=== PATIENT | male | born 1940 | race Caucasian/White ===

== ENCOUNTER → 2016-07-11 | Outpatient (REF) | payer MEDICARE ==
[~2016-07-11] MED LIST: /BUSP5TA PO; /IPRAINH INH; /TAMS4CA OR; ACET500C OR; ALBU83IN INH; ALBUTEROL INH; AMATIZA PO; AMBI10TA OR; AMIT24CA5 PO; ASPI81TA63 OR; ASTEPRO; AVOD0.5C OR; AVOD0.5C PO; AZEL0.055; BUSP5TA PO; BYST2.5T2 PO; CALCCHW12 OR; CALCTAB22 OR; CALCTAB75 PO; COLA100C2 OR; DICL0.1S7 TOP; DICL1GEL TD; DIGO0.12 PO; DOCU250C PO; FURO20TA2 PO; LACT10SO29 PO; LIDO1OIN2 TOP; MAXA10TA17 OR; METF500T PO; METF500T4 PO; METOCLOPRAM PO; OMNARIS NASAL SPRAY; PERC5TAB6 PO; PERFORMIST INH; PHEN 25 PO; PREV15CA OR; PREV30CA11 PO; PROA1AER INH; REGL5TAB2 PO; RIZA5TAB PO; SENN8.6C PO; SENO8.6T5 OR; SIMV40TA2 OR; SIMV40TA2 PO; TAMS0.4C2 PO; TRAM50TA2 OR; TRAM50TA2 PO; TYLENOL ARTHRITIS PO; VIT D 2000 PO; VITATAB11 PO; VOLT1GEL TOP; XARE20TA PO; ZOLP5TAB PO; asmanex PO; bystolic; bystolic PO
== END ==
LOC: M LAB REF 12:39
PROVIDERS: ATTEND Physician Assistant Medical
DX: H60.8X1 Other otitis externa, right ear (principal)

== ENCOUNTER → 2016-08-10 | Outpatient (CLI) | payer MEDICARE ==
[~2016-08-10] VITALS: Ht 185.4 cm; Wt 91.1 kg
[~2016-08-10] MED LIST changes: +ASMA220A IN; +BENA25CA4 PO; +DUTA1CAP PO; +FLOM5CAP PO; +K-TA10TA PO; +K-TA10TA2 PO; +LIDOCAINE 2% INJ 100 MG/5 ML SDV (FOR ANES.) As Ordered ONE; +NASA1SPR; +NS 1,000 ML IV SCH; +PROPOFOL 200 MG/20 ML VIAL As Ordered ONE; +TYLE500T78 PO; +VITATAB54 PO; +[UNRECOGNIZED DRUG - CODE] TOP; +[UNRECOGNIZED DRUG - CODE] XX
--- NOTE | 2016-08-10 14:09 | ROOR ---
Patient Name: Bijan Mclean Procedure Date: 08/10/2016 1:23 PM Date of : 1940 Age: 75 Room: [facility] Gender: Male Note Status: Finalized Procedure: Colonoscopy Indications: Abnormal CT of the GI tract Providers: Clemente VILLALOBOS MD Referring MD: Marianne Marcial DO Requesting Provider: Medicines: Monitored Anesthesia Care Complications: No immediate complications. Procedure: Pre-Anesthesia Assessment: - The heart rate, respiratory rate, oxygen saturations, blood pressure, adequacy of pulmonary ventilation, and response to care were monitored throughout the procedure. The Colonoscope was introduced through the anus and advanced to the cecum, identified by appendiceal orifice and ileocecal valve. The colonoscopy was performed without difficulty. The patient tolerated the procedure well. The quality of the bowel preparation was good. Findings: The perianal and digital rectal examinations were normal. (EXAM: Complete, PREP:Adequate) A 3 mm polyp was found in the cecum. The polyp was sessile. The polyp was removed with a cold snare. Resection and retrieval were complete. A 4 mm polyp was found in the recto-sigmoid colon. The polyp was sessile. The polyp was removed with a cold snare. Resection and retrieval were complete. The exam was otherwise without abnormality on direct and retroflexion views. Impression: - (EXAM: Complete, PREP:Adequate) - One 3 mm polyp in the cecum, removed with a cold snare. Resected and retrieved. - One 4 mm polyp at the recto-sigmoid colon, removed with a cold snare. Resected and retrieved. - The examination was otherwise normal on direct and retroflexion views. ( no lumenal rectal lesion is identified on this exam) Recommendation: - Telephone endoscopist for pathology results in 2 weeks. - If the pathology report reveals adenomatous tissue, then repeat the colonoscopy for surveillance in 5 years. - Resume Xarelto (rivaroxaban) at prior dose today. Clemente Villalobos MD Clemente VILLALOBOS MD 08/10/2016 2:08:38 PM This report has been signed electronically. Number of Addenda: 0 Note Initiated On: 08/10/2016 1:23 PM Estimated Blood Loss: Estimated blood loss: none.
[2016-08-10 14:40] VITALS: BP 113/67
== END | disposition home or self-care (01) ==
LOC: M OPP 12:07
PROVIDERS: ATTEND Internal Medicine Gastroenterology
DX: D12.0 Benign neoplasm of cecum (principal); D12.7 Benign neoplasm of rectosigmoid junction; I10 Essential (primary) hypertension; I48.91 Unspecified atrial fibrillation; E78.5 Hyperlipidemia, unspecified; J45.909 Unspecified asthma, uncomplicated; E11.9 Type 2 diabetes mellitus without complications; J44.9 Chronic obstructive pulmonary disease, unspecified; G47.30 Sleep apnea, unspecified; K21.9 Gastro-esophageal reflux disease without esophagitis; Z91.048 Other nonmedicinal substance allergy status; Z87.891 Personal history of nicotine dependence

== ENCOUNTER → 2016-10-09 | Outpatient (CLI) | payer MEDICARE ==
[~2016-10-09] MED LIST changes: -LIDOCAINE 2% INJ 100 MG/5 ML SDV (FOR ANES.) As Ordered ONE; -NS 1,000 ML IV SCH; -PROPOFOL 200 MG/20 ML VIAL As Ordered ONE
--- NOTE | 2016-10-09 10:36 | REP ---
CT STUDY OF THE INTERNAL AUDITORY CANALS WITHOUT CONTRAST: HISTORY: Otalgia on the right side. Comparison CT, neck soft tissue study is from June 11, 2016. TECHNIQUE: Helical scanning is acquired and 1 mm contiguous axial images are reformatted. Coronal multiplanar re-formation images are generated as well. CT FINDINGS: The mastoid sinuses are bilaterally atypically well-developed and well-aerated. Air cells are not opacified. There is no evidence to suggest mastoiditis. The external auditory canals are unremarkable and symmetric. Middle ear cavities are aerated bilaterally. The otic capsule is intact bilaterally. Cochlear and vestibular apparatus is normal. Internal auditory canals are normal and symmetric. There is no visible CP angle cistern mass or other significant intracranial abnormality. No intraorbital abnormality is seen. The adjacent segments of the parotid glands and periauricular soft tissues are unremarkable. No adenopathy or abnormal fluid collection is seen. IMPRESSION: Normal internal auditory canal CT study bilaterally. Signed by Adelfo Galeas MD 10/09/2016 02:54 P
== END ==
LOC: M RAD 09:40
PROVIDERS: ATTEND Physician Assistant Medical
DX: H92.01 Otalgia, right ear (principal)

== ENCOUNTER 2016-11-07 10:50 | Emergency (ER) | payer MEDICARE ==
[~2016-11-07] VITALS: Ht 185.4 cm; Wt 90.7 kg
[2016-11-07] MEDS ORDERED: NS 1,000 ML IV SCH (11:45)
[2016-11-07] MEDS ORDERED: ONDANSETRON 4MG/2ML VIAL (J2405) IV ONE (11:45)
[2016-11-07] MEDS ORDERED: MORPHINE 2 MG/ML 1ML SYRINGE IV PRN (11:45)
[2016-11-07] MEDS ORDERED: GI COCKTAIL 50ML BTL(HYOSCYAMINE/MAALOX/LIDOCAINE VISCOUS)(1:3:1) PO ONE (11:45)
[2016-11-07] MEDS ORDERED: BISO5TAB5 PO (11:59)
[2016-11-07 12:08] LABS: ALBUMIN 3.7 GM/DL (3.2-5.2); ALBUMIN/GLOBULIN RATIO 1.06 (1.00-1.93); ALKALINE PHOSPHATASE 69 U/L (45-117); ALT/SGPT 26 U/L (12-78); ANION GAP 6 MEQ/L (8-16); AST/SGOT 24 U/L (15-37); BILIRUBIN,DIRECT < 0.1 MG/DL (0.0-0.2); BILIRUBIN,TOTAL 0.5 MG/DL (0.2-1.0); BLOOD UREA NITROGEN 12 MG/DL (7-18); CALCIUM LEVEL 9.4 MG/DL (8.8-10.2); CARBON DIOXIDE LEVEL 28 MEQ/L (21-32); CHLORIDE LEVEL 106 MEQ/L (98-107); CREATININE FOR GFR 0.79 MG/DL (0.70-1.30); GLOMERULAR FILTRATION RATE > 60.0 (>42); GLUCOSE, FASTING 88 MG/DL (83-110); POTASSIUM SERUM 3.8 MEQ/L (3.5-5.1); SODIUM LEVEL 140 MEQ/L (136-145); TOTAL PROTEIN 7.2 GM/DL (6.4-8.2)
[2016-11-07 12:26] LABS: DIGOXIN LEVEL 0.4 NG/ML (0.5-2.0); FREE T4 0.83 NG/DL (0.76-1.46)
[2016-11-07 12:47] LABS: INR 0.99
[2016-11-07] MEDS ORDERED: ISOVUE-370 76% 100ML VIAL (Q9967) As Ordered ONE (12:59)
--- NOTE | 2016-11-07 13:28 | REP ---
PORTABLE CHEST: AP portable view of the chest is performed. Comparison 01/07/2015. There appears to be mild bibasilar fibroatelectatic change. No consolidating infiltrate is seen. The heart is normal in size. Mediastinal silhouette is unremarkable. IMPRESSION: Mild bibasilar fibroatelectatic change. Signed by Shyam Dowling MD 11/07/2016 04:57 P
[2016-11-07 13:31] LABS: BASO % 0.6 % (0.0-1.0); EOS # 0.2 K/mm3 (0.0-0.50); EOS % 2.4 % (0.0-3.0); LARGE UNSTAINED CELL # 0.2 K/mm3 (0.0-0.4); LARGE UNSTAINED CELL % 2.4 % (0.0-4.0); LYMPH # 1.5 K/mm3 (1.5-4.5); LYMPH % 23.3 % (24.0-44.0); MEAN CORPUSCULAR HEMOGLOBIN 29.4 pg (27.0-33.0); MEAN CORPUSCULAR HGB CONC 33.9 g/dl (32.0-36.5); MEAN CORPUSCULAR VOLUME 86.7 fl (80.0-96.0); MONO # 0.5 K/mm3 (0.0-0.8); MONO % 7.5 % (0.0-5.0); NEUTROPHILS % 63.8 % (36.0-66.0); PLATELET COUNT, AUTOMATED 163 k/mm3 (150-450); RED CELL DISTRIBUTION WIDTH 13.1 % (11.5-14.5); WHITE BLOOD COUNT 6.2 K/mm3 (4.0-10.0)
--- NOTE | 2016-11-07 13:50 | REP ---
CT ANGIOGRAM OF THE CHEST: TECHNIQUE: Axial contrast enhanced images from the thoracic inlet to the upper abdomen using 100 mL Isovue 370 intravenous contrast material with multiplanar reformations. There is bibasilar fibroatelectatic change. There is no evidence of pulmonary embolism or aortic dissection. There is mildly dilated aortic root measuring 4.2 cm in diameter, unchanged since the prior exam of 04/18/2016. No adenopathy is seen. There is no pleural or pericardial effusion. There appears to be a small hiatal hernia. There are degenerative changes of the spine. IMPRESSION: No CT evidence of pulmonary embolism or aortic dissection. Bibasilar fibroatelectatic change. Signed by Shyam Dowling MD 11/07/2016 04:58 P
--- NOTE | 2016-11-07 14:20 | REP ---
CT ABDOMEN AND PELVIS WITH CONTRAST: TECHNIQUE: Axial contrast enhanced images from the lung bases to the pubic symphysis using 100 mL Isovue 370 intravenous contrast material with multiplanar reformations. Liver, spleen, adrenals, pancreas, and kidneys appear unremarkable. Patient has had a prior cholecystectomy. A mesh material is seen in the right anterior abdominal wall. There is mild atherosclerotic calcification of the abdominal aorta without aneurysm. There is no adenopathy. There is no free air or free fluid. No bowel wall thickening is seen. No pelvic mass is seen. Urinary bladder appears unremarkable. Metallic prosthesis is noted of the right hip. IMPRESSION: No acute abnormalities as discussed above. Signed by Shyam Dowling MD 11/07/2016 04:58 P
[2016-11-07 15:14] VITALS: BP 120/84
--- NOTE | 2016-11-07 20:20 | ECGEPIP ---
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
== END 2016-11-07 15:30 | disposition home or self-care (01) ==
LOC: M ED 11:48
DX: R07.9 Chest pain, unspecified (principal); R10.9 Unspecified abdominal pain; E11.9 Type 2 diabetes mellitus without complications; E78.5 Hyperlipidemia, unspecified; I10 Essential (primary) hypertension; F17.210 Nicotine dependence, cigarettes, uncomplicated; J44.9 Chronic obstructive pulmonary disease, unspecified; K21.9 Gastro-esophageal reflux disease without esophagitis; K58.9 Irritable bowel syndrome, unspecified
CPT/HCPCS: 71010; 71275; 74177; 80048; 80076; 80162; 82550; 82553; 83690; 84439; 84443; 84484; 85025; 85379; 85610; 85730; 93005; 93041; 94760; 96374; 96375; 99285; J2405; Q9967

== ENCOUNTER → 2016-12-05 | Outpatient (REF) | payer MEDICARE ==
[~2016-12-05] MED LIST changes: +BISO5TAB5 PO
[2016-12-05 15:32] LABS: BLOOD UREA NITROGEN 11 MG/DL (7-18); CREATININE FOR GFR 0.84 MG/DL (0.70-1.30); GLOMERULAR FILTRATION RATE > 60.0 (>42)
== END ==
LOC: M LABDRAW1 12:51
PROVIDERS: ATTEND Physical Medicine & Rehabilitation
DX: M47.896 Other spondylosis, lumbar region (principal)

== ENCOUNTER → 2016-12-06 | Outpatient (CLI) | payer MEDICARE ==
--- NOTE | 2016-12-06 12:15 | REP ---
RIGHT LATERAL RIBS, PA CHEST: HISTORY: Rib pain. The lungs are clear. The heart is normal in size. The pulmonary vasculature is normal in appearance. The bony structure is intact. IMPRESSION: No acute disease. Signed by Altaf Granda MD 12/06/2016 12:26 P
== END ==
LOC: M RAD 11:29
PROVIDERS: ATTEND Family Medicine
DX: R07.82 Intercostal pain (principal)

== ENCOUNTER → 2016-12-10 | Outpatient (CLI) | payer MEDICARE ==
--- NOTE | 2016-12-10 19:51 | REP ---
MR LUMBAR SPINE WITHOUT AND WITH CONTRAST: HISTORY: Back pain. CONTRAST: ProHance 18 mL. COMPARISON: 11/25/2015. Decreased signal intensity on T2-weighted images is present in the lumbar intervertebral discs. The discs are decreased in height. These findings are consistent with disc degeneration. A diffuse disc bulge is present at the L1-2 level. There is minimal compression of the thecal sac. There is hypertrophy of the posterior articulating facets. The L1 nerves exit the neural foramina without compression. A diffuse disc bulge is present at the L2-3 level. There is minimal compression of the thecal sac. There is hypertrophy of the posterior articulating facets. The L2 nerves exit the neural foramina without compression. A diffuse disc bulge is present at the L3-4 level. There is hypertrophy of the ligamenta flava and posterior articulating facets. These findings produce minimal central canal stenosis. The L3 nerves exit the neural foramina without compression. A diffuse disc bulge is present at the L4-5 level. There is minimal compression of the thecal sac. There is hypertrophy of the posterior articulating facets. There is compression of the right L4 nerve in the neural foramen. The left L4 nerve exits the neural foramen without compression. There is no disc bulge or herniation at the L5-S1 level. There is partial sacralization of the L5 vertebral body. There is hypertrophy of the posterior articulating facets. The L5 nerves exit the neural foramina without compression. The conus medullaris is normal in appearance terminating at the level of the T12-L1 intervertebral discs. Normal signal intensity is present in the lumbar vertebral bodies. IMPRESSION: 1. Diffuse disc bulges at the L1-2 and L2-3 levels with minimal thecal sac compression. 2. Minimal central canal stenosis at the L3-4 level secondary to disc bulge, ligamentous, and facet hypertrophy. 3. Diffuse disc bulge at the L4-5 level with minimal thecal sac compression. There is compression of the right L4 nerve in the neural foramen. There is no significant change compared to the previous study. Signed by Altaf Granda MD 12/10/2016 07:55 P
== END ==
LOC: M RAD 14:25
PROVIDERS: ATTEND Physical Medicine & Rehabilitation
DX: M47.896 Other spondylosis, lumbar region (principal)
CPT/HCPCS: 72158; A9576

== ENCOUNTER → 2017-02-20 | Outpatient (CLI) | payer MEDICARE ==
[~2017-02-20] MED LIST changes: -AMIT24CA5 PO; +AMIT24CA7 PO; +CALCTAB68 PO; -DOCU250C PO; +DOCU250C7 PO; -METF500T PO; +METF500T13 PO; +PERC5TAB12 PO; -PERC5TAB6 PO; +PREV1CAP PO; -PREV30CA11 PO; -PROA1AER INH; +PROAAER10 INH
[2017-02-20 14:05] LABS: BLOOD UREA NITROGEN 11 MG/DL (7-18); CREATININE FOR GFR 0.83 MG/DL (0.70-1.30); GLOMERULAR FILTRATION RATE > 60.0 (>42)
== END ==
LOC: M LAB 12:16
PROVIDERS: ATTEND Physical Medicine & Rehabilitation
DX: M47.896 Other spondylosis, lumbar region (principal)

== ENCOUNTER → 2017-02-25 | Outpatient (CLI) | payer MEDICARE ==
--- NOTE | 2017-02-26 09:00 | REP ---
MRI LUMBAR SPINE WITHOUT AND WITH CONTRAST: HISTORY: Spondylosis. CONTRAST: ProHance 20 mL. COMPARISON: 12/10/2016. Decreased signal intensity on T2-weighted images is present in the lumbar intervertebral discs. The discs are decreased in height. These findings are consistent with disc degeneration. A diffuse disc bulge is present at the L1-2 level. There is minimal compression of the thecal sac. There is hypertrophy of the posterior articulating facets. The L1 nerves exit the neural foramina without compression. A diffuse disc bulge is present at the L2-3 level. There is minimal compression of the thecal sac. There is hypertrophy of the posterior articulating facets. The L2 nerves exit the neural foramina without compression. A diffuse disc bulge is present at the L3-4 level. There is hypertrophy of the ligamenta flava and posterior articulating facets. These findings produce minimal central canal stenosis. The L3 nerves exit the neural foramina without compression. There is minimal enhancement around the facet joints. A diffuse disc bulge is present at the L4-5 level. There is minimal compression of the thecal sac. There is hypertrophy of the posterior articulating facets. There is compression of the right L4 nerve in the neural foramen. The left L4 nerve exits the neural foramen without compression. There is no disc bulge or herniation at the L5-S1 level. There is partial sacralization of the L5 vertebral body. There is hypertrophy of the posterior articulating facets. The L5 nerves exit the neural foramina without compression. The conus medullaris is normal in appearance terminating at the level of the T12-L1 intervertebral disc. Normal signal intensity is present in the lumbar vertebral bodies. IMPRESSION: 1. Diffuse disc bulges at the L1-2, L2-3 and L4-5 levels with minimal thecal sac compression. There is compression of the right L4 nerve in the neural foramen. 2. Minimal central canal stenosis at the L3-level secondary to disc bulge, ligamentous and facet hypertrophy. There is no significant change compared to the previous study. Signed by Altaf Granda MD 02/26/2017 09:08 A
== END ==
LOC: M RAD 17:39
PROVIDERS: ATTEND Physical Medicine & Rehabilitation
DX: M43.06 Spondylolysis, lumbar region (principal)
CPT/HCPCS: 72158; A9576

== ENCOUNTER 2017-03-28 07:16 | Outpatient (CLI) | payer MEDICARE ==
[~2017-03-28] VITALS: Ht 182.9 cm; Wt 90.7 kg
[2017-03-28] MEDS ORDERED: NS 1,000 ML IV SCH (07:30)
[2017-03-28] MEDS ORDERED: LIDOCAINE 2% JELLY 30 ML As Ordered ONE (08:25)
--- NOTE | 2017-03-28 08:37 | ROOR ---
Patient Name: Bijan Mclean Procedure Date: 03/28/2017 8:19 AM Date of : 1940 Age: 76 Room: [facility] Gender: Male Note Status: Finalized Procedure: Flexible Sigmoidoscopy Indications: Abnormal CT of the GI tract, Anal pain, Rectal pain, Constipation Providers: Clemente LONDON MD Referring MD: Se Castle MD Requesting Provider: Medicines: Monitored Anesthesia Care Complications: No immediate complications. Procedure: Pre-Anesthesia Assessment: - The heart rate, respiratory rate, oxygen saturations, blood pressure, adequacy of pulmonary ventilation, and response to care were monitored throughout the procedure. The Colonoscope was introduced through the anus and advanced to the sigmoid colon. The flexible sigmoidoscopy was accomplished without difficulty. The patient tolerated the procedure well. The quality of the bowel preparation was good. Findings: The perianal and digital rectal examinations were normal. Pertinent negatives include no anal lesion or abnormality was detected. The entire examined colon appeared normal. Impression: - Perianal exam is normal. - Rectal exam is normal, but patient is very tender at anal verge to digital exam. - The entire anal, rectal and sigmoid colon is normal. - No specimens collected. Recommendation: - Continue present medications. - Refer to a colo-rectal surgeon if symptoms persist. - Refer for a second opinion if symptoms persist. Clemetne London MD Clemente LONDON MD 03/28/2017 8:37:32 AM This report has been signed electronically. Number of Addenda: 0 Note Initiated On: 03/28/2017 8:19 AM Estimated Blood Loss: Estimated blood loss: none.
[2017-03-28] MEDS ORDERED: PROPOFOL 200 MG/20 ML VIAL As Ordered ONE (08:44)
[2017-03-28] MEDS ORDERED: LIDOCAINE 2% INJ 100 MG/5 ML SDV (FOR ANES.) As Ordered ONE (08:44)
[2017-03-28 08:50] VITALS: BP 127/91
== END 2017-03-28 09:02 | disposition home or self-care (01) ==
LOC: M OPP 07:16
PROVIDERS: ATTEND Internal Medicine Gastroenterology
DX: R93.3 Abnormal findings on diagnostic imaging of other parts of digestive tract (principal); K60.2 Anal fissure, unspecified; R10.2 Pelvic and perineal pain; K59.00 Constipation, unspecified; K62.89 Other specified diseases of anus and rectum; I48.91 Unspecified atrial fibrillation; I10 Essential (primary) hypertension; E78.5 Hyperlipidemia, unspecified; R60.0 Localized edema; E11.9 Type 2 diabetes mellitus without complications; K57.92 Diverticulitis of intestine, part unspecified, without perforation or abscess without bleeding; R12 Heartburn; D64.9 Anemia, unspecified; M19.90 Unspecified osteoarthritis, unspecified site; M54.9 Dorsalgia, unspecified; M25.60 Stiffness of unspecified joint, not elsewhere classified; L71.9 Rosacea, unspecified; R51 Headache; J45.909 Unspecified asthma, uncomplicated; J44.9 Chronic obstructive pulmonary disease, unspecified; G47.30 Sleep apnea, unspecified; R06.83 Snoring; R06.02 Shortness of breath; N40.1 Benign prostatic hyperplasia with lower urinary tract symptoms; Z85.828 Personal history of other malignant neoplasm of skin; Z96.641 Presence of right artificial hip joint; Z87.891 Personal history of nicotine dependence; Z88.8 Allergy status to other drugs, medicaments and biological substances; Z88.2 Allergy status to sulfonamides; Z91.048 Other nonmedicinal substance allergy status; Z79.899 Other long term (current) drug therapy

== ENCOUNTER → 2017-04-17 | Outpatient (CLI) | payer MEDICARE ==
--- NOTE | 2017-04-17 12:05 | REP ---
RIGHT UPPER QUADRANT ULTRASOUND: Real-time sonographic evaluation of the right upper quadrant performed. The study is limited due to patient body habitus and bowel gas. The patient has had a prior cholecystectomy. The common bile duct measures 11 mm. Diffuse heterogeneous increased echotexture in the liver is compatible with diffuse fibrofatty infiltration. There is a focal hyperechoic nodule in the right lobe of the liver measuring 8 mm in diameter probably representing a small hemangioma. Visualized pancreas is grossly unremarkable but not well seen due to overlying bowel gas. Right kidney demonstrates no hydronephrosis with diffuse vascular calcifications measuring 11.5 cm in length. No free fluid is seen in the right upper quadrant. IMPRESSION: Status post cholecystectomy. No free fluid. Diffuse fibrofatty infiltration of the liver with probable small hemangioma in the right lobe 8 mm in diameter. No other significant finding. Signed by Shyam Dowling MD 04/17/2017 01:02 P
== END ==
LOC: M RAD 08:10
PROVIDERS: ATTEND Family Medicine
DX: R10.11 Right upper quadrant pain (principal)

== ENCOUNTER → 2017-07-30 | Outpatient (CLI) | payer MEDICARE | LOC: M RAD 10:31 | DX: R10.11 Right upper quadrant pain (principal) | CPT/HCPCS: 76775 ==

== ENCOUNTER → 2017-08-07 | Outpatient (CLI) | payer MEDICARE ==
[~2017-08-07] MED LIST changes: -/BUSP5TA PO; -/IPRAINH INH; -/TAMS4CA OR; -ACET500C OR; -ALBU83IN INH; -ALBUTEROL INH; -AMATIZA PO; -AMBI10TA OR; -AMIT24CA7 PO; -ASMA220A IN; -ASPI81TA63 OR; -ASTEPRO; -AVOD0.5C OR; -AVOD0.5C PO; -AZEL0.055; -BENA25CA4 PO; -BISO5TAB5 PO; -BUSP5TA PO; -BYST2.5T2 PO; -CALCCHW12 OR; -CALCTAB22 OR; -CALCTAB68 PO; -CALCTAB75 PO; -COLA100C2 OR; -DICL0.1S7 TOP; -DICL1GEL TD; -DIGO0.12 PO; -DOCU250C7 PO; -DUTA1CAP PO; -FLOM5CAP PO; -FURO20TA2 PO; +GASTROGRAFIN SOLUTION 30ML (Q9963) As Ordered; +ISOVUE-370 76% 100ML VIAL (Q9967) As Ordered; -K-TA10TA PO; -K-TA10TA2 PO; -LACT10SO29 PO; -LIDO1OIN2 TOP; -MAXA10TA17 OR; -METF500T13 PO; -METF500T4 PO; -METOCLOPRAM PO; -NASA1SPR; -OMNARIS NASAL SPRAY; -PERC5TAB12 PO; -PERFORMIST INH; -PHEN 25 PO; -PREV15CA OR; -PREV1CAP PO; -PROAAER10 INH; -REGL5TAB2 PO; -RIZA5TAB PO; -SENN8.6C PO; -SENO8.6T5 OR; -SIMV40TA2 OR; -SIMV40TA2 PO; -TAMS0.4C2 PO; -TRAM50TA2 OR; -TRAM50TA2 PO; -TYLE500T78 PO; -TYLENOL ARTHRITIS PO; -VIT D 2000 PO; -VITATAB11 PO; -VITATAB54 PO; -VOLT1GEL TOP; -XARE20TA PO; -ZOLP5TAB PO; -[UNRECOGNIZED DRUG - CODE] TOP; -[UNRECOGNIZED DRUG - CODE] XX; -asmanex PO; -bystolic; -bystolic PO
== END ==
LOC: M RAD 07:38
DX: K86.89 Other specified diseases of pancreas (principal)
CPT/HCPCS: Q9963

== ENCOUNTER → 2017-08-23 | Outpatient (REF) | payer MEDICARE ==
[2017-08-30 00:07] LABS: FATS NEUTRAL Normal (.); FATS TOTAL Normal (.)
== END ==
LOC: M LAB REF 11:55
DX: K86.9 Disease of pancreas, unspecified (principal)
CPT/HCPCS: 82705

== ENCOUNTER → 2017-09-04 | Outpatient (CLI) | payer MEDICARE | LOC: M WUC 15:30 | DX: R05 Cough (principal) | CPT/HCPCS: 71046 ==

== ENCOUNTER → 2017-10-01 | Outpatient (CLI) | payer MEDICARE ==
[2017-10-01 15:43] LABS: BASO % 0.4 % (0.0-1.0); EOS # 0.1 10^3/uL (0.0-0.50); EOS % 0.6 % (0.0-3.0); HEMATOCRIT 36.1 % (42.0-52.0); HEMOGLOBIN 12.4 g/dl (13.5-17.5); IMMATURE GRANULOCYTE % 0.4 % (0-3.0); LYMPH # 1.4 10^3/uL (1.5-4.5); LYMPH % 16.8 % (24.0-44.0); MEAN CORPUSCULAR HEMOGLOBIN 28.8 pg (27.0-33.0); MEAN CORPUSCULAR HGB CONC 34.3 g/dl (32.0-36.5); MONO # 0.7 10^3/uL (0.0-0.8); MONO % 8.8 % (0.0-5.0); PLATELET COUNT, AUTOMATED 185 10^3/uL (150-450); WHITE BLOOD COUNT 8.3 10^3/uL (4.0-10.0)
[2017-10-01 15:57] LABS: INR 0.97
[2017-10-01 16:12] LABS: ALBUMIN 3.9 GM/DL (3.2-5.2); ALBUMIN/GLOBULIN RATIO 1.34 (1.00-1.93); ALKALINE PHOSPHATASE 69 U/L (45-117); ALT/SGPT 30 U/L (12-78); ANION GAP 4 MEQ/L (8-16); AST/SGOT 19 U/L (7-37); BILIRUBIN,DIRECT 0.1 MG/DL (0.0-0.2); BILIRUBIN,TOTAL 0.4 MG/DL (0.2-1.0); BLOOD UREA NITROGEN 13 MG/DL (7-18); CALCIUM LEVEL 9.8 MG/DL (8.8-10.2); CARBON DIOXIDE LEVEL 27 MEQ/L (21-32); CHLORIDE LEVEL 105 MEQ/L (98-107); CREATININE FOR GFR 0.72 MG/DL (0.70-1.30); GLOMERULAR FILTRATION RATE > 60.0 (>42); GLUCOSE, FASTING 163 MG/DL (70-100); POTASSIUM SERUM 3.9 MEQ/L (3.5-5.1); PREALBUMIN 28.6 MG/DL (20.0-40.0); SODIUM LEVEL 136 MEQ/L (136-145); TOTAL PROTEIN 6.8 GM/DL (6.4-8.2)
== END ==
LOC: M LAB 14:57
DX: C25.0 Malignant neoplasm of head of pancreas (principal); K86.9 Disease of pancreas, unspecified
CPT/HCPCS: 80076

== ENCOUNTER → 2017-10-11 | Outpatient (REF) | payer MEDICARE ==
[2017-10-11 13:29] LABS: INR 0.95; PROTHROMBIN TIME 12.8 SECONDS (12.4-14.5)
[2017-10-11 13:30] LABS: PARTIAL THROMBOPLASTIN TIME 31.4 SECONDS (26.8-37.9)
[2017-10-11 15:59] LABS: CA19-9 TUMOR MARKER,CARBOHYDRA 1757.5 U/ML (<35.0)
== END ==
LOC: M LAB REF 13:00
DX: C25.9 Malignant neoplasm of pancreas, unspecified (principal)
CPT/HCPCS: 86301

== ENCOUNTER → 2017-10-18 | Outpatient (CLI) | payer MEDICARE ==
[~2017-10-18] MED LIST changes: -GASTROGRAFIN SOLUTION 30ML (Q9963) As Ordered; -ISOVUE-370 76% 100ML VIAL (Q9967) As Ordered; +LIDOCAINE 2% MDV 20 ML VIAL As Ordered; +MIDAZOLAM INJ 2 MG/2 ML VIAL (J2250) As Ordered; +ceFAZolin 1GM INJ (J0690 PER 500MG) As Ordered; +fentaNYL 100 MCG/2 ML INJECTION (J3010) As Ordered
== END | disposition home or self-care (01) ==
LOC: M IRPRO 12:25
DX: C25.9 Malignant neoplasm of pancreas, unspecified (principal); I10 Essential (primary) hypertension; J44.9 Chronic obstructive pulmonary disease, unspecified; E11.9 Type 2 diabetes mellitus without complications; I48.91 Unspecified atrial fibrillation; E78.00 Pure hypercholesterolemia, unspecified
CPT/HCPCS: 36561

== ENCOUNTER → 2017-11-01 | Outpatient (REF) | payer MEDICARE ==
[2017-11-01 19:54] LABS: CA19-9 TUMOR MARKER,CARBOHYDRA 1905.7 U/ML (<35.0)
== END ==
LOC: M LAB REF 15:52
DX: C25.9 Malignant neoplasm of pancreas, unspecified (principal)
CPT/HCPCS: 86301

== ENCOUNTER → 2017-12-05 | Outpatient (REF) | payer MEDICARE ==
[2017-12-06 19:57] LABS: CA19-9 TUMOR MARKER,CARBOHYDRA 1585.6 U/ML (<35.0)
== END ==
LOC: M LAB REF 16:35
DX: Z51.11 Encounter for antineoplastic chemotherapy (principal); C25.9 Malignant neoplasm of pancreas, unspecified
CPT/HCPCS: 86301

== ENCOUNTER → 2017-12-12 | Outpatient (CLI) | payer MEDICARE ==
[~2017-12-12] MED LIST changes: +GASTROGRAFIN SOLUTION 30ML (Q9963) As Ordered; +ISOVUE-370 76% 100ML VIAL (Q9967) As Ordered; -LIDOCAINE 2% MDV 20 ML VIAL As Ordered; -MIDAZOLAM INJ 2 MG/2 ML VIAL (J2250) As Ordered; -ceFAZolin 1GM INJ (J0690 PER 500MG) As Ordered; -fentaNYL 100 MCG/2 ML INJECTION (J3010) As Ordered
== END ==
LOC: M RAD 11:51
DX: R59.0 Localized enlarged lymph nodes (principal); C25.9 Malignant neoplasm of pancreas, unspecified; R97.8 Other abnormal tumor markers

== ENCOUNTER 2017-12-14 08:20 | Inpatient (IN) | payer MEDICARE ==
[2017-12-14 07:55] LABS: BASO % 0.4 % (0.0-1.0); EOS # 0.1 10^3/uL (0.0-0.50); EOS % 1.1 % (0.0-3.0); HEMATOCRIT 28.3 % (42.0-52.0); HEMOGLOBIN 9.8 g/dl (13.5-17.5); IMMATURE GRANULOCYTE % 1.3 % (0-3.0); LYMPH # 0.4 10^3/uL (1.5-4.5); LYMPH % 9.4 % (24.0-44.0); MEAN CORPUSCULAR HEMOGLOBIN 29.4 pg (27.0-33.0); MEAN CORPUSCULAR HGB CONC 34.6 g/dl (32.0-36.5); MONO # 0.6 10^3/uL (0.0-0.8); MONO % 13.3 % (0.0-5.0); NEUTROPHILS # 3.3 10^3/uL (1.8-7.7); NEUTROPHILS % 74.5 % (36.0-66.0); PLATELET COUNT, AUTOMATED 131 10^3/uL (150-450); RED BLOOD COUNT 3.33 10^6/uL (4.30-6.10); RED CELL DISTRIBUTION WIDTH 14.9 % (11.5-14.5); WHITE BLOOD COUNT 4.5 10^3/uL (4.0-10.0)
[2017-12-14 08:22] LABS: ALBUMIN 2.9 GM/DL (3.2-5.2); ALBUMIN/GLOBULIN RATIO 0.81 (1.00-1.93); ALKALINE PHOSPHATASE 81 U/L (45-117); ALT/SGPT 53 U/L (12-78); ANION GAP 9 MEQ/L (8-16); AST/SGOT 29 U/L (7-37); BILIRUBIN,DIRECT 0.1 MG/DL (0.0-0.2); BILIRUBIN,TOTAL 0.5 MG/DL (0.2-1.0); BLOOD UREA NITROGEN 9 MG/DL (7-18); CALCIUM LEVEL 8.9 MG/DL (8.8-10.2); CARBON DIOXIDE LEVEL 26 MEQ/L (21-32); CHLORIDE LEVEL 101 MEQ/L (98-107); CREATININE FOR GFR 0.66 MG/DL (0.70-1.30); DIGOXIN LEVEL 0.5 NG/ML (0.5-2.0); GLOMERULAR FILTRATION RATE > 60.0 (>42); GLUCOSE, FASTING 160 MG/DL (70-100); POTASSIUM SERUM 3.3 MEQ/L (3.5-5.1); SODIUM LEVEL 136 MEQ/L (136-145); TOTAL PROTEIN 6.5 GM/DL (6.4-8.2)
[2017-12-14 08:24] LABS: CK-MB VALUE MASS < 1.0 NG/ML (<3.6); CPK CREATINE PHOSPHOKINASE 104 U/L (39-308); MB/CK RELATIVE INDEX 0.96 (< OR =4); TROPONIN I < 0.02 NG/ML (< 0.10)
[2017-12-14] MEDS: ACETAMINOPHEN TAB 650MG DOSE (2X325MG) PO ×2 (08:24→15:40)
[2017-12-14] MEDS: POTASSIUM CHLORIDE 10 MEQ SR TABLET PO ×2 (08:36→09:00)
[2017-12-14] MEDS: cefTRIAXone SOD 1 GM in D5W MINI-BAG PLUS 50 ML IV (09:45)
[2017-12-14] MEDS: AZITHROMYCIN INJ 500 MG, VIAL MATE ADAPTER 1 EACH in D5W 250 ML IV (10:23)
[2017-12-14 10:40] LABS: KETONE, URINE AUTO RFX NEGATIVE (NEGATIVE); LEUKOCYTE ESTERASE UR AUTO RFX NEGATIVE (NEGATIVE); NITRITE, URINE AUTO RFX NEGATIVE (NEGATIVE); RBC, URINE AUTO RFX 0 /HPF (0-3); SPECIFIC GRAVITY UR AUTO RFX 1.005 (1.002-1.035); SQUAM EPITHELIAL CELL UR AURFX 0 /HPF (0-6); WBC, URINE AUTO RFX 0 /HPF (0-3)
[2017-12-14] MEDS ORDERED: GLUCAGON FOR INJ 1 MG VIAL (J1610) SC (11:15)
[2017-12-14] MEDS ORDERED: DEXTROSE 50% 50 ML SYRINGE IV (11:15)
[2017-12-14] MEDS ORDERED: GLUCOSE 4 GM CHEW TABLET PO (11:15)
[2017-12-14] MEDS ORDERED: MORPHINE 30 MG TAB **MSIR PO (11:15)
[2017-12-14] MEDS ORDERED: METOCLOPRAMIDE 5 MG TAB PO (11:15)
[2017-12-14] MEDS ORDERED: ALBUTEROL SULFATE 2.5 MG/0.5 ML INH NEB SOLN INH (11:15)
[2017-12-14] MEDS ORDERED: busPIRone 5 MG TAB PO (11:15)
[2017-12-14] MEDS ORDERED: ALBUTEROL 90 MCG/ACT 8GM HFA INHALER INH (11:15)
[2017-12-14 11:47] LABS: LACTIC ACID SEPSIS PROTOCOL 1.1 MMOL/L (0.4-2.0)
[2017-12-14] MEDS: HumaLOG INSULIN (NovoLOG) PER UNIT SC ×3 (12:00→20:44)
[2017-12-14] MEDS: FORMOTEROL FUMARATE 20 MCG/2 ML INHALATION SOLUTION (PERFOROMIST) INH ×2 (13:45→20:47)
[2017-12-14] MEDS: TAMSULOSIN 0.4 MG CAP PO (15:40)
[2017-12-14] MEDS: methylPREDNISolone INJ 125 MG/2 ML VIAL (J2930) IV (15:41)
[2017-12-14] MEDS: VANCOMYCIN HCL 1,000 MG, VIAL MATE ADAPTER 1 EACH in D5W 250 ML IV ×2 (15:41→18:15)
[2017-12-14] MEDS: MEROPENEM INJ 1 GM in APPROPRIATE DILUENT 1 EA IV (15:41)
[2017-12-14] MEDS: NS 1,000 ML IV (15:41)
[2017-12-14] MEDS: DIGOXIN 0.125 MG TAB PO (15:41)
[2017-12-14] MEDS ORDERED: ZOLMitriptan TABLET 2.5MG PO (15:45)
[2017-12-14 16:45] LABS: BEDSIDE GLUCOSE 178 MG/DL (83-110)
[2017-12-14] MEDS: RIVAROXABAN 20 MG TAB (XARELTO) PO (17:43)
[2017-12-14 20:33] LABS: BEDSIDE GLUCOSE 307 MG/DL (83-110)
[2017-12-14] MEDS: DUTASTERIDE 0.5 MG CAP (AVODART) PO (20:44)
[2017-12-14] MEDS: zolPIDEM TARTRATE 10MG TAB PO (20:44)
[2017-12-14] MEDS: SIMVASTATIN 20 MG TAB PO (20:44)
[2017-12-14] MEDS: BISOPROLOL FUMARATE 5 MG TAB PO (20:45)
[2017-12-15] MEDS: MEROPENEM INJ 1 GM in APPROPRIATE DILUENT 1 EA IV ×4 (01:18→23:53)
[2017-12-15] MEDS: ACETAMINOPHEN TAB 650MG DOSE (2X325MG) PO ×2 (03:05→22:07)
[2017-12-15 05:36] LABS: HEMATOCRIT 25.3 % (42.0-52.0); HEMOGLOBIN 8.9 g/dl (13.5-17.5); MEAN CORPUSCULAR HEMOGLOBIN 29.6 pg (27.0-33.0); MEAN CORPUSCULAR HGB CONC 35.2 g/dl (32.0-36.5); MEAN CORPUSCULAR VOLUME 84.1 fl (80.0-96.0); PLATELET COUNT, AUTOMATED 146 10^3/uL (150-450); RED BLOOD COUNT 3.01 10^6/uL (4.30-6.10); RED CELL DISTRIBUTION WIDTH 14.7 % (11.5-14.5); WHITE BLOOD COUNT 3.9 10^3/uL (4.0-10.0)
[2017-12-15 05:54] LABS: ANION GAP 9 MEQ/L (8-16); BLOOD UREA NITROGEN 11 MG/DL (7-18); CALCIUM LEVEL 8.5 MG/DL (8.8-10.2); CARBON DIOXIDE LEVEL 26 MEQ/L (21-32); CHLORIDE LEVEL 107 MEQ/L (98-107); CREATININE FOR GFR 0.53 MG/DL (0.70-1.30); GLOMERULAR FILTRATION RATE > 60.0 (>42); GLUCOSE, FASTING 182 MG/DL (70-100); MAGNESIUM LEVEL 1.8 MG/DL (1.8-2.4); POTASSIUM SERUM 3.7 MEQ/L (3.5-5.1); SODIUM LEVEL 142 MEQ/L (136-145)
[2017-12-15] MEDS: VANCOMYCIN HCL 1,000 MG, VIAL MATE ADAPTER 1 EACH in D5W 250 ML IV ×2 (06:00→18:25)
[2017-12-15] MEDS: FORMOTEROL FUMARATE 20 MCG/2 ML INHALATION SOLUTION (PERFOROMIST) INH ×2 (07:22→19:51)
[2017-12-15 07:23] LABS: C REACTIVE PROTEIN QUANTITATIV 4.93 MG/DL (0.00-0.30)
[2017-12-15] MEDS: methylPREDNISolone INJ 40 MG/1 ML VIAL (J2920) IV ×2 (08:12→22:01)
[2017-12-15] MEDS: HumaLOG INSULIN (NovoLOG) PER UNIT SC ×4 (08:12→21:00)
[2017-12-15] MEDS: NS 1,000 ML IV (08:13)
[2017-12-15] MEDS: TAMSULOSIN 0.4 MG CAP PO (08:13)
[2017-12-15] MEDS: DIGOXIN 0.125 MG TAB PO (08:13)
[2017-12-15] MEDS: POTASSIUM CHLORIDE 10 MEQ SR TABLET PO (08:13)
[2017-12-15] MEDS: SODIUM CHLORIDE HYPERTONIC 3% 15ML NEB SOL INH (09:28)
[2017-12-15] MEDS ORDERED: SENNA 8.6 MG TAB (SENOKOT) PO (09:30)
[2017-12-15 11:38] LABS: BEDSIDE GLUCOSE 187 MG/DL (83-110)
[2017-12-15] MEDS: guaiFENesin ER 600 MG TAB PO ×2 (12:00→21:00)
[2017-12-15 16:31] LABS: BEDSIDE GLUCOSE 278 MG/DL (83-110)
[2017-12-15] MEDS: RIVAROXABAN 20 MG TAB (XARELTO) PO (17:35)
[2017-12-15 20:35] LABS: BEDSIDE GLUCOSE 213 MG/DL (83-110)
[2017-12-15] MEDS: DUTASTERIDE 0.5 MG CAP (AVODART) PO (22:00)
[2017-12-15] MEDS: zolPIDEM TARTRATE 10MG TAB PO (22:00)
[2017-12-15] MEDS: BISOPROLOL FUMARATE 5 MG TAB PO ×2 (22:01)
[2017-12-15] MEDS: SIMVASTATIN 20 MG TAB PO (22:02)
[2017-12-16 05:09] LABS: HEMATOCRIT 26.2 % (42.0-52.0); HEMOGLOBIN 9.1 g/dl (13.5-17.5); MEAN CORPUSCULAR HEMOGLOBIN 29.2 pg (27.0-33.0); MEAN CORPUSCULAR HGB CONC 34.7 g/dl (32.0-36.5); PLATELET COUNT, AUTOMATED 217 10^3/uL (150-450); RED BLOOD COUNT 3.12 10^6/uL (4.30-6.10); RED CELL DISTRIBUTION WIDTH 14.9 % (11.5-14.5); WHITE BLOOD COUNT 5.7 10^3/uL (4.0-10.0)
[2017-12-16 05:42] LABS: ANION GAP 8 MEQ/L (8-16); BLOOD UREA NITROGEN 11 MG/DL (7-18); C REACTIVE PROTEIN QUANTITATIV 2.09 MG/DL (0.00-0.30); CALCIUM LEVEL 8.9 MG/DL (8.8-10.2); CARBON DIOXIDE LEVEL 26 MEQ/L (21-32); CHLORIDE LEVEL 105 MEQ/L (98-107); CREATININE FOR GFR 0.63 MG/DL (0.70-1.30); GLOMERULAR FILTRATION RATE > 60.0 (>42); GLUCOSE, FASTING 223 MG/DL (70-100); MAGNESIUM LEVEL 1.8 MG/DL (1.8-2.4); POTASSIUM SERUM 3.9 MEQ/L (3.5-5.1); SODIUM LEVEL 139 MEQ/L (136-145); VANCOMYCIN LEVEL TROUGH 9.1 UG/ML (10.0-20.0)
[2017-12-16] MEDS: VANCOMYCIN HCL 1,000 MG, VIAL MATE ADAPTER 1 EACH in D5W 250 ML IV (06:07)
[2017-12-16] MEDS: FORMOTEROL FUMARATE 20 MCG/2 ML INHALATION SOLUTION (PERFOROMIST) INH ×2 (07:22→20:00)
[2017-12-16] MEDS: POTASSIUM CHLORIDE 10 MEQ SR TABLET PO (08:45)
[2017-12-16] MEDS: MEROPENEM INJ 1 GM in APPROPRIATE DILUENT 1 EA IV (08:46)
[2017-12-16] MEDS: DIGOXIN 0.125 MG TAB PO (08:46)
[2017-12-16] MEDS: TAMSULOSIN 0.4 MG CAP PO (08:46)
[2017-12-16] MEDS: guaiFENesin ER 600 MG TAB PO ×2 (08:48→20:38)
[2017-12-16] MEDS: methylPREDNISolone INJ 40 MG/1 ML VIAL (J2920) IV (08:48)
[2017-12-16] MEDS: HumaLOG INSULIN (NovoLOG) PER UNIT SC ×4 (08:48→20:51)
[2017-12-16] MEDS ORDERED: methylPREDNISolone INJ 125 MG/2 ML VIAL (J2930) IV (09:15)
[2017-12-16] MEDS: LACTULOSE 20 GM/30 ML SYRUP UD PO (10:42)
[2017-12-16] MEDS: predniSONE 20 MG TAB PO (10:42)
[2017-12-16] MEDS: LevoFLOXacin 500 MG TABLET PO (10:43)
[2017-12-16] MEDS: FUROSEMIDE 20 MG TAB PO (10:43)
[2017-12-16 11:42] LABS: BEDSIDE GLUCOSE 176 MG/DL (83-110)
[2017-12-16] MEDS ORDERED: VANCOMYCIN HCL 1,000 MG, VIAL MATE ADAPTER 1 EACH in D5W 250 ML IV (14:00)
[2017-12-16] MEDS: ACETAMINOPHEN TAB 650MG DOSE (2X325MG) PO (14:38)
[2017-12-16] MEDS: traMADol 50 MG TAB PO (15:23)
[2017-12-16 16:32] LABS: BEDSIDE GLUCOSE 154 MG/DL (83-110)
[2017-12-16] MEDS: RIVAROXABAN 20 MG TAB (XARELTO) PO (17:48)
[2017-12-16] MEDS: DUTASTERIDE 0.5 MG CAP (AVODART) PO (20:49)
[2017-12-16] MEDS: SIMVASTATIN 20 MG TAB PO (20:50)
[2017-12-16] MEDS: BISOPROLOL FUMARATE 5 MG TAB PO (20:50)
[2017-12-16] MEDS: zolPIDEM TARTRATE 10MG TAB PO (20:50)
[2017-12-16 20:58] LABS: BEDSIDE GLUCOSE 265 MG/DL (83-110)
[2017-12-16] MEDS: DICYCLOMINE 10 MG CAP PO (21:00)
[2017-12-17] MEDS: LevoFLOXacin 500 MG TABLET PO (05:04)
[2017-12-17 06:43] LABS: HEMATOCRIT 27.3 % (42.0-52.0); HEMOGLOBIN 9.5 g/dl (13.5-17.5); MEAN CORPUSCULAR HEMOGLOBIN 29.6 pg (27.0-33.0); MEAN CORPUSCULAR HGB CONC 34.8 g/dl (32.0-36.5); PLATELET COUNT, AUTOMATED 279 10^3/uL (150-450); RED BLOOD COUNT 3.21 10^6/uL (4.30-6.10); RED CELL DISTRIBUTION WIDTH 15.1 % (11.5-14.5); WHITE BLOOD COUNT 6.6 10^3/uL (4.0-10.0)
[2017-12-17 07:18] LABS: ANION GAP 11 MEQ/L (8-16); BLOOD UREA NITROGEN 12 MG/DL (7-18); C REACTIVE PROTEIN QUANTITATIV 1.11 MG/DL (0.00-0.30); CALCIUM LEVEL 8.9 MG/DL (8.8-10.2); CARBON DIOXIDE LEVEL 26 MEQ/L (21-32); CHLORIDE LEVEL 104 MEQ/L (98-107); GLOMERULAR FILTRATION RATE > 60.0 (>42); GLUCOSE, FASTING 150 MG/DL (70-100); MAGNESIUM LEVEL 1.8 MG/DL (1.8-2.4); POTASSIUM SERUM 3.5 MEQ/L (3.5-5.1); SODIUM LEVEL 141 MEQ/L (136-145)
[2017-12-17] MEDS: FORMOTEROL FUMARATE 20 MCG/2 ML INHALATION SOLUTION (PERFOROMIST) INH (07:34)
[2017-12-17] MEDS: predniSONE 20 MG TAB PO (09:38)
[2017-12-17] MEDS: guaiFENesin ER 600 MG TAB PO (09:38)
[2017-12-17] MEDS: POTASSIUM CHLORIDE 10 MEQ SR TABLET PO (09:39)
[2017-12-17] MEDS: HumaLOG INSULIN (NovoLOG) PER UNIT SC (09:39)
[2017-12-17] MEDS: DIGOXIN 0.125 MG TAB PO (09:39)
[2017-12-17] MEDS: TAMSULOSIN 0.4 MG CAP PO (09:39)
[2017-12-17] MEDS: FUROSEMIDE 20 MG TAB PO (09:52)
== END 2017-12-17 10:14 | disposition home or self-care (01) | DRG 194 ==
LOC: M ED 08:20 → M ED INP 11:10 → M MSPAV 14:06
PROVIDERS: Internal Medicine
DX: J18.9 Pneumonia, unspecified organism (principal); C25.0 Malignant neoplasm of head of pancreas; J45.901 Unspecified asthma with (acute) exacerbation; I48.0 Paroxysmal atrial fibrillation; G43.909 Migraine, unspecified, not intractable, without status migrainosus; E11.9 Type 2 diabetes mellitus without complications; I10 Essential (primary) hypertension; M79.7 Fibromyalgia; F41.9 Anxiety disorder, unspecified; N40.0 Benign prostatic hyperplasia without lower urinary tract symptoms; E78.5 Hyperlipidemia, unspecified; E87.6 Hypokalemia; K58.9 Irritable bowel syndrome, unspecified; G47.33 Obstructive sleep apnea (adult) (pediatric); D64.9 Anemia, unspecified; K21.9 Gastro-esophageal reflux disease without esophagitis; Z99.81 Dependence on supplemental oxygen; R60.0 Localized edema; Z88.2 Allergy status to sulfonamides; Z88.8 Allergy status to other drugs, medicaments and biological substances; Z79.84 Long term (current) use of oral hypoglycemic drugs; Z91.048 Other nonmedicinal substance allergy status; Z87.891 Personal history of nicotine dependence; Z79.01 Long term (current) use of anticoagulants; Z79.899 Other long term (current) drug therapy; Y95 Nosocomial condition

== ENCOUNTER → 2018-01-14 | Outpatient (REF) | payer MEDICARE ==
[2018-01-14 14:27] LABS: ANISOCYTOSIS 1+; BANDS 1 % (< 11); BASOPHILS 2 % (0-4); EOSINOPHILS 2 % (0-5); LYMPHOCYTES 6 % (16-52); MONOCYTES 6 % (0-8); NEUTROPHILS 83 % (35-75); PLATELET ESTIMATE DECREASED (NORMAL)
== END ==
LOC: M LAB REF 13:29
DX: D72.829 Elevated white blood cell count, unspecified (principal)

== ENCOUNTER → 2018-01-14 | Outpatient (CLI) | payer MEDICARE | LOC: M RAD 06:53 | DX: C25.9 Malignant neoplasm of pancreas, unspecified (principal); K76.89 Other specified diseases of liver; D72.829 Elevated white blood cell count, unspecified; Z90.49 Acquired absence of other specified parts of digestive tract | CPT/HCPCS: 76705 ==

== ENCOUNTER → 2018-02-13 | Outpatient (CLI) | payer MEDICARE ==
[2018-02-13 14:09] LABS: HEMATOCRIT 31.8 % (42.0-52.0); HEMOGLOBIN 10.6 g/dl (13.5-17.5); MEAN CORPUSCULAR HEMOGLOBIN 30.5 pg (27.0-33.0); MEAN CORPUSCULAR HGB CONC 33.3 g/dl (32.0-36.5); MEAN CORPUSCULAR VOLUME 91.6 fl (80.0-96.0); PLATELET COUNT, AUTOMATED 153 10^3/uL (150-450); RED BLOOD COUNT 3.47 10^6/uL (4.30-6.10); RED CELL DISTRIBUTION WIDTH 14.8 % (11.5-14.5); WHITE BLOOD COUNT 26.8 10^3/uL (4.0-10.0)
[2018-02-13 14:10] LABS: ADD MANUAL DIFFER YES; DIFF SLIDE NUMBER 293; POSITIVE DIFF POS FLAG; POSITIVE MORPH POS FLAG
[2018-02-13 14:35] LABS: ALBUMIN 3.5 GM/DL (3.2-5.2); ALBUMIN/GLOBULIN RATIO 1.13 (1.00-1.93); ALKALINE PHOSPHATASE 270 U/L (45-117); ALT/SGPT 201 U/L (12-78); ANION GAP 7 MEQ/L (8-16); AST/SGOT 69 U/L (7-37); BILIRUBIN,DIRECT < 0.1 MG/DL (0.0-0.2); BILIRUBIN,TOTAL 0.2 MG/DL (0.2-1.0); BLOOD UREA NITROGEN 10 MG/DL (7-18); CALCIUM LEVEL 9.5 MG/DL (8.8-10.2); CARBON DIOXIDE LEVEL 28 MEQ/L (21-32); CHLORIDE LEVEL 107 MEQ/L (98-107); CREATININE FOR GFR 0.58 MG/DL (0.70-1.30); GLOMERULAR FILTRATION RATE > 60.0 (>42); GLUCOSE, FASTING 99 MG/DL (70-100); POTASSIUM SERUM 3.8 MEQ/L (3.5-5.1); SODIUM LEVEL 142 MEQ/L (136-145); TOTAL PROTEIN 6.6 GM/DL (6.4-8.2)
[2018-02-13 14:58] LABS: ATYPICAL LYMPH 5 % (0-5); BANDS 5 % (< 11); BASOPHILS 1 % (0-4); LYMPHOCYTES 3 % (16-52); MONOCYTES 14 % (0-8); NEUTROPHILS 72 % (35-75)
[2018-02-13 14:59] LABS: PLATELET ESTIMATE NORMAL (NORMAL)
[2018-02-13 15:00] LABS: TOXIC GRANULATION 1+
== END ==
LOC: M RAD 13:30
DX: C25.9 Malignant neoplasm of pancreas, unspecified (principal); K76.89 Other specified diseases of liver; K86.89 Other specified diseases of pancreas
CPT/HCPCS: 76705

== ENCOUNTER → 2018-02-18 | Outpatient (REF) | payer MEDICARE ==
[2018-02-18 17:00] LABS: CA19-9 TUMOR MARKER,CARBOHYDRA 810.9 U/ML (<35.0)
== END ==
LOC: M LAB REF 13:13
DX: C25.9 Malignant neoplasm of pancreas, unspecified (principal)
CPT/HCPCS: 86301

== ENCOUNTER → 2018-03-18 | Outpatient (REF) | payer MEDICARE ==
[2018-03-18 15:56] LABS: CA19-9 TUMOR MARKER,CARBOHYDRA 788.4 U/ML (<35.0)
== END ==
LOC: M LAB REF 13:41
DX: C25.9 Malignant neoplasm of pancreas, unspecified (principal)
CPT/HCPCS: 86301

== ENCOUNTER → 2018-03-24 | Outpatient (CLI) | payer MEDICARE | LOC: M RAD 12:54 | DX: C25.9 Malignant neoplasm of pancreas, unspecified (principal) | CPT/HCPCS: Q9963 ==

== ENCOUNTER 2018-03-29 09:42 | Emergency (ER) | payer MEDICARE ==
[2018-03-29 10:09] LABS: BEDSIDE GLUCOSE 166 MG/DL (83-110)
[2018-03-29] MEDS ORDERED: ONDANSETRON 4MG/2ML VIAL (J2405) As Ordered (10:13)
[2018-03-29 10:38] LABS: BASO # 0.1 10^3/uL (0.0-0.2); BASO % 0.4 % (0.0-1.0); EOS % 0.2 % (0.0-3.0); HEMATOCRIT 30.7 % (42.0-52.0); HEMOGLOBIN 10.2 g/dl (13.5-17.5); LYMPH # 1.1 10^3/uL (1.5-4.5); LYMPH % 6.1 % (24.0-44.0); MEAN CORPUSCULAR HEMOGLOBIN 30.3 pg (27.0-33.0); MEAN CORPUSCULAR HGB CONC 33.2 g/dl (32.0-36.5); MEAN CORPUSCULAR VOLUME 91.1 fl (80.0-96.0); MONO % 12.6 % (0.0-5.0); NEUTROPHILS # 14.3 10^3/uL (1.8-7.7); NEUTROPHILS % 77.7 % (36.0-66.0); PLATELET COUNT, AUTOMATED 139 10^3/uL (150-450); RED BLOOD COUNT 3.37 10^6/uL (4.30-6.10); RED CELL DISTRIBUTION WIDTH 14.7 % (11.5-14.5); WHITE BLOOD COUNT 18.3 10^3/uL (4.0-10.0)
[2018-03-29] MEDS: MORPHINE 2 MG/ML 1ML SYRINGE (J2270) IV (10:38)
[2018-03-29] MEDS: ONDANSETRON 4MG/2ML VIAL (J2405) IV (10:38)
[2018-03-29 10:48] LABS: INR 0.96; PROTHROMBIN TIME 12.9 SECONDS (12.1-14.4)
[2018-03-29 10:49] LABS: PARTIAL THROMBOPLASTIN TIME 31.4 SECONDS (25.4-37.6)
[2018-03-29 11:06] LABS: MONO # 2.3 10^3/uL (0.0-0.8); POSITIVE DIFF POS FLAG
[2018-03-29 11:12] LABS: ALBUMIN 3.2 GM/DL (3.2-5.2); ALBUMIN/GLOBULIN RATIO 1.33 (1.00-1.93); ALKALINE PHOSPHATASE 241 U/L (45-117); ALT/SGPT 164 U/L (12-78); ANION GAP 9 MEQ/L (8-16); AST/SGOT 66 U/L (7-37); BILIRUBIN,DIRECT < 0.1 MG/DL (0.0-0.2); BILIRUBIN,TOTAL 0.1 MG/DL (0.2-1.0); BLOOD UREA NITROGEN 8 MG/DL (7-18); CARBON DIOXIDE LEVEL 26 MEQ/L (21-32); CHLORIDE LEVEL 110 MEQ/L (98-107); CPK CREATINE PHOSPHOKINASE 71 U/L (39-308); CREATININE FOR GFR 0.54 MG/DL (0.70-1.30); DIGOXIN LEVEL 0.4 NG/ML (0.5-2.0); GLOMERULAR FILTRATION RATE > 60.0 (>42); GLUCOSE, FASTING 153 MG/DL (70-100); LIPASE 167 U/L (73-393); MB/CK RELATIVE INDEX 2.39 (< OR =4); POTASSIUM SERUM 3.1 MEQ/L (3.5-5.1); SODIUM LEVEL 145 MEQ/L (136-145); TOTAL PROTEIN 5.6 GM/DL (6.4-8.2); TROPONIN I < 0.02 NG/ML (< 0.10)
[2018-03-29] MEDS: NORCO, ANEXSIA 5/325MG TABLET (HYDROcodone/ACETAMINOPHEN) PO (12:45)
== END 2018-03-29 12:54 | disposition home or self-care (01) ==
LOC: M ED 09:42
DX: R51 Headache (principal); M54.9 Dorsalgia, unspecified; I10 Essential (primary) hypertension; K21.9 Gastro-esophageal reflux disease without esophagitis; J44.9 Chronic obstructive pulmonary disease, unspecified; G43.909 Migraine, unspecified, not intractable, without status migrainosus; J30.89 Other allergic rhinitis; C25.9 Malignant neoplasm of pancreas, unspecified; Z92.21 Personal history of antineoplastic chemotherapy; Z72.0 Tobacco use; Z79.899 Other long term (current) drug therapy; Z88.8 Allergy status to other drugs, medicaments and biological substances; Z88.2 Allergy status to sulfonamides; Z91.89 Other specified personal risk factors, not elsewhere classified
CPT/HCPCS: J2405

== ENCOUNTER → 2018-04-16 | Outpatient (CLI) | payer MEDICARE | LOC: M RAD 10:11 | DX: R93.7 Abnormal findings on diagnostic imaging of other parts of musculoskeletal system (principal); M51.36 Other intervertebral disc degeneration, lumbar region | CPT/HCPCS: 78306 ==

== ENCOUNTER → 2018-05-13 | Outpatient (CLI) | payer MEDICARE | LOC: M PLARAD 14:53 | DX: C25.9 Malignant neoplasm of pancreas, unspecified (principal); S32.010D Wedge compression fracture of first lumbar vertebra, subsequent encounter for fracture with routine healing; X58.XXXD Exposure to other specified factors, subsequent encounter; Y92.9 Unspecified place or not applicable; M54.9 Dorsalgia, unspecified; K76.9 Liver disease, unspecified; K86.9 Disease of pancreas, unspecified; Z92.21 Personal history of antineoplastic chemotherapy | CPT/HCPCS: 78815 ==

== ENCOUNTER → 2018-05-19 | Outpatient (CLI) | payer MEDICARE | LOC: M RAD 10:29 | DX: M25.551 Pain in right hip (principal); Z96.641 Presence of right artificial hip joint ==

== ENCOUNTER → 2018-05-26 | Outpatient (CLI) | payer MEDICARE | LOC: M RAD 09:30 | DX: R94.5 Abnormal results of liver function studies (principal); Z90.49 Acquired absence of other specified parts of digestive tract; K86.9 Disease of pancreas, unspecified; N28.1 Cyst of kidney, acquired | CPT/HCPCS: 76705 ==

== ENCOUNTER → 2018-06-04 | Outpatient (CLI) | payer MEDICARE | LOC: M RAD 17:49 | DX: I82.411 Acute embolism and thrombosis of right femoral vein (principal); R60.0 Localized edema | CPT/HCPCS: 93971 ==

== ENCOUNTER → 2018-06-04 | Outpatient (CLI) | payer MEDICARE | LOC: M RAD 17:59 | DX: M85.88 Other specified disorders of bone density and structure, other site (principal); M25.551 Pain in right hip; Z96.641 Presence of right artificial hip joint ==

== ENCOUNTER 2018-06-06 11:11 | Emergency (ER) | payer MEDICARE ==
[2018-06-06] MEDS: MORPHINE 4 MG/ML 1ML VIAL/SYRINGE (J2270) IV ×2 (11:55→12:48)
[2018-06-06] MEDS: ONDANSETRON 4MG/2ML VIAL (J2405) IV (11:55)
[2018-06-06] MEDS: LORazepam 2 MG/ML VIAL (J2060) IV (12:15)
[2018-06-06 12:48] LABS: BASO % 0.4 % (0.0-1.0); EOS % 0.4 % (0.0-3.0); HEMATOCRIT 31.5 % (42.0-52.0); HEMOGLOBIN 10.4 g/dl (13.5-17.5); IMMATURE GRANULOCYTE % 0.1 % (0-3.0); LYMPH # 0.6 10^3/uL (1.5-4.5); LYMPH % 8.4 % (24.0-44.0); MEAN CORPUSCULAR HEMOGLOBIN 30.2 pg (27.0-33.0); MEAN CORPUSCULAR VOLUME 91.6 fl (80.0-96.0); MONO # 0.3 10^3/uL (0.0-0.8); MONO % 3.6 % (0.0-5.0); NEUTROPHILS % 87.1 % (36.0-66.0); PLATELET COUNT, AUTOMATED 152 10^3/uL (150-450); RED BLOOD COUNT 3.44 10^6/uL (4.30-6.10); RED CELL DISTRIBUTION WIDTH 14.1 % (11.5-14.5); WHITE BLOOD COUNT 6.9 10^3/uL (4.0-10.0)
[2018-06-06 13:07] LABS: ANION GAP 7 MEQ/L (8-16); BLOOD UREA NITROGEN 17 MG/DL (7-18); C REACTIVE PROTEIN QUANTITATIV 0.97 MG/DL (0.00-0.30); CALCIUM LEVEL 9.2 MG/DL (8.8-10.2); CARBON DIOXIDE LEVEL 30 MEQ/L (21-32); CHLORIDE LEVEL 102 MEQ/L (98-107); CREATININE FOR GFR 0.53 MG/DL (0.70-1.30); ERYTHROCYTE SEDIMENTATION RATE 48 mm/hr (0-20); GLOMERULAR FILTRATION RATE > 60.0 (>42); GLUCOSE, FASTING 119 MG/DL (70-100); POTASSIUM SERUM 3.5 MEQ/L (3.5-5.1); SODIUM LEVEL 139 MEQ/L (136-145)
== END 2018-06-06 14:49 | disposition home or self-care (01) ==
LOC: M ED 11:11
DX: M51.36 Other intervertebral disc degeneration, lumbar region (principal); I48.91 Unspecified atrial fibrillation; E11.9 Type 2 diabetes mellitus without complications; I10 Essential (primary) hypertension; F41.9 Anxiety disorder, unspecified; G43.909 Migraine, unspecified, not intractable, without status migrainosus; K21.9 Gastro-esophageal reflux disease without esophagitis; N40.0 Benign prostatic hyperplasia without lower urinary tract symptoms; F17.210 Nicotine dependence, cigarettes, uncomplicated; G47.33 Obstructive sleep apnea (adult) (pediatric); W19.XXXA Unspecified fall, initial encounter; I82.591 Chronic embolism and thrombosis of other specified deep vein of right lower extremity; Z79.899 Other long term (current) drug therapy
CPT/HCPCS: J2270

== ENCOUNTER → 2018-06-17 | Outpatient (CLI) | payer MEDICARE ==
[~2018-06-17] MED LIST changes: +/BUSP5TA PO; +/IPRAINH INH; +/TAMS4CA OR; +ACET500C OR; +ALBU83IN INH; +ALBUTEROL INH; +AMATIZA PO; +AMBI10TA OR; +AMIT24CA7 PO; +AMOX875T2 PO; +ASMA220A IN; +ASPI81TA63 OR; +ASTEPRO; +AVOD0.5C OR; +AVOD0.5C PO; +AZEL0.055; +BENA25CA4 PO; +BISO5TAB5 PO; +BUSP5TA PO; +BYST2.5T2 PO; +CALCCHW12 OR; +CALCTAB22 OR; +CALCTAB68 PO; +CALCTAB75 PO; +CEPH500C PO; +COLA100C2 OR; +DICL0.1S7 TOP; +DICL1GEL TD; +DIGO0.12 PO; +DOCU250C7 PO; +DUTA1CAP PO; +ENOX40IN3 SC; +FLOM0.4C39 PO; +FURO20TA2 PO; -GASTROGRAFIN SOLUTION 30ML (Q9963) As Ordered; -ISOVUE-370 76% 100ML VIAL (Q9967) As Ordered; +K-TA10TA PO; +K-TA10TA2 PO; +LACT10SO29 PO; +LEVA1TAB2 PO; +LIDO1OIN2 TOP; +LIDO1PAD TD; +LIDO2JELLY TOP; +MAXA10TA17 OR; +METF500T13 PO; +METF500T4 PO; +METOCLOPRAM PO; +MORP15TA2 PO; +MORP20SO PO; +NASA1SPR; +OMNARIS NASAL SPRAY; +ONDA8TAB8 PO; +OXYC-517 PO; +PERC5TAB12 PO; +PERF20NE2 INH; +PERFORMIST INH; +PHEN 25 PO; +PRED10TA2 PO; +PREV15CA OR; +PREV1CAP PO; +PROAAER10 INH; +REGL5TAB2 PO; +RIZA5TAB PO; +SELE25SHA TOP; +SENN8.6C PO; +SENO8.6T5 OR; +SIMV40TA2 OR; +SIMV40TA2 PO; +TAMS0.4C2 PO; +TRAM50TA2 OR; +TRAM50TA2 PO; +TYLE500T78 PO; +TYLENOL ARTHRITIS PO; +VIT D 2000 PO; +VITATAB11 PO; +VITATAB54 PO; +VOLT1GEL TOP; +XARE20TA PO; +ZOLP10TA2 PO; +ZOLP5TAB PO; +[UNRECOGNIZED DRUG - CODE] TOP; +[UNRECOGNIZED DRUG - CODE] XX; +[UNRECOGNIZED DRUG - SUPPLY] XX; +asmanex PO; +bystolic; +bystolic PO
--- NOTE | 2018-06-17 16:31 | REP ---
LEFT HIP, TWO VIEWS: HISTORY: Pain. There is no acute fracture or dislocation. There is minimal narrowing of the joint space. A subchondral cyst is present in the acetabulum. IMPRESSION:Degenerative change as described above. Electronically Signed by Altaf Granad MD 06/17/2018 04:35 P
== END ==
LOC: M RAD 15:52
PROVIDERS: ATTEND Internal Medicine Medical Oncology
DX: M16.12 Unilateral primary osteoarthritis, left hip (principal); M25.552 Pain in left hip

== ENCOUNTER → 2018-07-31 | Outpatient (CLI) | payer MEDICARE ==
[~2018-07-31] MED LIST changes: +PROHANCE 279.3MG/ML 15ML VIAL (A9576) As Ordered ONE
--- NOTE | 2018-07-31 15:24 | REP ---
MRI LUMBAR SPINE WITHOUT AND WITH IV GADOLINIUM: HISTORY: Degenerative disc disease in the lumbar spine. Comparison is made of lumbar spine CT study from June 06, 2018. The recent CT study showed recent wedge compression fracture deformities at T11, L1, and L4. Comparison MRI study is also reviewed from February 25, 2017. TECHNIQUE: Sagittal and axial T1- and T2-weighted scans are acquired in the usual fashion with and without fat saturation. Sequences include spin echo, turbo spin-echo, and STIR imaging sequences. Gadolinium enhancement dose is 14 mL of intravenous ProHance. MRI FINDINGS: There are multiple osteoporotic recent compression fractures in the lumbar spine. These are increased in number from the CT study done just less than 2 months ago. Today, there are compression fracture deformities at T12, L1, L3, L4, and L5. The T12, L3, and L5 compression deformities are new from the June 06, 2018 study. There is enhancing marrow edema along the superior endplate of L5, throughout T12, and along the superior endplate of L4. There are mild marrow edema changes in L3 inferiorly. No space-occupying or local bony destructive lesion is seen. No epidural mass or fluid collection is appreciated. Degenerative disc changes are noted as seen on CT as well. Conus medullaris is normal in position and appearance at the L1 level. No other abnormal gadolinium enhancement is seen. At the L3-4, there is mild central canal stenosis due to diffuse disc bulging, ligamentum flavum and facet hypertrophy, and developmentally short pedicles. Similar mild central canal stenosis is noted L4-5 due to the same factors. There is osteoarthritic facet hypertrophy at L5-S1 bilaterally. IMPRESSION: There is progression of osteoporotic wedge compression fracture deformities at new levels as above including T12, L3, and L5 in addition to the recent compression fractures identified by CT study June 06, 2018. There is approximately 40-50% loss of vertebral body height at T12 and 25% loss of height at the new fracture at L5. Otherwise vertebral body heights are unchanged from the recent CT study. These progressive osteoporotic compression fracture deformities raise question of multiple myeloma. No metastatic disease is visible. Degenerative central canal stenosis is noted at L3-4 and L4-5. There is mild neural foraminal narrowing on the right L5-S1 and L4-5. Mild bilateral neural foraminal narrowing is seen at L3-4. Electronically Signed by Adelfo Galeas MD 07/31/2018 03:51 P
== END ==
LOC: M RAD 12:20
PROVIDERS: ATTEND Physical Medicine & Rehabilitation
DX: M51.36 Other intervertebral disc degeneration, lumbar region (principal)
CPT/HCPCS: 72158; A9576

== ENCOUNTER → 2018-08-04 | Outpatient (CLI) | payer MEDICARE ==
[~2018-08-04] MED LIST changes: +EMLA CREAM 5GM (LIDOCAINE/PRILOCAINE) As Ordered ONE; +GASTROGRAFIN SOLUTION 30ML (Q9963) As Ordered ONE; +ISOVUE-370 76% 100ML VIAL (Q9967) As Ordered ONE; -PROHANCE 279.3MG/ML 15ML VIAL (A9576) As Ordered ONE
--- NOTE | 2018-08-04 18:15 | REP ---
CT chest with IV contrast: History: Pancreatic carcinoma. Comparison chest CT study March 24, 2018. CT contrast dose: 100 mL of intravenous Isovue 370. CT findings: There is no evidence of pleural or pericardial effusion. No hilar or mediastinal mass or adenopathy is seen. No pulmonary nodule is appreciated. There is a right-sided Ganxzd-N-Dqwm catheter with its tip in the superior vena cava. No new infiltrate is seen. There are mild wedge compression deformities at T12, T11, and T10. These appear to be new findings when compared with the March 24, 2018 study. No bony destructive lesion is appreciated. Impression: No evidence of intrathoracic metastasis seen. There is new osteoporotic wedging at T10, T11, and T12 when compared with March 24, 2018. Electronically Signed by Adelfo Galeas MD 08/05/2018 08:07 A
--- NOTE | 2018-08-04 18:20 | REP ---
CT abdomen and pelvis with IV and oral contrast: History: Pancreatic carcinoma. Metastatic for follow-up. Comparison CT study is from May 13, 2018 PET-CT. Comparison CT abdomen and pelvis study is March 24, 2018. CT contrast dose: 100 mL of intravenous Isovue 370. CT findings: The gallbladder is surgically absent. There is a tiny peripheral low density area in the posterior segment of the right lobe of the liver measuring 0.8 cm in diameter. There is another a little more caudally measuring 1.4 cm in diameter. Neither of these is in the location of the FDG avid area in the left lobe of the liver. Both of those these low density areas are visible and unchanged from March 24, 2018 prior study. No other focal liver mass lesion or low density lesion is appreciated on today's CT. The intrahepatic bile ducts are slightly prominent unchanged from March 24, 2018. CBD measures 0.9 cm distally. No pancreatic mass lesion is observed. A very subtle fullness is seen in the pancreatic head corresponding to the FDG avid nodule seen on PET-CT in the pancreatic head. This area appears a little less prominent than on the March 24, 2018 study. Previously measuring 20 mm in anteroposterior dimension, today 18 mm. No regional adenopathy is observed. Small and large intestinal bowel loops are unremarkable. A right ventral hernia repair mesh is seen in place. No abdominal wall defect is seen. Moderate stool is seen in the rectum. A prosthetic right hip joint is noted. No bony destructive lesion is seen. Impression: No evidence of intra-abdominal progression or new metastasis seen. Electronically Signed by Adelfo Galeas MD 08/05/2018 08:07 A
== END ==
LOC: M RAD 10:57
PROVIDERS: ATTEND Internal Medicine Medical Oncology
DX: C25.9 Malignant neoplasm of pancreas, unspecified (principal)
CPT/HCPCS: 71260; 74177; Q9963; Q9967

== ENCOUNTER → 2018-08-18 | Outpatient (CLI) | payer MEDICARE ==
[~2018-08-18] MED LIST changes: -EMLA CREAM 5GM (LIDOCAINE/PRILOCAINE) As Ordered ONE; -GASTROGRAFIN SOLUTION 30ML (Q9963) As Ordered ONE; -ISOVUE-370 76% 100ML VIAL (Q9967) As Ordered ONE
--- NOTE | 2018-08-18 15:10 | REP ---
RIGHT ANKLE, FOUR VIEWS: HISTORY: Pain. There is no acute fracture or dislocation. The joint space is normal in appearance. IMPRESSION:There is no acute fracture or dislocation. Electronically Signed by Altaf Granda MD 08/18/2018 03:46 P
== END ==
LOC: M WUC 13:40
PROVIDERS: ATTEND Physician Assistant
DX: M25.571 Pain in right ankle and joints of right foot (principal)

== ENCOUNTER → 2018-09-04 | Outpatient (CLI) | payer MEDICARE ==
--- NOTE | 2018-09-04 15:30 | REP ---
Right hip: Two views. History: Injury in a fall. Comparison study: June 04, 2018. Findings: The patient is status post right hip arthroplasty. There is some heterotopic bone formation superiorly and laterally. There is no evidence of acute fracture or subluxation. Impression: Status post right hip arthroplasty. No acute bony abnormality. Electronically Signed by Adelfo Galeas MD 09/04/2018 03:22 P
== END ==
LOC: M RAD 14:10
PROVIDERS: ATTEND Family Medicine
DX: S79.911A Unspecified injury of right hip, initial encounter (principal); W19.XXXA Unspecified fall, initial encounter; Y92.9 Unspecified place or not applicable; Z96.641 Presence of right artificial hip joint

== ENCOUNTER → 2018-10-01 | Outpatient (CLI) | payer MEDICARE ==
[~2018-10-01] MED LIST changes: -/IPRAINH INH; -/TAMS4CA OR; +ATRO0.063 INH; +FLOM0.4C39 OR; +[UNRECOGNIZED DRUG - CODE] SC
--- NOTE | 2018-10-01 17:31 | REP ---
PET/CT: History: Metastatic pancreatic malignancy. Monitoring response to chemotherapy treatment. Comparisons: Comparison PET-CT study May 13, 2018. CT studies of the chest abdomen and pelvis from August 20, 2018. TECHNIQUE: 47 minutes following the intravenous injection of a 9.98 mCi dose of F-18 FDG, three-dimensional PET scintigraphy is acquired from the skull base to the proximal thighs. Triplanar noncontrast CT scanning is acquired through the same anatomic range for attenuation correction, and image registration with scan parameters optimized to minimize radiation exposure to the patient. PET scintigraphy and CT datasets were fused and displayed on a workstation with multiplanar and projection display capability. PET/CT Findings: There is rebound diffuse skeletal marrow activity consistent with chemotherapy effect. This is similar to the prior study. The previously noted focus of hypermetabolic uptake in the head of the pancreas is again seen. It is decreased in avidity and may be slightly smaller in size. Maximum standard uptake value here today's study is 3.54, previously 10.0. No other abnormal hypermetabolic uptake is seen. The previously noted focus in the liver is not apparent. No abnormal hypermetabolic uptake is seen elsewhere in the abdomen or pelvis. No abnormal hypermetabolic uptake is seen in the neck or chest. Incidental note is made of multiple osteoporotic compression deformities in the lumbar spine most of which are new compared to the prior PET-CT. These include L4, L3, L2, T12, T11, and T10. No focal bony destructive lesion is seen. There are healing sclerotic end plate changes at these levels. Impression: Improvement is noted. The previously noted hypermetabolic lesion in the head of the pancreas is significantly decreased in avidity. The previously noted hepatic lesion is no longer apparent. No new hypermetabolic focus is seen. Incidental finding includes multiple new osteoporotic wedge compression deformities in the thoracolumbar spine however. Electronically Signed by Adelfo Galeas MD 10/02/2018 01:01 P
== END ==
LOC: M PLARAD 14:19
PROVIDERS: ATTEND Nurse Practitioner Family
DX: C25.9 Malignant neoplasm of pancreas, unspecified (principal); M51.27 Other intervertebral disc displacement, lumbosacral region; Z79.84 Long term (current) use of oral hypoglycemic drugs
CPT/HCPCS: 78815; A9552

== ENCOUNTER 2018-10-02 09:40 | Day surgery (SDC) | payer MEDICARE ==
[~2018-10-02] VITALS: Ht 185.4 cm; Wt 74.8 kg
[~2018-10-02 09:40] MED LIST changes: +BALANCED SALT IRRIGATION SOLUTION 500ML BAG (FOR OR EYE MACHINE) As Ordered ONE; +CEFUROXIME 1MG/0.1ML INTRACAMERAL INJ As Ordered ONE; +DUOVISC (0.50ML VISCOAT/0.55ML PROVISC) OPHTH KIT As Ordered ONE; +MIDAZOLAM INJ 2 MG/2 ML VIAL (J2250) As Ordered ONE; +MOXIFLOXACIN IN BSS 0.25MG/0.25ML INTRACAMERAL INJ (OR EYE ONLY)(J2280) As Ordered ONE; +OFLOXACIN 0.3 % (OCUFLOX) OPTH SOL 5ML OS ONE; +PHENYLEPHRINE 2.5% OPHTH SOL 2ML OS ONE; +POVIDONE-IODINE 5% OPHTH PREP SOL 30ML As Ordered ONE; +PROPARACAINE 0.5% OPHTH SOL 15ML OS ONE; +TROPICAMIDE 1% OPHTH SOLN 2ML OS ONE; +fentaNYL 100 MCG/2 ML INJECTION (J3010) As Ordered ONE
[2018-10-02] MEDS ORDERED: PROPOFOL 200 MG/20 ML VIAL As Ordered ONE (11:33)
[2018-10-02 11:59] VITALS: BP 113/65
--- NOTE | 2018-10-03 08:09 | RO ---
DATE OF PROCEDURE: 10/02/2018 PREOPERATIVE DIAGNOSIS: 1. Visually significant nuclear sclerotic cataract left eye. POSTOPERATIVE DIAGNOSIS: 1. Visually significant nuclear sclerotic cataract left eye. PROCEDURE: 1. Cataract extraction with use of phacoemulsification and placement of intraocular lens, AU00T0, 19.0 D, left eye. SURGEON: Scott Morataya DO BELT SANDER STONE: None. ANESTHESIA: Local with monitored anesthesia care (MAC). COMPLICATIONS: None. POSTOPERATIVE CONDITION: Stable. INDICATIONS FOR SURGERY: 1. Blurred vision affecting patients activities of daily living. DESCRIPTION OF PROCEDURE: The patient was seen in the preoperative area and properly identified. The correct operative eye was identified and marked. The patient received topical anesthetic, antibiotics, and topical dilating drops. The patient was then transferred to the operating room. The correct side was re-identified, and a time-out was performed. The eye was prepped and draped in a sterile fashion. The eyelids were isolated with Tegaderm tape, and the lids were held open with an adjustable speculum. A 1.0 mm paracentesis incision was made. Intraocular preservative-free Shugarcaine was then injected into the anterior chamber. Viscoelastic was then injected into the anterior chamber through the paracentesis. Using a 2.4 mm sharp-tipped keratome, the anterior chamber was entered via a temporal clear cornea incision. A continuous curvilinear capsulorrhexis was created with Utrata forceps. Hydrodissection was performed with balanced salt solution (BSS) on a blunt cannula until the nucleus was able to rotate freely. The crystalline lens was phacoemulsified and aspirated. Irrigation/aspiration was used to remove the cortical material. Cohesive viscoelastic was placed into the capsular bag to deepen it. The implant was placed into the capsular bag and allowed to unfold. Placement was confirmed by visualizing the anterior capsulorrhexis. Irrigation/aspiration was used to remove the viscoelastic. The clear corneal incision was hydrated with BSS on a blunt cannula. The lens was well positioned. The incisions were then tested for leaks and found to be negative. The eye was then palpated for appropriate pressure and adjusted accordingly with BSS. The eyelid speculum was then carefully removed. A shield was placed over the eye. The patient tolerated the procedure well and was discharged to the recovery unit in a stable condition.
== END 2018-10-02 12:20 | disposition home or self-care (01) ==
LOC: M SDC 09:40
PROVIDERS: ATTEND Ophthalmology
DX: H25.12 Age-related nuclear cataract, left eye (principal); I10 Essential (primary) hypertension; I48.91 Unspecified atrial fibrillation; J45.909 Unspecified asthma, uncomplicated; E78.5 Hyperlipidemia, unspecified; E11.9 Type 2 diabetes mellitus without complications; C25.9 Malignant neoplasm of pancreas, unspecified; C22.9 Malignant neoplasm of liver, not specified as primary or secondary; K57.30 Diverticulosis of large intestine without perforation or abscess without bleeding; K59.00 Constipation, unspecified; D64.9 Anemia, unspecified; K21.9 Gastro-esophageal reflux disease without esophagitis; R90.0 Intracranial space-occupying lesion found on diagnostic imaging of central nervous system; M12.9 Arthropathy, unspecified; M81.0 Age-related osteoporosis without current pathological fracture; R29.898 Other symptoms and signs involving the musculoskeletal system; L71.9 Rosacea, unspecified; R51 Headache; G47.33 Obstructive sleep apnea (adult) (pediatric); J44.9 Chronic obstructive pulmonary disease, unspecified; R06.83 Snoring; R06.02 Shortness of breath; N40.0 Benign prostatic hyperplasia without lower urinary tract symptoms; Z88.2 Allergy status to sulfonamides; Z88.8 Allergy status to other drugs, medicaments and biological substances; Z91.09 Other allergy status, other than to drugs and biological substances; Z91.048 Other nonmedicinal substance allergy status; Z79.899 Other long term (current) drug therapy; Z79.84 Long term (current) use of oral hypoglycemic drugs; Z92.21 Personal history of antineoplastic chemotherapy; Z87.891 Personal history of nicotine dependence; Z86.718 Personal history of other venous thrombosis and embolism; Z96.641 Presence of right artificial hip joint; Z85.828 Personal history of other malignant neoplasm of skin
CPT/HCPCS: 66984; J2250; J3010; V2632

== ENCOUNTER → 2018-11-13 | Outpatient (CLI) | payer MEDICARE ==
[~2018-11-13] MED LIST changes: +AMOX875T PO; -BALANCED SALT IRRIGATION SOLUTION 500ML BAG (FOR OR EYE MACHINE) As Ordered ONE; -CEFUROXIME 1MG/0.1ML INTRACAMERAL INJ As Ordered ONE; -DUOVISC (0.50ML VISCOAT/0.55ML PROVISC) OPHTH KIT As Ordered ONE; -MIDAZOLAM INJ 2 MG/2 ML VIAL (J2250) As Ordered ONE; -MOXIFLOXACIN IN BSS 0.25MG/0.25ML INTRACAMERAL INJ (OR EYE ONLY)(J2280) As Ordered ONE; -OFLOXACIN 0.3 % (OCUFLOX) OPTH SOL 5ML OS ONE; -PHENYLEPHRINE 2.5% OPHTH SOL 2ML OS ONE; -POVIDONE-IODINE 5% OPHTH PREP SOL 30ML As Ordered ONE; -PROPARACAINE 0.5% OPHTH SOL 15ML OS ONE; -TROPICAMIDE 1% OPHTH SOLN 2ML OS ONE; -fentaNYL 100 MCG/2 ML INJECTION (J3010) As Ordered ONE
--- NOTE | 2018-11-13 12:54 | REP ---
UNILATERAL RIGHT RIBS, PA CHEST: HISTORY: Pain. COMPARISON: 03/29/2018 The lungs are clear. The heart is normal in size. The pulmonary vasculature is normal in appearance. The bony structure is intact. An Endrna-U-Dwxw catheter is present. IMPRESSION: No acute disease. Electronically Signed by Altaf Granda MD 11/13/2018 01:23 P
== END ==
LOC: M RAD 11:26
PROVIDERS: ATTEND Internal Medicine Hematology & Oncology
DX: R07.9 Chest pain, unspecified (principal); Z92.3 Personal history of irradiation
CPT/HCPCS: 71101; J1642

== ENCOUNTER → 2019-02-06 | Outpatient (CLI) | payer MEDICARE ==
[~2019-02-06] MED LIST changes: +ATIV1TAB10 PO; +BISO5TAB14 PO; -BISO5TAB5 PO; +CALC600T3 PO; +CALCTAB89 PO; +CLIN1GEL3 EXT; +D3400CAP PO; +DIGO0.123 PO; +FENT1DIS14 TD; +MORP-69 PO; +RA B1TAB7 PO; +SENN8.6T58 PO; -SIMV40TA2 PO; +SIMV40TA20 PO; +VITA400T15 PO; +VITMTA PO
--- NOTE | 2019-02-06 09:44 | REP ---
ULTRASOUND ABDOMEN: Real-time sonographic evaluation of abdomen performed. Patient has had a prior cholecystectomy. Common bile duct measures 13 mm. This appears similar to prior CT of 08/04/2018. Echotexture of the liver is diffusely heterogeneous and coarsened. There is a cyst inferomedially measuring 9 x 6 x 7 mm. Hyperechoic area in the right lobe posteriorly measures 1.6 x 1.5 x 1.1 cm, unchanged since prior ultrasound of 05/26/2018 and possibly representing a hemangioma. Hypoechoic area in the head of the pancreas measures 1.0 x 1.1 x 1.1 cm, located in the pancreatic head. This appears to be have decreased since prior ultrasound 05/26/2018 when it measured 3.5 x 3.1 x 2.5 cm. Spleen is normal in size with no intrinsic abnormality, length 11.3 cm. Kidneys normal in size and echotexture, right kidney measuring 1.5 x 6.1 x 4.9 cm and left kidney 10.8 x 5.1 x 5.4 cm. There is no renal mass, hydronephrosis, or nephrolithiasis. Mid to distal abdominal aorta is visualized and is normal in caliber with no aneurysm. There is no ascites. The pancreatic duct measures 3 mm. IMPRESSION: Status post cholecystectomy with prominent common bile duct unchanged. Subcentimeter cyst posterior right lobe of the liver. Hyperechoic nodular area posterior right lobe of the liver unchanged since prior ultrasound 05/26/2018 and probably representing hemangioma. Hypoechoic mass in the head of the pancreas has decreased in sized as discussed above. Electronically Signed by Shyam Dowling MD 02/09/2019 11:13 A
== END ==
LOC: M RAD 07:51
PROVIDERS: ATTEND Internal Medicine
DX: C25.9 Malignant neoplasm of pancreas, unspecified (principal); Z90.49 Acquired absence of other specified parts of digestive tract

== ENCOUNTER → 2019-02-10 | Outpatient (CLI) | payer MEDICARE ==
[~2019-02-10] MED LIST changes: -ATIV1TAB10 PO; -BISO5TAB14 PO; +BISO5TAB9 PO; -DIGO0.123 PO; -FENT1DIS14 TD; +SIMV40TA2 PO; -SIMV40TA20 PO
--- NOTE | 2019-02-11 10:07 | REP ---
PET/CT: HISTORY: Restaging pancreatic cancer. COMPARISONS: Comparison PET-CT study October 01, 2018. May 13, 2018 prior PET-CT study is also reviewed. TECHNIQUE: 61 minutes following the intravenous injection of a 9.11 mCi dose of F-18 FDG, three-dimensional PET scintigraphy is acquired from the skull base to the proximal thighs. Triplanar noncontrast CT scanning is acquired through the same anatomic range for attenuation correction, and image registration with scan parameters optimized to minimize radiation exposure to the patient. PET scintigraphy and CT datasets were fused and displayed on a workstation with multiplanar and projection display capability. PET/CT FINDINGS: Cellular marrow stimulation/rebound pattern is again noted throughout the axial skeleton, unchanged from the two comparison PET-CT studies, consistent with chemotherapy effect. Osteoporotic wedge compression deformities are again noted in the thoracolumbar spine. Unchanged from October 01, 2018. There are healing sclerosis changes in the involved thoracolumbar endplates. There is a right hip arthroplasty. Right internal jugular Jznymy-A-Momj catheter is noted. A right ventral hernia repair is visible along with postcholecystectomy clips. The previously noted focus of hypermetabolic uptake in the pancreatic head is again seen with maximum standard uptake value 5.95. Previous standard uptake value was 3.54. It may be slightly more avid but does not appear any larger than on the October 01, 2018 study. There is no other abnormal hypermetabolic uptake in the abdomen or pelvis. No evidence of hepatic lesions seen. No visible adenopathy. No abnormal hypermetabolic uptake is seen in the chest or head and neck region. IMPRESSION: Hypermetabolic uptake persists in the pancreatic head with a slightly higher standard uptake value than on the most recent prior study but no apparent change in size. Stimulated marrow pattern again seen. No other abnormal hypermetabolic uptake. Electronically Signed by Adelfo Galeas MD 02/11/2019 08:52 P
== END ==
LOC: M PLARAD 13:19
PROVIDERS: ATTEND Internal Medicine
DX: C25.0 Malignant neoplasm of head of pancreas (principal)
CPT/HCPCS: 78815; A9552

== ENCOUNTER → 2019-02-18 | Outpatient (CLI) | payer MEDICARE ==
--- NOTE | 2019-02-18 15:51 | REP ---
REASON FOR EXAM: Pre-chemotherapy assessment. After the intravenous administration of 26.2 mCi of technetium-99m UltraTag a MUGA scintiscan was performed. The calculated ejection fraction is 69.5%. This is within normal limits. Evaluation of left ventricular wall motion showed no evidence dyskinesia. IMPRESSION: Normal exam. Electronically Signed by Tawanda Moreno DO 02/18/2019 05:19 P
== END ==
LOC: M RAD 12:32
PROVIDERS: ATTEND Internal Medicine
DX: Z01.818 Encounter for other preprocedural examination (principal); C25.9 Malignant neoplasm of pancreas, unspecified; Z79.899 Other long term (current) drug therapy
CPT/HCPCS: 78472; A9560

== ENCOUNTER → 2019-02-23 | Outpatient (CLI) | payer MEDICARE ==
[~2019-02-23] MED LIST changes: +BISO5TAB5 PO; -BISO5TAB9 PO; -CALC600T3 PO; -CALCTAB89 PO; -CLIN1GEL3 EXT; -D3400CAP PO; -MORP-69 PO; +PROHANCE 279.3MG/ML 15ML VIAL (A9576) As Ordered ONE; -RA B1TAB7 PO; -VITA400T15 PO; -VITMTA PO
--- NOTE | 2019-02-24 07:20 | REP ---
MRI PANCREAS WITH AND WITHOUT CONTRAST: COMPARISON: PET/CT 02/10/[address] abdomen 08/04/2018. Multiple sequences obtained in the axial and coronal planes prior to and following the intravenous administration of 15 mL ProHance. There is a hypointense nodular mass in the head of the pancreas which measures approximately 2.3 x 1.7 cm as seen on pre- and post contrast T1-weighted images. It is slightly hyperintense on T2. There is no pancreatic duct dilatation. There are several subcentimeter cysts scattered throughout the pancreas diffusely. There are a few subcentimeter cysts in the visualized posterior right lobe of the liver. The patient has had a prior cholecystectomy. There is expected prominence of the common bile duct, which measures up to 10 mm in maximum diameter. Spleen is upper limits of normal in size at 13 cm in length. No intrinsic abnormality. The adrenal glands are normal. The visualized kidneys are unremarkable. There is no hydronephrosis. I see no periaortic adenopathy. There is no ascites. IMPRESSION: Somewhat lobulated mass in the head of the pancreas 2.3 x 1.7 cm. This corresponds to the site of radiotracer uptake on PET scan of 02/10/2019. There is no significant pancreatic duct dilatation. There are several subcentimeter cysts scattered throughout the pancreas. Status post cholecystectomy. Expected prominence of the common bile duct, which has a maximum diameter of 10 mm. No adenopathy. A few subcentimeter cysts in the right lobe of the liver. Electronically Signed by Shyam Dowling MD 02/24/2019 11:56 P
== END ==
LOC: M RAD 17:07
PROVIDERS: ATTEND Internal Medicine
DX: C25.9 Malignant neoplasm of pancreas, unspecified (principal); Z90.49 Acquired absence of other specified parts of digestive tract
CPT/HCPCS: 74183; A9576

== ENCOUNTER 2019-03-10 19:58 | Emergency (ER) | payer MEDICARE ==
[~2019-03-10] VITALS: Ht 170.2 cm; Wt 75.5 kg
[~2019-03-10 19:58] MED LIST changes: -BISO5TAB5 PO; +BISO5TAB9 PO; -PROHANCE 279.3MG/ML 15ML VIAL (A9576) As Ordered ONE
[2019-03-10 20:41] LABS: BASO % 0.9 % (0.0-1.0); EOS % 0.5 % (0.0-3.0); HEMATOCRIT 27.9 % (42.0-52.0); HEMOGLOBIN 9.6 g/dl (13.5-17.5); LYMPH # 0.5 10^3/uL (1.5-5.0); LYMPH % 23.7 % (24.0-44.0); MEAN CORPUSCULAR HEMOGLOBIN 31.1 pg (27.0-33.0); MEAN CORPUSCULAR HGB CONC 34.4 g/dl (32.0-36.5); MEAN CORPUSCULAR VOLUME 90.3 fl (80.0-96.0); MONO # 0.1 10^3/uL (0.0-0.8); MONO % 4.6 % (0.0-5.0); NEUTROPHILS # 1.5 10^3/uL (1.5-8.5); NEUTROPHILS % 70.3 % (36.0-66.0); RED BLOOD COUNT 3.09 10^6/uL (4.30-6.10); WHITE BLOOD COUNT 2.2 10^3/uL (4.0-10.0)
[2019-03-10] MEDS ORDERED: NS 1,000 ML IV SCH (20:45)
[2019-03-10] MEDS ORDERED: ASPIRIN 325 MG TAB PO ONE (20:45)
[2019-03-10] MEDS ORDERED: GI COCKTAIL 50ML BTL(HYOSCYAMINE/MAALOX/LIDOCAINE VISCOUS)(1:3:1) PO ONE (20:45)
[2019-03-10] MEDS ORDERED: DOCU250C7 PO (20:54)
[2019-03-10] MEDS ORDERED: VITA400T15 PO (20:54)
[2019-03-10] MEDS ORDERED: CALCTAB89 PO (20:54)
[2019-03-10 20:55] LABS: INR 0.93; PROTHROMBIN TIME 12.2 SECONDS (11.8-14.0)
[2019-03-10 21:00] VITALS: BP 166/77
[2019-03-10 21:08] LABS: PLATELET COUNT, AUTOMATED 88 10^3/uL (150-450)
[2019-03-10 21:18] LABS: BLOOD UREA NITROGEN 12 MG/DL (7-18); CALCIUM LEVEL 9.4 MG/DL (8.8-10.2); CARBON DIOXIDE LEVEL 25 MEQ/L (21-32); CHLORIDE LEVEL 107 MEQ/L (98-107); CPK CREATINE PHOSPHOKINASE 58 U/L (39-308); GLOMERULAR FILTRATION RATE > 60.0 (>42); GLUCOSE, FASTING 197 MG/DL (70-100); LIPASE 94 U/L (73-393); MB/CK RELATIVE INDEX 3.45 (< OR =4); POTASSIUM SERUM 3.9 MEQ/L (3.5-5.1); SODIUM LEVEL 140 MEQ/L (136-145); TROPONIN I < 0.02 NG/ML (< 0.10)
--- NOTE | 2019-03-11 05:43 | ECGEPIP ---
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
--- NOTE | 2019-03-11 09:09 | REP ---
CHEST, SINGLE VIEW: Single view of the chest is performed. COMPARISON: 03/29/2018. There is no acute infiltrate or pulmonary edema. The heart is normal in size. The mediastinal silhouette is unchanged. Right central venous catheter is seen with the tip in the superior vena cava. IMPRESSION: No acute pulmonary disease. Electronically Signed by Shyam Dowling MD 03/12/2019 08:03 A
== END 2019-03-10 22:42 | disposition home or self-care (01) ==
LOC: M ED 19:58
DX: K29.70 Gastritis, unspecified, without bleeding (principal); E11.9 Type 2 diabetes mellitus without complications; I10 Essential (primary) hypertension; J44.9 Chronic obstructive pulmonary disease, unspecified; I48.91 Unspecified atrial fibrillation; G89.29 Other chronic pain; Z79.899 Other long term (current) drug therapy; Z79.84 Long term (current) use of oral hypoglycemic drugs; Z88.1 Allergy status to other antibiotic agents; Z88.2 Allergy status to sulfonamides; Z88.8 Allergy status to other drugs, medicaments and biological substances; Z91.048 Other nonmedicinal substance allergy status; Z87.891 Personal history of nicotine dependence

== ENCOUNTER → 2019-03-20 | Outpatient (REF) | payer MEDICARE ==
[~2019-03-20] MED LIST changes: +CALCTAB89 PO; +VITA400T15 PO
[2019-03-20 15:12] LABS: APPEARANCE, URINE HAZY (CLEAR); BACTERIA, URINE AUTO NEGATIVE (NEGATIVE); BILIRUBIN, URINE AUTO NEGATIVE (NEGATIVE); BLOOD, URINE BLOOD NEGATIVE (NEGATIVE); GLUCOSE, URINE (UA) AUTO 1+ mg/dL (NEGATIVE); KETONE, URINE AUTO NEGATIVE (NEGATIVE); LEUKOCYTE ESTERASE, URINE AUTO NEGATIVE (NEGATIVE); MUCUS, URINE SMALL (NEGATIVE); NITRITE, URINE AUTO NEGATIVE (NEGATIVE); PROTEIN, URINE AUTO NEGATIVE (NEGATIVE); RBC, URINE AUTO 1 /HPF (0-3); SPECIFIC GRAVITY URINE AUTO 1.012 (1.002-1.035); SQUAMOUS EPITHELIAL CELL UR AU 0 /HPF (0-6); UROBILINOGEN, URINE AUTO 0.2 mg/dL (0.0-2.0); WBC, URINE AUTO 0 /HPF (0-3)
[2019-03-20 15:28] LABS: COLOR, URINE YELLOW (YELLOW)
== END ==
LOC: M SMT 14:27
PROVIDERS: ATTEND Urology
DX: R36.1 Hematospermia (principal)

== ENCOUNTER → 2019-04-10 | Outpatient (CLI) | payer MEDICARE ==
[~2019-04-10] MED LIST changes: +CALC600T3 PO; +CLIN1GEL3 EXT; +D3400CAP PO; +MORP-69 PO; +RA B1TAB7 PO; +VITMTA PO
--- NOTE | 2019-04-10 15:32 | REP ---
MRI lumbar spine without and with IV contrast: History: Rule out HNP versus stenosis. The patient has a history of pancreatic and liver cancer. Comparison MRI study is from July 31, 2018. Comparison lumbar spine CT study June 06, 2018. Technique: Sagittal and axial T1 and T2-weighted scans are acquired in the usual fashion with and without fat saturation. Sequences include spin echo, turbo spin-echo, and STIR imaging sequences. The gadolinium enhancement dose is 15 mL of intravenous ProHance. MRI findings: There is a small hemangioma in the left side of the vertebral body at L3. This measures 12 mm in greatest diameter and is felt to be unchanged. There are multiple wedge compression deformities. The T12 and L1 vertebral bodies have lost the most anterior vertebral body height, but these are unchanged from the July 31, 2018 study. There is approximately 30% loss of vertebral body height anteriorly at L3 and 20-30% at L4. Approximate 15% loss of anterior vertebral body height is seen at L5. These are all unchanged as well from most recent prior study of July 31, 2018. No new collapse is appreciated. There are osteoarthritic facet hypertrophy changes again noted L5-S1. Central disc bulging is noted L4-5 and diffuse disc bulging is noted at L3-4. There is mild central canal stenosis at both of these levels. This is unchanged as well. Neural foraminal narrowing is again noted unchanged. Impression: No significant change from the most recent prior MRI study July 31, 2018. Multiple wedge compression deformities again noted. No acute collapse seen. Degenerative spondylosis changes. Electronically Signed by Adelfo Galeas MD 04/10/2019 03:44 P
== END ==
LOC: M PLARAD 13:12
PROVIDERS: ATTEND Physical Medicine & Rehabilitation
DX: M47.896 Other spondylosis, lumbar region (principal)

== ENCOUNTER 2019-04-15 20:35 | Inpatient (IN) | payer MEDICARE ==
[~2019-04-15] VITALS: Ht 180.3 cm; Wt 77.2 kg
[~2019-04-15 20:35] MED LIST changes: -CALC600T3 PO; -CLIN1GEL3 EXT; -D3400CAP PO; -RA B1TAB7 PO; -VITMTA PO
[2019-04-15] MEDS ORDERED: HumaLOG INSULIN (NovoLOG) PER UNIT SC SCH (21:00)
[2019-04-15] MEDS ORDERED: NEBIVOLOL 5 MG TAB (BYSTOLIC) PO SCH (21:00)
[2019-04-15] MEDS ORDERED: NS 1,000 ML IV SCH (21:08)
[2019-04-15 21:09] LABS: HEMATOCRIT 31.2 % (42.0-52.0); HEMOGLOBIN 10.3 g/dl (13.5-17.5); MEAN CORPUSCULAR HEMOGLOBIN 29.7 pg (27.0-33.0); MEAN CORPUSCULAR VOLUME 89.9 fl (80.0-96.0); PLATELET COUNT, AUTOMATED 293 10^3/uL (150-450); RED BLOOD COUNT 3.47 10^6/uL (4.30-6.10); WHITE BLOOD COUNT 22.1 10^3/uL (4.0-10.0)
[2019-04-15] MEDS ORDERED: ACETAMINOPHEN TAB 650MG DOSE (2X325MG) PO ONE (21:15)
[2019-04-15] MEDS ORDERED: MORPHINE 4 MG/ML 1ML VIAL/SYRINGE (J2270) IV ONE (21:15)
[2019-04-15] MEDS ORDERED: ASPIRIN 81 MG CHEW TABLET PO ONE (21:15)
[2019-04-15 21:19] LABS: INR 0.94; PROTHROMBIN TIME 12.3 SECONDS (11.8-14.0)
[2019-04-15 21:28] LABS: LYMPHOCYTES 6 % (16-44); NEUTROPHILS 91 % (28-66); PLATELET ESTIMATE NORMAL (NORMAL)
[2019-04-15 21:39] LABS: ALBUMIN 3.9 GM/DL (3.2-5.2); ALT/SGPT 37 U/L (12-78); BILIRUBIN,DIRECT < 0.1 MG/DL (0.0-0.2); BILIRUBIN,TOTAL 0.2 MG/DL (0.2-1.0); BLOOD UREA NITROGEN 11 MG/DL (7-18); CALCIUM LEVEL 9.7 MG/DL (8.8-10.2); CARBON DIOXIDE LEVEL 29 MEQ/L (21-32); CHLORIDE LEVEL 104 MEQ/L (98-107); CK-MB VALUE MASS 1.5 NG/ML (<3.6); CPK CREATINE PHOSPHOKINASE 59 U/L (39-308); CREATININE FOR GFR 0.79 MG/DL (0.70-1.30); GLOMERULAR FILTRATION RATE > 60.0 (>42); GLUCOSE, FASTING 88 MG/DL (70-100); LIPASE 59 U/L (73-393); MB/CK RELATIVE INDEX 2.54 (< OR =4); SODIUM LEVEL 138 MEQ/L (136-145); TOTAL PROTEIN 6.6 GM/DL (6.4-8.2); TROPONIN I < 0.02 NG/ML (< 0.10)
[2019-04-15] MEDS ORDERED: cefTRIAXone SOD 1 GM in D5W MINI-BAG PLUS 50 ML IV ONE (22:15)
[2019-04-15] MEDS ORDERED: CALC600T3 PO (23:00)
[2019-04-15] MEDS ORDERED: DOCU250C7 PO (23:00)
[2019-04-15] MEDS ORDERED: D3400CAP PO (23:02)
[2019-04-15] MEDS ORDERED: MORP15TA2 PO (23:13)
[2019-04-15] MEDS ORDERED: CLIN1GEL3 EXT (23:13)
[2019-04-15] MEDS ORDERED: MORP-69 PO (23:13)
[2019-04-15] MEDS ORDERED: RA B1TAB7 PO (23:13)
[2019-04-15] MEDS ORDERED: ONDA8TAB8 PO (23:13)
[2019-04-15] MEDS ORDERED: VITMTA PO (23:13)
[2019-04-16] MEDS ORDERED: ONDANSETRON 4 MG ORAL DISINTEGRATING TAB (Q0162 PER 1MG) PO PRN (00:30)
[2019-04-16] MEDS ORDERED: HEPARIN SOD (PORCINE) 5000 UNITS/ML VIAL SC SCH (00:30)
[2019-04-16] MEDS ORDERED: MOM 30ML SUSPENSION UDC PO PRN (00:30)
[2019-04-16] MEDS ORDERED: busPIRone 5 MG TAB PO PRN (00:30)
[2019-04-16] MEDS ORDERED: LACTULOSE 20 GM/30 ML SYRUP UD PO PRN (00:30)
[2019-04-16] MEDS ORDERED: MORPHINE 30 MG TAB **MSIR PO PRN (00:30)
[2019-04-16] MEDS ORDERED: zolPIDEM TARTRATE 5 MG TAB PO PRN (00:30)
[2019-04-16] MEDS ORDERED: FUROSEMIDE 20 MG TAB PO PRN (00:30)
[2019-04-16] MEDS ORDERED: ACETAMINOPHEN TAB 650MG DOSE (2X325MG) PO PRN (00:30)
[2019-04-16] MEDS ORDERED: METOCLOPRAMIDE 5 MG TAB PO PRN (00:30)
[2019-04-16] MEDS ORDERED: MAALOX 30 ML SUSP *UDC PO PRN (00:30)
[2019-04-16] MEDS ORDERED: IPRATROPIUM 0.5MG/ALBUTEROL 2.5MG INH SOL UD 3ML (DUONEB)(J7620) NEB PRN (00:30)
[2019-04-16] MEDS ORDERED: traMADol 50 MG TAB PO PRN (00:30)
[2019-04-16] MEDS ORDERED: SENNA 8.6 MG TAB (SENOKOT) PO PRN (00:30)
[2019-04-16] MEDS ORDERED: LIDOCAINE 5% (LIDODERM) PATCH TD PRN (00:30)
--- NOTE | 2019-04-16 00:50 | HPEPDOC ---
General Date of Admission 04/16/19 Date of Service: Apr 16, 2019 Chief Complaint The patient is a 78-year-old male admitted with a reason for visit of Chest Pain. Source: Patient Exam Limitations: No limitations Timing/Duration: Other Severity: Moderate (since yesterday) Associated Symptoms: Chest Pain, Other (, palpitations) History of Present Illness 78 years old white male with past medical history of pancreatic adenocarcinoma, diabetes mellitus, hypertension, aortic regurgitation, mitral regurgitation, aortic stenosis, degenerative disc disease, fibromyalgia, asthma, chronic a nxiety, benign prostatic hypertrophy proximal atrial fibrillation, chronic sinusitis is chronic strep, migraines, hyperlipidemia, irritable bowel syndrome after this sleep apnea, oxygen therapy at home. History of thyroid nodules, GERD, diastolic dysfunction without heart failure. Had seen his board setter yesterday and he was cleared by his board setter, but he he kept feeling midsternal chest pain, nonradiating, persistent not relieved with any medications, not exacerbated by any positions, not associated with any shortness of breath, dizziness, nausea, vomiting since yesterday. Chest pains only association was with palpitations on and off and he also complains of clearing his throat and bringing up some sputum but no shortness of breath Home Medications Scheduled Calcium Carbonate (Calcium Carbonate) 600 Mg Tablet, 600 MG PO QPM, (Reported) DINNERTIME Cephalexin (Cephalexin) 500 Mg Cap, 2,000 MG PO ASDIRECTED, (Reported) PRIOR TO DENTAL APPT Cholecalciferol (Vitamin D3) (Vitamin D3) 400 Unit Capsule, 400 UNIT PO QPM, (Reported) DINNERTIME Dalteparin Sodium,Porcine (Fragmin) 10,000 Unit/Ml Inj, 10,000 UNIT SC QPM, ( Reported) DINNERTIME Digoxin (Digoxin) 125 Mcg Tab, 125 MCG PO DAILY, (Reported) LUNCHTIME Dutasteride (Avodart) 0.5 Mg Cap, 0.5 MG PO QPM, (Reported) DINNERTIME Formoterol Fumarate (Perforomist) 20 Mcg/2 Ml Neb, 20 MCG INH QHS, (Reported) Metformin HCl (Metformin HCl) 500 Mg Tab, 1,000 MG PO BID, (Reported) Morphine Sulfate (Morphine Sulfate ER) 15 Mg Tablet.er, 15 MG PO BID, (Reported) Multivitamins (Thera M Plus Tablet) 1 Each Tablet, 1 TAB PO DAILY, (Reported) LUNCHTIME Nebivolol HCl (Bystolic) 2.5 Mg Tab, 2.5 MG PO QHS, (Reported) Potassium Chloride (K-Tab ER) 10 Meq Tab, 10 MEQ PO BID, (Reported) LUNCH AND DINNERTIME Tamsulosin HCl (Flomax) 0.4 Mg Cap, 0.4 MG PO QPM, (Reported) DINNERTIME Vitamin B Complex (B Complex) 1 Each Tablet, 1 TAB PO QPM, (Reported) DINNERTIME Zolpidem Tartrate (Zolpidem Tartrate) 10 Mg Tab, 10 MG PO QHS, (Reported) Scheduled PRN Albuterol Sulf (Albuterol Sulfate) 2.5 Mg/3 Ml Nebu, 2.5 MG INH Q4H PRN for SOB/WHEEZING, (Reported) Azelastine HCl (Azelastine HCl) 0.15 % Spr, 1 SPRAY NA BID PRN for NASAL CONGESTION, (Reported) Buspirone HCl (Buspirone HCl) 5 Mg Tab, 5 MG PO BID PRN for MIGRAINE, (Reported) Clindamycin Phosphate (Clindagel) 75 Ml Gel.daily, 1 DOSE EXT DAILY PRN for ROSACEA, (Reported) Docusate Sodium (Docusate Sodium) 250 Mg Capsule, 250 MG PO BID PRN for CONSTIPATION, (Reported) Furosemide (Furosemide) 20 Mg Tab, 20 MG PO TID PRN for EDEMA, (Reported) Lactulose (Lactulose) 10 Gm/15 Ml Jaimee, 30 ML PO BID PRN for CONSTIPATION, (Reported) Lidocaine (Lidocaine) 5 % Pad, 1 PATCH TD DAILY PRN for PAIN, (Reported) APPLIED TO BACK/HIP/SPINE/NECK Lubiprostone (Amitiza) 24 Mcg Cap, 24 MCG PO DAILY PRN for CONSTIPATION, (Reported) Metoclopramide Hcl (Reglan) 5 Mg Tab, 5 MG PO AC PRN for INDIGESTION, (Reported) Mometasone Furoate (Asmanex) 220 Mcg/Inh Aer, 220 MCG IN DAILY PRN for SHORTNESS OF BREATH, (Reported) Morphine Sulfate (Morphine Sulfate) 15 Mg Tablet, 15 MG PO Q6H PRN for PAIN, (Reported) Ondansetron (Ondansetron Odt) 8 Mg Tab.rapdis, 8 MG PO TID PRN for NAUSEA, (Reported) Sennosides (Senna) 8.6 Mg Tablet, 2 TAB PO BID PRN for CONSTIPATION, (Reported) Tramadol HCl (Tramadol HCl) 50 Mg Tab, 50 MG PO Q6H PRN for PAIN, (Reported) Allergies Coded Allergies: TAPE (Verified Allergy, Mild, SUTURE TAPE- SKIN REACTION, 03/10/19) Acarides (Mites) (Verified Allergy, Unknown, 03/10/19) Sulfa (Sulfonamide Antibiotics) (Verified Allergy, Unknown, 03/10/19) carbamazepine (Verified Allergy, Unknown, 03/10/19) mold (Verified Allergy, Unknown, 03/10/19) Past Medical History Medical History pancreatic adenocarcinoma, diabetes mellitus, hypertension, aortic re gurgitation, mitral regurgitation, aortic stenosis, fibromyalgia, asthma, degenerative disc disease, chronic anxiety, BPH, proximal atrial fibrillation, chronic sinusitis, migraines, hyperlipidemia, irritable bowel syndrome, obstructive sleep apnea on CPAP, oxygen therapy at home. History of thyroid nodules, GERD, and diastolic dysfunction without heart failure Surgical History Tonsillectomy, cystectomy of lower jaw, right inguinal hernia repair, nephropathy of right kidney, appendectomy, cholecystectomy, cystectomy of the throat basal cell carcinoma removal of right lower leg, left side of head and left forearm incision hernia repair of abdomen hernia repair, right shoulder rotator cuff repair and right hip replacement Family History Significant Family History: No pertinent family hx Social History * Smoker: former Smoker Alcohol: Denies Drugs: denies A-FIB/CHADSVASC A-FIB History Current/History of A-Fib/PAF?: Yes Current PO Anticoag Therapy: Yes Review of Systems Constitutional: Denies: Chills, Fever, Malaise, Night Sweats, Weakness, Fatigue, Weight Loss, Lethargy, Other Eyes: Denies: Pain, Vision change, Conjunctivae inflammation, Eyelid inflammation, Redness, Other ENT: Denies: Head Aches, Ear Pain, Dysphagia, Sinus Congestion, Post Nasal Drip, Sore Throat, Epistaxis, Other Symptoms Skin: Denies: Rash, Lesions, Jaundice, Bruising, Itching, Dry, Breakdown, Nail Changes, Other Pulmonary: Reports: Cough Cardiovascular: Reports: Chest Pain Gastrointestinal: Denies: Nausea, Vomiting, Abdominal Pain, Diarrhea, Constipation, Melena, Hematochezia, Other Symptoms Genitourinary: Denies: Dysuria, Frequency, Incontinence, Hematuria, Retention, Other Symptoms Hematologic: Denies: Bruising, Bleeding Excessively, Petecchia, Purpura, Enlarged Lymph Nodes, Other Hematologic Endocrine: Denies: Polydipsia, Polyphagia, Polyuria, Heat Intolerance, Cold Intolerance, Other Endocrine Sx Musculoskeletal: Denies: Neck Pain, Back Pain, Shoulder Pain, Arm Pain, Hand Pain, Leg Pain, Foot Pain, Joint Pain, Muscle Pain, Spasms, Other Symptoms Neurological: Denies: Weakness, Numbness, Incoordination, Change in speech, Confusion, Seizures, Other Symptoms Psych: Denies: Mood Normal, Anxiety, Depression, Memory Issues, Thoughts of Self Harm, Anger, Thoughts of Harming Other, Other Psych Physical Examination General Exam: Positive: Alert, Cooperative Eye Exam: Positive: PERRLA, Conjunctiva & lids normal ENT Exam: Positive: Atraumatic, Mucous membr. moist/pink Neck Exam: Positive: Supple Chest Exam: Positive: Diminished (, diminished breath sounds bilaterally. No wheezing or rhonchi) Heart Exam: Positive: Rate Normal, Irregular Rhythm, Normal S1, Normal S2 Abdomen Exam: Positive: Normal bowel sounds, Soft Extremity Exam: Positive: Normal pulses Skin Exam: Positive: Nl turgor and temperature Neuro Exam: Positive: Strength at 5/5 X4 ext, Sensation Intact Psych Exam: Positive: Mental status NL, Oriented x 3 Vital Signs Vital Signs Date Time Temp Pulse Resp B/P (MAP) Pulse Ox O2 Delivery O2 Flow Rate FiO2 04/15/19 22:07 17 04/15/19 21:45 90 131/69 (89) 99 04/15/19 21:00 Room Air 04/15/19 20:35 100.0 Laboratory Data Labs 24H Laboratory Tests 2 04/15/19 20:58: Immature Granulocyte % (Auto) , Nucleated Red Blood Cells % (auto) 0.0, Neutrophils 91H, Band Neutrophils 3, Lymphocytes (Manual) 6L, Platelet Estimate NORMAL, Prothrombin Time 12.3, Prothromb Time International Ratio 0.94, Anion Gap 5L, Glomerular Filtration Rate > 60.0, Lactic Acid Level 1.9, Calcium Level 9.7, Total Bilirubin 0.2, Direct Bilirubin < 0.1, Aspartate Amino Transf (AST/SGOT) 18, Alanine Aminotransferase (ALT/SGPT) 37, Alkaline Phosphatase 113, Total Creatine Kinase 59, Creatine Kinase MB 1.5, Creatine Kinase MB Relative Index 2.54, Troponin I < 0.02, Total Protein 6.6, Albumin 3.9, Albumin/Globulin Ratio 1.44, Lipase 59L 04/15/19 21:36: POC Glucose (Misc Panel) 90, POC Sodium (Misc Panel) 138, POC Potassium (Misc Panel) 3.9, POC Chloride (Misc Panel) 101, POC Total CO2 (Misc Panel) 28.0H, POC Blood Urea Nitrogen (Misc Panel 10, POC Ionized Calcium (Misc Panel) 5.3, POC Cr eatinine (Misc Panel) 0.8, POC Hematocrit (Misc Panel) 34.0L 04/15/19 23:00: Urine Color YELLOW, Urine Appearance HAZY, Urine pH 7.0, Urine Specific [place] 1.008, Urine Protein NEGATIVE, Urine Glucose (UA) NEGATIVE, Urine Ketones NEGATIVE, Urine Blood NEGATIVE, Urine Nitrite NEGATIVE, Urine Bilirubin NEGATIVE, Urine Urobilinogen 0.2, Urine Leukocyte Esterase NEGATIVE, Urine WBC (Auto) 0, Urine RBC (Auto) 1, Urine Hyaline Casts (Auto) 0, Urine Bacteria (Auto) NEGATIVE, Urine Squamous Epithelial Cells 0, Urine Mucus (Auto) SMALL, Urine Sperm (Auto) CBC/BMP Laboratory Tests 04/15/19 20:58 Microbiology Microbiology 04/15/19 Blood Culture, Received Pending 04/15/19 Blood Culture, Received Pending Problems (1) Chest pain, atypical Status: Acute Problem Text: 78 years old white male with extensive past medical history including pancreatic adenocarcinoma for which she is receiving chemotherapy with Dr. cherry, also history of diabetes mellitus, hypertension, degenerative disc disease, asthma, anxiety, fibromyalgia, BPH, PAF, migraines, hyperlipidemia, IBS, obstructive sleep apnea on CPAP, home oxygen, history of thyroid nodules, GERD, diastolic dysfunction was seen by his board setter yesterday with a clean bill of health, but as per patient, he continued developing midsternal chest pain and palpitations since yesterday and decided come to ER. In the emergency room, his EKG shows A. fib with no acute changes. Chest x-ray is consistent with right middle lobe pneumonia and he has a very elevated WBC count on CBC, el ectrolytes normal. Patient most likely has atypical chest pain First troponin is negative Will order serial troponins Repeat EKG in a.m. Continue home meds Reassurance Follow with his board setter once discharged home (2) Pneumonia Status: Acute Problem Text: Chest x-ray is consistent with possible right middle lobe infiltrate and his WBC count is 22.1 Patient received Rocephin in ED . We'll continue Rocephin 1 g IV every 24 hours Add Zithromax 500 mg IV every 24 hours Sputum for her culture and sensitivity DuoNeb when necessary Oxygen support by 2 L nasal cannula (3) Anemia Status: Chronic Problem Text: Monitor H&H Further, as per oncology as an outpatient (4) Pancreatic carcinoma metastatic to liver Status: Chronic Problem Text: Patient follows up with Dr. Cherry and oncology Center Continue home meds (5) ALCIRA on CPAP Status: Chronic Problem Text: Continue CPAP And O2 support (6) Paroxysmal a-fib Status: Chronic Problem Text: vent rate is under well control Continue home meds (7) BPH (benign prostatic hyperplasia) Status: Chronic Problem Text: Continue home meds (8) IBS (irritable bowel syndrome) Status: Chronic (9) HLD (hyperlipidemia) Status: Chronic Problem Text: Continue home meds (10) HTN (hypertension) Status: Chronic Problem Text: Continue home meds (11) GERD (gastroesophageal reflux disease) Status: Chronic (12) DDD (degenerative disc disease) Status: Chronic (13) Asthma Status: Chronic Problem Text: Stable DuoNeb when necessary (14) Back pain Status: Acute Problem Text: Continue home meds Plan / VTE VTE Prophylaxis Ordered?: Yes VOLODYMYR FARLEY MD Apr 16, 2019 00:50
[2019-04-16] MEDS ORDERED: AZITHROMYCIN INJ 500 MG, VIAL MATE ADAPTER 1 EACH in D5W 250 ML IV ONE (01:00)
[2019-04-16] MEDS ORDERED: GLUCAGON FOR INJ 1 MG VIAL (J1610) SC PRN (01:00)
[2019-04-16] MEDS ORDERED: GLUCOSE 4 GM CHEW TABLET PO PRN (01:00)
[2019-04-16] MEDS ORDERED: DEXTROSE 50% 50 ML SYRINGE IV PRN (01:00)
[2019-04-16] MEDS ORDERED: PILL CUTTER 1 EACH XX PRN (01:15)
[2019-04-16 07:16] VITALS: BP 130/65
[2019-04-16] MEDS: HumaLOG INSULIN (NovoLOG) PER UNIT SC SCH ×2 (07:30→11:49)
[2019-04-16] MEDS ORDERED: metFORMIN (GLUCOPHAGE) 1000 MG TABLET PO SCH (08:00)
--- NOTE | 2019-04-16 08:08 | REP ---
Single view chest: 04/15/2019. Indication: Chest pain. Comparison: 03/10/2019. Findings: Right-sided Port-A-Cath is present, unchanged. The lungs are clear. No significant pleural effusion is present. There is no pneumothorax. Cardiac silhouette is normal. Impression: No acute cardiopulmonary process. Electronically Signed by López Perales DO 04/16/2019 08:00 A
[2019-04-16] MEDS ORDERED: MULTIVITAMINS/MINERALS THERAP 1 TAB PO SCH (09:00)
[2019-04-16] MEDS ORDERED: MORPHINE 15 MG SA TAB PO SCH (09:00)
[2019-04-16] MEDS ORDERED: DOCUSATE SODIUM 100 MG CAP PO SCH (09:00)
[2019-04-16] MEDS ORDERED: AZELASTINE 137MCG NASAL SPY 30 ML (ASTELIN) SCH (09:00)
[2019-04-16] MEDS ORDERED: POTASSIUM CHLORIDE 10 MEQ SR TABLET PO SCH (09:00)
[2019-04-16] MEDS ORDERED: ISOVUE-370 76% 100ML VIAL (Q9967) As Ordered ONE (09:20)
[2019-04-16] MEDS ORDERED: SODIUM CHLORIDE NASAL 0.65% SPRAY BTL (OCEAN) PRN (10:00)
[2019-04-16 10:15] VITALS: BP 134/75
--- NOTE | 2019-04-16 10:20 | REP ---
CT CHEST WITH IV CONTRAST: HISTORY: Low grade fever, chest pain. The patient gives additional history of pancreatic carcinoma with liver mets. Comparison is made with chest x-ray from the previous day. Comparison chest CT study August 04, 2018. CT CONTRAST DOSE: 75 mL of intravenous Isovue 370. CT FINDINGS: Digital preliminary direct support staff member radiograph demonstrates a right-sided [id number]-[id number] catheter. There are clips in the upper abdomen bilaterally. There is no evidence of pulmonary infiltrate or mass or significant pulmonary nodule. No pleural or pericardial effusion is seen. There is left coronary artery vascular calcification. No hilar or mediastinal mass or adenopathy is observed. There is no evidence of aortic dissection or aneurysm. There is no evidence of pulmonary embolus. Bone window settings, wedge compression fracture deformities are again noted at T10, T11, and T12. These are unchanged from the August 04, 2018 study. IMPRESSION: No acute abnormality. Right-sided [id number]. Stable wedge compression deformities T10-T12. No infiltrate, atelectasis, or evidence of intrathoracic metastatic disease. Electronically Signed by Adelfo Galeas MD 04/16/2019 06:21 P
[2019-04-16] MEDS ORDERED: DIGOXIN 0.125 MG TAB PO SCH (12:00)
[2019-04-16 14:00] VITALS: BP 130/70
[2019-04-16 14:58] LABS: C REACTIVE PROTEIN QUANTITATIV 0.72 MG/DL (0.00-0.30)
--- NOTE | 2019-04-16 15:31 | ECGEPIP ---
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
[2019-04-16 15:53] LABS: ERYTHROCYTE SEDIMENTATION RATE 20 mm/hr (0-20)
[2019-04-16] MEDS ORDERED: DUTASTERIDE 0.5 MG CAP (AVODART) PO SCH (18:00)
[2019-04-16] MEDS ORDERED: CALCIUM CARBONATE 500 MG CHEW U/D PO SCH (18:00)
[2019-04-16] MEDS ORDERED: VITAMIN D (CHOLECALCIFEROL) 400 INTERNATIONAL UNITS TAB PO SCH (18:00)
[2019-04-16] MEDS ORDERED: TAMSULOSIN 0.4 MG CAP PO SCH (18:00)
[2019-04-16] MEDS ORDERED: AZITHROMYCIN INJ 500 MG, VIAL MATE ADAPTER 1 EACH in D5W 250 ML IV SCH (20:00)
[2019-04-16] MEDS ORDERED: **NOTE PATIENT COMMENT** MISC XX SCH (21:00)
[2019-04-16] MEDS ORDERED: cefTRIAXone SOD 1 GM in D5W MINI-BAG PLUS 50 ML IV SCH (21:00)
[2019-04-16] MEDS ORDERED: FORMOTEROL FUMARATE 20 MCG/2 ML INHALATION SOLUTION (PERFOROMIST) INH SCH (21:00)
--- NOTE | 2019-05-04 12:09 | DSES ---
DATE OF ADMISSION: 04/16/2019 DATE OF DISCHARGE: 04/16/2019 DISCHARGE DIAGNOSES: 1. Atypical chest pain, most likely secondary to recent Neulasta as a side effect given at the correct dose and frequency. 2. Leukocytosis secondary to Neulasta. 3. 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 4. Pancreatic carcinoma with metastatic lesions to the liver, stage IV. 5. Obstructive sleep apnea, on continuous positive airway pressure (CPAP). 6. Paroxysmal atrial fibrillation. 7. Benign prostatic hypertrophy (BPH). 8. Irritable bowel syndrome. DISCHARGE MEDICATIONS: - albuterol 2.5 every 4 hours as needed - Azelastine one spray nasal twice a day as needed - buspirone 5 mg twice a day as needed for migraines - calcium carbonate 600 mg at night - cephalexin 500 mg 2 grams as directed - vitamin D3 400 units at night - clindamycin topically as needed for rosacea - Fragmin 10,000 units subcutaneously at night - digoxin 125 mcg daily - Colace 250 mg twice a day as needed - Avodart 0.5 mg at night - Perforomist 20 mcg inhaled at night - furosemide 20 mg twice a day as needed for edema - Lactulose 30 mL by mouth twice a day as needed for constipation - Lidocaine 5% patch daily as needed for pain - Amitiza 24 mcg daily as needed for constipation - metformin 1 gram by mouth twice a day - Reglan 5 mg before meals as needed for indigestion - metolazone 220 mcg inhaled daily as needed for shortness of breath - morphine sulfate 15 mg by mouth every 6 hours as needed for pain - morphine sulfate extended release 15 mg by mouth twice a day - multivitamin one tablet daily - Bystolic 2.5 mg at night - Zofran 8 mg three times a day as needed for nausea - potassium chloride 10 mEq by mouth twice a day - Senokot two tablets by mouth twice a day as needed for constipation - Flomax 0.4 mg at night - tramadol 50 mg every 6 hours as needed - vitamin B complex one tablet at night - Zolpidem tartrate 10 mg at night HOSPITAL COURSE: This is a 78-year-old male with a history of pancreatic adenocarcinoma receiving chemotherapy, diabetes, hypertension, anxiety, fibromyalgia, paroxysmal atrial fibrillation, migraines, obstructive sleep apnea on CPAP and home oxygen, thyroid nodule, diastolic congestive heart failure (CHF), who presents to the emergency room with mid sternal chest pain, palpitations prompting him to come to the emergency room. The patient's EKG showed rate controlled atrial fibrillation. Chest x-ray showed no acute cardiopulmonary process. The patient describes the pain as achy pain. Feels like his ribs are expanding and worse when he takes a deep breath. He had recently received Neulasta due to recent chemotherapy and was found to have a white count of 22.1. The patient had a procalcitonin 0.14. He was initially admitted for possible right middle lobe pneumonia and was given ceftriaxone, azithromycin. The patient was requesting to be discharged home as he felt that he was back to his baseline. CT of the chest was performed to further evaluate the findings of Dr. yL, admitting physician. The patient had no acute infiltrate or mass or significant nodule on the CT of the chest with right sided Infusaport, stable wedge compression deformity T10 to T12. No infiltrate, atelectasis or evidence of intrathoracic metastatic disease found. The patient's antibiotics were discontinued. He was given pain medications for rib pain that was caused by Neulasta as a side effect of a drug that is used in a therapeutic dose and frequency. The patient passed a home safety evaluation. He was saturating 100% on room air and was stable on hospital discharge. DISCHARGE LABORATORIES: White count 22, hemoglobin 10, hematocrit 31, platelet count 293. Sodium 138, potassium 4.0, chloride 104, bicarbonate 29, BUN 11, creatinine 0.79, glucose 88, lactic acid 1.9, calcium 9.7, total bilirubin 0.2, direct bilirubin less than 0.1, AST 18, ALT 37, alkaline phosphatase 113, total CK 59, MB fraction 1.5, troponin less than 0.02, C-reactive protein 0.72, total protein 6.6, albumin 3.9, lipase 59, procalcitonin 0.14. IMAGING STUDIES: Chest x-ray 04/15/2019 showed right sided Port-a-Cath is present, unchanged. Lungs are clear. No significant pleural effusion. There is no pneumothorax. Cardiac silhouette is normal. No acute cardiopulmonary process. Chest CT on 04/16/2019 showed no evidence of pulmonary infiltrate, mass, or significant pulmonary nodule. No pleural or pericardial effusion is seen. There is left coronary artery vascular calcification. No hilar or mediastinal mass or adenopathy is observed. No evidence of aortic dissection or aneurysm. No evidence of pulmonary embolism. Wedge compression fracture deformity at T11- T12, unchanged from 08/04/2018. No infiltrate, atelectasis or evidence or intrathoracic metastatic disease. Right sided Infusaport with a stable wedge compression deformity T10 to T12. Time spent on discharge: 30 minutes. MTDD
== END 2019-04-16 15:57 | disposition home or self-care (01) | DRG 313 ==
LOC: M ED 20:35 → M ED INP 04-16 00:23 → M ICU 04-16 05:26 → M MSPAV 04-16 10:14
PROVIDERS: ADMIT Internal Medicine; ATTEND Internal Medicine
DX: R07.89 Other chest pain (principal); C25.9 Malignant neoplasm of pancreas, unspecified; C78.7 Secondary malignant neoplasm of liver and intrahepatic bile duct; E11.9 Type 2 diabetes mellitus without complications; I10 Essential (primary) hypertension; I08.0 Rheumatic disorders of both mitral and aortic valves; T45.8X5A Adverse effect of other primarily systemic and hematological agents, initial encounter; M79.7 Fibromyalgia; R00.2 Palpitations; J45.909 Unspecified asthma, uncomplicated; R78.9 Finding of unspecified substance, not normally found in blood; F41.9 Anxiety disorder, unspecified; N40.0 Benign prostatic hyperplasia without lower urinary tract symptoms; I48.0 Paroxysmal atrial fibrillation; D72.829 Elevated white blood cell count, unspecified; J32.9 Chronic sinusitis, unspecified; G43.909 Migraine, unspecified, not intractable, without status migrainosus; D64.81 Anemia due to antineoplastic chemotherapy; E78.5 Hyperlipidemia, unspecified; K58.9 Irritable bowel syndrome, unspecified; G47.33 Obstructive sleep apnea (adult) (pediatric); K21.9 Gastro-esophageal reflux disease without esophagitis; Z79.84 Long term (current) use of oral hypoglycemic drugs; Z88.2 Allergy status to sulfonamides; Z88.8 Allergy status to other drugs, medicaments and biological substances; Z91.048 Other nonmedicinal substance allergy status; Z85.828 Personal history of other malignant neoplasm of skin; Z90.49 Acquired absence of other specified parts of digestive tract; Z96.641 Presence of right artificial hip joint

== ENCOUNTER → 2019-05-05 | Outpatient (CLI) | payer MEDICARE ==
[~2019-05-05] MED LIST changes: +CALC600T3 PO; +CLIN1GEL3 EXT; +D3400CAP PO; +GASTROGRAFIN SOLUTION 30ML (Q9963) As Ordered ONE; +ISOVUE-370 76% 100ML VIAL (Q9967) As Ordered ONE; +RA B1TAB7 PO; +VITMTA PO
--- NOTE | 2019-05-05 17:37 | REP ---
CT of the abdomen and pelvis with IV and oral contrast for follow up of pancreatic carcinoma: Comparisons are the previous abdomen/pelvis CT of 08/04/2018 and the PET scan dated 02/10/2019. The visualized lower lung brush are unremarkable. There are surgical clips in the gallbladder fossa, compatible with cholecystectomy, unchanged. There is mild dilatation of the intrahepatic and extrahepatic biliary ducts, likely a consequence of cholecystectomy, not significantly changed. There is a tiny subcapsular hypodensity posteriorly in the dome of the liver measuring approximately 8 mm in diameter, unchanged from the knee, likely an hepatic cyst. There is no hypermetabolic activity associated with this finding on the comparison PET scan although is borderline size for detection by PET scan. There is no other evidence of hepatic metastatic disease. The known mass in the head of the pancreas today measures up to 23 mm AP diameter. This measured up to 18 mm previously. The body and tail of the pancreas are unremarkable and unchanged. There is no pancreatic duct dilatation. There is no peripancreatic inflammation to suggest pancreatitis. Spleen is normal size and unremarkable. The adrenals are unremarkable. The kidneys are unremarkable. The abdominal aorta is unremarkable. There is no periaortic adenopathy or mass. There is no bowel distension or obstruction. The mesentery is unremarkable. There is no adenopathy or ascites. Pelvis: There is a right hip arthroplasty resulting in beam hardening artifact obscuring the inferior pelvis. The visualized pelvic bowel loops are unremarkable. The bladder is obscured. There are multiple grade II and grade III compression deformities of the lower thoracic and lumbar vertebra, likely from insufficiency. These are unchanged. No lytic, blastic or destructive skeletal changes are identified. Impression: The known pancreatic head mass is slightly increased in size. No hepatic metastases are identified. There is no other abdominal mass, adenopathy or ascites. Of multiple lower thoracic and lumbar vertebral body compression deformities, unchanged. No lytic, blastic or destructive skeletal changes. No significant change from the prior study except for slight enlargement of the known pancreatic head mass. Electronically Signed by Shyam Watson MD 05/05/2019 05:28 P
== END ==
LOC: M RAD 11:32
PROVIDERS: ATTEND Internal Medicine Medical Oncology
DX: M43.9 Deforming dorsopathy, unspecified (principal); C25.9 Malignant neoplasm of pancreas, unspecified; Z96.641 Presence of right artificial hip joint
CPT/HCPCS: 74177; Q9963; Q9967

== ENCOUNTER → 2019-05-07 | Outpatient (CLI) | payer MEDICARE ==
[~2019-05-07] MED LIST changes: +BUPIVACAINE HCL 0.5% 10 ML VIAL As Ordered ONE; -GASTROGRAFIN SOLUTION 30ML (Q9963) As Ordered ONE; -ISOVUE-370 76% 100ML VIAL (Q9967) As Ordered ONE; +ISOVUE-M 300 61% 15ML VIAL (Q9967) As Ordered ONE; +LIDOCAINE 1% MDV 20ML VIAL As Ordered ONE; +MIDAZOLAM INJ 2 MG/2 ML VIAL (J2250) As Ordered ONE; +diphenhydrAMINE INJ 50MG/ML VIAL (J1200) As Ordered ONE; +fentaNYL 100 MCG/2 ML INJECTION (J3010) As Ordered ONE; +methylPREDNISolone 80MG/ML SUSP 1ML VIAL (J1040) As Ordered ONE
--- NOTE | 2019-05-07 13:55 | IRHP ---
[facility] IR Pre-Procedure H & P General Date of Service: May 07, 2019 Procedure: Same Day Surgery Interval History and Physical I have seen the patient and reviewed last H & P performed within 30 days. There is no significant interval change. History of Present Illness Chief Complaint The patient is a 78-year-old male admitted with a reason for visit of Back Pain. PRE-PROCEDURE DIAGNOSIS: back pain HEART: normal rate. LUNGS: normal breathing at rest. ASA Classification ASA Classification: II-Mild systemic disease Mallampati Score: I NPO: Yes Problems with prior sedation: No Obstructive Sleep Apnea: No Plan moderate sedation Allergies Coded Allergies: TAPE (Verified Allergy, Mild, SUTURE TAPE- SKIN REACTION, 03/10/19) Acarides (Mites) (Verified Allergy, Unknown, 03/10/19) Sulfa (Sulfonamide Antibiotics) (Verified Allergy, Unknown, 03/10/19) carbamazepine (Verified Allergy, Unknown, 03/10/19) mold (Verified Allergy, Unknown, 03/10/19) Home Medications Scheduled Calcium Carbonate (Calcium Carbonate), 600 MG PO QPM, (Reported) Cephalexin (Cephalexin), 2,000 MG PO ASDIRECTED, (Reported) Cholecalciferol (Vitamin D3) (Vitamin D3), 400 UNIT PO QPM, (Reported) Dalteparin Sodium,Porcine (Fragmin), 10,000 UNIT SC QPM, (Reported) Digoxin (Digoxin), 125 MCG PO DAILY, (Reported) Dutasteride (Avodart), 0.5 MG PO QPM, (Reported) Formoterol Fumarate (Perforomist), 20 MCG INH QHS, (Reported) Metformin HCl (Metformin HCl), 1,000 MG PO BID, (Reported) Multivitamins (Thera M Plus Tablet), 1 TAB PO DAILY, (Reported) Nebivolol HCl (Bystolic), 2.5 MG PO QHS, (Reported) Potassium Chloride (K-Tab ER), 10 MEQ PO BID, (Reported) Vitamin B Complex (B Complex), 1 TAB PO QPM, (Reported) Zolpidem Tartrate (Zolpidem Tartrate), 10 MG PO QHS, (Reported) Scheduled PRN Albuterol Sulf (Albuterol Sulfate), 2.5 MG INH Q4H PRN for SOB/WHEEZING, (Reported) Azelastine HCl (Azelastine HCl), 1 SPRAY NA BID PRN for NASAL CONGESTION, (Reported) Buspirone HCl (Buspirone HCl), 5 MG PO BID PRN for MIGRAINE, (Reported) Clindamycin Phosphate (Clindagel), 1 DOSE EXT DAILY PRN for ROSACEA, (Reported) Docusate Sodium (Docusate Sodium), 250 MG PO BID PRN for CONSTIPATION, (Reported) Furosemide (Furosemide), 20 MG PO TID PRN for EDEMA, (Reported) Lactulose (Lactulose), 30 ML PO BID PRN for CONSTIPATION, (Reported) Lidocaine (Lidocaine), 1 PATCH TD DAILY PRN for PAIN, (Reported) Lubiprostone (Amitiza), 24 MCG PO DAILY PRN for CONSTIPATION, (Reported) Metoclopramide Hcl (Reglan), 5 MG PO AC PRN for INDIGESTION, (Reported) Mometasone Furoate (Asmanex), 220 MCG IN DAILY PRN for SHORTNESS OF BREATH, (Reported) Morphine Sulfate (Morphine Sulfate), 15 MG PO Q6H PRN for PAIN, (Reported) Ondansetron (Ondansetron Odt), 8 MG PO TID PRN for NAUSEA, (Reported) Sennosides (Senna), 2 TAB PO BID PRN for CONSTIPATION, (Reported) Tramadol HCl (Tramadol HCl), 50 MG PO Q6H PRN for PAIN, (Reported) Discontinued Medications Morphine Sulfate (Morphine Sulfate ER), 15 MG PO BID, (Reported) Discontinued Reason: Pt states not taking Tamsulosin HCl (Flomax), 0.4 MG PO QPM, (Reported) Discontinued Reason: Pt states not taking VS, I&O, 24H, Fishbone Vital Signs/I&O Vital Signs Date Time Temp Pulse Resp B/P (MAP) Pulse Ox O2 Delivery O2 Flow Rate FiO2 05/07/19 13:40 98.9 74 16 99 Room Air TD DELGADO MD May 07, 2019 13:55
--- NOTE | 2019-05-07 15:33 | REP ---
Fluoroscopy guided lumbar epidural steroid injection. Clinical information: Back pain. Physician: Dr. Vallejo. Procedure: The patient was advised of the benefits, risks and alternatives of the procedure and informed consent was obtained. The time-out was performed with verification of the patient's name, MRN, site of procedure and type of procedure to be performed. The patient was positioned in the prone position on the angiographic table. The site was prepped and draped in the usual sterile fashion. Moderate sedation was performed by the physician including the presence of an independent trained observer who assisted in monitoring the patient's level of consciousness and physiologic status. Following the administration of fentanyl and Versed, the physician spent 30 minutes of continuous face to face time with the patient. A patrol sergeant radiograph reveals no significant abnormality. The anticipated puncture site was anesthetized with lidocaine. A 17 gauge Tuohy spinal needle was advanced into the L3-4 epidural space under fluoroscopy guidance using [id number] technique. The stylet was removed and there was no flow of CSF. Injection of contrast under fluoroscopy guidance confirmed epidural location of needle. 80 milligrams of Depo-Medrol was injected into the epidural space along with 3-4 ml of PF 0.5% bupivacaine. The stylet was replaced, the needle was removed, pressure held and hemostasis achieved. A sterile dressing was applied to the site. The patient tolerated the procedure well and was returned to the PRU in stable condition. EBL: Less than 5 ml. Complications: None. Impression: Successful fluoroscopy guided lumbar epidural steroid injection. Patient to follow up in IR clinic in 3 months. Thank you this referral. Electronically Signed by Maritza Vallejo MD 05/07/2019 03:32 P
[2019-05-07 16:46] VITALS: BP 135/74
== END ==
LOC: M IRPRO 12:53
PROVIDERS: ATTEND Radiology Diagnostic Radiology
DX: M54.5 Low back pain (principal); Z88.2 Allergy status to sulfonamides; Z88.8 Allergy status to other drugs, medicaments and biological substances; Z91.09 Other allergy status, other than to drugs and biological substances; Z91.048 Other nonmedicinal substance allergy status
CPT/HCPCS: 62323; 99152; 99153; J1040; J1200; J2250; J3010; Q9967

== ENCOUNTER → 2019-05-25 | Outpatient (CLI) | payer MEDICARE ==
[~2019-05-25] MED LIST changes: +ISOVUE-300 61% 50ML VIAL (Q9967) As Ordered ONE; -ISOVUE-M 300 61% 15ML VIAL (Q9967) As Ordered ONE; -methylPREDNISolone 80MG/ML SUSP 1ML VIAL (J1040) As Ordered ONE
--- NOTE | 2019-05-25 09:32 | IRHP ---
[facility] [place] IR Pre-Procedure H & P General Date of Service: May 25, 2019 Procedure: Same Day Surgery Interval History and Physical I have seen the patient and reviewed last H & P performed within 30 days. There is no significant interval change. History of Present Illness Chief Complaint The patient is a 78-year-old male admitted with a reason for visit of Pancreatic Ca. PRE-PROCEDURE DIAGNOSIS: pancreatic ca HEART: normal rate. LUNGS: normal breathing at rest. ASA Classification ASA Classification: III-Severe systemic dis. Mallampati Score: I NPO: Yes Problems with prior sedation: No Obstructive Sleep Apnea: No Plan moderate sedation Allergies Coded Allergies: TAPE (Verified Allergy, Mild, SUTURE TAPE- SKIN REACTION, 03/10/19) Acarides (Mites) (Verified Allergy, Unknown, 03/10/19) Sulfa (Sulfonamide Antibiotics) (Verified Allergy, Unknown, 03/10/19) carbamazepine (Verified Allergy, Unknown, 03/10/19) mold (Verified Allergy, Unknown, 03/10/19) Home Medications Scheduled Calcium Carbonate (Calcium Carbonate), 600 MG PO QPM, (Reported) Cephalexin (Cephalexin), 2,000 MG PO ASDIRECTED, (Reported) Cholecalciferol (Vitamin D3) (Vitamin D3), 400 UNIT PO QPM, (Reported) Dalteparin Sodium,Porcine (Fragmin), 10,000 UNIT SC QPM, (Reported) Digoxin (Digoxin), 125 MCG PO DAILY, (Reported) Dutasteride (Avodart), 0.5 MG PO QPM, (Reported) Formoterol Fumarate (Perforomist), 20 MCG INH QHS, (Reported) Metformin HCl (Metformin HCl), 1,000 MG PO BID, (Reported) Multivitamins (Thera M Plus Tablet), 1 TAB PO DAILY, (Reported) Nebivolol HCl (Bystolic), 2.5 MG PO QHS, (Reported) Potassium Chloride (K-Tab ER), 10 MEQ PO BID, (Reported) Vitamin B Complex (B Complex), 1 TAB PO QPM, (Reported) Zolpidem Tartrate (Zolpidem Tartrate), 10 MG PO QHS, (Reported) Scheduled PRN Albuterol Sulf (Albuterol Sulfate), 2.5 MG INH Q4H PRN for SOB/WHEEZING, (Reported) Azelastine HCl (Azelastine HCl), 1 SPRAY NA BID PRN for NASAL CONGESTION, (Reported) Buspirone HCl (Buspirone HCl), 5 MG PO BID PRN for MIGRAINE, (Reported) Clindamycin Phosphate (Clindagel), 1 DOSE EXT DAILY PRN for ROSACEA, (Reported) Docusate Sodium (Docusate Sodium), 250 MG PO BID PRN for CONSTIPATION, (Reported) Furosemide (Furosemide), 20 MG PO TID PRN for EDEMA, (Reported) Lactulose (Lactulose), 30 ML PO BID PRN for CONSTIPATION, (Reported) Lidocaine (Lidocaine), 1 PATCH TD DAILY PRN for PAIN, (Reported) Lubiprostone (Amitiza), 24 MCG PO DAILY PRN for CONSTIPATION, (Reported) Metoclopramide Hcl (Reglan), 5 MG PO AC PRN for INDIGESTION, (Reported) Mometasone Furoate (Asmanex), 220 MCG IN DAILY PRN for SHORTNESS OF BREATH, (Reported) Morphine Sulfate (Morphine Sulfate), 15 MG PO Q6H PRN for PAIN, (Reported) Ondansetron (Ondansetron Odt), 8 MG PO TID PRN for NAUSEA, (Reported) Sennosides (Senna), 2 TAB PO BID PRN for CONSTIPATION, (Reported) Tramadol HCl (Tramadol HCl), 50 MG PO Q6H PRN for PAIN, (Reported) VS, I&O, 24H, Fishbone Vital Signs/I&O Vital Signs Date Time Temp Pulse Resp B/P (MAP) Pulse Ox O2 Delivery O2 Flow Rate FiO2 05/25/19 08:47 97.9 68 16 97 Room Air TD DELGADO MD May 25, 2019 09:32
[2019-05-25 13:06] VITALS: BP 128/69
--- NOTE | 2019-05-26 08:15 | REP ---
IR CT guided celiac block. IR moderate sedation. Clinical information: Pancreatic cancer. Complex pain in the back, right upper quadrant from multiple sources. Temporary celiac block before consideration for permanent neurolysis. Physician: Dr. Vallejo. Procedure: The patient was advised of the benefits, risks and alternatives of the procedure and informed consent was obtained. The time-out was performed with verification of the patient's name, MRN, site of procedure and type of procedure to be performed. The patient was positioned in the prone position on the table. The site was prepped and draped in the usual sterile fashion. Moderate sedation was performed by the physician including the presence of an independent trained observer who assisted in monitoring the patient's level of consciousness and physiologic status. Following the administration of Fentanyl and Versed, the physician spent 60 minutes of continuous face to face time with the patient. Preliminary CT of the abdomen demonstrates the celiac and superior mesenteric axis. No significant tumor infiltration in this region. The anticipated puncture site was anesthetized with lidocaine. A 21 G Chiba needle was inserted into the left celiac plexus , under intermittent CT guidance. Contrast was injected through the needle. Follow-up CT through the area demonstrates appropriate layering of contrast in the region of the left celiac ganglion. No infiltration of any organs or vascular structures. 7 ml of 0.5% preservative-free bupivacaine was instilled through the needle. The needle was removed. The anticipated puncture site was anesthetized with lidocaine. A 21 G Chiba needle was inserted into the right celiac plexus , under intermittent CT guidance. Contrast was injected through the needle. Follow-up CT through the area demonstrates appropriate layering of contrast in the region of the right celiac ganglion. No infiltration of any organs or vascular structures. 3 ml of 0.5% preservative-free bupivacaine was instilled through the needle. The needle was removed. A follow-up CT through the area demonstrates no significant hematoma. A sterile dressing was applied to the site. The patient tolerated the procedure well and was returned to the PRU in stable condition. EBL: < 5 ml. Complications: None. Conclusion: 1. CT demonstrates no significant tumor infiltration of the celiac plexus. 2. Successful CT -guided temporary celiac block. If the patient receives significant pain relief from this procedure, permanent alcohol neurolysis will be considered. Thank you for this referral. Electronically Signed by Maritza Vallejo MD 05/26/2019 08:14 A
== END ==
LOC: M IRPRO 08:32
PROVIDERS: ATTEND Radiology Diagnostic Radiology
DX: C25.9 Malignant neoplasm of pancreas, unspecified (principal); Z88.2 Allergy status to sulfonamides; Z88.8 Allergy status to other drugs, medicaments and biological substances; Z91.09 Other allergy status, other than to drugs and biological substances; Z91.048 Other nonmedicinal substance allergy status; Z79.899 Other long term (current) drug therapy

== ENCOUNTER → 2019-05-27 | Outpatient (CLI) | payer MEDICARE ==
[~2019-05-27] MED LIST changes: +ATIV1TAB10 PO; -BUPIVACAINE HCL 0.5% 10 ML VIAL As Ordered ONE; +FENT1DIS14 TD; -ISOVUE-300 61% 50ML VIAL (Q9967) As Ordered ONE; -LIDOCAINE 1% MDV 20ML VIAL As Ordered ONE; -MIDAZOLAM INJ 2 MG/2 ML VIAL (J2250) As Ordered ONE; -SIMV40TA2 PO; +SIMV40TA20 PO; -diphenhydrAMINE INJ 50MG/ML VIAL (J1200) As Ordered ONE; -fentaNYL 100 MCG/2 ML INJECTION (J3010) As Ordered ONE
--- NOTE | 2019-05-27 11:39 | REP ---
Clinical: Cough. Technique: PA and lateral. Comparison: 04/15/2019, 01/07/2015 . Findings: Mediastinum and cardiac silhouette are normal. [id number] identified with tip in the SVC. Stable 4 mm nodule in the periphery of the right mid lung zone is appreciated no consolidation, effusion, or pneumothorax. Skeletal structures are intact. Impression: No acute cardiopulmonary process appreciated. Electronically Signed by Matt Oliva MD 05/27/2019 11:30 A
== END ==
LOC: M LAB 11:05
PROVIDERS: ATTEND Family Medicine
DX: R91.1 Solitary pulmonary nodule (principal); R05 Cough; Z95.828 Presence of other vascular implants and grafts

== ENCOUNTER → 2019-06-15 | Outpatient (CLI) | payer MEDICARE ==
[~2019-06-15] MED LIST changes: +DIGO0.123 PO
--- NOTE | 2019-06-16 07:39 | REP ---
Right lower extremity Duplex Doppler venous ultrasound: Real time compression and duplex Doppler interrogation of the right lower extremity deep venous system is performed. The right common femoral, superficial femoral and popliteal veins are fully compressible with transducer pressure and demonstrate normal spontaneous and phasic flow, without evidence of deep venous thrombosis. Impression: No evidence of deep venous thrombosis of the right lower extremity femoral popliteal venous system. Electronically Signed by Shyam Dowling MD 06/15/2019 03:06 P
== END ==
LOC: M RAD 14:20
PROVIDERS: ATTEND Internal Medicine Medical Oncology
DX: M79.606 Pain in leg, unspecified (principal)

== ENCOUNTER 2019-06-19 17:06 | Emergency (ER) | payer MEDICARE ==
[~2019-06-19] VITALS: Ht 182.9 cm; Wt 79.5 kg
[2019-06-19 17:34] LABS: HEMATOCRIT 28.8 % (42.0-52.0); HEMOGLOBIN 9.3 g/dl (13.5-17.5); MEAN CORPUSCULAR HEMOGLOBIN 30.1 pg (27.0-33.0); MEAN CORPUSCULAR HGB CONC 32.3 g/dl (32.0-36.5); MEAN CORPUSCULAR VOLUME 93.2 fl (80.0-96.0); PLATELET COUNT, AUTOMATED 120 10^3/uL (150-450); RED BLOOD COUNT 3.09 10^6/uL (4.30-6.10)
[2019-06-19 17:47] LABS: WHITE BLOOD COUNT 34.3 10^3/uL (4.0-10.0)
[2019-06-19 17:48] LABS: INR 0.96; PROTHROMBIN TIME 12.4 SECONDS (11.8-14.0)
[2019-06-19 18:05] LABS: ALBUMIN 3.5 GM/DL (3.2-5.2); ALT/SGPT 39 U/L (12-78); BILIRUBIN,DIRECT < 0.1 MG/DL (0.0-0.2); BILIRUBIN,TOTAL 0.3 MG/DL (0.2-1.0); CPK CREATINE PHOSPHOKINASE 147 U/L (39-308); LIPASE 58 U/L (73-393); MB/CK RELATIVE INDEX 2.72 (< OR =4); TOTAL PROTEIN 6.5 GM/DL (6.4-8.2); TROPONIN I < 0.02 NG/ML (< 0.10)
--- NOTE | 2019-06-19 18:26 | REP ---
PORTABLE CHEST: HISTORY: Chest pain. COMPARISON: Multiple, the latest 05/27/2019. The technique utilized in obtaining the radiograph has magnified the cardiac silhouette and accentuated the interstitial markings. There is a Mediport device in place, the tip is unchanged in the superior vena cava. There is no change in the appearance of the lung brush. No acute patchy parenchymal opacities or pleural effusions have developed. The heart is not enlarged. The osseous structures are stable. IMPRESSION: No evidence of acute cardiopulmonary disease. Electronically Signed by Tawanda Moreno DO 06/19/2019 06:56 P
[2019-06-19 18:32] LABS: LYMPHOCYTES 1 % (16-44); MONOCYTES 4 % (0-5); MYELOCYTES 1 % (0-0); NEUTROPHILS 88 % (28-66)
[2019-06-19 18:33] LABS: ANISOCYTOSIS 1+
[2019-06-19 18:37] LABS: PLATELET ESTIMATE DECREASED (NORMAL)
[2019-06-19] MEDS: fentaNYL 100 MCG/2 ML INJECTION (J3010) IV PRN ×2 (18:50→19:25)
--- NOTE | 2019-06-19 19:06 | REPVR ---
PROCEDURE INFORMATION: Exam: CT Thoracic Spine Without Contrast Exam date and time: 06/19/2019 6:03 PM Age: 78 years old Clinical indication: Condition or disease; Other: Mets from pancreatic CA; Additional info: Metastatic CA, R/O mets/path fxs TECHNIQUE: Imaging protocol: Computed tomography images of the thoracic spine without contrast. Radiation optimization: All CT scans at this facility use at least one of these dose optimization techniques: automated exposure control; mA and/or kV adjustment per patient size (includes targeted exams where dose is matched to clinical indication); or iterative reconstruction. COMPARISON: No relevant prior studies available. FINDINGS: Vertebrae: Scattered small and plate Schmorl's node cavities. Normal kyphotic spinal curvature, vertebral body heights, and alignment. No spinal fracture or acute subluxation. Discs/Spinal canal/Neural foramina: No spinal stenosis. Other bones/joints: Bones are demineralized. Soft tissues: Unremarkable. IMPRESSION: No acute abnormality. Electronically signed by: Clemente Bragg On 06/19/2019 19:06:03 PM
--- NOTE | 2019-06-19 19:20 | REPVR ---
PROCEDURE INFORMATION: Exam: CT Lumbar Spine Without Contrast Exam date and time: 06/19/2019 6:03 PM Age: 78 years old Clinical indication: Condition or disease; Other: Mets from pancreatic CA; Additional info: Metastatic CA, R/O mets/path fxs TECHNIQUE: Imaging protocol: Computed tomography images of the lumbar spine without contrast. Radiation optimization: All CT scans at this facility use at least one of these dose optimization techniques: automated exposure control; mA and/or kV adjustment per patient size (includes targeted exams where dose is matched to clinical indication); or iterative reconstruction. COMPARISON: CT Spine, lumbar w/o contrast 2018-06-06 12:33 FINDINGS: Vertebrae: Straightened lumbar curvature. Insufficiency fractures of the T11, T12, L1, small Schmorl's node cavities in the superior L2 and L3 endplates. Insufficiency fracture with depression and mild height loss of the inferior L3, and superior L4 and L5 endplates. Fractures could be chronic. Vertebrae are hypodense bones indicating osteopenia. Mild lower lumbar levoconvex curvature. Tiny bone island within the T12 spinous process. Discs/Spinal canal/Neural foramina: Degenerative disc and joint disease with multilevel moderate to severe foraminal and moderate spinal stenosis. Soft tissues: Unremarkable. IMPRESSION: 1. No suspected spinal metastases. Moderate spondylosis with multiple insufficiency fractures. 2. Insufficiency fractures of the T11, T12, L1, small Schmorl's node cavities in the superior L2 and L3 endplates. Insufficiency fracture with depression and mild height loss of the inferior L3, and superior L4 and L5 endplates. Fractures could be chronic. Fractures appear chronic but are age-indeterminate, correlate for focal pain or MRI. Electronically signed by: Clemente Bragg On 06/19/2019 19:20:07 PM
[2019-06-19] MEDS ORDERED: FENTANYL REMOVAL DOCUMENTATION MISC TD ONE (19:45)
[2019-06-19] MEDS ORDERED: fentaNYL 25 MCG/HR PATCH TOP ONE (19:45)
[2019-06-19 20:15] VITALS: BP 147/79
--- NOTE | 2019-06-20 18:58 | ECGEPIP ---
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
--- NOTE | 2019-06-22 07:55 | ED PDOC ---
Post-Departure Follow-Up dr lara faxed formal report of ct t spine for fu Glenn De Paz MD Jun 22, 2019 07:55
== END 2019-06-19 20:26 | disposition home or self-care (01) ==
LOC: M ED 17:06
DX: M54.6 Pain in thoracic spine (principal); I10 Essential (primary) hypertension; E11.9 Type 2 diabetes mellitus without complications; J45.909 Unspecified asthma, uncomplicated; G47.33 Obstructive sleep apnea (adult) (pediatric); F41.9 Anxiety disorder, unspecified; E78.5 Hyperlipidemia, unspecified
CPT/HCPCS: 71045; 72128; 72131; 80047; 80076; 82550; 82553; 83690; 84484; 85025; 85610; 93005; 93041; 94760; 96374; 96376; 99284; J3010

== ENCOUNTER → 2019-07-07 | Outpatient (CLI) | payer MEDICARE ==
[~2019-07-07] MED LIST changes: +PROHANCE 279.3MG/ML 15ML VIAL (A9576) As Ordered ONE
--- NOTE | 2019-07-07 19:24 | REP ---
MRI right wrist without and with IV contrast: History: Pain in the right wrist. Pain in the palm of the hand. No comparison imaging. Technique: Axial, coronal and sagittal imaging planes are utilized. T1 and T2-weighted scans were included with and without fat saturation. MRI findings: Subcortical cysts are seen in the distal pole of the navicula and in the adjacent waist of the capitate consistent with intercarpal arthropathy. There is narrowing of the navicular multangular articulation and tiny subcortical cysts are seen in the greater multangular. There is also some narrowing and spur formation and subcortical cyst formation at the first carpometacarpal articulation. Early subcortical cyst formation is seen in the medial aspect of the articular surface of the distal radius. There are tiny subcortical cysts in the lunate. There is no evidence of juxta-articular mass or ganglion cyst. Carpal tunnel and its contents are unremarkable. No extensor tendinopathy is appreciated. There is no visible triangular fibrocartilage disruption. T2-weighted scans demonstrate a small amount of joint fluid in the distal radioulnar joint and in the intercarpal articulations. Postcontrast images show mild synovial enhancement at the wrist and distal radioulnar joint. 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 The largest of these cysts is in the distal navicular bone measuring 7 mm in greatest diameter. There is a small amount of joint fluid in the distal radioulnar joint and in the intercarpal articulations. Electronically Signed by Adelfo Galeas MD 07/07/2019 07:34 P
== END ==
LOC: M RAD 16:00
PROVIDERS: ATTEND Physical Medicine & Rehabilitation
DX: M19.031 Primary osteoarthritis, right wrist (principal); M79.641 Pain in right hand; M54.2 Cervicalgia
CPT/HCPCS: 73223; A9576

== ENCOUNTER → 2019-07-13 | Outpatient (REF) | payer MEDICARE ==
[~2019-07-13] MED LIST changes: +BISO5TAB14 PO; -BISO5TAB9 PO; -PROHANCE 279.3MG/ML 15ML VIAL (A9576) As Ordered ONE
== END ==
LOC: M LAB REF 17:05
PROVIDERS: ATTEND Family Medicine
DX: M79.671 Pain in right foot (principal)

== ENCOUNTER → 2019-07-14 | Outpatient (CLI) | payer MEDICARE ==
[~2019-07-14] MED LIST changes: +GASTROGRAFIN SOLUTION 30ML (Q9963) As Ordered ONE; +ISOVUE-370 76% 100ML VIAL (Q9967) As Ordered ONE
--- NOTE | 2019-07-14 18:47 | REP ---
CT CHEST WITH IV CONTRAST: TECHNIQUE: Axial contrast enhanced images from the thoracic inlet to the upper abdomen using 100 mL Isovue 370 intravenous contrast material with multiplanar reformations. COMPARISON: 04/16/2019 The lungs are free of infiltrate. No new nodules is seen. There is no mediastinal, axillary, or hilar adenopathy. Mild atherosclerotic calcification is seen of the thoracic aorta without aneurysm. Heart is normal in size. There is no pleural or pericardial effusion. There are degenerative changes of the spine. There are stable compression deformities of T10, T11, T12, and L1 vertebral bodies. IMPRESSION: Stable CT exam. No new nodule or adenopathy. Electronically Signed by Shyam Dowling MD 07/14/2019 07:25 P
--- NOTE | 2019-07-15 07:23 | REP ---
CT ABDOMEN AND PELVIS WITH ORAL AND IV CONTRAST: TECHNIQUE: Axial contrast enhanced images from the lung bases to the pubic symphysis using 100 mL Isovue 370 intravenous contrast material with multiplanar reformations. COMPARISON: 05/05/2019 as well as other prior exams. No new liver mass is seen. Two ill-defined subcentimeter hypodensities in the posterior right lobe of the liver are stable. Biliary dilatation is stable. Spleen is not enlarged with no intrinsic abnormality. The adrenal glands are normal. The previously noted mass in the head of the pancreas has not significantly changed, slightly greater than 3 cm in diameter. Kidneys demonstrate no mass or hydronephrosis. There is mild atherosclerotic calcification of the abdominal aorta without aneurysm. No significantly enlarged lymph nodes are seen. No free air or free fluid. There is no bowel wall thickening. Metallic clips are seen along the inferior liver in the region of the gastroesophageal junction. There is mesh material in the anterior abdominal wall. No bowel wall thickening is seen. No pelvic mass is seen. Urinary bladder is grossly unremarkable. There is a metallic right hip prosthesis. IMPRESSION: Essentially stable CT exam. Mass in the head of the pancreas appears unchanged in size. No new adenopathy or mass in the abdomen or pelvis. No free air or free fluid. Electronically Signed by Shyam Dowling MD 07/15/2019 05:33 P
== END ==
LOC: M RAD 13:58
PROVIDERS: ATTEND Internal Medicine Medical Oncology
DX: R10.9 Unspecified abdominal pain (principal); C25.9 Malignant neoplasm of pancreas, unspecified
CPT/HCPCS: 71260; 74177; Q9963; Q9967

== ENCOUNTER → 2019-07-21 | Outpatient (CLI) | payer MEDICARE ==
[~2019-07-21] MED LIST changes: -GASTROGRAFIN SOLUTION 30ML (Q9963) As Ordered ONE; -ISOVUE-370 76% 100ML VIAL (Q9967) As Ordered ONE
[2019-07-21 20:34] LABS: HEMATOCRIT 30.2 % (42.0-52.0); HEMOGLOBIN 9.3 g/dl (13.5-17.5); MEAN CORPUSCULAR HEMOGLOBIN 29.6 pg (27.0-33.0); MEAN CORPUSCULAR HGB CONC 30.8 g/dl (32.0-36.5); MEAN CORPUSCULAR VOLUME 96.2 fl (80.0-96.0); PLATELET COUNT, AUTOMATED 110 10^3/uL (150-450); RED BLOOD COUNT 3.14 10^6/uL (4.30-6.10)
[2019-07-21 20:41] LABS: ALBUMIN 3.7 GM/DL (3.2-5.2); ALT/SGPT 31 U/L (12-78); BILIRUBIN,TOTAL 0.2 MG/DL (0.2-1.0); BLOOD UREA NITROGEN 7 MG/DL (7-18); CALCIUM LEVEL 9.3 MG/DL (8.8-10.2); CARBON DIOXIDE LEVEL 27 MEQ/L (21-32); CHLORIDE LEVEL 108 MEQ/L (98-107); CREATININE FOR GFR 0.89 MG/DL (0.70-1.30); GLOMERULAR FILTRATION RATE > 60.0 (>42); GLUCOSE, FASTING 109 MG/DL (70-100); POTASSIUM SERUM 4.2 MEQ/L (3.5-5.1); SODIUM LEVEL 141 MEQ/L (136-145); TOTAL PROTEIN 6.4 GM/DL (6.4-8.2); URIC ACID 6.7 MG/DL (3.5-7.2)
[2019-07-21 21:23] LABS: WHITE BLOOD COUNT 33.5 10^3/uL (4.0-10.0)
[2019-07-21 21:26] LABS: ATYPICAL LYMPH 3 % (0-5); LYMPHOCYTES 5 % (16-44); NEUTROPHILS 81 % (28-66)
[2019-07-21 21:27] LABS: ANISOCYTOSIS 1+; OVALOCYTES 1+; POIKILOCYTOSIS 1+
[2019-07-21 21:30] LABS: PLATELET ESTIMATE NORMAL (NORMAL)
== END ==
LOC: M WUC 18:17
PROVIDERS: ATTEND Physician Assistant
DX: L03.115 Cellulitis of right lower limb (principal)

== ENCOUNTER → 2019-08-07 | Outpatient (CLI) | payer MEDICARE ==
[~2019-08-07] MED LIST changes: -DUTA1CAP PO; +DUTA1CAP2 PO; +ISOVUE-370 76% 100ML VIAL (Q9967) As Ordered ONE
--- NOTE | 2019-08-07 10:06 | REP ---
CT study of the right foot: With IV contrast: History: Pain and swelling. Rule out osteomyelitis. The patient also has a history of pancreatic cancer. CT contrast dose: 100 mL of intravenous Isovue [address] findings: There is diffuse soft tissue swelling of the dorsal forefoot and midfoot soft tissues. Some medial and lateral ankle soft tissue swelling is seen. No evidence to suggest abscess or localized fluid collection. The edema is predominately superficial to the extensor tendons. No cortical bony destructive lesion or periosteal reaction is seen. No fracture or evidence of tarsal coalition is seen. There is minimal Achilles calcaneal spurring. Impression: Diffuse soft tissue swelling pattern. No evidence of osteomyelitis, abscess, or bony destructive lesion. Electronically Signed by Adelfo Galeas MD 08/07/2019 12:14 P
--- NOTE | 2019-08-07 10:10 | REP ---
CT right tib-fib and calf with IV contrast: History: Pain and swelling of the right leg. Question osteomyelitis. Swelling extends into the foot. No comparison imaging. The patient also has a history of pancreatic malignancy. Diabetes. Technique: Helical scanning is acquired and a 3 mm axial images reformatted. Coronal and sagittal MPR images are generated and reviewed. CT contrast dose is 100 ml of intravenous Isovue 370. CT findings: There is no evidence of bony destructive lesion or periosteal reaction in the tibia or fibula proximally and distally. Normal marrow fat is seen throughout the medullary cavity of both bones in the calf. There is some atherosclerotic vascular calcification in the popliteal artery and along the course of the posterior tibial artery but no high-grade stenosis is seen and three-vessel calf runoff arterial flow is observed to the ankle. There is some subcutaneous edema diffusely about the distal calf extending across the ankle. No soft tissue fluid collection is appreciated to suggest abscess. No evidence of soft tissue mass is observed. Impression: Diffuse soft tissue swelling. Some vascular calcification. There is no evidence of osteomyelitis or skeletal metastasis. Electronically Signed by Adelfo Galeas MD 08/07/2019 12:14 P
== END ==
LOC: M RAD 06:56
PROVIDERS: ATTEND Internal Medicine Medical Oncology
DX: M79.89 Other specified soft tissue disorders (principal); C25.9 Malignant neoplasm of pancreas, unspecified
CPT/HCPCS: 73701; J1642; Q9967

== ENCOUNTER → 2019-08-10 | Outpatient (CLI) | payer MEDICARE ==
[~2019-08-10] MED LIST changes: +HYDR4TAB PO; -ISOVUE-370 76% 100ML VIAL (Q9967) As Ordered ONE
[2019-08-10 13:56] LABS: BLOOD UREA NITROGEN 11 MG/DL (7-18); CREATININE FOR GFR 0.75 MG/DL (0.70-1.30); GLOMERULAR FILTRATION RATE > 60.0 (>42)
== END ==
LOC: M LAB 12:14
PROVIDERS: ATTEND Physical Medicine & Rehabilitation
DX: M54.6 Pain in thoracic spine (principal)

== ENCOUNTER → 2019-08-14 | Outpatient (CLI) | payer MEDICARE ==
--- NOTE | 2019-08-14 11:21 | REPVR ---
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 Contrast material: PROHANCE; Contrast volume: 16 ml; Contrast route: 23G BUTTERFLY; COMPARISON: CT Spine,thoracic w/o contrast 06/19/2019 6:22 PM FINDINGS: Vertebrae: Mild exaggeration of the thoracic kyphosis. Slight grade 1 degenerative anterolisthesis of C7 on T1. No acute fracture seen. Multiple chronic appearing fractures: mild T5 vertebral body anterior wedging, mild central T10 vertebral body height loss, [id number] T11 vertebral body anterior wedging, moderate T12 and L1 vertebral body central in anterior compression fractures. These fractures are likely insufficiency type. No large osseous metastases identified. No osseous retropulsion. A 2.5 mm T1 hypointense, STIR hyperintense, enhancing lesion in the left T1 pedicle. Punctate lesion of similar signal characteristics in the left T2 pedicle. These do demonstrate enhancement on the postcontrast imaging (could represent atypical hemangiomas or tiny metastases). T1 and T2 hypointense lesions in anterior T3, posterior T4 and T12 spinous process measuring 3, 4 and 5 mm, respectively. Subtle, punctate hypointense lesions in T10 and T8. These lesions may represent bone islands versus sclerotic metastases. No discrete correlative enhancement is identified of the lesions. Epidural space: No evidence of compressive epidural tumor in the spinal canal. Spinal cord: Normal signal. No cord compression. Discs/Spinal canal/Neural foramina: Disc desiccation throughout. Mild thoracic degenerative disc disease with endplate Schmorl's nodes. No significant focal disc protrusion or extrusion. The central spinal canal is patent throughout. Liver: There are small liver cysts. Soft tissues: Unremarkable. IMPRESSION: 1. No evidence of recent fracture. 2. Tiny indeterminate enhancing lesions in the left T1 and T2 pedicles, tiny metastases cannot be excluded. 3. Additional scattered hypointense lesions in the bone marrow corresponding to previously demonstrated sclerotic lesions, may represent bone islands or sclerotic metastases. 4. Chronic insufficiency type vertebral fractures again demonstrated. Electronically signed by: Kaylynn Vallejo On 08/14/2019 11:21:36 AM
== END ==
LOC: M PLARAD 08:56
PROVIDERS: ATTEND Physical Medicine & Rehabilitation
DX: M54.6 Pain in thoracic spine (principal)

== ENCOUNTER → 2019-08-21 | Outpatient (CLI) | payer MEDICARE ==
[~2019-08-21] MED LIST changes: +NEUR100C PO
--- NOTE | 2019-08-21 16:46 | REP ---
Unilateral right lower extremity duplex venous ultrasound: History: Right-sided varicose veins. Rule out reflux. There is evidence of nonocclusive thrombosis in the proximal profunda femoral vein on the right. This appears to be a new finding when compared with the prior study, the most recent of which is from June 15, 2019. There was nonocclusive thrombus in the common femoral vein segment on June 04, 2018. There is no other evidence of deep vein thrombosis today. Reflux results: Reflux greater than 0.5 seconds in duration is seen throughout the deep system on the right lower extremity. More reflux was seen with the bed tipped. Reflux is seen throughout the greater saphenous vein at rest. Somewhat less amount of reflux was observed with standing and Valsalva. The lesser saphenous vein reflux was observed standing and with the bed tipped. The greater saphenous vein measures 4 mm in AP dimension proximally at the saphenofemoral junction where there is 1.95-second duration reflux. At mid thigh, the greater saphenous vein measures 3.2 mm demonstrating 2.9-second duration reflux. At the knee, the greater saphenous vein dimension is 5.3 mm and reflux duration is 4.45 seconds. 3.05-second duration reflux is observed in the lesser saphenous vein which measures 2.0 mm. There is a collateral extending from the greater saphenous vein distally in the thigh leading to varicosities at the anteromedial knee. Impression: Fairly extensive reflux as above. There is evidence of nonocclusive deep vein thrombosis in a portion of the profunda femoral vein on the right. Electronically Signed by Adelfo Galeas MD 08/21/2019 05:09 P
== END ==
LOC: M RAD 12:35
PROVIDERS: ATTEND Nurse Practitioner Adult Health
DX: I82.411 Acute embolism and thrombosis of right femoral vein (principal)

== ENCOUNTER → 2019-09-07 | Outpatient (CLI) | payer MEDICARE ==
--- NOTE | 2019-09-07 11:21 | REPVR ---
PROCEDURE INFORMATION: Exam: MR Head Without Contrast Exam date and time: 09/07/2019 8:34 AM Age: 78 years old Clinical indication: Other: Headache TECHNIQUE: Imaging protocol: MR of the head without contrast. COMPARISON: CT Head without contrast 03/29/2018 9:46 AM FINDINGS: Brain: There is no acute intracranial hemorrhage, cerebral edema, or midline shift. No restricted diffusion is present to suggest acute infarction. Ventricles: No hydrocephalus. Bones/joints: Unremarkable. Soft tissues: Unremarkable. Sinuses: Normal as visualized. No acute sinusitis. Mastoid air cells: Normal as visualized. No mastoid effusion. Orbits: The patient is likely status post left cataract surgery. IMPRESSION: No acute intracranial abnormality. Electronically signed by: Moises Amaya On 09/07/2019 11:21:00 AM
== END ==
LOC: M RAD 06:52
PROVIDERS: ATTEND Registered Nurse
DX: R51 Headache (principal)

== ENCOUNTER → 2019-09-24 | Outpatient (REF) | payer MEDICARE | LOC: M LAB REF 16:07 | PROVIDERS: ATTEND Family Medicine | DX: I48.0 Paroxysmal atrial fibrillation (principal) ==

== ENCOUNTER → 2019-10-02 | Outpatient (CLI) | payer MEDICARE ==
[~2019-10-02] MED LIST changes: +GASTROGRAFIN SOLUTION 30ML (Q9963) As Ordered ONE; +ISOVUE-370 76% 100ML VIAL (Q9967) As Ordered ONE
--- NOTE | 2019-10-02 14:49 | REP ---
REASON FOR EXAM: History of stage IV pancreatic CA. CONTRAST: 100 mL Isovue 370. Prior exam were the latest 07/14/2019. There is no mediastinal or hilar adenopathy. There are no pleural or pericardial effusions. The imaged osseous structures are essentially unchanged from the prior exam. Degenerative changes are seen involving the manubriosternal junction status quo. There are multiple vertebral body compression deformities, which are unchanged. For a description of the imaged upper abdomen, please refer to the CT abdomen and pelvis report made today. Evaluation of the lung brush show them to be stable without evidence of a new abnormal nodule, mass or opacity. There are bilateral subsegmental atelectatic changes seen in the dependent portions of the lung brush status quo. IMPRESSION: No significant change in the appearance of the chest CT when compared to the prior exam as described above. There is no evidence of acute intrathoracic disease. Other findings as described above. Electronically Signed by Tawanda Moreno DO 10/02/2019 02:51 P
--- NOTE | 2019-10-02 15:10 | REP ---
HISTORY: Followup pancreatic carcinoma. COMPARISON: Multiple, the latest 07/14/2019. CONTRAST: 100 mL Isovue-370 The liver, spleen, pancreas, adrenal glands and kidneys appear unchanged. There is no evidence of significant change seen involving the pancreatic head mass. The abdominal aorta and periaortic regions are unchanged. There is mild periaortic adenopathy on the right, status quo. The bowel loops and their mesenteries are essentially unchanged. No free fluid or free air has developed. CT PELVIS: The pelvic bowel loops and their mesenteries are essentially unchanged. There is no evidence of a mass or adenopathy. There is no free fluid or free air. Bone window technique throughout the examination shows no significant change in the appearance of the imaged osseous structures. IMPRESSION: There has been no significant change compared to the prior exam as described above. The degree of intrahepatic ductal dilatation is stable and the appearance of the pancreatic head mass also appears stable. Findings as described above. Electronically Signed by Tawanda Moreno DO 10/02/2019 03:50 P
== END ==
LOC: M RAD 11:58
PROVIDERS: ATTEND Internal Medicine Medical Oncology
DX: C25.9 Malignant neoplasm of pancreas, unspecified (principal); J98.11 Atelectasis
CPT/HCPCS: 71260; 74177; Q9963; Q9967

== ENCOUNTER → 2019-10-12 | Outpatient (CLI) | payer MEDICARE ==
[~2019-10-12] MED LIST changes: -GASTROGRAFIN SOLUTION 30ML (Q9963) As Ordered ONE; -ISOVUE-370 76% 100ML VIAL (Q9967) As Ordered ONE
== END ==
LOC: M LABSMTC 11:04
PROVIDERS: ATTEND Family Medicine
DX: Z11.59 Encounter for screening for other viral diseases (principal); Z20.818 Contact with and (suspected) exposure to other bacterial communicable diseases

== ENCOUNTER → 2019-10-19 | Outpatient (CLI) | payer MEDICARE ==
[~2019-10-19] MED LIST changes: +LINZ290C PO; +PROHANCE 279.3MG/ML 15ML VIAL (A9576) As Ordered ONE
--- NOTE | 2019-10-19 13:44 | REP ---
MRI LUMBAR SPINE WITH AND WITHOUT CONTRAST: COMPARISON: 04/10/2019. Multiple sequences obtained the sagittal and axial planes prior to and following the intravenous administration of 15 mL ProHance. 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 There is slight stable retrolisthesis of L5 on S1. Hemangioma is again noted in the L3 vertebral body. There is no acute marrow edema. There is no enhancing vertebral body lesion. There is diffuse loss of water signal and disc degeneration. There is moderate disc space narrowing at L5-S1. The conus is unremarkable. There is mild stable diffuse disc bulging at all levels. There are again moderate hypertrophy change at the posterior facet joints and hypertrophy of the ligamentum flavum at the L3-4 level with mild stable central canal stenosis and moderate bilateral foraminal narrowing. At L4-5, there is also moderate hypertrophic change of posterior facet joints and hypertrophy of ligamentum flavum with stable mild central canal stenosis. Mild to moderate hypertrophic changes at the posterior facets of L5-S1 are stable without central canal stenosis or foraminal narrowing at that level. IMPRESSION: Stable appearance of lumbar spine compared to prior study of 04/10/2019, with stable compression deformities of T12 as well as all lumbar vertebral bodies. No evidence of metastatic disease. 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 Electronically Signed by Shyam Dowling MD 10/19/2019 01:51 P
== END ==
LOC: M RAD 09:47
PROVIDERS: ATTEND Physical Medicine & Rehabilitation
DX: M51.36 Other intervertebral disc degeneration, lumbar region (principal)
CPT/HCPCS: 72158; A9576

== ENCOUNTER → 2019-10-22 | Outpatient (CLI) | payer MEDICARE ==
[~2019-10-22] MED LIST changes: -PROHANCE 279.3MG/ML 15ML VIAL (A9576) As Ordered ONE
--- NOTE | 2019-10-22 15:01 | REP ---
REASON: Palpable thyroid nodule. The lobe of the thyroid gland measures 4.9 x 1.8 x 2.5 cm and the left lobe measures 4.3 x 1.8 x 2.2 cm. The isthmus measures 6 mm. There are numerable tiny subcentimeter-sized hypoechoic nodules seen within a heterogenous thyroid parenchyma, the appearance of which is unchanged when compared to the prior examination of 09/17/2012. No significant masses have developed. The largest solid nodule on the right measures 1.2 cm and on the left 1.2 cm. IMPRESSION: Heterogeneous upper limits of normal in size thyroid gland as described above with numerable tiny nodules unchanged from the prior exam. Electronically Signed by Tawanda Moreno DO 10/22/2019 03:31 P
== END ==
LOC: M RAD 13:52
PROVIDERS: ATTEND Physician Assistant Medical
DX: E04.1 Nontoxic single thyroid nodule (principal)

== ENCOUNTER → 2019-10-23 | Outpatient (CLI) | payer MEDICARE ==
[~2019-10-23] MED LIST changes: +PROHANCE 279.3MG/ML 15ML VIAL As Ordered ONE
--- NOTE | 2019-10-23 13:00 | REPVR ---
PROCEDURE INFORMATION: Exam: MR Cervical Spine Without and With Contrast Exam date and time: 10/23/2019 12:16 PM Age: 79 years old Clinical indication: Condition or disease; Cancer, metastatic/secondary; Location of cancer not specified; Patient HX: Cervicalgia, R/O mets/infection, eval for changes TECHNIQUE: Imaging protocol: Multiplanar magnetic resonance images of the cervical spine without and with intravenous contrast. Contrast material: PROHANCE; Contrast volume: 15 ml; Contrast route: 22; COMPARISON: MRI-C SPINE W/O FOLL BY WITH 09/22/2014 12:30 PM FINDINGS: Vertebrae: 2 mm of grade 1 degenerative anterolisthesis of C4 on C5 and C7 on T1, as before. No acute fracture seen. Minimal chronic T1 vertebral body anterior wedging, as before. Spinal cord: Normal signal. No cord compression. Spinal epidural space: No evidence of epidural tumor or abscess in the spinal canal. C1-C2: Cystic foci adjacent to the left atlantoaxial and atlantodental joint spaces, for example seen on sagittal image 4 of series 401. There does not appear to be correlative enhancement. No adjacent diffuse soft tissue inflammatory changes. There is a small amount of left atlantoaxial joint space fluid, image 3 series 401. There is disc desiccation throughout. Disc height loss and spondylosis is moderate at C5-C6, no more than mild elsewhere. No evidence of discitis osteomyelitis. C2-C3: No significant interval change. Severe left facet arthropathy causing [id number] left neural foraminal stenosis. C3-C4: No significant interval change. Mild disc osteophyte complex does not contribute to central spinal canal stenosis. Uncovertebral and facet arthropathy causing severe bilateral neural foraminal stenoses. C4-C5: No significant interval change. Anterolisthesis with pseudobulging of the intervertebral disc. The central spinal canal remains patent. Uncovertebral and facet arthropathy causing severe right and moderate left neural foraminal stenoses. C5-C6: No significant interval change in the appearance of degenerative disc disease based on the sagittal imaging compared to the prior study. No significant interval change. Disc osteophyte complex and ligamentum flavum buckling without contribution to central spinal canal stenosis. Uncovertebral and facet arthropathy, in particular right uncovertebral osteophyte causing severe right and mild left neural foraminal stenoses. C6-C7: No significant interval change. No stenoses. C7-T1: No significant interval change. Moderate facet arthropathy causing [id number] right neural foraminal stenosis. Marrow: Bone marrow signal intensity is benign. Vertebral arteries: Expected flow voids in the vertebral arteries. Soft tissues: See "C1-C2" finding. IMPRESSION: 1. New cystic changes adjacent to left C0-C1 and C1-C2, of uncertain chronicity, new since the prior study of 2014, likely degenerative. 2. Otherwise no significant interval change. High-grade neural foraminal stenoses from C3-C4 through C5-C6, as before. 3. No enhancing metastases identified. Electronically signed by: Kaylynn Vallejo On 10/23/2019 13:00:03 PM
== END ==
LOC: M RAD 10:53
PROVIDERS: ATTEND Physical Medicine & Rehabilitation
DX: M54.2 Cervicalgia (principal)
CPT/HCPCS: 72156; A9576

== ENCOUNTER → 2019-10-27 | Outpatient (CLI) | payer MEDICARE ==
[~2019-10-27] MED LIST changes: -PROHANCE 279.3MG/ML 15ML VIAL As Ordered ONE
--- NOTE | 2019-10-27 16:20 | REP ---
PET/CT: HISTORY: Restaging pancreatic carcinoma. COMPARISONS: Comparison PET-CT studies are reviewed dated February 10, 2019, October 01, 2018, and May 13, 2018. Increased tumor markers. TECHNIQUE: 47 minutes following the intravenous injection of a 9.18 mCi dose of F-18 FDG, three-dimensional PET scintigraphy is acquired from the skull base to the proximal thighs. Triplanar noncontrast CT scanning is acquired through the same anatomic range for attenuation correction, and image registration with scan parameters optimized to minimize radiation exposure to the patient. PET scintigraphy and CT datasets were fused and displayed on a workstation with multiplanar and projection display capability. PET/CT FINDINGS: Head and neck soft tissues are unremarkable. There is no abnormal hypermetabolic uptake within the thorax. There is recurrent hypermetabolic uptake within the previously noted hepatic focus, maximum standard uptake value today in this liver metastatic focus is 5.82. Most recently, this was not hypermetabolic. Maximum standard uptake value on the original PET-CT in this lesion was 4.66. It appears a little larger than on that prior initial PET-CT. There is also increased avidity and increase in the size of the pancreatic head lesion which is hypermetabolic today. Maximum standard uptake value today is 12.0 in this lesion. Most recently on February 10, 2019, maximum standard uptake value here was 5.95. Originally, maximum SUV value was 9.96. No other abdominal hypermetabolic uptake focus is seen today. No abnormal hypermetabolic uptake is seen in the pelvis. IMPRESSION: There is recurrent hypermetabolic uptake in the previously noted liver metastatic lesion and increased size and increased uptake are noted in the pancreatic head. No other new lesion. Electronically Signed by Adelfo Galeas MD 10/27/2019 05:11 P
== END ==
LOC: M PLARAD 11:45
PROVIDERS: ATTEND Internal Medicine Medical Oncology
DX: C25.8 Malignant neoplasm of overlapping sites of pancreas (principal)
CPT/HCPCS: 78815; A9552

== ENCOUNTER → 2019-12-21 | Outpatient (CLI) | payer MEDICARE ==
[~2019-12-21] MED LIST changes: -CALC600T3 PO; +CALC600T86 PO; -LACT10SO29 PO; +LACT20EL PO
[2019-12-21 16:43] LABS: BLOOD UREA NITROGEN 11 MG/DL (7-18); CREATININE FOR GFR 0.88 MG/DL (0.70-1.30); GLOMERULAR FILTRATION RATE > 60.0 (>42)
== END ==
LOC: M WUC 11:07
PROVIDERS: ATTEND Physical Medicine & Rehabilitation
DX: M47.896 Other spondylosis, lumbar region (principal)

== ENCOUNTER → 2020-01-05 10:55 | Outpatient (RCR) | payer MEDICARE ==
[2018-04-01 08:17] LABS: HEMATOCRIT 33.4 % (37.0-51.0); HEMOGLOBIN 10.7 g/dl (12.0-18.0); LYMPH % 10.8 % (10.0-58.5); MEAN CORPUSCULAR HEMOGLOBIN 30.1 pg (26.0-32.0); MEAN CORPUSCULAR VOLUME 94.2 fl (80.0-97.0); NEUTROPHILS # 9.9 10^3/uL (2.0-7.8); NEUTROPHILS % 82.9 % (37.0-92.0); RED BLOOD COUNT 3.55 10^6/uL (4.2-6.3); WHITE BLOOD COUNT 11.9 10^3/uL (4.1-10.9)
[2018-04-01 08:19] VITALS: BP 111/71
[2018-04-01 08:31] LABS: ALBUMIN 3.8 GM/DL (3.5-5.2); BLOOD UREA NITROGEN 10 MG/DL (6-20); CALCIUM LEVEL 9.3 MG/DL (8.5-10.2); CHLORIDE LEVEL 101 MMOL/L (98-107); GLOMERULAR FILTRATION RATE > 60.0 (>42); GLUCOSE, FASTING 257 MG/DL (70-105); POTASSIUM SERUM 3.2 MMOL/L (3.5-5.1); SODIUM LEVEL 135.3 MMOL/L (136-145); TOTAL PROTEIN 5.8 GM/DL (6.4-8.3)
[2018-04-22 08:11] VITALS: BP 119/71
[2018-04-22 08:43] LABS: HEMATOCRIT 34.1 % (37.0-51.0); HEMOGLOBIN 10.9 g/dl (12.0-18.0); LYMPH % 17.4 % (10.0-58.5); MEAN CORPUSCULAR HEMOGLOBIN 30.7 pg (26.0-32.0); NEUTROPHILS # 5.1 10^3/uL (2.0-7.8); NEUTROPHILS % 75.2 % (37.0-92.0); RED BLOOD COUNT 3.55 10^6/uL (4.2-6.3); WHITE BLOOD COUNT 6.8 10^3/uL (4.1-10.9)
[2018-04-22 08:58] LABS: ALBUMIN 3.9 GM/DL (3.5-5.2); BLOOD UREA NITROGEN 12 MG/DL (6-20); CALCIUM LEVEL 9.7 MG/DL (8.5-10.2); CARBON DIOXIDE LEVEL 26 MEQ/L (23-31); CHLORIDE LEVEL 102 MMOL/L (98-107); GLUCOSE, FASTING 179 MG/DL (70-105); POTASSIUM SERUM 3.9 MMOL/L (3.5-5.1); SODIUM LEVEL 135 MMOL/L (136-145); TOTAL PROTEIN 6.2 GM/DL (6.4-8.3)
[2018-04-22 08:59] LABS: GLOMERULAR FILTRATION RATE > 60.0 (>42)
[2018-04-22] MEDS: SODIUM CHLORIDE 0.9% INJ 10 ML SYR IV PRN (14:17)
[2018-04-24] MEDS: SODIUM CHLORIDE 0.9% INJ 10 ML SYR IV PRN (11:44)
[2018-05-06 08:22] VITALS: BP 111/62
[2018-05-06 09:05] LABS: HEMATOCRIT 30.5 % (37.0-51.0); LYMPH % 11.4 % (10.0-58.5); MEAN CORPUSCULAR HEMOGLOBIN 30.9 pg (26.0-32.0); MEAN CORPUSCULAR HGB CONC 32.8 g/dl (31.0-36.0); MEAN CORPUSCULAR VOLUME 94.2 fl (80.0-97.0); NEUTROPHILS # 9.4 10^3/uL (2.0-7.8); NEUTROPHILS % 82.2 % (37.0-92.0); RED BLOOD COUNT 3.24 10^6/uL (4.2-6.3); WHITE BLOOD COUNT 11.4 10^3/uL (4.1-10.9)
[2018-05-06 09:17] LABS: ALBUMIN 3.6 GM/DL (3.5-5.2); BLOOD UREA NITROGEN 8 MG/DL (6-20); CALCIUM LEVEL 9.4 MG/DL (8.5-10.2); CARBON DIOXIDE LEVEL 27 MEQ/L (23-31); CHLORIDE LEVEL 103 MMOL/L (98-107); CREATININE FOR GFR 0.83 MG/DL (0.90-1.30); GLOMERULAR FILTRATION RATE > 60.0 (>42); GLUCOSE, FASTING 157 MG/DL (70-105); POTASSIUM SERUM 3.7 MMOL/L (3.5-5.1); SODIUM LEVEL 135 MMOL/L (136-145); TOTAL PROTEIN 5.9 GM/DL (6.4-8.3)
[2018-05-09 09:50] VITALS: BP 99/59
[2018-05-19 08:25] VITALS: BP 113/69
[2018-05-19 08:26] LABS: HEMATOCRIT 30.9 % (37.0-51.0); HEMOGLOBIN 10.1 g/dl (12.0-18.0); LYMPH % 11.5 % (10.0-58.5); MEAN CORPUSCULAR HEMOGLOBIN 30.6 pg (26.0-32.0); MEAN CORPUSCULAR HGB CONC 32.7 g/dl (31.0-36.0); MEAN CORPUSCULAR VOLUME 93.5 fl (80.0-97.0); RED BLOOD COUNT 3.3 10^6/uL (4.2-6.3); WHITE BLOOD COUNT 11.2 10^3/uL (4.1-10.9)
[2018-05-19 09:10] LABS: ALBUMIN 3.5 GM/DL (3.5-5.2); BLOOD UREA NITROGEN 6 MG/DL (6-20); CALCIUM LEVEL 9.5 MG/DL (8.5-10.2); CARBON DIOXIDE LEVEL 26 MEQ/L (23-31); CHLORIDE LEVEL 105 MMOL/L (98-107); CREATININE FOR GFR 0.85 MG/DL (0.90-1.30); GLUCOSE, FASTING 162 MG/DL (70-105); POTASSIUM SERUM 3.3 MMOL/L (3.5-5.1); SODIUM LEVEL 138 MMOL/L (136-145); TOTAL PROTEIN 5.9 GM/DL (6.4-8.3)
[2018-05-19 09:11] LABS: GLOMERULAR FILTRATION RATE > 60.0 (>42)
--- NOTE | 2018-05-20 15:24 | MEDONC ---
REVIEW PATIENT FOLLOWUP DATE OF SERVICE: 05/19/2018 DIAGNOSIS: Metastatic pancreatic cancer with liver metastases. TREATMENT SUMMARY: 1. Localized pancreatic adenocarcinoma with CT scan 09/01/2017 showing a mass in the pancreatic head with no peripancreatic adenopathy and no periaortic adenopathy. Started neoadjuvant chemotherapy with Abraxane/gemcitabine September [address] scan showing no significant response. 2. Switched to FOLFIRINOX chemotherapy 12/2017. Right upper quadrant ultrasound 12/2017 showing suspicious nodules in the liver, with liver biopsy 01/2018 at [facility] showing adenocarcinoma. HISTORY OF PRESENT ILLNESS: Mr. Mclean is scheduled to receive cycle #10 of FOLFIRINOX chemotherapy today. He reports decrease in appetite but his weight has been stable. No fevers. He has had a slight decrease in his energy levels vaguely. No headaches. No dizziness. No chest pain, pressure, shortness of breath. No cough. He has had nausea for which he takes antiemetics. No vomiting. He also has had abdominal pains, mild. He continues to have back pain for which he is on morphine. He is scheduled to see Dr. Pizano next week for his back pain. He has had alternating diarrhea and constipation particularly on his chemotherapy days for which he takes Imodium and alternately also takes a stool softener. No rectal bleeding. No mucositis and no peripheral edema. On physical exam, he weighed 75.6 kg. Temperature 96.8. Heart rate 67 per minute. Oxygen saturation 98% on room air. He had pinkish conjunctiva, anicteric sclerae. No oral mucosal lesions. No palpable cervical nodes. No oral mucositis. Lungs were clear. No rales, rhonchi, no wheeze. S1 and S2 regular. No murmur. No gallop. Abdomen was soft, nontender, no guarding. Positive bowel sounds. Extremities - no calf swelling, no calf tenderness. No pedal edema. IMPRESSION AND PLAN: Mr. Mclean had adequate blood tests for chemotherapy today. However his liver function tests came back slightly more elevated than previous and I suggested deferring chemotherapy today. We will obtain an abdominal ultrasound. I also discussed the PET scan results which did not show disease progression particularly in his liver metastases as well as in his pancreatic lesion. The PET scan also did not show any definite evidence of metastatic disease to his spine, however, there was deemed to be an osteoporotic wedge compression fracture on L1. He has been referred to ortho for this. For his pain, I suggested morphine analgesics. Followup appointment after ultrasound. Electronically Signed by Alethea Mccloud MD, FACP 05/23/2018 03:47 P DD: Alethea Mccloud MD, FACP 05/19/2018 07:08 P DT: [email or web address] 05/20/2018 03:15 P CC: Se Castle MD
[2018-06-03 08:03] VITALS: BP 111/69
[2018-06-03 08:17] LABS: HEMOGLOBIN 10.2 g/dl (12.0-18.0); LYMPH % 27.3 % (10.0-58.5); MEAN CORPUSCULAR HEMOGLOBIN 30.5 pg (26.0-32.0); MEAN CORPUSCULAR HGB CONC 31.9 g/dl (31.0-36.0); MEAN CORPUSCULAR VOLUME 95.9 fl (80.0-97.0); NEUTROPHILS # 2.5 10^3/uL (2.0-7.8); NEUTROPHILS % 59.4 % (37.0-92.0); RED BLOOD COUNT 3.34 10^6/uL (4.2-6.3); WHITE BLOOD COUNT 4.2 10^3/uL (4.1-10.9)
[2018-06-03 08:35] LABS: ALBUMIN 3.6 GM/DL (3.5-5.2); BLOOD UREA NITROGEN 10 MG/DL (6-20); CALCIUM LEVEL 9.8 MG/DL (8.5-10.2); CARBON DIOXIDE LEVEL 28 MEQ/L (23-31); CHLORIDE LEVEL 103 MMOL/L (98-107); CREATININE FOR GFR 0.69 MG/DL (0.90-1.30); GLOMERULAR FILTRATION RATE > 60.0 (>42); GLUCOSE, FASTING 156 MG/DL (70-105); POTASSIUM SERUM 3.9 MMOL/L (3.5-5.1); SODIUM LEVEL 136 MMOL/L (136-145); TOTAL PROTEIN 6.1 GM/DL (6.4-8.3)
--- NOTE | 2018-06-04 15:10 | MEDONC ---
REVIEW PATIENT FOLLOWUP DATE OF SERVICE: 06/03/2018 DIAGNOSIS: Metastatic pancreatic cancer with liver metastases. TREATMENT SUMMARY: 1. Localized pancreatic adenocarcinoma with CT scan 09/01/2017 showing a mass in the pancreatic head with no peripancreatic adenopathy and no periaortic adenopathy. Started neoadjuvant chemotherapy with Abraxane/gemcitabine September [address] scan showing no significant response. 2. Switched to FOLFIRINOX chemotherapy 12/2017. Right upper quadrant ultrasound 12/2017 showing suspicious nodules in the liver, with liver biopsy 01/2018 at [facility] showing adenocarcinoma. HISTORY OF PRESENT ILLNESS: Mr. Mclean reports a good appetite. His weight has been stable since he was last seen here. No fevers. No night sweats. He has had good energy levels. No headaches. He reports dizziness once in a while. He has blurring of vision and he did have a surgery scheduled recently but he put this on hold because of significant back pain, nausea and vomiting at the time he was scheduled. No chest pain, pressure or shortness of breath. No cough. He has nausea, vomiting once in a while for which he takes antiemetics. No vomiting. He reports that his back pain has been better. He is currently on morphine at night for this and oxycodone during the day. He also reports mild pain on the right upper quadrant of his abdomen. No diarrhea. He has constipation, for which he uses MiraLAX, docusate, lactulose and Senna. With this regimen, he moves his bowels every other day. No urinary problems. No easy bruising. No epistaxis. He has had rectal bleeding and his last episode was 6 days ago, associated with constipation. He has not had any since that time. He reports lower extremity edema. He also reports tingling on both feet, but no numbness and tingling on his fingertips. PHYSICAL EXAMINATION: On physical exam, he weighed 74.5 kg, temperature 98.3, heart rate is 67 per minute, blood pressure 111/69, pulse oximetry 98% on room air. He had pinkish conjunctiva, anicteric sclerae. No oral mucosal lesions. No palpable cervical nodes. No oral mucositis. Lungs with fair air entry. No rales, rhonchi, no wheeze. S1 and S2 regular. Abdomen was soft, nontender, no guarding. No hepatosplenomegaly. Extremities - no calf swelling, no calf tenderness. He had trace bipedal edema, greater on the right than on the left. IMPRESSION AND PLAN: Mr. Mclean is currently on FOLFIRINOX chemotherapy for metastatic pancreatic cancer. His CA 19-9 levels have been decreasing on this regimen. We held his chemotherapy 2 weeks ago as his liver function tests were significantly elevated, but today's LFTs showed an improvement and he will therefore receive cycle #10 of FOLFIRINOX chemotherapy today. For his elevated LFTs, we sent him for a liver ultrasound and this showed no acute changes in his liver or in his biliary tree. If his LFTs should rise again, we would consider decreasing the dose of irinotecan. For his right lower extremity edema, he is going to be sent for a Doppler ultrasound. He is currently on Xarelto for atrial fibrillation. I discussed that if his right lower extremity Doppler ultrasound should show DVT, he would be switched to a low molecular weight heparin. He has requested that this be arranged for him tomorrow instead of today. Followup appointment in 2 weeks for his next cycle of chemotherapy. Office visit on cycle #12. Electronically Signed by Alethea Mccloud MD, FACP 06/22/2018 02:16 P DD: Alethea Mccloud MD, FACP 06/03/2018 09:56 A DT: [email or web address] 06/04/2018 02:37 P CC: Se Castle MD
[2018-06-05 12:11] VITALS: BP 102/58
--- NOTE | 2018-06-06 13:40 | MEDONCTEEN ---
Date/Time of Encounter Date of Encounter: Jun 06, 2018 Time of Encounter: 13:37 Telephone Encounter Received a call from MALICK Brady at [facility] who is managing Mr. Mclean's anti coagulation for atrial fibrillation. Mr. Mclean has been started on enoxaparin for breakthrough DVT while on xarelto. Caitlyn suggested Dalteparin. It was agreed that he will be switched to dalteparin. JOLANTA GARNER MD Jun 06, 2018 13:40
--- NOTE | 2018-06-09 09:20 | MEDONC ---
REVIEW PATIENT FOLLOWUP DATE OF SERVICE: 06/05/2018 DIAGNOSIS: Metastatic pancreatic cancer with liver metastases. TREATMENT SUMMARY: 1. Localized pancreatic adenocarcinoma with CT scan 09/01/2017 showing a mass in the pancreatic head with no peripancreatic adenopathy and no periaortic adenopathy. Started neoadjuvant chemotherapy with Abraxane/gemcitabine September [address] scan showing no significant response. 2. Switched to FOLFIRINOX chemotherapy 12/2017. Right upper quadrant ultrasound 12/2017 showing suspicious nodules in the liver, with liver biopsy 01/2018 at [facility] showing adenocarcinoma. HISTORY OF PRESENT ILLNESS: Mr. Mclean was here today to have his chemotherapy pump off and he asked for an appointment to see me as he has been having right groin pain. He reports no shortness of breath. He has been taking analgesics for pain to his back. On physical exam, he weighed 76.9 kg. Temperature 98 degrees Fahrenheit. Heart rate 64 per minute. Blood pressure 102/58. Pulse oximetry 96% on room air. He was ambulatory, not in distress. He had lower extremity edema, more pronounced on the right side. IMPRESSION/PLAN: Mr. Mclean was sent for a Doppler ultrasound of the right leg yesterday and unfortunately this came back showing a small area of nonocclusive deep vein thrombosis (DVT) involving the proximal femoral vein in the right thigh. I have advised him that a switch to a low molecular weight heparin would be appropriate at this time. I have prescribed this for him and he is to start injections today. He is coming back tomorrow for a pegfilgrastim injection for neutropenia. Electronically Signed by Alethea Mccloud MD, [facility] 06/22/2018 02:16 P DD: Alethea Mccloud MD, FACP 06/05/2018 12:56 P DT: [email or web address] 06/09/2018 09:15 A CC: Se Castle MD
--- NOTE | 2018-06-10 17:10 | MEDONCTEEN ---
Date/Time of Encounter Date of Encounter: Jun 10, 2018 Time of Encounter: 16:52 Telephone Encounter Mr. Mclean called to report pain on both groin areas. Started enoxaparin last week. Had a CT lumbar spine last week showing wedge compression fractures in lumbar and lower thoracic spine. Advised to see Ortho surgeon. Already has a referral to Dr. Almonte. Patient to call for an appointment with Dr. Almonte. Osteoporosis treatment with denosumab/Prolia discussed. Will check preauth with insurance company. In the meantime advised to take morphine for pain. JOLANTA GARNER MD Jun 10, 2018 17:10
[2018-06-17 08:25] LABS: HEMATOCRIT 32.9 % (37.0-51.0); HEMOGLOBIN 10.7 g/dl (12.0-18.0); LYMPH % 11.5 % (10.0-58.5); MEAN CORPUSCULAR HEMOGLOBIN 30.8 pg (26.0-32.0); MEAN CORPUSCULAR HGB CONC 32.5 g/dl (31.0-36.0); MEAN CORPUSCULAR VOLUME 94.9 fl (80.0-97.0); NEUTROPHILS # 8.5 10^3/uL (2.0-7.8); NEUTROPHILS % 82.6 % (37.0-92.0); RED BLOOD COUNT 3.47 10^6/uL (4.2-6.3); WHITE BLOOD COUNT 10.3 10^3/uL (4.1-10.9)
[2018-06-17 08:39] VITALS: BP 148/82
[2018-06-17 08:56] LABS: BLOOD UREA NITROGEN 8 MG/DL (6-20); CALCIUM LEVEL 10.1 MG/DL (8.5-10.2); CARBON DIOXIDE LEVEL 31 MEQ/L (23-31); CHLORIDE LEVEL 101 MMOL/L (98-107); CREATININE FOR GFR 0.72 MG/DL (0.90-1.30); GLOMERULAR FILTRATION RATE > 60.0 (>42); GLUCOSE, FASTING 125 MG/DL (70-105); POTASSIUM SERUM 3.3 MMOL/L (3.5-5.1); SODIUM LEVEL 138 MMOL/L (136-145); TOTAL PROTEIN 6.6 GM/DL (6.4-8.3)
--- NOTE | 2018-06-19 07:28 | MEDONC ---
REVIEW PATIENT FOLLOWUP DATE OF SERVICE: 06/17/2018 DIAGNOSIS: Metastatic pancreatic cancer with liver metastases. TREATMENT SUMMARY: 1. Localized pancreatic adenocarcinoma with CT scan 09/01/2017 showing a mass in the pancreatic head with no peripancreatic adenopathy and no periaortic adenopathy. Started neoadjuvant chemotherapy with Abraxane/gemcitabine September [address] scan showing no significant response. 2. Switched to FOLFIRINOX chemotherapy 12/2017. Right upper quadrant ultrasound 12/2017 showing suspicious nodules in the liver, with liver biopsy 01/2018 at [facility] showing adenocarcinoma. HISTORY OF PRESENT ILLNESS: Mr. Mclean reports a poor appetite. He has been losing weight. No fevers. No night sweats. He has had fair energy levels. He reports headaches in the morning from sleeping in the recliner, but otherwise has no headaches. No chest pain. No shortness of breath. No nausea. No vomiting. He has no bleeding issues from dalteparin injections. He is currently having groin pain and back pain, for which he takes morphine. However, he is not keen to increase his morphine dose as he has constipation for this. He has been referred by his primary care provider Mr. James, to [facility], for medical marijuana. Mr. Mclean reports that he is constipated and he uses ex-lax, lactulose, Senokot as well as Amitiza for this. He also has no new urinary problems. He reports numbness and tingling on his fingertips the past two days, but otherwise no significant peripheral neuropathy. On physical exam, he weighed 72.6 kg. Temperature 97.5 degrees Fahrenheit. Heart rate 68 per minute. Blood pressure 148/82. Pulse oximetry 98% on room air. He had pinkish conjunctiva, anicteric sclerae. No oral mucosal lesions. No palpable cervical lymph nodes. Lungs fair air entry. No rales, no rhonchi, no wheeze. S1 and S2 regular. Abdomen was soft, nontender. Extremities - no calf swelling, no calf tenderness, and no pedal edema. IMPRESSION/PLAN: Mr. Mclean is currently on FOLFIRINOX chemotherapy for a metastatic pancreatic cancer. In terms of his pancreatic cancer, his tumor marker CA 19-9 has been steadily coming down suggestive of a positive response to chemotherapy. A PET scan from last month showed a small hypermetabolic foci in the pancreatic head and a single liver lesion suggestive of a positive response to chemotherapy or at most, stable disease. He suffers from groin pain and I am unsure as to the cause of this. He did have a vascular ultrasound on the right side, which showed a nonocclusive deep vein thrombosis for which he was switched from a DOAC to dalteparin. He was advised continued pain management at this time. Electronically Signed by Alethea Mccloud MD, [facility] 06/22/2018 02:16 P DD: Alethea Mccloud MD, FACP 06/17/2018 06:08 P DT: catia 06/19/2018 07:05 A CC: Se Castle MD
[2018-07-02 08:05] VITALS: BP 118/65
[2018-07-02 08:51] LABS: HEMATOCRIT 33.8 % (42.0-52.0); LYMPH % 9.9 % (24.0-44.0); MEAN CORPUSCULAR HGB CONC 32.5 g/dl (32.0-36.5); MEAN CORPUSCULAR VOLUME 95.2 fl (80.0-96.0); NEUTROPHILS # 9.8 10^3/uL (1.8-7.7); NEUTROPHILS % 83.6 % (36.0-66.0); RED BLOOD COUNT 3.55 10^6/uL (4.30-6.10); WHITE BLOOD COUNT 11.7 10^3/uL (4.0-10.0)
[2018-07-02 09:11] LABS: ALBUMIN 3.8 GM/DL (3.5-5.2); BLOOD UREA NITROGEN 7 MG/DL (6-20); CALCIUM LEVEL 9.7 MG/DL (8.5-10.2); CARBON DIOXIDE LEVEL 29 MEQ/L (23-31); CHLORIDE LEVEL 103 MMOL/L (98-107); CREATININE FOR GFR 0.82 MG/DL (0.90-1.30); GLOMERULAR FILTRATION RATE > 60.0 (>42); GLUCOSE, FASTING 131 MG/DL (70-105); POTASSIUM SERUM 3.3 MMOL/L (3.5-5.1); SODIUM LEVEL 138 MMOL/L (136-145); TOTAL PROTEIN 6.5 GM/DL (6.4-8.3)
[2018-07-15 08:56] LABS: HEMOGLOBIN 10.1 g/dl (13.5-17.5); LYMPH % 14.9 % (24.0-44.0); MEAN CORPUSCULAR HEMOGLOBIN 30.2 pg (27.0-33.0); MEAN CORPUSCULAR HGB CONC 31.6 g/dl (32.0-36.5); MEAN CORPUSCULAR VOLUME 95.7 fl (80.0-96.0); NEUTROPHILS % 79.6 % (36.0-66.0); RED BLOOD COUNT 3.34 10^6/uL (4.30-6.10); WHITE BLOOD COUNT 7.5 10^3/uL (4.0-10.0)
[2018-07-15 09:09] LABS: ALBUMIN 3.8 GM/DL (3.5-5.2); BLOOD UREA NITROGEN 7 MG/DL (6-20); CALCIUM LEVEL 8.9 MG/DL (8.5-10.2); CARBON DIOXIDE LEVEL 25 MEQ/L (23-31); CHLORIDE LEVEL 106 MMOL/L (98-107); CREATININE FOR GFR 0.75 MG/DL (0.90-1.30); GLOMERULAR FILTRATION RATE > 60.0 (>42); GLUCOSE, FASTING 195 MG/DL (70-105); POTASSIUM SERUM 3.1 MMOL/L (3.5-5.1); SODIUM LEVEL 139 MMOL/L (136-145); TOTAL PROTEIN 6.3 GM/DL (6.4-8.3)
[2018-07-15 09:43] VITALS: BP 99/63
[2018-07-15 10:47] VITALS: BP 110/61
[2018-07-15 15:35] LABS: PERCENT SATURATION 15.3 % (19.7-50.0)
--- NOTE | 2018-07-17 07:34 | MEDONC ---
REVIEW PATIENT FOLLOWUP DATE OF SERVICE: 07/15/2018 DIAGNOSIS: Metastatic pancreatic cancer with liver metastases. TREATMENT SUMMARY: 1. Localized pancreatic adenocarcinoma with CT scan 09/01/2017 showing a mass in the pancreatic head with no peripancreatic adenopathy and no periaortic adenopathy. Started neoadjuvant chemotherapy with Abraxane/gemcitabine September [address] scan showing no significant response. 2. Switched to FOLFIRINOX chemotherapy 12/2017. Right upper quadrant ultrasound 12/2017 showing suspicious nodules in the liver, with liver biopsy 01/2018 at [facility] showing adenocarcinoma. HISTORY OF PRESENT ILLNESS: Mr. Mclean is currently on FOLFIRINOX chemotherapy and has so far completed 12 cycles of this. He reports peripheral neuropathy symptoms; specifically, numbness on his fingertips and toes, more pronounced with cold exposure. He is very uncomfortable with these symptoms. He reports a good appetite. He has gained weight since his last visit here. He reports no fevers. He has had fair energy levels. He has headaches occasionally, but these have not been severe. No dizziness. He is scheduled for a cataract surgery on the left on 07/16/2018 as he has had vision changes on the left side. No chest pain. No shortness of breath. No cough. He has nausea sometimes for which he is on antiemetics. No vomiting. He has periumbilical pain for which he takes morphine. He also has back pain for which he has been on morphine. He was prescribed medical marijuana by [facility] in [place] and he thinks that this may be helping. He usually has constipation for which he uses a stool softener and laxatives, but afterwards he develops diarrhea. No urinary problems. He is currently on dalteparin and has easy bruising from this. No rectal bleeding. No urinary bleeding. No epistaxis. No mucositis. No pedal edema. On physical exam, he weighed 72.4 kg. Temperature 97.8. Heart rate 75 per minute. Blood pressure 110/61. Pulse oximetry 97% on room air. He had pinkish conjunctivae, anicteric sclerae. No oral mucosal lesions. No palpable cervical nodes. Lungs were clear. No rales, no rhonchi, no wheeze. S1 and S2 regular. Abdomen was soft, nontender, no guarding. Positive bowel sounds. Extremities - no calf swelling, no calf tenderness, and no pedal edema. IMPRESSION/PLAN: Mr. Mclean has completed 12 cycles of FOLFIRINOX chemotherapy. Because of peripheral neuropathy symptoms, we will be discontinuing oxaliplatin, but he is to continue irinotecan and fluorouracil chemotherapy as well as leucovorin. His blood tests today showed a mild anemia with hemoglobin level of 10.1 with iron studies consistent with anemia of chronic disease, likely secondary to his cancer as well as chemotherapy. CA 19-9 has continued to decrease with one from today at 85.2 u/mL. We will arrange for him to have a CT scan as a followup on the first week of August and in the meantime he is to continue with irinotecan, fluorouracil and leucovorin chemotherapy. For third line treatment, we will obtain MSI-H testing on his pancreatic cancer specimen to assess if he could be a candidate for immunotherapy. However, at this time, he is still responding well to the present chemotherapy regimen and will continue on this. Electronically Signed by Alethea Mccloud MD, FACP 08/01/2018 12:26 P DD: Alethea Mccloud MD, FACP 07/15/2018 06:13 P DT: shikha 07/17/2018 06:57 A CC: Se Castle MD
[2018-07-29 08:32] VITALS: BP 108/63
[2018-07-29 08:32] LABS: HEMATOCRIT 31.2 % (42.0-52.0); LYMPH % 11.3 % (24.0-44.0); MEAN CORPUSCULAR HEMOGLOBIN 30.8 pg (27.0-33.0); MEAN CORPUSCULAR HGB CONC 32.1 g/dl (32.0-36.5); NEUTROPHILS # 8.5 10^3/uL (1.8-7.7); NEUTROPHILS % 81.6 % (36.0-66.0); RED BLOOD COUNT 3.25 10^6/uL (4.30-6.10); WHITE BLOOD COUNT 10.4 10^3/uL (4.0-10.0)
[2018-07-29 08:55] LABS: ALBUMIN 3.8 GM/DL (3.5-5.2); BLOOD UREA NITROGEN 9 MG/DL (6-20); CALCIUM LEVEL 9.3 MG/DL (8.5-10.2); CARBON DIOXIDE LEVEL 26 MEQ/L (23-31); CHLORIDE LEVEL 103 MMOL/L (98-107); CREATININE FOR GFR 0.89 MG/DL (0.90-1.30); GLOMERULAR FILTRATION RATE > 60.0 (>42); GLUCOSE, FASTING 137 MG/DL (70-105); POTASSIUM SERUM 4.1 MMOL/L (3.5-5.1); SODIUM LEVEL 137 MMOL/L (136-145); TOTAL PROTEIN 6.1 GM/DL (6.4-8.3)
[2018-07-31 10:55] VITALS: BP 99/57
[2018-08-12 08:27] LABS: HEMATOCRIT 33.5 % (42.0-52.0); HEMOGLOBIN 11.1 g/dl (13.5-17.5); LYMPH % 10.6 % (24.0-44.0); MEAN CORPUSCULAR HEMOGLOBIN 31.6 pg (27.0-33.0); MEAN CORPUSCULAR HGB CONC 33.1 g/dl (32.0-36.5); MEAN CORPUSCULAR VOLUME 95.5 fl (80.0-96.0); NEUTROPHILS # 8.3 10^3/uL (1.8-7.7); NEUTROPHILS % 82.5 % (36.0-66.0); RED BLOOD COUNT 3.51 10^6/uL (4.30-6.10); WHITE BLOOD COUNT 10.1 10^3/uL (4.0-10.0)
[2018-08-12 08:39] LABS: ALBUMIN 4.1 GM/DL (3.5-5.2); BLOOD UREA NITROGEN 13 MG/DL (6-20); CALCIUM LEVEL 9.6 MG/DL (8.5-10.2); CARBON DIOXIDE LEVEL 27 MEQ/L (23-31); CHLORIDE LEVEL 102 MMOL/L (98-107); CREATININE FOR GFR 0.73 MG/DL (0.90-1.30); GLOMERULAR FILTRATION RATE > 60.0 (>42); GLUCOSE, FASTING 196 MG/DL (70-105); SODIUM LEVEL 138 MMOL/L (136-145); TOTAL PROTEIN 6.5 GM/DL (6.4-8.3)
[2018-08-12 08:42] VITALS: BP 114/66
[2018-08-14 11:04] VITALS: BP 101/57
[2018-08-15 11:32] VITALS: BP 103/57
--- NOTE | 2018-08-19 13:57 | MEDONC ---
DATE OF SERVICE: 08/12/2018 PRIMARY PHYSICIAN: Dr. Se Castle REASON FOR VISIT: Patient is here for continuing management of metastatic pancreatic CA. Please see Dr. Mccloud's last note from July 15, 2018. Patient is here today with his . PRIMARY DIAGNOSIS: Patient diagnosed approximately in August of 2017 with having localized adenocarcinoma of the head of the pancreas with no disease elsewhere based on CT scan and was started on Neoadjuvant chemotherapy with Abraxane and Gemzar. Unfortunately, patient did not have any much of a response to this treatment. Please note, patient had a CT chest, abdomen and pelvis done at [facility], August 2017 and that report had said that within the uncinate process of the pancreas. There was a 2.2 x 3.2 cm hypo-attenuating mass best seen on series 6, image 155 through 158. Mild bilateral perinephric stranding was noted. Prominence of both ureters noted. Small hiatal hernia noted. Patient appears to have had an abdominal hernia repair. Spleen was normal. Gallbladder was removed and the liver showed mild intrahepatic dilatation and mild common bile duct dilatation. The visualized portions of the lung bases demonstrated ground glass opacity in the lower lobes. Coronary artery calcification was noted. CT chest done the same day, August 22, 2017 showed mild bibasilar atelectasis, several prominent but not pathologically enlarged mediastinal lymph nodes. Moderate coronary artery calcification. Mild aortic calcifications. Heterogenous enlargement of the right lobe of the thyroid with slight inferior nodular extension into the thoracic outlet. Small bone island lateral right 6th rib unchanged. Moderate DJD of the visualized spine, and this scan was compared to the one from October of 2016. The patient's last treatment of Abraxane are unknown. It probably at [facility]. December 2017 the patient was started on FOLFIRINOX. At this time, ultrasound of the abdomen showed suspicious nodules in the liver and liver biopsy was again done in [facility] in January 2018 and it showed adenocarcinoma. May 13, 2018, PET scan done locally at [facility], showed pancreatic mass which was hypermetabolic with an SUV of 10. Hypermetabolic focus seen in the periportal region. Small focus measuring 2 cm seen in the left lobe of the liver with an uptake of 4.7. No abnormal intrathoracic or hypermetabolic uptake seen. Diffuse hypermetabolic uptake seen throughout the axial skeleton consistent with rebound activity from post chemotherapy. L1 vertebrae showed a wedge compression fracture deformity with some healing sclerosis, but no bony destruction. There was 50% loss of anterior vertebral body height. All of this was felt to be osteoporotic compression fracture, and it was not hypermetabolic. Around July 15, 2018, the patient completed 12 cycles of FOLFIRINOX with improvement in the CA 19-9 and since the patient was having significant peripheral neuropathy, the oxaliplatin was dropped and the patient was continued on 5-FU leukovorin and irinotecan. CURRENT TREATMENT: FOLFIRINOX minus the Oxaliplatin due to PN, every 2 weeks, patient likes to get his treatments on Tuesdays and see the physician/MAIL CENSOR on Saturday before.. CONCURRENT DIAGNOSES: Significant cataracts, needs surgery. Very poor gums. Constipation from morphine, which the patient takes for pain. Hypertension. Aortic regurgitation. Aortic stenosis. Fibromyalgia. Asthma. Benign prostatic hypertrophy (BPH). Paroxysmal atrial fibrillation. Possible GERD. Chronic sinusitis with strep. Fibromyalgia. IBS. Hyperlipidemia. Oxygen therapy at home. Patient is status post tonsillectomy. Cystectomy right lower jaw. Right inguinal hernia repair. Nephropexy of the right kidney. Appendectomy. Cholecystectomy. Basal cell carcinoma right lower eyelid. Hiatal hernia repair with Gaurav fundoplication. Right hip replacement. Right rotator cuff shoulder repair. ALCIRA on CPAP and oxygen therapy at home. Thyroid nodule history. Hypertension. Diabetes mellitus. ALLERGIES: Allergies to many things: 1. Mites. 2. CARBAMAZEPINE. 3. Mold. 4. Smuts. 5. SUCRALFATE. 6. Suture tape. 7. SULFA ANTIBIOTICS. HOME MEDICATIONS: Include: - extra strength Tylenol - albuterol breathing instrument - Amitiza - Asmanex - azelastine - BuSpar - cephalexin - digoxin - K-Dur - lidocaine gel - lactulose - Lasix - metformin - Reglan - morphine sulfate 15 mg by mouth four times a day as needed - Zofran - oxycodone 5 mg by mouth every 4 hours as needed - simvastatin - senna - tamsulosin SYSTEMIC REVIEW: Patient says his pain is quite bad and he is very, very tired. He is not eating much, appetite is poor, and the pain in his back and right lateral rib base is about 8 on a scale of 10. Patient is aware that he has compression fracture, osteoporotic in his spine. He said he was seen by somebody and they told him putting in concrete to push up the vertebrae was not the ideal thing for him. He sleeps basically on a recliner. Dr. Westbrook is his spine doctor. Patient says he also cannot see very well, he knows he has to have his cataracts worked on, but they cancelled it. He was actually scheduled for surgery, but they cancelled it because he could not lie down, he has to sit up because of his back problems. No nausea or vomiting. The patient does not tells us that he has MiraLAX, he has lactulose, senna, everything for constipation, but he is not taking it and then he is constipated. His is very frustrated at this point. The patient says he walks around the house with a walker, because he knows where everything is. We suggested a Rollator so that the patient could have the same support as a walker, but when he got tired he could plop himself down on it. No fevers, no chills, no dysuria, no leg swelling. Other systems are stable. On examination, patient looks cachectic, very weak, very tired. He is 185.4 cm tall, 71.2 kg today, body surface area is 1.9 meters square. Conjunctiva show pallor, no icterus. Patient has bilateral dense cataracts. Buccal mucosa gums are in bad shape. No adenopathy right neck, left neck looked like it had fullness of a lymph node there. Cardiovascular system with sinus tachycardia. No murmurs, gallops, or rubs. Skin turgor is on the day side. Speech is normal. Gait unsteady. 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 Labs reviewed with the patient and the . White count 10.1, hemoglobin 11.1, platelets 141,000. Chemistry panel from today: Kidney functions 0.73 mL/m, glucose was 196, alkaline phosphatase 234. The rest was within normal limits. IMPRESSION: Mr. Mclean with metastatic pancreatic CA is trying the best he can do to hang in there and keep getting chemo. His pain needs better control as does his constipation. The latter is from poor compliance, not taking the medications as told for constipation. We will proceed with 5-FU leucovorin and irinotecan today. We are concerned about Mr. Mclean's falling. He is weak and cachectic, anemic, has peripheral neuropathy, is on narcotics, his balance is off and the Rollator could really help and even prevent a fall. He could "plop down" into the seat when his legs cannot hold him. PLAN: Cycle 15, day 1 FOLFIRINOX minus the oxaliplatin today. Patient was given a copy of his CT scan and his CA 19-9 flow sheet. Patient declined evaluation for balloon kyphoplasty and initially declined Rollator also, then changed his mind and called back requesting one, see below please. MiraLAX 17 grams by mouth three times a day. We asked about a handicapped parking card, the patient said he had one through the [facility], but he could use the Rollator instead of just a regular walker. So we will ask the nurse navigator's help in getting the Rollator for the patient. MS Contin was refilled. We talked about giving MS Contin long acting morphine to see if that helps control pain better at 15 mg around the clock, every 12 hours, 60 tablets, 0 refills scripted. The patient will continue his other medications as before and follow-up with his primary care physician and pipe stress engineer as before. Patient will return to see us here in two weeks for a visit and labs. CBC, diff, chemistries and the patient will have labs as ordered already by Dr. Mccloud for his next cycle of chemo. Electronically Signed by Katherin Kang MD 08/23/2018 01:53 P DD: Katherin Kang MD 08/17/2018 12:21 P DT: catia 08/19/2018 12:25 P CC: Se Castle MD
[2018-08-21 13:35] VITALS: BP 115/66
[2018-08-21 13:50] LABS: HEMATOCRIT 30.6 % (42.0-52.0); HEMOGLOBIN 9.9 g/dl (13.5-17.5); LYMPH % 8.8 % (24.0-44.0); MEAN CORPUSCULAR HEMOGLOBIN 30.8 pg (27.0-33.0); MEAN CORPUSCULAR HGB CONC 32.4 g/dl (32.0-36.5); MEAN CORPUSCULAR VOLUME 95.3 fl (80.0-96.0); NEUTROPHILS # 12.7 10^3/uL (1.8-7.7); NEUTROPHILS % 82.8 % (36.0-66.0); RED BLOOD COUNT 3.21 10^6/uL (4.30-6.10); WHITE BLOOD COUNT 15.3 10^3/uL (4.0-10.0)
[2018-08-21 14:09] LABS: BLOOD UREA NITROGEN 9 MG/DL (6-20); CALCIUM LEVEL 9.4 MG/DL (8.5-10.2); CARBON DIOXIDE LEVEL 28 MEQ/L (23-31); CHLORIDE LEVEL 103 MMOL/L (98-107); CREATININE FOR GFR 0.84 MG/DL (0.90-1.30); GLUCOSE, FASTING 101 MG/DL (70-105); POTASSIUM SERUM 4.1 MMOL/L (3.5-5.1); SODIUM LEVEL 135 MMOL/L (136-145); TOTAL PROTEIN 6.3 GM/DL (6.4-8.3)
[2018-08-21 14:10] LABS: GLOMERULAR FILTRATION RATE > 60.0 (>42)
[2018-08-21 14:23] LABS: MAGNESIUM LEVEL 1.9 MG/DL (1.8-2.4); TOTAL PROTEIN 6.2 GM/DL (6.4-8.2)
--- NOTE | 2018-08-22 14:56 | MEDONC ---
DATE OF SERVICE: 08/21/2018 PRIMARY PHYSICIAN: Dr. Se Castle REASON FOR VISIT: Continuing management of metastatic pancreatic CA. Patient last seen August 12, 2018 in the office. Patient comes today again with is , who sits very quietly, does not ask many questions. PRIMARY DIAGNOSIS: Mr. 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 Surprisingly, the patient did not have much of a response to this treatment. Interestingly, earlier in August of 2017, a CT scan of the chest, abdomen and pelvis had suggested a mass in the uncinate process of the pancreas at that time. December 2017, because of progression seen, the patient was switched to FOLFIRINOX. The patient also is managed at [facility] and a sonogram of the abdomen there suggested multiple nodules in the liver and the liver biopsy was done January 2018 which showed liver parenchyma focally infiltrated by a mucin producing, moderate to poorly differetiated adenocarcinom, c/w metastases from a pancreas primary. July 2018, the patient completed 12 cycles of FOLFIRINOX. The patient was having significant peripheral neuropathy so the oxaliplatin was discontinued. May 13, 2018 patient's PET scan done at [facility] showed a pancreatic mass which was hypermetabolic with an SUV of 10 and another focus in the periportal region. MSI normal not high. CURRENT TREATMENT: 1. Patient was on FOLFIRINOX without the oxaliplatin because of peripheral neuropathy. 2. Wedge compression fracture of L1 felt to be osteoporotic rather than metastatic and the patient is on Prolia every six months. SYSTEMIC REVIEW: The patient says he fell down last week, slipped on the ice trying to go to check his oil tank to see if it was filled correctly and adequately and it is a 50 foot walk from their outside door to the tank and the patient fell and as he fell he tried to protect his bottom so he fell on his right side, right foot got twisted and wound up under his buttock, he felt it was a fracture, did seek medical attention and XRays were taken and read as negative for Fx. The patient is still very sore in the ankle despite the x-ray showing no fracture or dislocation. Other than that, the patient says he is having a pain underneath the ribcage along the diaphragm on the right base and he is not bringing up any green or yellow phlegm, it is not pleuritic in nature, it is just there and it is quite sharp, but it comes and goes, it is not there constantly. Now the patient has not had any celiac access block lately, but he tells me that twice in the past he had received some kind of a nerve block to his spinal cord. No fevers. No chills. No hemoptysis. No other pains. No leg swelling, just the right ankle is swollen. No diarrhea. No constipation. They are taking the protein supplements for a freebie from a [employer]. No mouth sores. No headaches. No vision changes. Appetite is fair. On examination, Mr. Mclean still looks cachectic, very weak, but not in as much pain today. PS 2-3/4. Vital signs are stable. Conjunctiva pale. Sclera do not appear icteric. Buccal mucosa dry mouth and tongue. No adenopathy. Neck no jugular venous distention. No axillary adenopathy. Lungs clear to auscultation. Cardiovascular system without any murmurs, gallops, or rubs. Rhythm was regular. Abdomen is soft. No masses felt. No ascites noted. No pedal oedema however the right ankle is definitely swollen medially and acutely tender to palpation. There is no discoloration or bruise visible. No break in the skin. IMPRESSION: Mr. Mclean is holding his own on the CHemotherapy for his mPancreatic CA. His pain is better controlled and his Constipation is better. He is even smiling today. PLAN: Proceed with cycle 16 of FOLFIRINOX without the oxaliplatin next Saturday. The patient gets his treatments on Saturday every two weeks and likes to see the MD/SR. MANAGER MARKETING on the Saturday before. Return two weeks after that treatment for the next cycle of chemo. If the ankle gets worse on the right, patient to call orthopedic surgery. Wear an ankle support or use an joe-wrap and keep icing the ankle suggested. Patient will also be due for his Prolia every six months. Return in four weeks to see the physician and start cycle 18. Patient will have to be called in for his Prolia injections. With next labs we will also draw Magnesium with each cycle, and a CA 19-9 once a month. Will ask for PD-L1 on the liver biopsy from [facility] or on the Pancreas biopsy just in case down the road we wish to offer Keytruda/Pembrolizumab. Electronically Signed by Katherin Kang MD 08/23/2018 01:53 P DD: Katherin Kang MD 08/21/2018 04:25 P DT: catia 08/22/2018 11:41 A CC: Se Castle MD
[2018-08-26 08:25] VITALS: BP 106/59
[2018-08-26 08:29] LABS: HEMATOCRIT 33.7 % (42.0-52.0); HEMOGLOBIN 10.8 g/dl (13.5-17.5); LYMPH % 11.2 % (24.0-44.0); MEAN CORPUSCULAR HEMOGLOBIN 30.5 pg (27.0-33.0); MEAN CORPUSCULAR VOLUME 95.3 fl (80.0-96.0); NEUTROPHILS # 10.3 10^3/uL (1.8-7.7); NEUTROPHILS % 81.9 % (36.0-66.0); RED BLOOD COUNT 3.54 10^6/uL (4.30-6.10); WHITE BLOOD COUNT 12.6 10^3/uL (4.0-10.0)
[2018-08-26 08:53] LABS: ALBUMIN 4.1 GM/DL (3.5-5.2); BLOOD UREA NITROGEN 10 MG/DL (6-20); CALCIUM LEVEL 9.6 MG/DL (8.5-10.2); CARBON DIOXIDE LEVEL 28 MEQ/L (23-31); CHLORIDE LEVEL 103 MMOL/L (98-107); CREATININE FOR GFR 0.81 MG/DL (0.90-1.30); GLUCOSE, FASTING 97 MG/DL (70-105); SODIUM LEVEL 138 MMOL/L (136-145); TOTAL PROTEIN 6.6 GM/DL (6.4-8.3)
[2018-08-26 08:56] LABS: GLOMERULAR FILTRATION RATE > 60.0 (>42)
[2018-08-26 12:18] LABS: ALBUMIN 3.79 GM/DL (3.29-5.55); ALBUMIN % 61.2 % (55.8-66.1); ALPHA-1-GLOBULIN % 5.3 % (2.9-4.9); ALPHA-1-GLOBULINS 0.33 GM/DL (0.17-0.41); ALPHA-2-GLOBULINS 0.72 GM/DL (0.42-0.99); ALPHA-2-GLOBULINS % 11.6 % (7.1-11.8); BETA-1-GLOBULINS % 6.5 % (4.7-7.2); BETA-2-GLOBULINS 0.32 GM/DL (0.19-0.55); BETA-2-GLOBULINS % 5.1 % (3.2-6.5); GAMMA GLOBULIN % 10.3 % (11.1-18.8); GAMMA GLOBULINS 0.64 GM/DL (0.65-1.58)
[2018-09-09 08:21] VITALS: BP 105/63
[2018-09-09 08:31] LABS: HEMATOCRIT 33.2 % (42.0-52.0); HEMOGLOBIN 10.2 g/dl (13.5-17.5); LYMPH % 12.3 % (24.0-44.0); MEAN CORPUSCULAR HEMOGLOBIN 29.7 pg (27.0-33.0); MEAN CORPUSCULAR HGB CONC 30.7 g/dl (32.0-36.5); MEAN CORPUSCULAR VOLUME 96.8 fl (80.0-96.0); NEUTROPHILS # 7.8 10^3/uL (1.8-7.7); NEUTROPHILS % 81.7 % (36.0-66.0); RED BLOOD COUNT 3.43 10^6/uL (4.30-6.10); WHITE BLOOD COUNT 9.6 10^3/uL (4.0-10.0)
[2018-09-09 08:54] LABS: BLOOD UREA NITROGEN 11 MG/DL (6-20); CALCIUM LEVEL 9.1 MG/DL (8.5-10.2); CARBON DIOXIDE LEVEL 26 MEQ/L (23-31); CHLORIDE LEVEL 105 MMOL/L (98-107); CREATININE FOR GFR 0.78 MG/DL (0.90-1.30); GLUCOSE, FASTING 177 MG/DL (70-105); POTASSIUM SERUM 3.8 MMOL/L (3.5-5.1); SODIUM LEVEL 138 MMOL/L (136-145); TOTAL PROTEIN 6.1 GM/DL (6.4-8.3)
[2018-09-09 08:56] LABS: GLOMERULAR FILTRATION RATE > 60.0 (>42)
[2018-09-09 09:17] LABS: MAGNESIUM LEVEL 1.9 MG/DL (1.8-2.4)
[2018-09-09 10:59] LABS: CA19-9 TUMOR MARKER,CARBOHYDRA 59.5 U/ML (<35.0)
[2018-09-11 11:05] VITALS: BP 106/62
[2018-09-23 07:57] VITALS: BP 124/66
[2018-09-23 08:06] LABS: HEMATOCRIT 33.5 % (42.0-52.0); HEMOGLOBIN 10.5 g/dl (13.5-17.5); LYMPH % 12.3 % (24.0-44.0); MEAN CORPUSCULAR HEMOGLOBIN 30.3 pg (27.0-33.0); MEAN CORPUSCULAR HGB CONC 31.3 g/dl (32.0-36.5); MEAN CORPUSCULAR VOLUME 96.7 fl (80.0-96.0); NEUTROPHILS # 8.1 10^3/uL (1.8-7.7); NEUTROPHILS % 82.1 % (36.0-66.0); RED BLOOD COUNT 3.46 10^6/uL (4.30-6.10); WHITE BLOOD COUNT 9.9 10^3/uL (4.0-10.0)
[2018-09-23 08:22] LABS: BLOOD UREA NITROGEN 14 MG/DL (6-20); CALCIUM LEVEL 8.9 MG/DL (8.5-10.2); CARBON DIOXIDE LEVEL 26 MEQ/L (23-31); CHLORIDE LEVEL 103 MMOL/L (98-107); CREATININE FOR GFR 0.83 MG/DL (0.90-1.30); GLOMERULAR FILTRATION RATE > 60.0 (>42); GLUCOSE, FASTING 204 MG/DL (70-105); SODIUM LEVEL 138 MMOL/L (135-145); TOTAL PROTEIN 6.1 GM/DL (6.4-8.3)
[2018-09-23 10:13] LABS: CA19-9 TUMOR MARKER,CARBOHYDRA 54.3 U/ML (<35.0)
--- NOTE | 2018-09-24 11:27 | MEDONC ---
MEDICAL ONCOLOGY FOLLOWUP/TREATMENT VISIT DATE OF SERVICE: 09/23/2018 DIAGNOSIS: Metastatic pancreatic cancer. CURRENT TREATMENT: FOLFIRINOX without oxaliplatin secondary to peripheral neuropathy. Mr. Mclean is here today for treatment #18. The patient also receives Prolia every 6 months for a wedge compression fracture of L1, felt to be osteoporotic rather than metastatic. INTERVAL HISTORY: Mr. Mclean presents today for a followup visit prior to proceeding with treatment #18 of FOLFIRINOX without oxaliplatin. He is offering no new complaints today. He has chronic back pain, which is unchanged from baseline. He has received steroid injections in the past with Dr. Pizano. Also, following a fall on the ice more recently, Mr. Mclean has had some pain in the right groin. Right hip x-ray ordered by Dr. Castle on 09/04/2018 was negative. The patient also has persistent neuropathy in his hands and feet. Unfortunately, he feels that this has not improved at all since omitting oxaliplatin from his treatment regimen. Currently, Mr. Mclean denies complaints of headache, new visual disturbance, dyspnea, persistent cough, diminished appetite, nausea or vomiting, progressive unintended weight loss, diarrhea, constipation, or new extremity edema. He does admit to chronic swelling in the right lower extremity, diagnosed on 06/04/2018 with nonocclusive DVT involving the proximal femoral vein in the right thigh. Mr. Mclean continues with anticoagulation therapy. PHYSICAL EXAMINATION: Weight is 75 kg, temperature 98.1, pulse 65, respirations 24, BP 124/66, O2 sat 100% at rest on room air. GENERAL EXAMINATION: Reveals a tall, very pleasant, youthful middle-aged man who is comfortable and in no acute distress. HEENT: No scleral icterus. Oropharynx, oral mucous membranes normal. Conjunctivae normal. No thyroid enlargement or nodule. No jugular venous distention. Neck supple. Carotid upstrokes 1+, no bruits. Fundi normal bilaterally. RESPIRATORY: Lungs clear bilaterally to auscultation and percussion. No rales, rhonchi, or wheezing. CARDIOVASCULAR: PMI 5th left intercostal space, midline. S1, S2 normal. No S3, S4 or murmurs. Regular rhythm. Femoral, dorsalis pedis pulses 2+ bilaterally. LYMPHATICS: No palpable lymphadenopathy. ABDOMEN: Soft, nontender. Bowel sounds normal. No tenderness, guarding, or rebound. No palpable masses or hepatosplenomegaly. MUSCULOSKELETAL: No focal skeletal tenderness to percussion. No joint swelling, warmth, tenderness, or erythema. SKIN: No rash, ecchymosis, or petechiae. Normal turgor. EXTREMITIES: No edema, clubbing, cyanosis. No thigh or calf tenderness. Normal range of motion. LABORATORY DATA: WBC 9.9, ANC 8.1, RBC 3.46, H and H 10.5 and 33.5, platelets 174. Chemistries are pending as of this dictation, as is a CA19-9 antigen. IMPRESSION: Mr. Mclean is a very pleasant 77-year-old male currently receiving chemotherapy utilizing FOLFIRINOX without oxaliplatin because of peripheral neuropathy. He is here today for treatment #18. Most recent CA19-9 from 09/09/2018 stable at 59.5. Mr. Mclean agrees to proceeding with treatment today. He will tentatively be scheduled for treatment #19 on 10/04/2018 and treatment #20 on 10/21/2018. He will have appropriate blood work with each treatment. We will also request a PET restaging scan to be done, ideally, before the patient's next treatment. He will be seen at that next treatment date to review the results of the PET scan. Electronically Signed by Dixie Brown NP 10/09/2018 10:50 A DD: Dixie Brown NP 09/23/2018 09:11 A DT: aml 09/24/2018 11:15 A CC: Se Castle MD
[2018-09-25 11:30] VITALS: BP 119/64
[2018-10-07 08:21] LABS: HEMATOCRIT 33.5 % (42.0-52.0); HEMOGLOBIN 10.9 g/dl (13.5-17.5); LYMPH % 13.4 % (24.0-44.0); MEAN CORPUSCULAR HEMOGLOBIN 31.4 pg (27.0-33.0); MEAN CORPUSCULAR HGB CONC 32.5 g/dl (32.0-36.5); MEAN CORPUSCULAR VOLUME 96.6 fl (80.0-96.0); NEUTROPHILS % 79.3 % (36.0-66.0); RED BLOOD COUNT 3.47 10^6/uL (4.30-6.10); WHITE BLOOD COUNT 11.4 10^3/uL (4.0-10.0)
[2018-10-07 08:34] VITALS: BP 108/64
[2018-10-07 08:59] LABS: ALBUMIN 4.1 GM/DL (3.5-5.2); BLOOD UREA NITROGEN 11 MG/DL (6-20); CALCIUM LEVEL 9.8 MG/DL (8.5-10.2); CARBON DIOXIDE LEVEL 27 MEQ/L (23-31); CHLORIDE LEVEL 104 MMOL/L (98-107); GLOMERULAR FILTRATION RATE > 60.0 (>42); GLUCOSE, FASTING 79 MG/DL (70-105); POTASSIUM SERUM 3.9 MMOL/L (3.5-5.1); SODIUM LEVEL 139 MMOL/L (135-145); TOTAL PROTEIN 6.5 GM/DL (6.4-8.3)
--- NOTE | 2018-10-08 08:39 | MEDONC ---
DATE OF SERVICE: 10/07/2018 IDENTIFICATION: The patient is a 78-year-old man with pancreas cancer metastatic to the liver, here for followup on chemotherapy. CURRENT TREATMENT: FOLFIRINOX since December 2017, due for cycle #19 today. Oxaliplatin was discontinued after cycle #12 due to peripheral neuropathy. ADDITIONAL DIAGNOSIS: 1. Osteoporotic compression fracture, on Xgeva for this. 2. History of DVT. INTERVAL HISTORY: The patient has been tolerating the chemotherapy well. He has chronic back pain and pain in the right lower anterior chest and this has not changed. He is taking morphine sulfate for this with fairly good pain control. He also takes Tylenol. He is not able to tolerate NSAIDs. He denies any fevers, chills, cough, shortness of breath, abdominal pain or diarrhea. The neuropathy in his hands and feet is unchanged from his last visit. Past medical history and medications otherwise unchanged. PHYSICAL EXAMINATION: General: The patient appears well-developed, well-nourished and in no distress. Vital signs: Weight 75.3 kg, temperature 97.9, pulse 64, respiration 24, blood pressure 108/64, pulse ox 95% on room air. HEENT: Pupils equal, round, reactive. Sclerae anicteric. Oral without lesions. Neck: Supple. Lymph nodes: No palpable cervical, supraclavicular or axillary lymphadenopathy. Chest: Clear to auscultation. Abdomen: Nontender without mass or hepatosplenomegaly. Extremities: Without cyanosis or edema. Neuro: Alert, oriented without focal motor or sensory deficit. LABORATORY: CBC: WBC 11.4, hemoglobin 10.9, hematocrit 33.5, platelets 176. ANC 9.0. CMP notable for AST 53, ALT 58, alkaline phosphatase 261. IMAGING: PET/CT 10/01/18. Impression: Improvement is noted. The previously noted hypermetabolic lesion in the head of the pancreas is significantly decreased in avidity. The previously noted hepatic lesion is no longer apparent. No new hypermetabolic focus is seen. ASSESSMENT: 1. Tolerating chemotherapy well. 2. Responding to treatment based on decrease in tumor marker and improvement in the PET scan findings. 3. Elevation of alkaline phosphatase, which is chronic and similar to previous values over the last several months. 4. Mild increase in transaminases likely related to chemotherapy and not severe enough to warrant holding or changing treatment. PLAN: 1. Proceed with the next cycle of FOLFIRINOX with elimination of oxaliplatin because of neuropathy. 2. Return visit in 2 weeks. Electronically Signed by Pelon Gutierres MD 10/08/2018 05:09 P DD: Pelon Gutierres MD 10/07/2018 03:12 P DT: [email or web address] 10/08/2018 07:57 A CC:
[2018-10-21 08:07] LABS: HEMATOCRIT 32.6 % (42.0-52.0); HEMOGLOBIN 10.6 g/dl (13.5-17.5); LYMPH % 16.9 % (24.0-44.0); MEAN CORPUSCULAR HEMOGLOBIN 31.3 pg (27.0-33.0); MEAN CORPUSCULAR HGB CONC 32.5 g/dl (32.0-36.5); MEAN CORPUSCULAR VOLUME 96.2 fl (80.0-96.0); NEUTROPHILS # 6.9 10^3/uL (1.8-7.7); NEUTROPHILS % 77.2 % (36.0-66.0); RED BLOOD COUNT 3.39 10^6/uL (4.30-6.10)
[2018-10-21 08:21] VITALS: BP 98/62
[2018-10-21 08:25] LABS: ALBUMIN 3.9 GM/DL (3.5-5.2); BLOOD UREA NITROGEN 10 MG/DL (6-20); CALCIUM LEVEL 10.3 MG/DL (8.5-10.2); CARBON DIOXIDE LEVEL 26 MEQ/L (23-31); CHLORIDE LEVEL 104 MMOL/L (98-107); CREATININE FOR GFR 0.87 MG/DL (0.90-1.30); GLOMERULAR FILTRATION RATE > 60.0 (>42); GLUCOSE, FASTING 182 MG/DL (70-105); POTASSIUM SERUM 3.6 MMOL/L (3.5-5.1); SODIUM LEVEL 139 MMOL/L (135-145)
--- NOTE | 2018-10-22 11:09 | MEDONC ---
MEDICAL ONCOLOGY FOLLOWUP/TREATMENT VISIT DATE OF SERVICE: 10/21/2018 DIAGNOSIS: Metastatic pancreatic cancer to the liver. CURRENT TREATMENT: FOLFIRINOX since December 2017, due for cycle #20 today. Oxaliplatin was discontinued after cycle #12 due to peripheral neuropathy. ADDITIONAL DIAGNOSES: 1. Osteoporotic compression fracture. On Prolia, received most recently 07/02/2018. 2. History of DVT. Mr. Mclean is seen for an office visit today prior to proceeding with cycle #20 of FOLFIRINOX. He once again reports chronic low back pain and right lower anterior chest wall pain/right upper quadrant pain, which is unchanged from baseline. He relates that he has been taking less narcotic for this. He has been conservative on taking narcotics due to constipation. He denies any new pain elsewhere. No fevers, chills, cough, dyspnea, or diarrhea. The neuropathy in the patient's hands and feet is unchanged. No new complaints today. PHYSICAL EXAMINATION: Weight is 75 kg, temperature 97.6, pulse 69, respirations 24, BP 98/62, O2 sat 100% at rest on room air. General exam reveals a thin, tall, very pleasant white male who is clinically stable and in no acute distress. HEENT: No scleral icterus. Oropharynx, oral mucous membranes normal. Conjunctivae normal. No thyroid enlargement or nodule. No jugular venous distention. Neck supple. Carotid upstrokes 1+, no bruits. Fundi normal bilaterally. Respiratory: Lungs clear bilaterally to auscultation and percussion. No rales, rhonchi, or wheezing. Cardiovascular: PMI 5th left intercostal space, midline. S1, S2 normal. No S3, S4 or murmurs. Regular rhythm. Femoral, dorsalis pedis pulses 2+ bilaterally. Lymphatics: No palpable lymphadenopathy. Abdomen: Soft, nontender. Bowel sounds normal. No tenderness, guarding, or rebound. No palpable masses or hepatosplenomegaly. Musculoskeletal: No focal skeletal tenderness to percussion. No joint swelling, warmth, tenderness, or erythema. Skin: No rash, ecchymosis, or petechiae. Normal turgor. Extremities: No edema, clubbing, cyanosis. No thigh or calf tenderness. Normal range of motion. LABORATORY DATA: WBC 9.0, ANC 6.9, RBC 3.39, H and H 10.6 and 32.6, platelets 174. Chemistries are unremarkable with the exception of a nonfasting glucose of 182 and a minimally elevated calcium of 10.3. A current CA19-9 is pending as of this dictation. Mr. Mclean's most recent tumor marker from 09/23/2018 was down to 54.3. Most recent imaging (PET scan) dated 10/01/2018 showed improvement. The previously-noted hypermetabolic lesion in the head of the pancreas is significantly decreased in avidity. The previously-noted hepatic lesion is no longer apparent. No new hypermetabolic focus is seen. Incidental findings include multiple new osteoporotic wedge compression deformities in the thoracolumbar spine. These findings were reviewed with Mr. Mclean to his understanding. IMPRESSION: The patient is overall doing well. He reports persistent chronic low back pain and pain in the right upper abdominal quadrant/right lower anterior chest, most likely attributable to the patient's history of compression fractures and diagnosis of pancreatic cancer with metastasis to the liver. The patient admits that he has been using his pain medicine very sparingly. He is interested in a trial of CBD oil, gummies, or capsules for better pain control versus narcotic. He is going to try this prior to him relying on taking more narcotics. Mr. Mclean's tumor marker has come down considerably on this regimen. Also, he has a current PET CT scan from 10/01/2018 that shows overall improvement. PLAN: 1. Proceed with day 1, cycle #20 of FOLFIRINOX today. 2. Return in 2 weeks for another followup visit and complete blood work prior to proceeding with cycle #21 of FOLFIRINOX. Electronically Signed by Dixie Brown NP 10/22/2018 12:32 P DD: Dixie Brown NP 10/21/2018 09:09 A DT: aml 10/22/2018 10:40 A CC: Se Castle MD
[2018-10-23 11:09] VITALS: BP 98/53
[2018-11-04 08:21] VITALS: BP 113/71
[2018-11-04 08:38] LABS: HEMATOCRIT 32.6 % (42.0-52.0); HEMOGLOBIN 10.5 g/dl (13.5-17.5); LYMPH % 14.6 % (24.0-44.0); MEAN CORPUSCULAR HEMOGLOBIN 31.3 pg (27.0-33.0); MEAN CORPUSCULAR HGB CONC 32.2 g/dl (32.0-36.5); MEAN CORPUSCULAR VOLUME 97.4 fl (80.0-96.0); NEUTROPHILS # 7.8 10^3/uL (1.8-7.7); NEUTROPHILS % 78.9 % (36.0-66.0); RED BLOOD COUNT 3.35 10^6/uL (4.30-6.10); WHITE BLOOD COUNT 9.9 10^3/uL (4.0-10.0)
[2018-11-04 09:08] LABS: ALBUMIN 3.8 GM/DL (3.5-5.2); BLOOD UREA NITROGEN 16 MG/DL (6-20); CALCIUM LEVEL 9.2 MG/DL (8.5-10.2); CARBON DIOXIDE LEVEL 27 MEQ/L (23-31); CHLORIDE LEVEL 104 MMOL/L (98-107); CREATININE FOR GFR 0.89 MG/DL (0.90-1.30); GLOMERULAR FILTRATION RATE > 60.0 (>42); GLUCOSE, FASTING 157 MG/DL (70-105); POTASSIUM SERUM 3.8 MMOL/L (3.5-5.1); SODIUM LEVEL 138 MMOL/L (135-145); TOTAL PROTEIN 5.9 GM/DL (6.4-8.3)
--- NOTE | 2018-11-04 09:29 | MEDONC ---
MEDICAL ONCOLOGY FOLLOWUP NOTE: DATE OF SERVICE: 11/04/2018 DIAGNOSIS: Metastatic pancreatic cancer to the liver. CURRENT TREATMENT: Fulfirinox since December 2017, scheduled for cycle 21 today. Oxaliplatin was discontinued after cycle #12 due to peripheral neuropathy. ADDITIONAL DIAGNOSES: 1. Osteoporotic compression fracture. On Prolia. Received most recently 07/02/2018. 2. History of DVT. INTERVAL HISTORY: Mr. Mclean presents today for scheduled day one cycle number 21 of treatment. He was recently diagnosed with a lower respiratory type of infection with a cough producing yellowish/greenish sputum. He indicates he was started on prednisone 20 mg p.o. b.i.d. times 5 days and amoxicillin 875 mg p.o. b.i.d. times 10 days on 10/26/2018. His symptoms are better today but not totally resolved. He is still producing some discolored sputum. He denies any progressive dyspnea, fevers or chills. He does continue to have some upper right quadrant abdominal pain, taking his MSIR 15 mg very sparingly averaging 2 tablets per day. At present, Mr. Mclean offers no other new complaints. He does continue to have neuropathy in his hands and feet which is unchanged from baseline. REVIEW OF SYSTEMS: 12-system review completed and is positive for findings as noted above. In addition, the patient has a history of chronic low back pain. The review of systems is otherwise negative. PHYSICAL EXAMINATION: Weight is 76.6 kg, temperature 97.7, pulse 69, respirations 20, BP 113/71, O2 sat 100% at rest on room air. GENERAL: Exam reveals a tall thin very pleasant man who is clinically stable and in no acute distress. HEENT: No scleral icterus. Oral pharynx, oral mucous membranes normal. Conjunctivae normal. No thyroid enlargement or nodule. No jugular venous distention. Neck supple. Carotid upstrokes 1+, no bruits. Fundi normal bilaterally. RESPIRATORY: Positive for some scattered wheezes and rhonchi bilaterally. CARDIOVASCULAR: PMI 5th left intercostal space, midline. S1, S2 normal. No S3, S4 or murmurs. Regular rhythm. Femoral, dorsalis pedis pulses 2+ bilaterally. EXTREMITIES: Without clubbing, cyanosis or edema. LABORATORY DATA: WBC 9.9, ANC 7.8, RBC 3.35, hemoglobin and hematocrit 10.5, 32.6, platelets 174. Chemistries and a current CA19-9 are pending as of this dictation. Of note, Mr. Mclean's most recent tumor marker on 10/21/2018 was down to 42.9. IMPRESSION: Mr. Mclean has had an excellent response to his current treatment with a progressively decreasing a CA19-9 antigen. Most recent PET scan dated 10/01/2018, overall showed improvement with no new hypermetabolic focus seen. As noted above, Mr. Mclean was fairly recently diagnosed with a lower respiratory infection, has completed 5 days of prednisone and has three remaining days of amoxicillin. He still has some chest congestion and is producing some discolored sputum. PLAN: 1. Hold day one cycle 21 treatment today. 2. Finish amoxicillin as directed. The patient is also going to seed cone picker some Mucinex D which may help with his sputum production. 3. MSIR 15 mg one p.o. q.i.d. p.r.n. for pain. The prescription was renewed and sent to the patient's pharmacy. 4. Return in 1 week for brief followup repeat blood work and possible delayed day one cycle 21 treatment. Electronically Signed by Dixie Brown NP 11/04/2018 02:05 P DD: Dixie Brown NP 11/04/2018 09:03 A DT: jose alberto 11/04/2018 09:21 A CC: Se Castle MD
[2018-11-11 08:48] VITALS: BP 105/62
[2018-11-11 08:55] LABS: HEMOGLOBIN 10.4 g/dl (13.5-17.5); MEAN CORPUSCULAR HEMOGLOBIN 31.3 pg (27.0-33.0); MEAN CORPUSCULAR HGB CONC 32.5 g/dl (32.0-36.5); MEAN CORPUSCULAR VOLUME 96.3 fl (80.0-96.0); NEUTROPHILS # 3.1 10^3/uL (1.8-7.7); NEUTROPHILS % 66.7 % (36.0-66.0); RED BLOOD COUNT 3.32 10^6/uL (4.30-6.10); WHITE BLOOD COUNT 4.6 10^3/uL (4.0-10.0)
[2018-11-11 08:58] LABS: ALBUMIN 3.8 GM/DL (3.5-5.2); BLOOD UREA NITROGEN 12 MG/DL (6-20); CARBON DIOXIDE LEVEL 24 MEQ/L (23-31); CHLORIDE LEVEL 105 MMOL/L (98-107); GLOMERULAR FILTRATION RATE > 60.0 (>42); GLUCOSE, FASTING 280 MG/DL (70-105); POTASSIUM SERUM 3.8 MMOL/L (3.5-5.1); SODIUM LEVEL 136 MMOL/L (135-145); TOTAL PROTEIN 5.9 GM/DL (6.4-8.3)
--- NOTE | 2018-11-12 06:44 | MEDONC ---
MEDICAL ONCOLOGY/FOLLOWUP TREATMENT NOTE DATE OF SERVICE: 11/11/2018 DIAGNOSIS: Metastatic pancreatic cancer to the liver. CURRENT TREATMENT: FOLFIRINOX since December 2017, rescheduled cycle number 21 today. Oxaliplatin was discontinued after cycle #12 due to peripheral neuropathy. ADDITIONAL DIAGNOSES: 1. Osteoporotic compression fracture. On Prolia. Received most recently 07/02/2018. 2. History of DVT. INTERVAL HISTORY: Mr. Mclean presents today for rescheduled day one cycle #21 of treatment. When he was seen 1 week ago for scheduled treatment he was on amoxicillin 875 mg p.o. b.i.d. x10 days for a lower respiratory type of infection with a cough producing yellowish/greenish sputum. He was also given a prednisone taper. We subsequently held treatment on 11/04/2018. Mr. Mclean presents today, stating his symptoms have resolved. He denies any productive cough. He denies any dyspnea, fevers or chills. Mr. Mclean continues to have some intermittent pain on the lower right side of his ribs. He states "it feels like something is moving in there". He does have MSIR 15 mg to take for pain control and takes on the average 1 tablet per day. Most recent PET CT scan dated 10/01/2018 showed improvement. The previously noted hypermetabolic lesion in the head of the pancreas significantly decreased in avidity. The previously noted hepatic lesion is no longer apparent. No new hypermetabolic focus seen. Incidental findings include multiple new osteoporotic wedge compression deformities in the thoracolumbar spine. Mr. Mclean's current CA19-9 antigen from today is 54.0, up a little bit from 42.9 on 10/21/2018. REVIEW OF SYSTEMS: 12 system review is completed and is as noted above for positive findings. In addition, the patient has a history of chronic low back pain. The remaining review of systems is otherwise negative. PHYSICAL EXAMINATION: Weight is 77.3 kg, temperature 97.8, pulse 68, respirations 18, BP 105/62, O2 sat 99% at rest on room air. GENERAL EXAM: Reveals a tall thin very pleasant man who is clinically stable and in no acute distress. HEENT: No scleral icterus. Oral pharynx, oral mucous membranes normal. Conjunctivae normal. No thyroid enlargement or nodule. No jugular venous distention. Neck supple. Carotid upstrokes 1+, no bruits. Fundi normal bilaterally. RESPIRATORY: Lungs clear bilaterally to auscultation and percussion. No rales, rhonchi, or wheezing. CARDIOVASCULAR: PMI 5th left intercostal space, midline. S1, S2 normal. No S3, S4 or murmurs. Regular rhythm. Femoral, dorsalis pedis pulses 2+ bilaterally. ABDOMEN: Soft, nontender. Bowel sounds normal. No tenderness, guarding, or rebound. No palpable masses or hepatosplenomegaly. MUSCULOSKELETAL: Positive for tenderness right mid axillary line approximate T 11 and 12 ribs. No obvious deformity No masses. EXTREMITIES: Without clubbing, cyanosis or edema. LABORATORY DATA: WBC 4.6, ANC 3.1, RBC 3.32, H/H 10.4/32.0, and platelets 180. Chemistries are unremarkable with the exception of a nonfasting glucose of 280 of which the patient was advised. CA19-9 was 54.0. IMPRESSION: Mr. Mclean has had an excellent response to his current treatment. He presents today with persistent right rib pain of unclear etiology, question of fracture. He is agreeable to obtaining current right rib x-rays. Mr. Mclean was also encouraged to take additional MSIR if needed for moderate pain. We will proceed with cycle 21 treatment today. PLAN: 1. Proceed with cycle 21 treatment today. 2. Obtain plain x-rays of the right ribs. 3. Return in 2 weeks for followup physical exam, labs and day one cycle 22. 4. If the patient's pain persists, we did discuss obtaining additional imaging, most likely a current CT of the chest, abdomen and pelvis with p.o. and IV contrast. Electronically Signed by Dixie Brown NP 11/12/2018 06:55 A DD: Dixie Brown NP 11/11/2018 10:57 A DT: [email or web address] 11/12/2018 06:10 A CC: Se Castle MD
[2018-11-13 10:50] VITALS: BP 95/56
[2018-11-26 07:58] VITALS: BP 116/66
[2018-11-26 08:23] LABS: BLOOD UREA NITROGEN 11 MG/DL (6-20); CALCIUM LEVEL 9.4 MG/DL (8.5-10.2); CARBON DIOXIDE LEVEL 28 MEQ/L (23-31); CHLORIDE LEVEL 106 MMOL/L (98-107); CREATININE FOR GFR 0.83 MG/DL (0.90-1.30); GLOMERULAR FILTRATION RATE > 60.0 (>42); GLUCOSE, FASTING 129 MG/DL (70-105); SODIUM LEVEL 140 MMOL/L (135-145); TOTAL PROTEIN 6.1 GM/DL (6.4-8.3)
[2018-11-26 09:01] LABS: BASO % 0.4 % (0.0-1.0); EOS # 0.2 10^3/uL (0.0-0.50); EOS % 2.6 % (0.0-3.0); HEMATOCRIT 32.4 % (42.0-52.0); HEMOGLOBIN 10.6 g/dl (13.5-17.5); LYMPH # 1.1 10^3/uL (1.5-4.5); LYMPH % 15.8 % (24.0-44.0); MEAN CORPUSCULAR HEMOGLOBIN 31.5 pg (27.0-33.0); MEAN CORPUSCULAR HGB CONC 32.7 g/dl (32.0-36.5); MEAN CORPUSCULAR VOLUME 96.1 fl (80.0-96.0); MONO # 0.5 10^3/uL (0.0-0.8); MONO % 7.7 % (0.0-5.0); NEUTROPHILS % 73.1 % (36.0-66.0); PLATELET COUNT, AUTOMATED 157 10^3/uL (150-450); RED BLOOD COUNT 3.37 10^6/uL (4.30-6.10); WHITE BLOOD COUNT 6.9 10^3/uL (4.0-10.0)
--- NOTE | 2018-11-26 12:31 | MEDONC ---
MEDICAL ONCOLOGY FOLLOWUP/TREATMENT VISIT DATE OF SERVICE: 11/26/2018 DIAGNOSIS: Metastatic pancreatic cancer to the liver. CURRENT TREATMENT: FOLFIRINOX since December 2017, oxaliplatin was discontinued after cycle #12 due to peripheral neuropathy. Today is day 1, cycle #2 treatment. ADDITIONAL DIAGNOSES: 1. Osteoporotic compression fracture. On Prolia. Received most recently 07/02/2018, due around 12/30/2018. 2. History of DVT. INTERVAL HISTORY: Mr. Mclean presents today for day 1, cycle #22 of treatment. He continues to have some intermittent pain right upper abdominal quadrant. Plain x-rays of the right ribs done on 11/13/2018 was negative for acute disease. Most recent restaging PET CT scan dated 10/01/2018 overall showed improvement. The previously noted hypermetabolic lesion in the head of the pancreas is significantly decreased in a avidity. The previously noted hepatic lesion is no longer apparent. No new hypermetabolic focus seen. Mr. Mclean's CA19-9 antigen most recently on 11/11/2018 was 54.0, up a little bit from a previous value of 42.9 on 10/21/2018. Mr. Mclean uses his pain medication very sparingly due narcotic induced moderate to severe constipation . Mr. Mclean is currently taking two stool softeners and two Senokot-S daily to manage his constipation. He is wondering if we have any availability to obtain Amitiza, which is used to treat chronic idiopathic constipation in adults. He has been given samples at Dr. Se Castle's office. Unfortunately, Mr. Mclean's copay is extremely high for the Amitiza . Currently, no other new complaints are offered. Appetite is good and weight is stable. No nausea or vomiting. No new skeletal pain or extremity edema. REVIEW OF SYSTEMS: 12-system review completed and is as noted for pertinent positives and negatives as above. The remaining 12 system review is negative. PHYSICAL EXAMINATION: Weight is 78.7 kg. Temperature 97.6, pulse 66, respirations 18, BP 116/66, O2 sat 97% at rest on room air. GENERAL: Exam reveals a tall, thin, pleasant, middle-aged man who is clinically stable and in no acute distress. HEENT: No scleral icterus. Oral pharynx, oral mucous membranes normal. Conjunctivae normal. No thyroid enlargement or nodule. No jugular venous distention. Neck supple. Carotid upstrokes 1+, no bruits. Fundi normal bilaterally. RESPIRATORY: Lungs clear bilaterally to auscultation and percussion. No rales, rhonchi, or wheezing. CARDIOVASCULAR: PMI 5th left intercostal space, midline. S1, S2 normal. No S3, S4 or murmurs. Regular rhythm. Femoral, dorsalis pedis pulses 2+ bilaterally. LYMPHATICS: No palpable lymphadenopathy. ABDOMEN: Positive for tenderness in the right upper quadrant, no guarding or rebound. No palpable masses or hepatosplenomegaly. MUSCULOSKELETAL: No focal skeletal tenderness to percussion. No joint swelling, warmth, tenderness, or erythema. EXTREMITIES: No edema, clubbing, cyanosis. No thigh or calf tenderness. Normal range of motion. LABORATORY DATA: WBC 6.9, ANC 5.0, RBC 3.37, H/H 10.6, 32.4, platelets 157. Chemistries and a current CA 19-9 are pending as of this dictation. IMPRESSION: Mr. Mclean is a very pleasant, 78-year-old man who presents today for cycle #22 of FOLFIRINOX with oxaliplatin discontinued after cycle #12 due to peripheral neuropathy. He has had a significant decrease overall in his CA 19-9 antigen. Most recent restaging PET CT scan from 10/01/2018 showed improvement. Mr. Mclean's chief complaint is of right upper quadrant pain. Unfortunately, the patient is unable to tolerate much of an increased dose of tramadol or morphine to help manage his pain secondary to constipation. Our nurse navigator, Maya Blas, fortunately was able to reach out to Dr. Se Castle's office and they have a supply of the Amitiza that they can give to Mr. Mclean. He was advised of this today and will stop by Dr. Castle's office to pick that up. If he can achieve better control management of his constipation, then he will be able to increase what he needs for pain medication to give him symptom relief. We will proceed with treatment #22 today. Mr. Mclean will return in 2 weeks for a followup visit with physical exam, blood work and for scheduled treatment #23. As noted above, he will be due for Prolia around 12/30/2018. Electronically Signed by Dixie Brown NP 11/27/2018 07:32 A DD: Dixie Brown NP 11/26/2018 10:11 A DT: [email or web address] 11/26/2018 12:03 P CC: Se Castle MD
[2018-11-28 12:40] VITALS: BP 110/62
[2018-12-01 10:18] VITALS: BP 114/75
[2018-12-09 08:44] LABS: HEMATOCRIT 35.3 % (42.0-52.0); HEMOGLOBIN 11.5 g/dl (13.5-17.5); LYMPH % 6.9 % (24.0-44.0); MEAN CORPUSCULAR HEMOGLOBIN 31.6 pg (27.0-33.0); MEAN CORPUSCULAR HGB CONC 32.6 g/dl (32.0-36.5); MEAN CORPUSCULAR VOLUME 96.9 fl (80.0-96.0); NEUTROPHILS # 18.7 10^3/uL (1.8-7.7); NEUTROPHILS % 88.8 % (36.0-66.0); RED BLOOD COUNT 3.64 10^6/uL (4.30-6.10); WHITE BLOOD COUNT 21.1 10^3/uL (4.0-10.0)
[2018-12-09 08:46] VITALS: BP 106/65
[2018-12-09 08:52] LABS: ALBUMIN 4.2 GM/DL (3.5-5.2); BLOOD UREA NITROGEN 10 MG/DL (6-20); CARBON DIOXIDE LEVEL 27 MEQ/L (23-31); CHLORIDE LEVEL 105 MMOL/L (98-107); CREATININE FOR GFR 0.81 MG/DL (0.90-1.30); GLUCOSE, FASTING 106 MG/DL (70-105); POTASSIUM SERUM 3.8 MMOL/L (3.5-5.1); SODIUM LEVEL 140 MMOL/L (135-145); TOTAL PROTEIN 6.4 GM/DL (6.4-8.3)
[2018-12-09 08:59] LABS: GLOMERULAR FILTRATION RATE > 60.0 (>42)
[2018-12-09 09:08] LABS: MAGNESIUM LEVEL 1.9 MG/DL (1.8-2.4)
--- NOTE | 2018-12-09 09:41 | ONC.PHACK ---
CHEMO ADMIN CHECKLIST Order Contains Pt ID: Name, Order on Chemo Order Form?: Yes Order Form Includes ALL: Correct Tx Day, Correct Date, Correct Cycle Number Pt ID on Order form Matches: Pt ID on PHA Label Med on Chemo OrderForm Matches: PHA Label, Med Used for Preparation [facility] Dec 09, 2018 09:41
--- NOTE | 2018-12-10 10:02 | MEDONC ---
FOLLOWUP VISIT DATE OF SERVICE: 12/09/2018 IDENTIFICATION: The patient is a 78-year-old man who is here for continued chemotherapy for metastatic pancreas cancer to the liver. CURRENT TREATMENT: FOLFIRINOX since December 2017, oxaliplatin was discontinued after cycle #12 due to peripheral neuropathy. The patient is due for cycle #23 day one today. ADDITIONAL DIAGNOSIS: 1. Osteoporotic compression fracture, on Prolia. 2. History of DVT. INTERVAL HISTORY: The patient reports that he is feeling generally well. He gets some epigastric pain after eating if he eats too much but as long as he eats small amounts he does not get this, his weight is holding steady. He also has ongoing back pain and [facility] He denies any fevers, chills, night sweats, cough, shortness of breath, diarrhea, hematochezia or other problems. PHYSICAL EXAMINATION: General: The patient appears well-developed, well-nourished and in no distress. Vital signs: Weight 79.2 kg, temperature 96.9, pulse 69, respiration 18, blood pressure 106/65, pulse ox 98% on room air. HEENT: Pupils equal, round, and reactive. Sclerae anicteric. Oral without lesions. Lymph nodes: No palpable cervical, supraclavicular or axillary lymphadenopathy. Chest: Clear to auscultation. Abdomen: Nontender without mass or hepatosplenomegaly. Extremities: Without cyanosis or edema. Neuro: Alert and oriented without focal motor or sensory deficit. LABORATORY: CBC - WBC 21.1, hemoglobin 11.5, hematocrit 35.3, platelet 171, ANC 18.7. CMP is essentially normal. CA 19-9 on 11/11/2018 54.0. Today's value is pending. ASSESSMENT: 1. Responding to treatment with FOLFIRINOX minus oxaliplatin based on the last tumor marker level at his last visit and which has been significantly lower than it was several months ago. 2. Elevated white blood cell count secondary to Neulasta which the patient is getting on the day of his chemotherapy. PLAN: 1. Proceed with chemotherapy today. 2. Return visit in 2 weeks with laboratory tests and scheduled for chemotherapy that day. Electronically Signed by Pelon Gutierres MD 12/11/2018 11:18 A DD: Pelon Gutierres MD 12/09/2018 07:37 P DT: [email or web address] 12/10/2018 09:39 A CC:
[2018-12-11 11:27] VITALS: BP 97/54
[2018-12-23 08:05] VITALS: BP 110/63
[2018-12-23 08:32] LABS: HEMATOCRIT 36.3 % (42.0-52.0); HEMOGLOBIN 11.9 g/dl (13.5-17.5); LYMPH % 12.5 % (24.0-44.0); MEAN CORPUSCULAR HEMOGLOBIN 30.9 pg (27.0-33.0); MEAN CORPUSCULAR HGB CONC 32.8 g/dl (32.0-36.5); MEAN CORPUSCULAR VOLUME 94.2 fl (80.0-96.0); NEUTROPHILS # 8.2 10^3/uL (1.8-7.7); RED BLOOD COUNT 3.85 10^6/uL (4.30-6.10); WHITE BLOOD COUNT 10.2 10^3/uL (4.0-10.0)
[2018-12-23 08:40] LABS: ALBUMIN 4.4 GM/DL (3.5-5.2); BLOOD UREA NITROGEN 9 MG/DL (6-20); CARBON DIOXIDE LEVEL 28 MEQ/L (23-31); CHLORIDE LEVEL 104 MMOL/L (98-107); CREATININE FOR GFR 0.77 MG/DL (0.90-1.30); GLOMERULAR FILTRATION RATE > 60.0 (>42); GLUCOSE, FASTING 126 MG/DL (70-105); SODIUM LEVEL 138 MMOL/L (135-145); TOTAL PROTEIN 6.5 GM/DL (6.4-8.3)
[2018-12-23 08:55] LABS: MAGNESIUM LEVEL 2.1 MG/DL (1.8-2.4)
[2018-12-23 09:38] LABS: CA19-9 TUMOR MARKER,CARBOHYDRA 79.9 U/ML (<35.0)
--- NOTE | 2018-12-23 09:57 | ONC.PHACK ---
CHEMO ADMIN CHECKLIST Order Contains Pt ID: Name Order on Chemo Order Form?: Yes Order Form Includes ALL: Correct Tx Day, Correct Date, Correct Cycle Number Pt ID on Order form Matches: Pt ID on PHA Label Med on Chemo OrderForm Matches: PHA Label, Med Used for Preparation [facility] Dec 23, 2018 09:57
[2018-12-25 10:53] VITALS: BP 115/65
--- NOTE | 2018-12-26 09:35 | MEDONC ---
DATE OF SERVICE: 12/25/2018 REASON FOR VISIT: Evaluation for patient with metastatic pancreatic cancer to the liver on chemotherapy. CURRENT THERAPY: FOLFIRINOX since December 2017, oxaliplatin was discontinued after cycle 12 due to peripheral neuropathy. ADDITIONAL DIAGNOSIS: 1. Osteoporotic compression fracture, on Prolia. 2. History of DVT. INTERVAL HISTORY: This is a 78-year-old male with metastatic pancreatic cancer to the liver. The patient denies at this point epigastric pain after eating. The patient's weight has been steady. He continues to report low back pain ate the site of the compression fracture. He has been seen by orthopedics who recommended against the vertebral augmentation in this area. He denies any fevers or night sweats, blood in the stools or in the urine. Past medical history, past surgical, medications reconciled and updated. PHYSICAL EXAMINATION: Awake, alert and oriented, not in acute distress. Vital signs: Temperature 97.1, pulse 69, respiratory rate 18, blood pressure 115/65, and pulse oximetry 98% on room air. Lungs bilaterally clear, no added sounds. Cardiac S1 and S2, regular rate and rhythm. No added sounds. Extremities no cyanosis or edema. Abdomen soft, nontender, no organomegaly. LABORATORY DATA: On 12/24/2018 white blood cell count 10.2, hemoglobin 11.9, platelets normal at 210. Chemistries unremarkable except for creatinine of 0.77. CA 19-9 79.9. ASSESSMENT/PLAN: This is a 78-year-old male with metastatic pancreatic cancer to the liver. The patient on FOLFIRINOX, however, oxaliplatin was discontinued, responding to treatment with FOLFIRINOX minus oxaliplatin based on the tumor marker despite that it has slightly increased. Elevated white blood cell count due to Neulasta. No evidence of infection. PLAN: Patient will receive Neulasta in a.m. Return to the clinic in 2 weeks for scheduled chemotherapy. The patient was seen and examined. The plan was formulated as above. Electronically Signed by Pawan Fong MD 12/30/2018 08:43 A DD: Pawan Fong MD 12/26/2018 09:04 A DT: [email or web address] 12/26/2018 09:16 A CC:
[2018-12-26 10:17] VITALS: BP 120/73
[2018-12-30 10:49] LABS: ALBUMIN 4.2 GM/DL (3.5-5.2); BLOOD UREA NITROGEN 10 MG/DL (6-20); CARBON DIOXIDE LEVEL 29 MEQ/L (23-31); CHLORIDE LEVEL 106 MMOL/L (98-107); CREATININE FOR GFR 0.92 MG/DL (0.90-1.30); GLOMERULAR FILTRATION RATE > 60.0 (>42); GLUCOSE, FASTING 150 MG/DL (70-105); SODIUM LEVEL 139 MMOL/L (135-145); TOTAL PROTEIN 6.4 GM/DL (6.4-8.3)
[2019-01-06 08:12] VITALS: BP 108/65
[2019-01-06 08:22] LABS: HEMATOCRIT 34.1 % (42.0-52.0); HEMOGLOBIN 11.2 g/dl (13.5-17.5); MEAN CORPUSCULAR HEMOGLOBIN 29.9 pg (27.0-33.0); MEAN CORPUSCULAR HGB CONC 32.8 g/dl (32.0-36.5); MEAN CORPUSCULAR VOLUME 91.3 fl (80.0-96.0); NEUTROPHILS # 8.9 10^3/uL (1.8-7.7); NEUTROPHILS % 80.1 % (36.0-66.0); RED BLOOD COUNT 3.74 10^6/uL (4.30-6.10); WHITE BLOOD COUNT 11.1 10^3/uL (4.0-10.0)
[2019-01-06 08:41] LABS: ALBUMIN 4.3 GM/DL (3.5-5.2); BLOOD UREA NITROGEN 11 MG/DL (6-20); CARBON DIOXIDE LEVEL 26 MEQ/L (23-31); CHLORIDE LEVEL 105 MMOL/L (98-107); CREATININE FOR GFR 0.79 MG/DL (0.90-1.30); GLOMERULAR FILTRATION RATE > 60.0 (>42); GLUCOSE, FASTING 128 MG/DL (70-105); SODIUM LEVEL 140 MMOL/L (135-145); TOTAL PROTEIN 6.3 GM/DL (6.4-8.3)
--- NOTE | 2019-01-06 09:17 | ONC.PHACK ---
CHEMO ADMIN CHECKLIST Order Contains Pt ID: Name, Order on Chemo Order Form?: Yes Order Form Includes ALL: Correct Tx Day, Correct Date, Correct Cycle Number Pt ID on Order form Matches: Pt ID on PHA Label Med on Chemo OrderForm Matches: PHA Label, Med Used for Preparation [facility] Jan 06, 2019 09:17
--- NOTE | 2019-01-06 14:46 | MEDONC ---
DATE OF SERVICE: 01/06/2019 REASON FOR VISIT: Evaluation for patient with metastatic pancreatic cancer to the liver prior to chemotherapy. CURRENT THERAPY: FOLFIRINOX since December 2017, oxaliplatin was discontinued after cycle 12 due to peripheral neuropathy. INTERVAL HISTORY: This is a 78-year-old male with the above diagnosis who presents today for evaluation prior to chemotherapy. The patient has a history of osteoporosis and is on Prolia and history of DVT. The patient's pain in the right upper quadrant has been uncontrolled. He had a previous nerve block. Remainder of review of systems is unchanged compared to date of service of 12/25/2018. Past medical history, past surgical, medications reconciled and updated. PHYSICAL EXAMINATION: Awake, alert and oriented. The patient is in pain. Vital signs: Temperature 96.6, pulse 64, respiratory rate 18, blood pressure 108/65, and pulse oximetry 98% on room air. Lungs bilaterally clear, no added sounds. Cardiac S1 and S2, regular rate and rhythm. No added sounds. Extremities no cyanosis, clubbing or edema. Abdomen: Tenderness on the right upper quadrant. Bowel sounds are positive. No mass. No organomegaly noted. LABORATORY DATA: CBC unremarkable except for a white blood cell count 11.1, hemoglobin 11.2. CMP unremarkable except for a glucose of 128. ASSESSMENT/PLAN: This is a 78-year-old male with a history of metastatic pancreatic cancer to the liver with uncontrolled pain. PLAN: Proceed with chemotherapy today as scheduled. Pain control. The patient will be referred for palliative consultation as soon as possible. Lab work: CBC, CMP and LDH in 1 week. Followup visit in 2 weeks for palliative evaluation for chemotherapy. The patient was seen and examined. Plan was discussed. I spent 40 minutes during this encounter with more than 50% of the time counseling the patient about the above plan of care. Both spouse and patient voiced understanding of the plan and agreed to proceed as above. Electronically Signed by Pawan Fong MD 01/07/2019 01:17 P DD: Pawan Fong MD 01/06/2019 09:20 A DT: [email or web address] 01/06/2019 02:12 P CC:
[2019-01-08 11:20] VITALS: BP 109/58
[2019-01-13 10:55] LABS: HEMATOCRIT 30.8 % (42.0-52.0); HEMOGLOBIN 10.2 g/dl (13.5-17.5); LYMPH % 28.2 % (24.0-44.0); MEAN CORPUSCULAR HEMOGLOBIN 30.1 pg (27.0-33.0); MEAN CORPUSCULAR HGB CONC 33.1 g/dl (32.0-36.5); MEAN CORPUSCULAR VOLUME 90.9 fl (80.0-96.0); NEUTROPHILS # 2.3 10^3/uL (1.8-7.7); NEUTROPHILS % 63.9 % (36.0-66.0); RED BLOOD COUNT 3.39 10^6/uL (4.30-6.10); WHITE BLOOD COUNT 3.6 10^3/uL (4.0-10.0)
[2019-01-13 11:17] LABS: ALBUMIN 4.1 GM/DL (3.5-5.2); BLOOD UREA NITROGEN 13 MG/DL (6-20); CARBON DIOXIDE LEVEL 26 MEQ/L (23-31); CHLORIDE LEVEL 104 MMOL/L (98-107); CREATININE FOR GFR 0.76 MG/DL (0.90-1.30); GLUCOSE, FASTING 167 MG/DL (70-105); TOTAL PROTEIN 5.9 GM/DL (6.4-8.3)
[2019-01-13 11:18] LABS: GLOMERULAR FILTRATION RATE > 60.0 (>42); SODIUM LEVEL 136 MMOL/L (135-145)
[2019-01-20 08:37] VITALS: BP 94/58
[2019-01-20 08:39] LABS: HEMATOCRIT 32.2 % (42.0-52.0); HEMOGLOBIN 10.6 g/dl (13.5-17.5); LYMPH % 24.7 % (24.0-44.0); MEAN CORPUSCULAR HEMOGLOBIN 29.8 pg (27.0-33.0); MEAN CORPUSCULAR HGB CONC 32.9 g/dl (32.0-36.5); MEAN CORPUSCULAR VOLUME 90.5 fl (80.0-96.0); NEUTROPHILS # 3.4 10^3/uL (1.8-7.7); NEUTROPHILS % 65.7 % (36.0-66.0); RED BLOOD COUNT 3.56 10^6/uL (4.30-6.10); WHITE BLOOD COUNT 5.2 10^3/uL (4.0-10.0)
[2019-01-20 08:55] LABS: ALBUMIN 4.2 GM/DL (3.5-5.2); BLOOD UREA NITROGEN 10 MG/DL (6-20); CARBON DIOXIDE LEVEL 28 MEQ/L (23-31); CHLORIDE LEVEL 103 MMOL/L (98-107); CREATININE FOR GFR 0.81 MG/DL (0.90-1.30); GLOMERULAR FILTRATION RATE > 60.0 (>42); GLUCOSE, FASTING 190 MG/DL (70-105); SODIUM LEVEL 137 MMOL/L (135-145); TOTAL PROTEIN 6.3 GM/DL (6.4-8.3)
--- NOTE | 2019-01-20 09:02 | ONC.PHACK ---
CHEMO ADMIN CHECKLIST Order Contains Pt ID: Name, Order on Chemo Order Form?: Yes Order Form Includes ALL: Correct Tx Day, Correct Date, Correct Cycle Number Pt ID on Order form Matches: Pt ID on PHA Label Med on Chemo OrderForm Matches: PHA Label, Med Used for Preparation [facility] Jan 20, 2019 09:02
[2019-01-22 11:05] VITALS: BP 104/57
[2019-02-03 08:50] LABS: HEMATOCRIT 34.5 % (42.0-52.0); HEMOGLOBIN 11.3 g/dl (13.5-17.5); MEAN CORPUSCULAR HEMOGLOBIN 30.1 pg (27.0-33.0); MEAN CORPUSCULAR HGB CONC 32.8 g/dl (32.0-36.5); MEAN CORPUSCULAR VOLUME 91.8 fl (80.0-96.0); NEUTROPHILS # 10.3 10^3/uL (1.8-7.7); NEUTROPHILS % 82.7 % (36.0-66.0); RED BLOOD COUNT 3.76 10^6/uL (4.30-6.10); WHITE BLOOD COUNT 12.5 10^3/uL (4.0-10.0)
[2019-02-03 08:54] VITALS: BP 112/72
[2019-02-03 09:10] LABS: ALBUMIN 4.3 GM/DL (3.5-5.2); BLOOD UREA NITROGEN 13 MG/DL (6-20); CARBON DIOXIDE LEVEL 27 MEQ/L (23-31); CHLORIDE LEVEL 103 MMOL/L (98-107); CREATININE FOR GFR 0.83 MG/DL (0.90-1.30); GLOMERULAR FILTRATION RATE > 60.0 (>42); GLUCOSE, FASTING 152 MG/DL (70-105); SODIUM LEVEL 137 MMOL/L (135-145); TOTAL PROTEIN 6.6 GM/DL (6.4-8.3)
--- NOTE | 2019-02-03 10:08 | ONC.PHACK ---
CHEMO ADMIN CHECKLIST Order Contains Pt ID: Name, Order on Chemo Order Form?: Yes Order Form Includes ALL: Correct Tx Day, Correct Date, Correct Cycle Number Pt ID on Order form Matches: Pt ID on PHA Label Med on Chemo OrderForm Matches: PHA Label, Med Used for Preparation [facility] Feb 03, 2019 10:08
[2019-02-17 08:45] LABS: HEMATOCRIT 35.3 % (42.0-52.0); HEMOGLOBIN 11.5 g/dl (13.5-17.5); LYMPH % 10.5 % (24.0-44.0); MEAN CORPUSCULAR HEMOGLOBIN 29.6 pg (27.0-33.0); MEAN CORPUSCULAR HGB CONC 32.6 g/dl (32.0-36.5); MEAN CORPUSCULAR VOLUME 90.8 fl (80.0-96.0); NEUTROPHILS # 11.2 10^3/uL (1.8-7.7); NEUTROPHILS % 83.6 % (36.0-66.0); RED BLOOD COUNT 3.89 10^6/uL (4.30-6.10); WHITE BLOOD COUNT 13.4 10^3/uL (4.0-10.0)
[2019-02-17 09:02] VITALS: BP 118/75
[2019-02-17 09:22] LABS: ALBUMIN 4.3 GM/DL (3.5-5.2); BLOOD UREA NITROGEN 13 MG/DL (6-20); CARBON DIOXIDE LEVEL 28 MEQ/L (23-31); CHLORIDE LEVEL 102 MMOL/L (98-107); CREATININE FOR GFR 0.86 MG/DL (0.90-1.30); GLUCOSE, FASTING 104 MG/DL (70-105); SODIUM LEVEL 136 MMOL/L (135-145); TOTAL PROTEIN 6.3 GM/DL (6.4-8.3)
[2019-02-17 09:23] LABS: GLOMERULAR FILTRATION RATE > 60.0 (>42)
--- NOTE | 2019-02-19 15:35 | MEDONC ---
DATE OF SERVICE: 02/17/2019 REASON FOR VISIT: Followup in a patient with metastatic pancreatic cancer on chemotherapy with FOLFIRINOX. Without oxaliplatin. CURRENT THERAPY: FOLFIRINOX since December 2017. Oxaliplatin was discontinued after 12 cycles due to peripheral neuropathy. INTERVAL HISTORY: This is a 78-year-old male with the above diagnosis. Currently on the above mentioned therapy. The patient had a repeat restaging studies with a PET scan and he has been reporting increasing right upper quadrant pain for which he was seen by palliative care. They placed the patient on long acting pain medication. The patient feels that the pain is better controlled, however, he has not taken the pill twice a day as he is experiencing constipation. Remainder of review of systems is otherwise unremarkable. The patient denies nausea, vomiting, diarrhea. He stated his appetite is good. His energy has been the same. He is using a walker. Past medical, surgical, social history, medications, allergies updated, reviewed in EMR. PHYSICAL EXAMINATION: Awake, alert and oriented. The patient appears in pain. Vital signs: Temperature 96.7, pulse 59, respiratory rate 16, blood pressure 118/75, pulse oximetry 99%. Lungs bilaterally clear, no added sounds. Cardiac: S1 and S2, regular rhythm and rate. Fine murmur is noted. Abdomen: Soft. Tenderness at the right upper quadrant. No tenderness in other quadrants. Bowel sounds positive. Extremities: No cyanosis, clubbing or edema. HEENT: Patient appears with grimaces of pain. Otherwise unremarkable. During this encounter the patient was wearing a hat. LABORATORY DATA: CBC unremarkable except white blood cell count 13.4. Hemoglobin 11.5, platelet normal 188. Neutrophils percent is 83.6. Patient's chemistry unremarkable, except for alkaline phosphatase 210. ALT improved to 50 and AST normalized. Patient's CA19-9 equal 131.5 on 02/17/2019. PET scan on 02/10/2019 showed evidence of hypermetabolic uptake persists in the pancreatic head with a slightly higher standard uptake value than on most recent prior study, but no apparent change in size. No other hypermetabolic uptake. ASSESSMENT AND PLAN: This is a 78-year-old male with metastatic pancreatic cancer, with disease progression based on imaging and tumor marker. The patient was advised about the followin. Continue current therapy, FOLFIRINOX. 2. Cardiac evaluation with MUGA scan. 3. Consideration for start of therapy with gemcitabine and paclitaxel. 4. To obtain approval. 5. Transaminitis, AST normal, alkaline phosphatase to be monitored. Patient advised to discuss the use of simvastatin with primary. 6. Pain control to followup with palliative. I spent 35 minutes during this encounter with more than 50% of the time counseling the patient about the above plan of care. Patient voiced understanding and agreed to proceed as above. Electronically Signed by Pawan Fong MD 02/21/2019 11:06 P DD: Pawan Fong MD 02/17/2019 11:20 A DT: [email or web address] 02/19/2019 03:17 P CC:
[2019-02-25 10:26] LABS: BASO # 0.1 10^3/uL (0.0-0.2); BASO % 0.7 % (0.0-1.0); EOS # 0.1 10^3/uL (0.0-0.50); EOS % 0.7 % (0.0-3.0); HEMATOCRIT 35.4 % (42.0-52.0); HEMOGLOBIN 11.8 g/dl (13.5-17.5); LYMPH # 1.1 10^3/uL (1.5-4.5); LYMPH % 15.3 % (24.0-44.0); MEAN CORPUSCULAR HEMOGLOBIN 30.6 pg (27.0-33.0); MEAN CORPUSCULAR HGB CONC 33.3 g/dl (32.0-36.5); MEAN CORPUSCULAR VOLUME 91.7 fl (80.0-96.0); MONO # 0.8 10^3/uL (0.0-0.8); MONO % 10.7 % (0.0-5.0); NEUTROPHILS % 72.2 % (36.0-66.0); PLATELET COUNT, AUTOMATED 206 10^3/uL (150-450); RED BLOOD COUNT 3.86 10^6/uL (4.30-6.10)
[2019-02-25 10:37] VITALS: BP 122/76
[2019-02-25 10:50] LABS: ALBUMIN 3.6 GM/DL (3.2-5.2); ALT/SGPT 45 U/L (12-78); BILIRUBIN,TOTAL 0.4 MG/DL (0.2-1.0); BLOOD UREA NITROGEN 11 MG/DL (7-18); CALCIUM LEVEL 9.4 MG/DL (8.8-10.2); CARBON DIOXIDE LEVEL 27 MEQ/L (21-32); CHLORIDE LEVEL 106 MEQ/L (98-107); CREATININE FOR GFR 0.71 MG/DL (0.70-1.30); GLOMERULAR FILTRATION RATE > 60.0 (>42); GLUCOSE, FASTING 124 MG/DL (70-100); POTASSIUM SERUM 4.1 MEQ/L (3.5-5.1); SODIUM LEVEL 139 MEQ/L (136-145); TOTAL PROTEIN 6.5 GM/DL (6.4-8.2)
--- NOTE | 2019-02-25 13:50 | MEDONC ---
MEDICAL ONCOLOGY/HEMATOLOGY NOTE: DATE OF SERVICE: 02/25/2019 REASON FOR VISIT: Followup in a patient with metastatic prostate cancer, disease progression status post FOLFIRINOX without oxiliplatin. Gael therapy consultation for Gemzar on Abraxane. INTERVAL HISTORY: This is a 78-year-old male with the above diagnosis found to have a disease progression on previous therapy with the FOLFIRINOX. The patient's current medical issues consistent of right upper quadrant of managed by palliative care and some residual numbness in both hands. Otherwise, patient's remaining review of system is unchanged from January,. Past medical surgical and social history medications were reconciled, reviewed and updated in the EMR. PHYSICAL EXAMINATION: Awake, alert oriented not in any acute distress. Blood pressure 96.9, pulse 65, respiratory rate 18, blood pressure 122/76, pulse ox 98 in room air. Lungs bilaterally clear. No added sounds. Cardiac: S1, S2, regular rhythm and rate. No added sounds. Abdomen: Soft. Slight tender in the right upper quadrant. Extremities: No cyanosis, clubbing or edema. Overall performance status is 2. LAB DATA: CBC unremarkable except hemoglobin 11.8. Chemistry unremarkable. Glucose 124 and alkaline phosphatase 139. CA19-9 is pending. Previous CA19-9 has showed decreasing level with 131 on January. IMAGING STUDIES: MRI of the pancreas was reviewed during this exam and in the EMR as well as a MUGA scan that was unremarkable. MRI of the abdomen showed the head of the pancreas 2.3 x 1.7 cm lobulated mass. There was evidence of a few centimeter cyst in the right lobe of the liver without reporting lesions. ASSESSMENT/PLAN: This is a 78-year-old male with history of metastatic pancreatic cancer with a performance status of 2 with disease progression on FOLFIRINOX. Patient was counseled about the new line of therapy consistent with Gemzar and Abraxane. PLAN: 1. Consent of chemotherapy was obtain. 2. Start Gemzar and Abraxane, Gemzar 1000 mg/sq m and Abraxane 125 mg/sq m at a BSA of 1.93 with 20% of reduction due to performance status. To start day 1, cycle one today, February 25, 2019 and continue to a day 15 for a 28-day cycle times four cycles. 3. Orders were written. 4. Right upper quadrant pain managed by palliative. Counseling: Patient was counseled about the above finding. New line of therapy, side effects of each therapy. All of his questions were answered to the best of his satisfaction. I spent 35 minutes with this encounter with more than 50% of the time counseling the patient [id number]. The patient voiced understanding and agreed to proceed as above. Electronically Signed by Pawan Fong MD 02/28/2019 11:52 P DD: Pawan Fong MD 02/25/2019 12:26 P DT: jose alberto 02/25/2019 12:43 P CC:
--- NOTE | 2019-02-26 16:34 | MEDONC ---
DATE OF SERVICE: 02/03/2019 REASON FOR VISIT: Short-term followup visit in a patient with metastatic pancreatic cancer to the liver. Currently on FOLFIRINOX since December 2017 oxaliplatin. Oxaliplatin discontinued after 12 cycles due to peripheral neuropathy. INTERVAL HISTORY/REVIEW OF SYSTEMS: This is a 78-year-old man with the above diagnosis on the above therapy. The patient returns to the clinic for followup. The patient reported increasing pain in the right upper quadrant where he had a nerve block without improvement. Otherwise, his appetite has been stable. The patient's energy has been on the low side given his uncontrolled pain. The patient was seen by palliative care who had sent a prescription for pain control medications, but the patient has not been taking the prescribed dose given the fact that it caused him to have constipation. 12-point review of systems otherwise unchanged from 01/06/2019. PAST MEDICAL, SURGICAL, SOCIAL HISTORY: Like I said, reviewed and unchanged from 12/25/2018. PHYSICAL EXAM: Awake, alert, oriented, appears in pain. Temperature 97.5, pulse 65, respiratory rate 18, blood pressure 112/72, pulse oximetry 97%. Lungs: Bilaterally clear. No added sounds. Cardiac: S1, S2, regular rhythm and rate. No added sounds. Abdomen: Right upper quadrant tender. Bowel sounds positive. Extremities: No cyanosis, clubbing, or edema. Patient appears cachectic. PERFORMANCE STATUS: 1-2. LABORATORY DATA: White blood cell count 12.5, hemoglobin 11.3, platelets 146. Chemistry unremarkable except a glucose of 124 and alkaline phosphatase 139. CA19-9 increased to 131.5. ASSESSMENT AND PLAN: This is a 78-year-old male with metastatic pancreatic cancer to the liver currently on FOLFIRINOX. Patient clinically appeared to have a disease progression with increasing of the tumor marker as well as declining performance status. He will require restaging studies including imaging of a PET scan to reconsider whether the patient has disease progress. Plan: 1. Continue to followup with palliative care. 2. Leukocytosis without evidence of fever. Monitor. 3. Pain control followup with palliative care. 4. Lab: CBC, CMP, LDH in 1 week. 5. Return to the clinic in 1 week. I spent 25 minutes during this encounter with more than 50% of the time counseling the patient on the above plan of care. The patient was understanding and agreed to proceed as above. Electronically Signed by Pawan Fong MD 03/02/2019 02:03 A DD: Pawan Fong MD 02/26/2019 03:54 P DT: [email or web address] 02/26/2019 04:02 P CC:
[2019-02-27 10:05] LABS: CA19-9 TUMOR MARKER,CARBOHYDRA 163.7 U/ML (<35.0)
[2019-03-04 12:55] VITALS: BP 112/64
[2019-03-04 13:16] LABS: HEMATOCRIT 29.6 % (42.0-52.0); HEMOGLOBIN 9.9 g/dl (13.5-17.5); MEAN CORPUSCULAR HEMOGLOBIN 31.1 pg (27.0-33.0); MEAN CORPUSCULAR HGB CONC 33.4 g/dl (32.0-36.5); NEUTROPHILS # 2.2 10^3/uL (1.8-7.7); NEUTROPHILS % 64.2 % (36.0-66.0); RED BLOOD COUNT 3.18 10^6/uL (4.30-6.10); WHITE BLOOD COUNT 3.4 10^3/uL (4.0-10.0)
[2019-03-04 13:26] LABS: BLOOD UREA NITROGEN 12 MG/DL (6-20); CARBON DIOXIDE LEVEL 27 MEQ/L (23-31); CHLORIDE LEVEL 105 MMOL/L (98-107); CREATININE FOR GFR 0.78 MG/DL (0.90-1.30); GLOMERULAR FILTRATION RATE > 60.0 (>42); GLUCOSE, FASTING 162 MG/DL (70-105); SODIUM LEVEL 138 MMOL/L (135-145); TOTAL PROTEIN 6.2 GM/DL (6.4-8.3)
--- NOTE | 2019-03-04 15:55 | ONC.PHACK ---
CHEMO ADMIN CHECKLIST Order Contains Pt ID: Name, Order on Chemo Order Form?: Yes Order Form Includes ALL: Correct Tx Day, Correct Date, Correct Cycle Number Pt ID on Order form Matches: Pt ID on PHA Label Med on Chemo OrderForm Matches: PHA Label, Med Used for Preparation [facility] Mar 04, 2019 15:55
[2019-03-04 16:01] LABS: APPEARANCE, URINE CLOUDY (CLEAR); BACTERIA, URINE AUTO NEGATIVE (NEGATIVE); BILIRUBIN, URINE AUTO NEGATIVE (NEGATIVE); BLOOD, URINE BLOOD NEGATIVE (NEGATIVE); COLOR, URINE AMBER (YELLOW); GLUCOSE, URINE (UA) AUTO 1+ mg/dL (NEGATIVE); KETONE, URINE AUTO NEGATIVE (NEGATIVE); LEUKOCYTE ESTERASE, URINE AUTO NEGATIVE (NEGATIVE); MUCUS, URINE SMALL (NEGATIVE); NITRITE, URINE AUTO NEGATIVE (NEGATIVE); PROTEIN, URINE AUTO NEGATIVE (NEGATIVE); RBC, URINE AUTO 3 /HPF (0-3); SPECIFIC GRAVITY URINE AUTO 1.019 (1.002-1.035); SQUAMOUS EPITHELIAL CELL UR AU 0 /HPF (0-6); UROBILINOGEN, URINE AUTO 0.2 mg/dL (0.0-2.0); WBC, URINE AUTO 1 /HPF (0-3)
[2019-03-11 10:06] VITALS: BP 122/69
[2019-03-11 10:46] LABS: APPEARANCE, URINE HAZY (CLEAR); BACTERIA, URINE AUTO NEGATIVE (NEGATIVE); BILIRUBIN, URINE AUTO NEGATIVE (NEGATIVE); BLOOD, URINE BLOOD NEGATIVE (NEGATIVE); COLOR, URINE YELLOW (YELLOW); GLUCOSE, URINE (UA) AUTO NEGATIVE (NEGATIVE); KETONE, URINE AUTO NEGATIVE (NEGATIVE); LEUKOCYTE ESTERASE, URINE AUTO NEGATIVE (NEGATIVE); MUCUS, URINE SMALL (NEGATIVE); NITRITE, URINE AUTO NEGATIVE (NEGATIVE); PROTEIN, URINE AUTO NEGATIVE (NEGATIVE); RBC, URINE AUTO 2 /HPF (0-3); SPECIFIC GRAVITY URINE AUTO 1.008 (1.002-1.035); SQUAMOUS EPITHELIAL CELL UR AU 0 /HPF (0-6); UROBILINOGEN, URINE AUTO 0.2 mg/dL (0.0-2.0); WBC, URINE AUTO 0 /HPF (0-3)
[2019-03-12 13:54] LABS: HEMATOCRIT 29.1 % (42.0-52.0); HEMOGLOBIN 9.7 g/dl (13.5-17.5); LYMPH % 22.7 % (24.0-44.0); MEAN CORPUSCULAR HEMOGLOBIN 30.9 pg (27.0-33.0); MEAN CORPUSCULAR HGB CONC 33.3 g/dl (32.0-36.5); MEAN CORPUSCULAR VOLUME 92.6 fl (80.0-96.0); NEUTROPHILS # 2.2 10^3/uL (1.8-7.7); NEUTROPHILS % 68.9 % (36.0-66.0); RED BLOOD COUNT 3.14 10^6/uL (4.30-6.10); WHITE BLOOD COUNT 3.2 10^3/uL (4.0-10.0)
[2019-03-12 14:04] LABS: BLOOD UREA NITROGEN 11 MG/DL (6-20); CARBON DIOXIDE LEVEL 25 MEQ/L (23-31); CHLORIDE LEVEL 104 MMOL/L (98-107); CREATININE FOR GFR 0.87 MG/DL (0.90-1.30); GLUCOSE, FASTING 136 MG/DL (70-105); SODIUM LEVEL 135 MMOL/L (135-145); TOTAL PROTEIN 6.3 GM/DL (6.4-8.3)
[2019-03-12 14:05] LABS: GLOMERULAR FILTRATION RATE > 60.0 (>42)
--- NOTE | 2019-03-23 12:10 | MEDONC ---
DATE OF SERVICE: 03/11/2019 REASON FOR VISIT: This is a very pleasant 78-year-old gentleman with a known history of metastatic pancreatic carcinoma with a liver metastases. CURRENT TREATMENT SUMMARY: 1. Localize pancreatic adenocarcinoma diagnosed in August 2017 showing a mass in the pancreatic head with no peripancreatic adenopathy and no periaortic adenopathy. 2. The patient started neoadjuvant chemotherapy with Abraxane and gemcitabine September 2017 with no response. 3. The patient was changed to FOLFIRINOX chemotherapy in December 2017. Ultrasound had shown nodules in the liver. Liver biopsy done on January 2018 showing adenocarcinoma. Next, FOLFIRINOX oxaliplatin was discontinued cycle #12 due to peripheral neuropathy. 4. Patient suffered an osteoporosis compression fracture on Prolia most recent one was on July 02, 2018 and the patient also had suffered a DVT. The patient has is currently on a FOLFIRINOX minus the oxaliplatin until disease progression. 5. Patient had completed 27 cycles on February 03, 2019 and was changed to nab paclitaxel and gemcitabine and started cycle #1 on February 25, 2019. The patient was to be evaluated on 03/11/2019 for cycle number one day 15. PAST MEDICAL HISTORY includes: DJD. Diabetes. Gastroesophageal reflux disease. Asthma. Hypertension. Irritable bowel syndrome, BPH. Paroxysmal atrial fibrillation. Above-noted pancreatic carcinoma. Compression fractures of T11, L1, L4 Radiculopathy at L4. MEDICATIONS INCLUDE: - albuterol - buspirone 5 mg p.o. b.i.d. - Keflex 500 mg - cephalexin 2000 mg as a prophylaxis for the dentist. - Fragmin 10,000 units subcu daily - digoxin 0.125 mg p.o. daily - docusate sodium 250 mg one p.o. b.i.d. - Avodart 0.5 mg p.o. q.h.s. - Perforomist 20 mcg daily - Lasix 20 mg p.o. t.i.d. - Amitiza 24 mcg p.o. daily - metformin 500 mg p.o. t.i.d. - Asmanex 220 mcg daily p.r.n. for shortness of breath - morphine sulfate 15 mg p.o. q.i.d. p.r.n. - Bystolic 2.5 mg p.o. daily - ondansetron 8 mg p.o. t.i.d. p.r.n. - oxycodone 5 mg p.o. q.4 h p.r.n. - potassium chloride 10 mEq, 20 mEq p.o. daily - simvastatin 20 mg p.o. q.h.s. - Flomax 0.4 mg p.o. daily - tramadol 50 mg p.o. q.6 h - zolpidem tartrate 10 mg p.o. q.h.s. REVIEW OF SYSTEMS: Noted for tiredness, fatigue, weakness, lethargy. PHYSICAL EXAMINATION: Vital signs show a weight of 76.8 kg, BSA 1.94 ECOG 2/4, temperature is 97.6, pulse is 67, respiratory rate is 18, BP is 122/69, pulse oximetry is 98. HEENT is normocephalic, atraumatic. PERRL. EOMI. Sclerae is white, nonicteric. Oropharynx is otherwise clear. Neck is supple with no adenopathy. Chest is clear to auscultation and percussion. Cardiovascular: S1,S2 are appreciated with no murmurs. Abdomen is otherwise soft, nontender. Extremities show no cyanosis, clubbing or any edema. LABORATORY DATA: Laboratories show a WBC count 3.2, hemoglobin and hematocrit 9.7/29, platelet counts at 93,000 neutrophils 68, lymphocytes 22. ASSESSMENT: Chemotherapy held due to low platelet counts. PLAN: Have the patient followup in the next 2 weeks. Please note that there is a discrepancy of the date of his CBC as well as his vital signs being entered. The patient was seen by the physician on 03/11/2019. However was to see the nursing staff for chemotherapy the following day on 03/12/2019. Electronically Signed by Kaylynn Fernández MD 03/30/2019 05:02 P DD: Kaylynn Fernández MD 03/20/2019 09:42 A DT: jose alberto 03/23/2019 11:43 A CC:
[2019-03-25 11:04] LABS: HEMATOCRIT 34.3 % (42.0-52.0); HEMOGLOBIN 11.3 g/dl (13.5-17.5); LYMPH % 14.7 % (24.0-44.0); MEAN CORPUSCULAR HEMOGLOBIN 29.9 pg (27.0-33.0); MEAN CORPUSCULAR HGB CONC 32.9 g/dl (32.0-36.5); MEAN CORPUSCULAR VOLUME 90.8 fl (80.0-96.0); NEUTROPHILS # 5.2 10^3/uL (1.8-7.7); NEUTROPHILS % 75.7 % (36.0-66.0); RED BLOOD COUNT 3.78 10^6/uL (4.30-6.10); WHITE BLOOD COUNT 6.9 10^3/uL (4.0-10.0)
[2019-03-25 11:12] LABS: ALBUMIN 4.1 GM/DL (3.5-5.2); BLOOD UREA NITROGEN 11 MG/DL (6-20); CARBON DIOXIDE LEVEL 26 MEQ/L (23-31); CHLORIDE LEVEL 107 MMOL/L (98-107); CREATININE FOR GFR 0.98 MG/DL (0.90-1.30); GLOMERULAR FILTRATION RATE > 60.0 (>42); GLUCOSE, FASTING 125 MG/DL (70-105); SODIUM LEVEL 141 MMOL/L (135-145); TOTAL PROTEIN 6.5 GM/DL (6.4-8.3)
[2019-03-25 11:15] VITALS: BP 106/70
--- NOTE | 2019-03-25 12:41 | ONC.PHACK ---
CHEMO ADMIN CHECKLIST Order Contains Pt ID: Name, Order on Chemo Order Form?: Yes Order Form Includes ALL: Correct Tx Day, Correct Date, Correct Cycle Number Pt ID on Order form Matches: Pt ID on PHA Label Med on Chemo OrderForm Matches: PHA Label, Med Used for Preparation [facility] Mar 25, 2019 12:41
--- NOTE | 2019-03-26 11:47 | MEDONC ---
MEDICAL ONCOLOGY FOLLOWUP/TREATMENT VISIT DATE OF SERVICE: 03/25/2019 DIAGNOSIS: Metastatic pancreatic carcinoma to the liver. The patient presented with localized pancreatic adenocarcinoma in August 2017 showing a mass in the pancreatic head with no peripancreatic adenopathy or no periaortic adenopathy. PREVIOUS TREATMENT: 1. Neoadjuvant chemotherapy with Abraxane and gemcitabine initiated September 2017, subsequently discontinued secondary to lack of response. 2. FOLFIRINOX chemotherapy initiated in December 2017. Liver biopsy January 2018 unfortunately confirming metastatic adenocarcinoma. 3. FOLFIRINOX/oxaliplatin completed 12 cycles, ultimately discontinued due to peripheral neuropathy. 4. FOLFIRINOX minus the oxaliplatin for a total of 27 cycles, switching to nab-paclitaxel and gemcitabine with day 1, cycle number one 02/25/2019. 5. Prolia q. 6 months for osteoporotic compression fracture given most recently 12/30/2018. INTERVAL HISTORY Mr. Mclean presents today for a followup visit, blood work and scheduled treatment. Unfortunately, he was only able to receive day 1 and day 8 of cycle number one with day 15 subsequently being held secondary to thrombocytopenia. Mr. Mclean presents today for day 1 cycle two of treatment pending appropriate labs. At present, he claims to be in his usual state of health. He offers no new complaints. Reportedly he tolerated day 1 and 8 of his current treatment extremely well, denying any side effects whatsoever. Mr. Mclean continues to complain of right upper quadrant pain, is managed with MSIR 15 mg p.o. daily and Ultram 50 mg daily (approximately 12 hours after the MSIR). Mr. Mclean continues to have problems with chronic constipation, managed with Amitiza 24 mcg capsule one p.o. daily, senna 2 tablets p.o. b.i.d. and Milk of Magnesia. REVIEW OF SYSTEMS: 12 system review is completed and is as noted above for pertinent positives and negatives. Otherwise a negative review. PHYSICAL EXAM: Weight is 78.2 kg, temperature 97.8, pulse 61, respirations 16, BP 106/70, O2 sat 98% at rest on room air. GENERAL: Exam reveals a tall thin pleasant middle-aged man who is comfortable and in no acute distress. HEENT: No scleral icterus. Oral pharynx, oral mucous membranes normal. Conjunctivae normal. No thyroid enlargement or nodule. No jugular venous distention. Neck supple. Carotid upstrokes 1+; no bruits. Fundi normal bilaterally. RESPIRATORY: Lungs clear bilaterally to auscultation and percussion. No rales, rhonchi, or wheezing. CARDIOVASCULAR: PMI 5th left intercostal space, midline. S1, S2 normal. No S3, S4, or murmurs. Regular rhythm. Femoral, dorsalis pedis pulses 2+ bilaterally. EXTREMITIES: Without clubbing, cyanosis, or edema. LABORATORY DATA: CBC today WBC 6.9, ANC 5.2, RBC 3.78, hemoglobin and hematocrit 11.3, 34.3, platelets 334. Chemistries are unremarkable. A current CA19-9 is pending. Of note, Mr. Mclean's baseline CA 19-9 antigen at the start of day 1 cycle one of nab-paclitaxel and gemcitabine was 163.7. IMPRESSION: Metastatic pancreatic adenocarcinoma, the patient is here today for day 1 cycle two of treatment utilizing nab-paclitaxel and gemcitabine on days 1, 8 and 15 every 28 days. His labs are appropriate to proceed with treatment today. No new findings on physical exam. We will follow Mr. Mclean very carefully and when he returns in one week for day 8 we will see him for a brief office visit that day in anticipation of progressive thrombocytopenia. I indicated to Mr. Mclean that we may need to further dose reduce his medications in an effort to maintain him on a day 1, 8 and 15 q. 28-day cycle without any interruptions. He verbalized understanding. Electronically Signed by Dixie Brown NP 03/27/2019 06:34 A DD: Dixie Brown NP 03/25/2019 12:55 P DT: catia 03/26/2019 11:30 A CC: Se Castle MD
[2019-04-01 09:03] LABS: HEMATOCRIT 32.7 % (42.0-52.0); HEMOGLOBIN 10.8 g/dl (13.5-17.5); LYMPH % 31.9 % (24.0-44.0); MEAN CORPUSCULAR HEMOGLOBIN 29.8 pg (27.0-33.0); NEUTROPHILS # 1.7 10^3/uL (1.8-7.7); NEUTROPHILS % 59.7 % (36.0-66.0); RED BLOOD COUNT 3.63 10^6/uL (4.30-6.10); WHITE BLOOD COUNT 2.9 10^3/uL (4.0-10.0)
[2019-04-01 09:14] VITALS: BP 123/76
[2019-04-01 09:21] LABS: ALBUMIN 4.1 GM/DL (3.5-5.2); BLOOD UREA NITROGEN 11 MG/DL (6-20); CARBON DIOXIDE LEVEL 25 MEQ/L (23-31); CHLORIDE LEVEL 103 MMOL/L (98-107); CREATININE FOR GFR 1.02 MG/DL (0.90-1.30); GLOMERULAR FILTRATION RATE > 60.0 (>42); GLUCOSE, FASTING 236 MG/DL (70-105); SODIUM LEVEL 138 MMOL/L (135-145); TOTAL PROTEIN 6.2 GM/DL (6.4-8.3)
--- NOTE | 2019-04-01 09:50 | ONC.PHACK ---
CHEMO ADMIN CHECKLIST Order Contains Pt ID: Name, Order on Chemo Order Form?: Yes Order Form Includes ALL: Correct Tx Day, Correct Date, Correct Cycle Number Pt ID on Order form Matches: Pt ID on PHA Label Med on Chemo OrderForm Matches: PHA Label, Med Used for Preparation [facility] Apr 01, 2019 09:50
--- NOTE | 2019-04-02 07:34 | MEDONC ---
MEDICAL ONCOLOGY FOLLOWUP / TREATMENT VISIT: DATE OF SERVICE: 04/01/2019 DIAGNOSIS: Metastatic pancreatic carcinoma to the liver in a 78-year-old male who presented with localized pancreatic adenocarcinoma diagnosed August [address] imaging showing a mass in the pancreatic head with no radha pancreatic adenopathy or no periaortic adenopathy. PREVIOUS TREATMENT: 1. Neoadjuvant chemotherapy with Abraxane and gemcitabine September 2017, subsequently discontinued secondary to lack of response. 2. Folfirinox chemotherapy begun December 2017. Liver biopsy January 2018. Unfortunately confirming metastatic adenocarcinoma. 3. Folfirinox / oxaliplatin completed 12 cycles, ultimately discontinued due to peripheral neuropathy. 4. Folfirinox minus the oxaliplatin for a total of 27 cycles, switching to nabpaclitaxel and gemcitabine with day one, cycle one 02/25/2019. 5. Prolia every 6 months for osteo porotic compression fracture given most recently 12/30/2018. INTERVAL HISTORY: Mr. Mclean presents today for brief office visit prior to proceeding with day eight of cycle two. When I saw him 1 week ago, we had discussed the potential need for possible dose reduction of nabpaclitaxel and gemcitibine due day 15 of cycle one having to be held secondary to thrombocytopenia. Mr. Mclean's CBC today is within a safe range to proceed with treatment with a white blood cell count of 2.9 ANC 1.7, RBC 3.63, H and H of 10.8, 32.7 and a platelet count of 194. I did advise him however. that we will need to watch carefully as we still anticipate that a dose reduction will most likely be warranted moving forward. Mr. Guadarramas vitals signs were reviewed today and are stable with a weight is 79.1 kg, temp 97.4, pulse 68, respirations 18, BP 123/76, O2 sat 98% at rest on room air. Physical exam was deferred. Laboratory testing in addition to the above-noted CBC results, chemistries are unremarkable with the exception of a nonfasting glucose of 236. Mr. Guadarramas most recent CA19-9 from 03/25 was 150.8 which is down a little bit from a previous value of 163 on 02/25/2019, however increased from 01/2019 at which time his 19-9 was 131. IMPRESSION: Metastatic pancreatic adenocarcinoma, Mr. Mclean is here today for day 8 cycle 2. Labs appropriate to proceed with treatment. However, we will watch carefully and anticipate dose reduction going forward in an effort to maintain the patient on schedule with days 1, 8, and 15 dosing every 28 days . Mr. Mclean will be scheduled to return in one week for day 15 of cycle two with a repeat CBC at that time. The patient will also be scheduled to return on 04/22 for an office visit. Day one cycle three of nabpaclitaxel and gemcitabine with complete blood work at that time including a CBC with differential, stat CMP and repeat CA19-9 antigen. Electronically Signed by Dixie Brown NP 04/03/2019 08:03 A DD: Dixie Brown NP 04/01/2019 11:06 A DT: [email or web address] 04/02/2019 07:22 A CC: Se Castle MD
--- NOTE | 2019-04-07 09:58 | MEDONCENPD ---
Date/Time of Encounter Date of Encounter: Apr 07, 2019 Time of Encounter: 09:56 Encounter I called the patient back he has pain in the RUQ he has doubled up on his pain with morphine I advised him that that was appropriate he has a palliative care consult Kaylynn Fernández MD Apr 07, 2019 09:58
[2019-04-08 08:10] VITALS: BP 113/66
[2019-04-08 08:36] LABS: HEMATOCRIT 29.4 % (42.0-52.0); HEMOGLOBIN 9.6 g/dl (13.5-17.5); LYMPH % 42.8 % (24.0-44.0); MEAN CORPUSCULAR HEMOGLOBIN 29.5 pg (27.0-33.0); MEAN CORPUSCULAR HGB CONC 32.7 g/dl (32.0-36.5); MEAN CORPUSCULAR VOLUME 90.5 fl (80.0-96.0); NEUTROPHILS # 0.8 10^3/uL (1.8-7.7); NEUTROPHILS % 49.7 % (36.0-66.0); RED BLOOD COUNT 3.25 10^6/uL (4.30-6.10); WHITE BLOOD COUNT 1.6 10^3/uL (4.0-10.0)
[2019-04-08 09:06] LABS: ALBUMIN 3.9 GM/DL (3.5-5.2); BLOOD UREA NITROGEN 9 MG/DL (6-20); CARBON DIOXIDE LEVEL 26 MEQ/L (23-31); CHLORIDE LEVEL 103 MMOL/L (98-107); CREATININE FOR GFR 0.78 MG/DL (0.90-1.30); GLUCOSE, FASTING 177 MG/DL (70-105); SODIUM LEVEL 138 MMOL/L (135-145)
[2019-04-08 09:14] LABS: GLOMERULAR FILTRATION RATE > 60.0 (>42)
[2019-04-13 11:20] VITALS: BP 123/81
[2019-04-13 11:24] LABS: HEMATOCRIT 32.4 % (42.0-52.0); HEMOGLOBIN 10.7 g/dl (13.5-17.5); LYMPH % 21.5 % (24.0-44.0); MEAN CORPUSCULAR VOLUME 90.7 fl (80.0-96.0); NEUTROPHILS # 3.2 10^3/uL (1.8-7.7); NEUTROPHILS % 67.3 % (36.0-66.0); RED BLOOD COUNT 3.57 10^6/uL (4.30-6.10); WHITE BLOOD COUNT 4.7 10^3/uL (4.0-10.0)
[2019-04-13 11:44] LABS: ALBUMIN 4.1 GM/DL (3.5-5.2); BLOOD UREA NITROGEN 9 MG/DL (6-20); CARBON DIOXIDE LEVEL 28 MEQ/L (23-31); CHLORIDE LEVEL 104 MMOL/L (98-107); CREATININE FOR GFR 0.78 MG/DL (0.90-1.30); GLOMERULAR FILTRATION RATE > 60.0 (>42); GLUCOSE, FASTING 109 MG/DL (70-105); SODIUM LEVEL 137 MMOL/L (135-145); TOTAL PROTEIN 6.5 GM/DL (6.4-8.3)
--- NOTE | 2019-04-13 12:49 | ONC.PHACK ---
CHEMO ADMIN CHECKLIST Order Contains Pt ID: Name, Order on Chemo Order Form?: Yes Order Form Includes ALL: Correct Tx Day, Correct Date, Correct Cycle Number Pt ID on Order form Matches: Pt ID on PHA Label Med on Chemo OrderForm Matches: PHA Label, Med Used for Preparation [facility] Apr 13, 2019 12:49
--- NOTE | 2019-04-14 10:11 | MEDONC ---
MEDICAL ONCOLOGY FOLLOWUP/TREATMENT VISIT DATE OF SERVICE: 04/13/2019 DIAGNOSIS: Metastatic pancreatic adenocarcinoma with liver metastasis in partial remission on third-line treatment with reintroduced Abraxane/gemcitabine. The patient presented with localized pancreatic adenocarcinoma August 2017, pancreatic head mass, no adenopathy or distant disease; progression with liver metastasis 12/2017, now on second-line treatment in the metastatic setting. BREIF TREATMENT HISTORY: Neoadjuvant Abraxane/gemcitabine 09/2017 - 12/2017, discontinued for lack of response. 12/2017 liver nodules on imaging, biopsy 01/2018 confirmed adenocarcinoma pancreatic origin. FOLFIRINOX 12/2017 - 01/2019, oxaliplatin stopped after twelve 12 cycles. Major response by CA19-9 reduction, resolution of hypermetabolic liver uptake on PET and 2.3 x 1.7 residual lobulated mass on abdomen MRI 02/23/2019. gemcitabine/Abraxane restarted 02/25/2019 for rising CA19-9. CURRENT THERAPY: gemcitabine/Abraxane, days 1, 8, and 15 on a 28-day schedule, day 1, cycle one 02/25/2019; today will be delayed day 15, cycle two. OTHER MEDICAL PROBLEMS: Chronic low back pain, history of attendance at pain clinic. COPD, type 2 diabetes. Osteoporosis with compression fractures on multiple spine images, including 04/10/2019 LS spine showing stable wedge compression deformities at T12 and L1 with up to 30% loss of vertebral body height with DJD observed in the lumbar vertebrae. INTERVAL HISTORY: This is my first meeting with Mr. Mclean. He has seen a number of different oncology providers here. Treatment was held last week due to cytopenias. His gemcitabine/Abraxane was dose reduced by 20% as of day 1, cycle two. As of today, we have added to pegfilgrastim due to prior chemo exposure and the need for dose reduction and persistent leukopenia, holding his day 15 treatment in cycle two. Labs today look pretty good. He has persistent anemia, hemoglobin 10.7, but ANC and WBC are normal, as are platelets. He has a number of issues he would like to address, including chronic right upper quadrant and flank pain that is episodic severe and he says unbearable. He saw Rose Marie Galo of palliative care, who recommended certain changes in his analgesia, including stopping his long-acting morphine, keeping short-acting morphine, starting methadone twice daily, and increasing his Reglan. MEDICATIONS: Reviewed. REVIEW OF SYSTEMS: CONSTITUTIONAL: No fever, chills, sweats, or weight loss. The patient reports chronic fatigue, decreased appetite. HEENT: No oral discomfort or mouth or lip ulcers. Hearing normal in both ears. RESPIRATORY: Denies hemoptysis, pleurisy; some exertional dyspnea and occasional cough but not a chronic hacking cough. CARDIOVASCULAR: Denies chest pain, palpitations. MUSCULOSKELETAL: Denies joint swelling or erythema; chronic low back pain and chronic intermittent positional right flank/upper quadrant abdominal pain, flashing and severe, the patient reports. Not relieved by current pain medication; the patient also acknowledges history of spinal injections for arthritic pain. GENITOURINARY: No history of urinary frequency, burning, hematuria, or pain. No testicular swelling or lumps. GASTROINTESTINAL: No nausea, vomiting, constipation, diarrhea, dysphagia, bleeding, or anorexia. SKIN: Denies rash, ecchymosis, petechiae, jaundice. NEUROLOGICAL: No headache, visual difficulty, motor weakness, sensory deficits; some chronic intermittent tingling in the hands and feet, not chronic, unremitting. EXTREMITIES: No extremity edema. VITAL SIGNS: Reviewed. Normal and stable. LABS: WBC 4.7, hemoglobin 10.7, hematocrit 32, platelets 223, MCV 90. Electrolytes normal. Renal function normal. Liver function: alk phos, albumin normal. CA19-9 160 as of 03/25/2019, stable versus start of third-line treatment. IMPRESSION: Metastatic pancreatic adenocarcinoma with liver metastasis, now on second-line treatment in the metastatic setting with gemcitabine/Abraxane reintroduced after initial neoadjuvant treatment with this combination, yielding by the report in the notes "no response ",day 15, cycle two, with apparently stabilized CA19-9 which had been rising. Chronic back pain and right upper quadrant pain, now engaged with palliative care and reorganization of his pain management underway; suspect a component of referred pain involving that right upper quadrant due to his pancreatic mass. There may be a role for a celiac block attempt. I discussed this at length with the patient today. It would be worthwhile having him evaluated by Dr. Vallejo of IR. Reviewing tumor markers, the patient's shawna tumor marker was 43 in September of 2018. Peak 1383 at time of diagnosis in September of 2017 and currently 160, slightly below the peak prompting change of treatment. It is worth completing this cycle and assessing the marker on day 1, cycle three before abandoning current therapy. 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 PLAN: 1. Proceed with delayed day 15, cycle two, today. 2. Return to clinic 2 weeks for day 1, cycle three gemcitabine/Abraxane. 3. IR referral for possible celiac block for intractable right upper quadrant pain. 4. If significant increasing CA19-9, would consider switch of therapy, though the patient has now been exposed to the top two most effective regimens; if tumor marker trending down, consider either continuing dual therapy with Abraxane/gemcitabine or, if neurotoxicity increases, dropping Abraxane and continuing on gemcitabine alone. TIME STATEMENT: 40 minutes [id number] with the patient, more than 50% involved in answering the patient's questions about his care, explaining the reason for addition of Neulasta, explaining the reason for 20% dose reduction of his chemotherapy previously, explaining the rationale for stopping the FOLFIRINOX and starting the gemcitabine/Abraxane, discussing the possibility of pain management other than opioids with a possible celiac block and the need for IR evaluation for this initially, reviewing his current pain regimen. Electronically Signed by Ruth Cherry MD 04/15/2019 10:18 A DD: Ruth Cherry MD 04/13/2019 04:32 P DT: aml 04/14/2019 08:33 A CC: LEON Shanks MD Ajoy Roy, MD Jason White, MD
[2019-04-27 10:42] VITALS: BP 108/62
[2019-04-27 10:44] LABS: HEMATOCRIT 33.1 % (42.0-52.0); HEMOGLOBIN 10.8 g/dl (13.5-17.5); LYMPH % 8.6 % (24.0-44.0); MEAN CORPUSCULAR HEMOGLOBIN 29.7 pg (27.0-33.0); MEAN CORPUSCULAR HGB CONC 32.6 g/dl (32.0-36.5); NEUTROPHILS # 9.5 10^3/uL (1.8-7.7); NEUTROPHILS % 87.6 % (36.0-66.0); RED BLOOD COUNT 3.64 10^6/uL (4.30-6.10); WHITE BLOOD COUNT 10.8 10^3/uL (4.0-10.0)
[2019-04-27 11:30] LABS: ALBUMIN 3.4 GM/DL (3.2-5.2); ALT/SGPT 151 U/L (12-78); BILIRUBIN,TOTAL 0.3 MG/DL (0.2-1.0); BLOOD UREA NITROGEN 13 MG/DL (7-18); CALCIUM LEVEL 9.2 MG/DL (8.8-10.2); CARBON DIOXIDE LEVEL 28 MEQ/L (21-32); CHLORIDE LEVEL 108 MEQ/L (98-107); GLOMERULAR FILTRATION RATE > 60.0 (>42); GLUCOSE, FASTING 80 MG/DL (70-100); POTASSIUM SERUM 4.3 MEQ/L (3.5-5.1); SODIUM LEVEL 140 MEQ/L (136-145); TOTAL PROTEIN 7.1 GM/DL (6.4-8.2)
[2019-05-04 09:33] VITALS: BP 145/90
[2019-05-04 09:46] LABS: BASO % 0.8 % (0.0-1.0); EOS % 0.2 % (0.0-3.0); HEMATOCRIT 32.7 % (42.0-52.0); HEMOGLOBIN 10.7 g/dl (13.5-17.5); LYMPH % 20.6 % (24.0-44.0); MEAN CORPUSCULAR HEMOGLOBIN 29.6 pg (27.0-33.0); MEAN CORPUSCULAR HGB CONC 32.7 g/dl (32.0-36.5); MEAN CORPUSCULAR VOLUME 90.3 fl (80.0-96.0); MONO # 0.7 10^3/uL (0.0-0.8); MONO % 14.5 % (0.0-5.0); NEUTROPHILS # 3.2 10^3/uL (1.5-8.5); NEUTROPHILS % 63.3 % (36.0-66.0); PLATELET COUNT, AUTOMATED 293 10^3/uL (150-450); RED BLOOD COUNT 3.62 10^6/uL (4.30-6.10)
[2019-05-04 10:15] LABS: ALBUMIN 3.5 GM/DL (3.2-5.2); ALT/SGPT 37 U/L (12-78); BILIRUBIN,TOTAL 0.4 MG/DL (0.2-1.0); BLOOD UREA NITROGEN 9 MG/DL (7-18); CALCIUM LEVEL 9.7 MG/DL (8.8-10.2); CARBON DIOXIDE LEVEL 26 MEQ/L (21-32); CHLORIDE LEVEL 108 MEQ/L (98-107); CREATININE FOR GFR 0.62 MG/DL (0.70-1.30); GLOMERULAR FILTRATION RATE > 60.0 (>42); GLUCOSE, FASTING 83 MG/DL (70-100); POTASSIUM SERUM 4.1 MEQ/L (3.5-5.1); SODIUM LEVEL 139 MEQ/L (136-145); TOTAL PROTEIN 6.8 GM/DL (6.4-8.2)
--- NOTE | 2019-05-04 14:32 | MEDONC ---
MEDICAL ONCOLOGY FOLLOWUP/TREATMENT VISIT DATE OF SERVICE: 05/04/2019 DIAGNOSIS: Metastatic pancreatic adenocarcinoma with liver metastasis in partial remission on third line treatment with reintroduced Abraxane/gemcitabine. Bijan is here today for delayed day 1 cycle three of treatment. Treatment held one week ago secondary to transaminitis. Bijan presented with localized pancreatic adenocarcinoma August of 2017, pancreatic head mass, no adenopathy or distant disease; progression with liver metastasis 12/2017 now on second line treatment in the metastatic setting. BRIEF TREATMENT HISTORY: Neoadjuvant Abraxane/gemcitabine 09/2017 through 12/2017, discontinued for lack of response. December 2017 liver nodules on imaging, biopsy January 2018 confirmed adenocarcinoma pancreatic origin. FOLFIRINOX 12/2017 through 01/2019, oxaliplatin stopped after twelve cycles. Major response by CA19-9 reduction, resolution of hypermetabolic liver uptake on PET and 2.3 and 1.7, residual lobulated mass on abdomen MRI 02/23/2019. Gemcitabine/Abraxane restarted 02/25/2019 for rising CA19-9. CURRENT THERAPY: Gemcitabine/Abraxane days 1, 8 and 15 on a 28 day schedule, day 1 cycle one 02/25/2019; today will be delayed day 1 cycle three. INTERVAL HISTORY: Bijan presents today for a followup office visit prior to proceeding with delayed day 1 cycle three of chemotherapy. When he was here one week ago, chemistries showed transaminitis with an AST of 164 and ALT of 151. LDH was also up to 209. Bijan is scheduled for restaging CT scan of the abdomen and pelvis tomorrow. Interestingly, today's chemistries show resolution of Bijan's transaminitis with a completely normal AST of 17 and ALT of 37. Alkaline phosphatase is back down to 115. For persistent right upper quadrant abdominal pain, Bijan has been seen by Dr. Vallejo of and is scheduled to undergo a celiac nerve block with her on 05/07/2019. At present, Bijan offers no new complaints. REVIEW OF SYSTEMS: CONSTITUTIONAL: The patient reports chronic fatigue, decreased appetite. HEENT: No oral discomfort or mouth or lip ulcers. Hearing normal in both ears. RESPIRATORY: Denies cough, dyspnea, hemoptysis, pleurisy. CARDIOVASCULAR: Positive for an approximate 3 week history of "chest pressure." Was admitted overnight to [facility] ED 04/16 through 10/18 for this complaint. EKG and cardiac enzymes unremarkable/normal. Bijan has been advised to followup with his workers compensation administrator. He continues to report "chest pressure." Currently denies any palpitations. MUSCULOSKELETAL: Denies skeletal pain, joint swelling, pain, or erythema. GENITOURINARY: No history of urinary frequency, burning, hematuria, or pain. No testicular swelling or lumps. GASTROINTESTINAL: No nausea, vomiting, constipation, diarrhea, dysphagia, bleeding, or anorexia. SKIN: Denies rash, ecchymosis, petechiae, jaundice. NEUROLOGICAL: No headache, visual difficulty, motor weakness, sensory deficits. No paresthesias. EXTREMITIES: No extremity edema. LABORATORY DATA: WBC 5.0, ANC 3.2, RBC 3.62, hemoglobin and hematocrit 10.7 and 32.7, platelets 293. Chemistries as noted above for liver enzymes and alkaline phosphatase, otherwise unremarkable with the exception of a minimally elevated chloride of 108. A current CA19-9 is pending as of this dictation. IMPRESSION: Metastatic pancreatic adenocarcinoma with liver metastasis, now on second line treatment in the metastatic setting with gemcitabine/Abraxane reintroduced after initial neoadjuvant treatment with this combination, yielding by the report in the notes "no response" day 15, cycle two with apparently stabilized CA19-9, which has been rising. Chronic right upper quadrant and back pain, continued engagement with palliative care and scheduled for a celiac nerve block with Dr. Vallejo on 05/07/2019. Recent transaminitis detected on chemistries from 04/27/2019, now with complete resolution on today's chemistries. 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 PLAN: 1. Proceed with day 1 cycle three gemcitabine/Abraxane today. 2. CT abdomen and pelvis as scheduled tomorrow 05/05/2019. 3. Celiac block with Dr. Vallejo on 05/07/2019. 4. Followup with Dr. Cherry after CT of the abdomen and pelvis. 5. Return in 1 week for day 8 cycle three gemcitabine/Abraxane with labs, return in 2 weeks for day 15 with appropriate labs. 6. Return in 4 weeks for day 1 cycle four of chemotherapy with complete blood work including a CBC, stat CMP, CA19-9 and another scheduled office visit. Bijan knows to contact us in the interim with any new symptoms, questions or problems. Electronically Signed by Dixie Brown NP 05/05/2019 07:20 A DD: Dixie Brown NP 05/04/2019 11:13 A DT: catia 05/04/2019 02:01 P CC: LEON Shanks MD Jason White, MD Carson Wong, MD
[2019-05-06 12:50] VITALS: BP 116/75
--- NOTE | 2019-05-07 09:02 | MEDONC ---
MEDICAL ONCOLOGY FOLLOWUP/TREATMENT VISIT DATE OF SERVICE: 05/06/2019 DIAGNOSIS: Metastatic pancreatic adenocarcinoma with liver metastases in partial remission on third-line treatment with reintroduced at Abraxane/gemcitabine. CURRENT THERAPY: 1. Abraxane/gemcitabine days 1, 8, and 15, a 28-day cycle. Day 1, cycle one 02/25/2019. Day 1, cycle three was 05/04/2019, held for 1 week due to brief transaminitis. 2. Chronic right flank pain, possibly neuropathic or referred. Currently, has an appointment to see Dr. Vallejo for potential celiac block, 3. Chronic cancer pain, now been followed in palliative care by LEON Shanks. TREATMENT HISTORY: Please see 05/04/2019 note. The patient had a treatment hiatus between December 2017 and January 2019 and was restarted on chemotherapy for evidence of disease progression. Now status post restaging scans 05/05/2019 showing essentially stable disease with marginal increase in size of pancreatic head mass. No hepatic metastases. Chronic thoracic and lumbar compression deformities, tiny subcapsular dome of liver hypodensities 8 mm unchanged versus January and August. INTERVAL HISTORY: Bijan is here for followup of his scans. Results are as described above. He has had chest imaging in late March showing no acute abnormality on a with-contrast chest CT. He said he would like to continue with chemotherapy and is due to return next Saturday for day 8, cycle three. He had transitory significant transaminitis. He denies any major recent illnesses or changes in medications or alcohol intake. This resolved spontaneously, and his current labs from 05/04/2019 showed normal AST, ALT, and alk phos, and bilirubin. CA19-9 on 05/04/2019 is 150, down from 160 in March and 163 in January. His tumor marker essentially jumped between December and January from 67 to 131 and then again to 163 in January, though that he somewhat plateaued at this level on chemotherapy. Bijan asks again about his right flank pain. I reminded him that we discussed this at length on my first meeting with him a few visits ago, and he is referred to Dr. Vallejo for consideration of celiac block. It is conceivable he has referred pain from his cancer or possibly direct pain, but opioids to date have not been of help, though he continues to use them. He asked some questions about refilling medications. He asked for a refill of olanzapine. I reminded him this is an fomv-gaxh-t-day antinausea medicine for severe nausea. He says he takes it sparingly, and as there are about 10 of 15 pills left in the bottle, I declined to renew it today but welcomed him to ask when he is closer to running out. IMPRESSION: Metastatic pancreatic adenocarcinoma with liver metastases largely resolved, head of pancreas mass with marginal increase in size on current scan versus January but no new sites on second-line treatment with gemcitabine/Abraxane with stable CA19-9. ECOG performance status 1. Chronic right flank pain, uncertain etiology, suspect cancer-related. PLAN: 1. Return 05/11/2019, for day 8, cycle three treatment and again on 05/18 for day 15 treatment. 2. Continue clinical exam and full labs on day 1 of each cycle. 3. Based on a new complaint today, added on at the end of the visit, of severe pain and lack of feeling in his feet, will drop Abraxane from current therapy. Thus, days 8 and 15 cycle three will be gemcitabine only; I will write new orders for gemcitabine given days 1, 8, 15 on a 28-day cycle for him to continue. We should plan restaging after approximately [id number] additional cycles and continue following CA19-9. TIME STATEMENT: 20 minutes [id number] with the patient, more than 50% involved in counseling regarding cancer-related pain and adherence to palliative care directives, neuropathic pain and modification of treatment, followup with interventional radiology for possible celiac block, and answering the patient's and his 's questions to their apparent satisfaction. Electronically Signed by Ruth Cherry MD 05/13/2019 08:38 A DD: Ruth Cherry MD 05/06/2019 04:16 P DT: aml 05/07/2019 08:44 A CC: MD Se Ramirez MD
[2019-05-11 12:13] VITALS: BP 125/73
[2019-05-11 12:22] LABS: BASO % 1.1 % (0.0-1.0); EOS % 1.5 % (0.0-3.0); HEMATOCRIT 28.2 % (42.0-52.0); HEMOGLOBIN 9.2 g/dl (13.5-17.5); LYMPH # 0.9 10^3/uL (1.5-5.0); LYMPH % 33.2 % (24.0-44.0); MEAN CORPUSCULAR HEMOGLOBIN 29.6 pg (27.0-33.0); MEAN CORPUSCULAR HGB CONC 32.6 g/dl (32.0-36.5); MEAN CORPUSCULAR VOLUME 90.7 fl (80.0-96.0); MONO # 0.3 10^3/uL (0.0-0.8); NEUTROPHILS # 1.5 10^3/uL (1.5-8.5); NEUTROPHILS % 54.2 % (36.0-66.0); PLATELET COUNT, AUTOMATED 153 10^3/uL (150-450); RED BLOOD COUNT 3.11 10^6/uL (4.30-6.10); WHITE BLOOD COUNT 2.7 10^3/uL (4.0-10.0)
[2019-05-11 12:44] LABS: ALBUMIN 3.3 GM/DL (3.2-5.2); ALT/SGPT 28 U/L (12-78); BILIRUBIN,TOTAL 0.3 MG/DL (0.2-1.0); BLOOD UREA NITROGEN 11 MG/DL (7-18); CALCIUM LEVEL 8.9 MG/DL (8.8-10.2); CARBON DIOXIDE LEVEL 28 MEQ/L (21-32); CHLORIDE LEVEL 108 MEQ/L (98-107); CREATININE FOR GFR 0.67 MG/DL (0.70-1.30); GLOMERULAR FILTRATION RATE > 60.0 (>42); GLUCOSE, FASTING 86 MG/DL (70-100); POTASSIUM SERUM 3.8 MEQ/L (3.5-5.1); SODIUM LEVEL 140 MEQ/L (136-145); TOTAL PROTEIN 6.2 GM/DL (6.4-8.2)
--- NOTE | 2019-05-11 12:52 | ONC.PHACK ---
CHEMO ADMIN CHECKLIST Order Contains Pt ID: Name, Order on Chemo Order Form?: Yes Order Form Includes ALL: Correct Tx Day, Correct Date, Correct Cycle Number Pt ID on Order form Matches: Pt ID on PHA Label Med on Chemo OrderForm Matches: PHA Label, Med Used for Preparation [facility] May 11, 2019 12:52
[2019-05-18 11:52] VITALS: BP 105/57
[2019-05-18 12:04] LABS: EOS # 0.1 10^3/uL (0.0-0.5); EOS % 1.7 % (0.0-3.0); HEMATOCRIT 28.9 % (42.0-52.0); HEMOGLOBIN 9.4 g/dl (13.5-17.5); LYMPH # 0.8 10^3/uL (1.5-5.0); LYMPH % 27.6 % (24.0-44.0); MEAN CORPUSCULAR HEMOGLOBIN 29.7 pg (27.0-33.0); MEAN CORPUSCULAR HGB CONC 32.5 g/dl (32.0-36.5); MEAN CORPUSCULAR VOLUME 91.5 fl (80.0-96.0); MONO # 0.3 10^3/uL (0.0-0.8); MONO % 9.1 % (0.0-5.0); NEUTROPHILS # 1.8 10^3/uL (1.5-8.5); NEUTROPHILS % 60.3 % (36.0-66.0); PLATELET COUNT, AUTOMATED 108 10^3/uL (150-450); RED BLOOD COUNT 3.16 10^6/uL (4.30-6.10)
[2019-05-18 12:38] LABS: ALBUMIN 3.4 GM/DL (3.2-5.2); ALT/SGPT 40 U/L (12-78); BILIRUBIN,TOTAL 0.2 MG/DL (0.2-1.0); BLOOD UREA NITROGEN 13 MG/DL (7-18); CALCIUM LEVEL 9.1 MG/DL (8.8-10.2); CARBON DIOXIDE LEVEL 29 MEQ/L (21-32); CHLORIDE LEVEL 106 MEQ/L (98-107); CREATININE FOR GFR 0.66 MG/DL (0.70-1.30); GLOMERULAR FILTRATION RATE > 60.0 (>42); GLUCOSE, FASTING 79 MG/DL (70-100); SODIUM LEVEL 140 MEQ/L (136-145); TOTAL PROTEIN 6.2 GM/DL (6.4-8.2)
--- NOTE | 2019-05-18 12:58 | ONC.PHACK ---
CHEMO ADMIN CHECKLIST Order Contains Pt ID: Name, Order on Chemo Order Form?: Yes Order Form Includes ALL: Correct Tx Day, Correct Date, Correct Cycle Number Pt ID on Order form Matches: Pt ID on PHA Label Med on Chemo OrderForm Matches: PHA Label, Med Used for Preparation [facility] May 18, 2019 12:58
[2019-06-01 10:07] VITALS: BP 129/82
[2019-06-01 10:10] LABS: BASO % 0.5 % (0.0-1.0); EOS # 0.1 10^3/uL (0.0-0.5); EOS % 0.9 % (0.0-3.0); HEMATOCRIT 31.7 % (42.0-52.0); HEMOGLOBIN 10.4 g/dl (13.5-17.5); LYMPH # 0.9 10^3/uL (1.5-5.0); LYMPH % 12.7 % (24.0-44.0); MEAN CORPUSCULAR HEMOGLOBIN 29.8 pg (27.0-33.0); MEAN CORPUSCULAR HGB CONC 32.8 g/dl (32.0-36.5); MEAN CORPUSCULAR VOLUME 90.8 fl (80.0-96.0); MONO # 0.7 10^3/uL (0.0-0.8); MONO % 9.6 % (0.0-5.0); NEUTROPHILS # 5.6 10^3/uL (1.5-8.5); NEUTROPHILS % 75.5 % (36.0-66.0); PLATELET COUNT, AUTOMATED 272 10^3/uL (150-450); RED BLOOD COUNT 3.49 10^6/uL (4.30-6.10); WHITE BLOOD COUNT 7.4 10^3/uL (4.0-10.0)
[2019-06-01 10:28] LABS: ALBUMIN 3.5 GM/DL (3.2-5.2); ALT/SGPT 27 U/L (12-78); BILIRUBIN,TOTAL 0.3 MG/DL (0.2-1.0); BLOOD UREA NITROGEN 15 MG/DL (7-18); CALCIUM LEVEL 9.1 MG/DL (8.8-10.2); CARBON DIOXIDE LEVEL 28 MEQ/L (21-32); CHLORIDE LEVEL 108 MEQ/L (98-107); CREATININE FOR GFR 0.71 MG/DL (0.70-1.30); GLOMERULAR FILTRATION RATE > 60.0 (>42); GLUCOSE, FASTING 90 MG/DL (70-100); POTASSIUM SERUM 4.1 MEQ/L (3.5-5.1); SODIUM LEVEL 139 MEQ/L (136-145); TOTAL PROTEIN 6.5 GM/DL (6.4-8.2)
--- NOTE | 2019-06-02 07:32 | MEDONC ---
Medical oncology followup / treatment visit: DATE OF SERVICE: 06/01/2019 DIAGNOSIS: Metastatic pancreatic adenocarcinoma with liver metastases now in partial remission on third line treatment was reintroduced Abraxane / gemcitabine. 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 CURRENT THERAPY: Gemcitabine days 1, 8, 15 on a 28-day cycle. (Previously with Abraxane) day one cycle one 02/25/2019. Today is day one cycle four Abraxane discontinued as of day eight cycle three. Status post celiac block for procedure under Dr. Rose for chronic right upper quadrant / epigastric discomfort 05/25/19. The patient reports no significant improvement in pain. Actively under palliative care with recently increased fentanyl, currently 50 mcg patch q. 3 days; in addition to morphine sulfate 15 mg every 6 hours as needed; lidocaine 5% patch. INTERVAL HISTORY: Mr. Mclean returns accompanied by his today. He reports that chemotherapy went pretty well. The last couple of treatments. His peripheral neuropathy is not better but it is not worse and he is pleased with the overall side effect profile. The increased fentanyl patch under Rose Marie Galo is helping him a great deal. He says. He complains of pain during the procedure for the celiac block and that it is not made a material difference in his right upper quadrant pain. He does report all these things with occasional chuckles and smile in a very placid demeanor in no obvious distress. REVIEW OF SYSTEMS: In addition to pertinent positives and negatives noted above. Mr. Mclean has some pain in his right parietal cranial area where he bonked his head on a door denied losing consciousness or falling. There is no visible swelling or ecchymoses. He denies new visual changes, loss of increased loss of appetite. Denies difficulty with swallowing. His appetite he reports is so-so denies new unintended weight loss. Denies shortness of breath, cough, chest pain. He has persistent unchanged right upper quadrant / epigastric discomfort which is often positional no lower abdominal pain. No leg swelling cramping. Remainder of 12 system review negative. Vital signs: Weight is 80.4 kg stable temperature 98.9 of pressure 105/57, rest. Heart rate 69, respiratory 18, O2 sat 98%. LABORATORY DATA: WBC 3.0, ANC 1800, hemoglobin 9.4, hematocrit 29, platelets 108. MCV 91, sodium, potassium, chloride bicarb all normal renal function normal liver functions normal albumin 3.4 in the transaminitis and CA19-9 pending. Most recent CA19-9 05/04/2019 150.6 IMPRESSION: 1. Metastatic pancreatic adenocarcinoma on third line treatment was reintroduced gemcitabine based treatment. Now on cycle four. Abraxane discontinued as of this cycle. 2. Grade II - III peripheral neuropathy. 3. Chronic grade 1 - 2 pain now on increased fentanyl with a short acting morphine with better pain control under Rose Marieantonio Galo [facility] of palliative care status post celiac block attempt uncertain overall outcome. The patient experienced discomfort during the procedure and denies improvement of pain since. 4. Partial response to current therapy demonstrated on restaging scans 05/05/2019; current plan would be for three additional cycles. Following cycle six plan restaging again barring significant clinical or biochemical evidence of progression. PLAN: 1. Day one cycle four treatment today with single-agent gemcitabine weekly days 1, 8, 15 on a 28 day cycle. 2. Follow up today's CA19-9 3. Pelon asks about his prognosis at the very end of the visit. We took about 5-10 minutes to talk about this. I extending asked him what he had been told with prior physicians his reply was "6 months." This was about a year ago. I explained without treatment of metastatic pancreatic carcinoma, carries a 6-month prognosis; with treatment 1 year or longer. These numbers continue to evolve as treatment modify and change. He has already lived beyond 1 year with near complete resolution of liver metastases though persistent pancreatic mass which appeared stable / slightly larger on most recent scan. I explained we will balance benefits of treatment with risks and toxicities in a plan to keep him well as long as possible but his disease and may progress within the next 12 months and response to next line of treatment is uncertain at best. He accepted all of this stoically and thanked me for the explanation. Time statement 20 minutes [id number] with the patient more than 50% involving counseling regarding the issues outlined above. [facility] Castle MD Electronically Signed by Ruth Cherry MD 06/03/2019 09:00 A DD: Ruth Cherry MD 06/01/2019 06:01 P DT: [email or web address] 06/02/2019 07:14 A CC: MD Rose Marie Ramirez CR[facility] VICT[facility] SPECIALISTAntonio Castle MD
[2019-06-08 11:00] VITALS: BP 112/62
[2019-06-08 11:12] LABS: BASO # 0.1 10^3/uL (0.0-0.2); BASO % 1.1 % (0.0-1.0); EOS # 0.1 10^3/uL (0.0-0.5); EOS % 1.1 % (0.0-3.0); HEMATOCRIT 30.7 % (42.0-52.0); HEMOGLOBIN 9.6 g/dl (13.5-17.5); LYMPH # 0.8 10^3/uL (1.5-5.0); MEAN CORPUSCULAR HEMOGLOBIN 28.9 pg (27.0-33.0); MEAN CORPUSCULAR HGB CONC 31.3 g/dl (32.0-36.5); MEAN CORPUSCULAR VOLUME 92.5 fl (80.0-96.0); MONO # 0.4 10^3/uL (0.0-0.8); MONO % 9.5 % (0.0-5.0); NEUTROPHILS # 3.3 10^3/uL (1.5-8.5); NEUTROPHILS % 71.1 % (36.0-66.0); PLATELET COUNT, AUTOMATED 324 10^3/uL (150-450); RED BLOOD COUNT 3.32 10^6/uL (4.30-6.10); WHITE BLOOD COUNT 4.7 10^3/uL (4.0-10.0)
--- NOTE | 2019-06-08 11:34 | ONC.PHACK ---
CHEMO ADMIN CHECKLIST Order Contains Pt ID: Name, Order on Chemo Order Form?: Yes Order Form Includes ALL: Correct Tx Day, Correct Date, Correct Cycle Number Pt ID on Order form Matches: Pt ID on PHA Label Med on Chemo OrderForm Matches: PHA Label, Med Used for Preparation [facility] Jun 08, 2019 11:34
[2019-06-15 11:00] VITALS: BP 128/61
[2019-06-15 11:16] LABS: BASO % 0.6 % (0.0-1.0); EOS % 0.6 % (0.0-3.0); HEMATOCRIT 27.6 % (42.0-52.0); LYMPH # 0.7 10^3/uL (1.5-5.0); LYMPH % 22.6 % (24.0-44.0); MEAN CORPUSCULAR HEMOGLOBIN 29.7 pg (27.0-33.0); MEAN CORPUSCULAR HGB CONC 32.6 g/dl (32.0-36.5); MEAN CORPUSCULAR VOLUME 91.1 fl (80.0-96.0); MONO # 0.3 10^3/uL (0.0-0.8); MONO % 10.4 % (0.0-5.0); NEUTROPHILS # 2.1 10^3/uL (1.5-8.5); NEUTROPHILS % 65.5 % (36.0-66.0); PLATELET COUNT, AUTOMATED 128 10^3/uL (150-450); RED BLOOD COUNT 3.03 10^6/uL (4.30-6.10); WHITE BLOOD COUNT 3.2 10^3/uL (4.0-10.0)
--- NOTE | 2019-06-15 13:38 | ONC.PHACK ---
CHEMO ADMIN CHECKLIST Order Contains Pt ID: Name, Order on Chemo Order Form?: Yes Order Form Includes ALL: Correct Tx Day, Correct Date, Correct Cycle Number Pt ID on Order form Matches: Pt ID on PHA Label Med on Chemo OrderForm Matches: PHA Label, Med Used for Preparation [facility] Jun 15, 2019 13:38
[2019-07-02 08:40] LABS: BASO # 0.1 10^3/uL (0.0-0.2); BASO % 0.7 % (0.0-1.0); EOS # 0.2 10^3/uL (0.0-0.5); EOS % 2.4 % (0.0-3.0); HEMATOCRIT 32.3 % (42.0-52.0); LYMPH # 0.9 10^3/uL (1.5-5.0); LYMPH % 12.2 % (24.0-44.0); MEAN CORPUSCULAR HEMOGLOBIN 29.2 pg (27.0-33.0); MEAN CORPUSCULAR VOLUME 94.2 fl (80.0-96.0); MONO # 0.9 10^3/uL (0.0-0.8); MONO % 11.2 % (0.0-5.0); NEUTROPHILS # 5.5 10^3/uL (1.5-8.5); NEUTROPHILS % 73.1 % (36.0-66.0); PLATELET COUNT, AUTOMATED 356 10^3/uL (150-450); RED BLOOD COUNT 3.43 10^6/uL (4.30-6.10); WHITE BLOOD COUNT 7.6 10^3/uL (4.0-10.0)
[2019-07-02 09:10] VITALS: BP 123/80
[2019-07-02 09:11] LABS: ALBUMIN 3.3 GM/DL (3.2-5.2); ALT/SGPT 51 U/L (12-78); BILIRUBIN,TOTAL 0.3 MG/DL (0.2-1.0); BLOOD UREA NITROGEN 12 MG/DL (7-18); CALCIUM LEVEL 9.1 MG/DL (8.8-10.2); CARBON DIOXIDE LEVEL 24 MEQ/L (21-32); CHLORIDE LEVEL 107 MEQ/L (98-107); GLOMERULAR FILTRATION RATE > 60.0 (>42); GLUCOSE, FASTING 158 MG/DL (70-100); POTASSIUM SERUM 4.2 MEQ/L (3.5-5.1); SODIUM LEVEL 139 MEQ/L (136-145); TOTAL PROTEIN 6.2 GM/DL (6.4-8.2)
--- NOTE | 2019-07-02 10:23 | ONC.PHACK ---
CHEMO ADMIN CHECKLIST Order Contains Pt ID: Name, Order on Chemo Order Form?: Yes Order Form Includes ALL: Correct Tx Day, Correct Date, Correct Cycle Number Pt ID on Order form Matches: Pt ID on PHA Label Med on Chemo OrderForm Matches: PHA Label, Med Used for Preparation [facility] Jul 02, 2019 10:23
[2019-07-03 10:34] LABS: CA19-9 TUMOR MARKER,CARBOHYDRA 163.4 U/ML (<35.0)
--- NOTE | 2019-07-04 07:32 | MEDONC ---
MEDICAL ONCOLOGY FOLLOWUP/TREATMENT VISIT DATE OF SERVICE: 07/02/2019 DIAGNOSES: 1. Metastatic pancreatic adenocarcinoma with liver metastases in partial remission on third line treatment with reintroduced Abraxane/gemcitabine with Abraxane now held for grade II-III peripheral neuropathy continuing on gemcitabine. 2. 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 CURRENT THERAPY: Gemcitabine days 1, 8, 15 on 28 day cycle, begun in January with Abraxane discontinued as of cycle 3. Today will be day 1 cycle 5. Fentanyl, p.r.n. morphine sulfate under palliative care. INTERVAL HISTORY: Bijan is here reporting overall a good holiday. He continues to have pain and is titrating his medications with Rose Marie Galo. He denies any chest. He is getting a right hand injection for some orthopedic related pain under Dr. Westbrook. We had discussed the plan to re-stage after six cycles. REVIEW OF SYSTEMS: CONSTITUTIONAL: No fever, chills, sweats, fatigue, or weight loss. HEENT: No oral discomfort or mouth or lip ulcers. Hearing normal in both ears. RESPIRATORY: Denies cough, dyspnea, hemoptysis, pleurisy. CARDIOVASCULAR: Denies chest pain, palpitations. MUSCULOSKELETAL: Right hand pain and stiffness to receive a joint injection. Chronic right thoracic back pain mildly improved on current pain regimen. GENITOURINARY: No history of urinary frequency, burning, hematuria, or pain. GASTROINTESTINAL: No nausea, vomiting, constipation, diarrhea, dysphagia, bleeding, or anorexia. SKIN: Denies rash, ecchymosis, petechiae, jaundice. NEUROLOGICAL: No new headache, visual difficulty or motor weakness; chronic feet and hand pins and needles not worse. EXTREMITIES: No extremity edema. VITAL SIGNS: Reviewed. Temperature 98.4, blood pressure 128/61, heart rate 65, respiratory 18, O2 sat 98%. Weight is 82 kg and stable. LABORATORY DATA: WBC 7.6, hemoglobin 10, hematocrit 32, platelets 356, MCV 94. Electrolytes, renal function normal. Liver function notable for AST 38, remainder unremarkable. Alk phos 171. CA 19-9 164, part of a very, very mild gradual trend upward from 150 in May. IMPRESSION: 78-year-old man with metastatic pancreatic adenocarcinoma on third line treatment in partial response with gently increasing CA19-9, chronic right flank pain of uncertain etiology not relieved with celiac block on pain management under palliative care. ECOG performance status 0-1. PLAN: 1. Cycle 5 treatment today. 2. Return to clinic within 1 and 2 weeks for days 8 and 15 respectively and in 4 weeks for day 1 cycle 6. We could consider restaging either at the beginning of cycle 6 holding off treatment or at the end I will discuss the CA 19-9 with Bijan on day 1 cycle 6. (The result came in 24 hours after he began cycle 5, clinical goals of stable disease have so far been achieved and the CA19-9 rise is mild). TIME STATEMENT: 20 minutes [id number] with the patient; more than 50% involved in counseling, answering the patient's questions, reviewing clinical goals. Electronically Signed by Ruth Cherry MD 07/07/2019 07:49 A DD: Ruth Cherry MD 07/03/2019 06:17 P DT: [email or web address] 07/04/2019 07:19 A CC: LEON Shanks MD
[2019-07-09 10:00] VITALS: BP 120/68
[2019-07-09 10:17] LABS: BASO % 1.2 % (0.0-1.0); EOS # 0.1 10^3/uL (0.0-0.5); EOS % 1.5 % (0.0-3.0); HEMATOCRIT 29.6 % (42.0-52.0); HEMOGLOBIN 9.3 g/dl (13.5-17.5); LYMPH # 0.8 10^3/uL (1.5-5.0); LYMPH % 22.8 % (24.0-44.0); MEAN CORPUSCULAR HEMOGLOBIN 29.6 pg (27.0-33.0); MEAN CORPUSCULAR HGB CONC 31.4 g/dl (32.0-36.5); MEAN CORPUSCULAR VOLUME 94.3 fl (80.0-96.0); MONO # 0.4 10^3/uL (0.0-0.8); MONO % 11.4 % (0.0-5.0); NEUTROPHILS # 2.1 10^3/uL (1.5-8.5); NEUTROPHILS % 62.2 % (36.0-66.0); PLATELET COUNT, AUTOMATED 239 10^3/uL (150-450); RED BLOOD COUNT 3.14 10^6/uL (4.30-6.10); WHITE BLOOD COUNT 3.3 10^3/uL (4.0-10.0)
--- NOTE | 2019-07-09 10:50 | ONC.PHACK ---
CHEMO ADMIN CHECKLIST Order Contains Pt ID: Name, Order on Chemo Order Form?: Yes Order Form Includes ALL: Correct Tx Day, Correct Date, Correct Cycle Number Pt ID on Order form Matches: Pt ID on PHA Label Med on Chemo OrderForm Matches: PHA Label, Med Used for Preparation [facility] Jul 09, 2019 10:50
[2019-07-16 09:45] VITALS: BP 107/59
[2019-07-16 10:20] LABS: BASO % 1.3 % (0.0-1.0); EOS # 0.1 10^3/uL (0.0-0.5); EOS % 2.1 % (0.0-3.0); HEMATOCRIT 27.8 % (42.0-52.0); HEMOGLOBIN 8.9 g/dl (13.5-17.5); LYMPH # 0.7 10^3/uL (1.5-5.0); LYMPH % 30.8 % (24.0-44.0); MEAN CORPUSCULAR VOLUME 93.6 fl (80.0-96.0); MONO # 0.3 10^3/uL (0.0-0.8); MONO % 11.8 % (0.0-5.0); NEUTROPHILS # 1.3 10^3/uL (1.5-8.5); NEUTROPHILS % 53.6 % (36.0-66.0); PLATELET COUNT, AUTOMATED 122 10^3/uL (150-450); RED BLOOD COUNT 2.97 10^6/uL (4.30-6.10); WHITE BLOOD COUNT 2.4 10^3/uL (4.0-10.0)
--- NOTE | 2019-07-16 10:49 | ONC.PHACK ---
CHEMO ADMIN CHECKLIST Order Contains Pt ID: Name, Order on Chemo Order Form?: Yes Order Form Includes ALL: Correct Tx Day, Correct Date, Correct Cycle Number Pt ID on Order form Matches: Pt ID on PHA Label Med on Chemo OrderForm Matches: PHA Label, Med Used for Preparation [facility] Jul 16, 2019 10:49
[2019-07-30 08:59] VITALS: BP 143/80
[2019-07-30 09:03] LABS: BASO % 0.6 % (0.0-1.0); EOS # 0.1 10^3/uL (0.0-0.5); EOS % 2.4 % (0.0-3.0); HEMATOCRIT 30.5 % (42.0-52.0); HEMOGLOBIN 9.8 g/dl (13.5-17.5); LYMPH # 0.9 10^3/uL (1.5-5.0); LYMPH % 18.6 % (24.0-44.0); MEAN CORPUSCULAR HEMOGLOBIN 29.9 pg (27.0-33.0); MEAN CORPUSCULAR HGB CONC 32.1 g/dl (32.0-36.5); MONO # 0.7 10^3/uL (0.0-0.8); MONO % 14.2 % (0.0-5.0); NEUTROPHILS # 3.2 10^3/uL (1.5-8.5); NEUTROPHILS % 63.6 % (36.0-66.0); PLATELET COUNT, AUTOMATED 270 10^3/uL (150-450); RED BLOOD COUNT 3.28 10^6/uL (4.30-6.10)
[2019-07-30 09:32] LABS: ALBUMIN 3.4 GM/DL (3.2-5.2); ALT/SGPT 33 U/L (12-78); BILIRUBIN,TOTAL 0.2 MG/DL (0.2-1.0); BLOOD UREA NITROGEN 12 MG/DL (7-18); CALCIUM LEVEL 8.7 MG/DL (8.8-10.2); CARBON DIOXIDE LEVEL 27 MEQ/L (21-32); CHLORIDE LEVEL 109 MEQ/L (98-107); GLOMERULAR FILTRATION RATE > 60.0 (>42); GLUCOSE, FASTING 102 MG/DL (70-100); SODIUM LEVEL 141 MEQ/L (136-145); TOTAL PROTEIN 6.3 GM/DL (6.4-8.2)
--- NOTE | 2019-07-31 11:52 | MEDONC ---
MEDICAL ONCOLOGY FOLLOWUP/TREATMENT VISIT DATE OF SERVICE: 07/30/2019 DIAGNOSES: 1. Metastatic pancreatic adenocarcinoma with liver metastases in partial remission on third line treatment with reintroduced Abraxane/gemcitabine with Abraxane now held for grade II-III peripheral neuropathy continuing on gemcitabine. 2. 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 CURRENT THERAPY: Gemcitabine days 1, 8, 15 on 28 day cycle, begun in January with Abraxane discontinued as of cycle 3. Fentanyl, p.r.n. morphine sulfate under palliative care. Now under palliative care for pain management. INTERVAL HISTORY: Bijan is here for cycle six treatment. He emerges he was diagnosed with right foot cellulitis in the last 10 days and is completing antibiotics. He says the redness is gone. He still has some tenderness. On inspection of the foot it looks actually quite good. He has diabetes and we talked about foot hygiene. Not clear how the cellulitis started. There is a slight red spot, a freckle really, a macule of redness measuring about a millimeter on the lower pretibial area of that leg but no clear source. There is no erythema, tenderness, fluctuance or warmth. Restaging scans CT chest, abdomen and pelvis 07/15/2019 and 07/14/2019 were negative for evidence of disease progression showing stable mass in head of pancreas unchanged in size, no new adenopathy, and unremarkable thoracic CT showing some stable compression deformities in T10 through T12 and L1. REVIEW OF SYSTEMS: In addition to pertinent positives and negatives above, Bijan reports better pain control. He is pleased with [facility] Galo and her care. No new shortness of breath, headache, fevers, chills, chest pain, palpitations, urinary or bowel complaints. No leg asymmetry. No abdominal discomfort currently. He has some chronic right flank pain, unchanged and well managed currently. VITAL SIGNS: Reviewed, normal and stable. LABS: WBC 5.0, hemoglobin 9.8, hematocrit 31, platelets 270, MCV 93. Electrolytes normal. Liver functions normal. Albumin 3.4. Alk phos 157. CA 19-9 pending, most recent 163 on 07/02/2019. IMPRESSION: 78-year-old man with metastatic pancreatic adenocarcinoma, head of pancreas mass with regional lymphadenopathy stable on current restaging. Due for day one cycle six Abraxane/gemcitabine with Abraxane discontinued as of cycle three for peripheral neuropathy. New right lower extremity cellulitis completing antibiotics in a patient with diabetes. PLAN: 1. Hold cycle six today. 2. Return in 1 week, at that point, antibiotics will have been completed. 3. Of note, to recapitulate treatment history: Neoadjuvant gemcitabine/Abraxane two cycles 09/2017 - 12/2017 stopped for poor tolerance. 4. FOLFIRINOX 12/2017 - 01/2019 with major [place] followed by progression of oxaliplatin drop after twelfth cycles. 5. Gemcitabine/Abraxane begun 02/25/2019, continued to the present with Abraxane stopped after cycle two. Now with stable disease, improving performance status better controlled pain. I will see Bijan day one cycle six to make sure the cellulitis is resolved. Electronically Signed by Ruth Cherry MD 07/31/2019 07:41 P DD: Ruth Cherry MD 07/30/2019 06:15 P DT: [email or web address] 07/31/2019 11:26 A CC: LEON Shanks MD
[2019-08-06 09:11] LABS: BASO # 0.1 10^3/uL (0.0-0.2); BASO % 1.7 % (0.0-1.0); EOS # 0.1 10^3/uL (0.0-0.5); EOS % 2.2 % (0.0-3.0); HEMATOCRIT 32.4 % (42.0-52.0); HEMOGLOBIN 10.4 g/dl (13.5-17.5); LYMPH # 0.8 10^3/uL (1.5-5.0); LYMPH % 20.1 % (24.0-44.0); MEAN CORPUSCULAR HGB CONC 32.1 g/dl (32.0-36.5); MEAN CORPUSCULAR VOLUME 93.4 fl (80.0-96.0); MONO # 0.9 10^3/uL (0.0-0.8); MONO % 21.1 % (0.0-5.0); NEUTROPHILS # 2.3 10^3/uL (1.5-8.5); NEUTROPHILS % 54.7 % (36.0-66.0); PLATELET COUNT, AUTOMATED 370 10^3/uL (150-450); RED BLOOD COUNT 3.47 10^6/uL (4.30-6.10); WHITE BLOOD COUNT 4.1 10^3/uL (4.0-10.0)
[2019-08-06 09:29] VITALS: BP 136/80
[2019-08-06 09:36] LABS: ALBUMIN 3.6 GM/DL (3.2-5.2); ALT/SGPT 29 U/L (12-78); BILIRUBIN,TOTAL 0.4 MG/DL (0.2-1.0); BLOOD UREA NITROGEN 11 MG/DL (7-18); CALCIUM LEVEL 9.2 MG/DL (8.8-10.2); CARBON DIOXIDE LEVEL 29 MEQ/L (21-32); CHLORIDE LEVEL 107 MEQ/L (98-107); GLOMERULAR FILTRATION RATE > 60.0 (>42); GLUCOSE, FASTING 76 MG/DL (70-100); SODIUM LEVEL 140 MEQ/L (136-145); TOTAL PROTEIN 6.8 GM/DL (6.4-8.2)
--- NOTE | 2019-08-07 09:16 | MEDONC ---
MEDICAL ONCOLOGY FOLLOWUP / TREATMENT VISIT DATE OF SERVICE: 08/06/2019 DIAGNOSES: 1. Metastatic pancreatic adenocarcinoma with liver metastases in partial remission on third line treatment with reintroduced Abraxane/gemcitabine with Abraxane now held for grade II-III peripheral neuropathy continuing on gemcitabine. 2. 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 CURRENT THERAPY: Gemcitabine days 1, 8, 15 on 28 day cycle, begun in January with Abraxane discontinued as of cycle 3. Fentanyl, p.r.n. morphine sulfate under palliative care. Now under palliative care for pain management. INTERVAL HISTORY: Mr. Mclean is here for cycle six treatment. Of note, most recent CTs 07/14/2019 showed stable disease in the chest and abdomen and pelvis. Meanwhile, CA19-9 continues to rise, currently 212 on 07/30/2019, up from 163 in early July. Bijan expressed concern about this. He has pain in his right flank area. This is a site that he has had pain in for quite a while and [facility] Galo is currently managing his pain medications. He attributes today's pain to having been asked to get on the table at orthopedics for an x-ray. Dr. Pizano plans a thoracic MRI at the open MRI scanner. I agreed with this plan, speaking to Bijan today, because we as yet do not fully understand the nature of his right mid thoracic flank pain, which is a constant on and off complaint. Meanwhile, his treatment was held a week ago due to a suspected infected foot, for which he was completing antibiotics. Today, he complains of persistent severe pain and swelling in the foot. On inspection / exam there is no erythema but there is swelling in the right greater than left dorsal foot. Right lower extremity ultrasound a few weeks earlier was negative, working this up the same complaint. Biajn has fairly significant diabetes, he is at risk for osteomyelitis and is now status post completion of antibiotics for a cellulitis. We discussed getting an image with CT to make sure there is no osteomyelitis in the foot rather than going forward with treatment today. He is in agreement with this plan. VITAL SIGNS: Reviewed and stable. LABORATORY DATA: WBC 4.1, hemoglobin 10, hematocrit 32, platelets 370. Electrolytes, renal function liver function normal. IMPRESSION: 78-year-old man with multiple medical problems, metastatic pancreatic adenocarcinoma, on what is essentially second line treatment with single-agent gemcitabine after Abraxane was dropped for grade II to III peripheral neuropathy. Persistent right foot dorsum swelling despite completion of antibiotics and exquisite tenderness to palpation on exam. Clinical concern for osteomyelitis. PLAN: 1. Hold cycle six again today. 2. CT right lower extremity, focus on lower tib/fib area and foot to rule out osteomyelitis. 3. Bijan and I agree that should the CT be negative, we will have to attribute his foot swelling to venous insufficiency, though the right foot clearly is asymmetric from the left. He spends much time seated rather than standing and receiving treatment frequently may be getting some slight . 4. Return to clinic 1 week for potential cycle six treatment. Should CA19-9 continue to rise, at some point restaging will be appropriate, though again just recent scans essentially stable disease. 5. Bijan and Jacinto recapitulated the clinical goals here, noncurative, cancer control, and quality of life. Time statement: 20 minutes [id number] with the patient, more than 50% involved in counseling, answering questions. Electronically Signed by Ruth Cherry MD 08/07/2019 07:38 P DD: Ruth Cherry MD 08/06/2019 05:17 P DT: [email or web address] 08/07/2019 08:14 A CC: Se Castle MD
[2019-08-13 08:28] LABS: BASO # 0.1 10^3/uL (0.0-0.2); BASO % 1.4 % (0.0-1.0); EOS # 0.1 10^3/uL (0.0-0.5); EOS % 2.9 % (0.0-3.0); HEMATOCRIT 32.4 % (42.0-52.0); HEMOGLOBIN 10.1 g/dl (13.5-17.5); LYMPH # 0.9 10^3/uL (1.5-5.0); MEAN CORPUSCULAR HEMOGLOBIN 29.3 pg (27.0-33.0); MEAN CORPUSCULAR HGB CONC 31.2 g/dl (32.0-36.5); MEAN CORPUSCULAR VOLUME 93.9 fl (80.0-96.0); MONO # 0.7 10^3/uL (0.0-0.8); MONO % 19.7 % (0.0-5.0); NEUTROPHILS # 1.7 10^3/uL (1.5-8.5); NEUTROPHILS % 49.7 % (36.0-66.0); PLATELET COUNT, AUTOMATED 203 10^3/uL (150-450); RED BLOOD COUNT 3.45 10^6/uL (4.30-6.10); WHITE BLOOD COUNT 3.5 10^3/uL (4.0-10.0)
[2019-08-13 08:30] VITALS: BP 110/68
[2019-08-13 08:59] LABS: ALBUMIN 3.4 GM/DL (3.2-5.2); ALT/SGPT 32 U/L (12-78); BILIRUBIN,TOTAL 0.3 MG/DL (0.2-1.0); BLOOD UREA NITROGEN 10 MG/DL (7-18); CALCIUM LEVEL 8.9 MG/DL (8.8-10.2); CARBON DIOXIDE LEVEL 28 MEQ/L (21-32); CHLORIDE LEVEL 109 MEQ/L (98-107); CREATININE FOR GFR 0.69 MG/DL (0.70-1.30); GLOMERULAR FILTRATION RATE > 60.0 (>42); GLUCOSE, FASTING 77 MG/DL (70-100); SODIUM LEVEL 143 MEQ/L (136-145); TOTAL PROTEIN 6.2 GM/DL (6.4-8.2)
[2019-08-13 09:07] LABS: C REACTIVE PROTEIN QUANTITATIV < 0.30 MG/DL (0.00-0.30)
[2019-08-14 09:47] LABS: CA19-9 TUMOR MARKER,CARBOHYDRA 311.6 U/ML (<35.0)
--- NOTE | 2019-08-16 15:01 | MEDONC ---
MEDICAL ONCOLOGY FOLLOWUP/TREATMENT VISIT: DATE OF SERVICE: DIAGNOSES: 1. Metastatic pancreatic adenocarcinoma with liver metastases in partial remission on third line treatment with reintroduced Abraxane/gemcitabine with Abraxane now held for grade II-III peripheral neuropathy continuing on gemcitabine. 2. 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 CURRENT THERAPY: Gemcitabine days 1, 8, 15 on 28 day cycle, begun in January with Abraxane discontinued as of cycle 3. Fentanyl, p.r.n. morphine sulfate under palliative care. Now under palliative care for pain management. TREATMENT HSTORY Neoadjuvant gemcitabine/Abraxane, two cycles 09/2017 - 12/2017, stopped for poor tolerance FOLFIRINOX 12/2017 - 01/2019; major [place] followed by progression ; oxaliplatin dropped c 12 for neuropathy. Gemcitabine/Abraxane 02/25/2019 - presesnt; Abraxane dropped c 3 for gr 3 neuropathy MyRisk extended panel 09/2018: negative for BRCA1/2, MMR mutation or other actionable mutations INTERVAL HISTORY: Mr. Mclean's treatment was held another week last week when he complained of significant right foot pain and swelling at a site where previously he had been treated for cellulitis. We obtained a foot CT and lower extremity CT on August 07. Neither of these showed evidence of osteomyelitis, abscess or bony destructive lesion. There is diffuse soft tissue swelling pattern only. He has a followup with internal medicine tomorrow though expresses satisfaction that he will be seeing a PA. I reassured him that the imaging is now negative for suspicious fluid collection bony, infection and so forth. It is most likely this is simply lower extremity edema due to venous insufficiency. We previously imaged this for ultrasound found to be negative for DVT. He is also scheduled for thoracic MRI tomorrow. Because of this, we discussed his overall picture. Today's CA19-9 is pending but the last has risen significantly suggesting disease progression despite most recent scans from 07/14/2019 showing stable disease on CT chest, abdomen and pelvis. I recommended that instead of treatment today, we hold off another week allowing time for results of the thoracic MRI and any interventions that need to be made for that, obtaining the new tumor marker. If it has risen again this strongly suggest disease progression despite current therapy and suggest that possibly changing therapy makes sense or least recognizing the likelihood of disease progression and planning earlier restaging. We then discuss Mr. Mclean's eligibility for targeted therapy. During the visit, I did not have his myRisk results but it turns out he has been tested for the standard pancreatic cancer genetic mutations which could possibly indicate response to PARP inhibitor treatment for example. He underwent myRisk testing in September 2018. This was unfortunately negative and it tests the entire a group of mutations that would otherwise be tested by pancreatic next testing under [facility]. During the visit, he did sign Consent for [facility] testing. He also completed the hereditary cancer questionnaire including a sister with uterine cancer, a brother with prostate cancer and his own personal history. I assured him, we would not send the test until I have tracked down the myRisk result, which I have done. I did scholarship counselor him prior to his consenting to the [facility] test, that it posed the risk of knowledge of potential higher risk for other cancers, impact on family members, potential risk of life insurance consequences. I declined to re-look at Mr. Mclean's foot at his request as I have reviewed this and examined it a few times in the last few weeks and defer this to internal medicine care tomorrow having found on CT there is no evidence of infection currently. LABS: WBC 3.5, hemoglobin 10, hematocrit 32, platelets 203, MCV 93. Electrolytes unremarkable. Renal function normal. Liver function normal CA19-9 pending. C-reactive protein undetectable. IMPRESSION: 78-year-old man with metastatic pancreatic adenocarcinoma in partial remission on third line treatment with gemcitabine, previously Abraxane/gemcitabine with Abraxane discontinued as of cycle three. He has now had five total cycles of third line treatment. CA19-9 has been rising. Peripheral neuropathy prevents further taxane treatment. Germ line genetic testing for BRCA type/ extended BRCA panel type mutations was negative on the myRisk panel in September 2018. Thus he is not eligible for olaparib or other PARP inhibitor therapy. Next line of treatment could include single agent 5-FU such as capecitabine. Mr. Mclean's performance status is certainly diminished with mobility diminished because of some leg swelling and pain, he has unexplained chronic right flank pain. He is on pain management under palliative care. Our treatment goals at this point our extension of life only if quality of life can be preserved. PLAN: 1. Hold cycle six gemcitabine today. 2. 1-week interval return. At that point will have both tumor marker and thoracic MRI results with which to make next decision. Time Statement: 25 minutes [id number] with the patient. More than 50% involving counseling regarding the above issues. Electronically Signed by Ruth Cherry MD 08/20/2019 01:07 P DD: Ruth Cherry MD 08/13/2019 07:13 P DT: jose alberto 08/16/2019 02:44 P CC: LEON Shanks MD
[2019-08-20 13:04] LABS: BASO # 0.1 10^3/uL (0.0-0.2); BASO % 1.7 % (0.0-1.0); EOS # 0.2 10^3/uL (0.0-0.5); EOS % 4.2 % (0.0-3.0); HEMATOCRIT 32.4 % (42.0-52.0); HEMOGLOBIN 10.5 g/dl (13.5-17.5); LYMPH # 1.1 10^3/uL (1.5-5.0); LYMPH % 22.5 % (24.0-44.0); MEAN CORPUSCULAR HEMOGLOBIN 29.6 pg (27.0-33.0); MEAN CORPUSCULAR HGB CONC 32.4 g/dl (32.0-36.5); MEAN CORPUSCULAR VOLUME 91.3 fl (80.0-96.0); MONO # 0.6 10^3/uL (0.0-0.8); MONO % 12.7 % (0.0-5.0); NEUTROPHILS # 2.8 10^3/uL (1.5-8.5); NEUTROPHILS % 58.7 % (36.0-66.0); PLATELET COUNT, AUTOMATED 138 10^3/uL (150-450); RED BLOOD COUNT 3.55 10^6/uL (4.30-6.10); WHITE BLOOD COUNT 4.7 10^3/uL (4.0-10.0)
[2019-08-20 13:18] VITALS: BP 117/75
[2019-08-20 13:28] LABS: ALBUMIN 3.6 GM/DL (3.2-5.2); ALT/SGPT 42 U/L (12-78); BILIRUBIN,TOTAL 0.3 MG/DL (0.2-1.0); BLOOD UREA NITROGEN 13 MG/DL (7-18); CALCIUM LEVEL 9.2 MG/DL (8.8-10.2); CARBON DIOXIDE LEVEL 26 MEQ/L (21-32); CHLORIDE LEVEL 105 MEQ/L (98-107); CREATININE FOR GFR 0.82 MG/DL (0.70-1.30); GLOMERULAR FILTRATION RATE > 60.0 (>42); GLUCOSE, FASTING 175 MG/DL (70-100); POTASSIUM SERUM 4.3 MEQ/L (3.5-5.1); SODIUM LEVEL 137 MEQ/L (136-145); TOTAL PROTEIN 6.6 GM/DL (6.4-8.2)
--- NOTE | 2019-08-23 12:49 | MEDONC ---
MEDICAL ONCOLOGY FOLLOWUP / TREATMENT VISIT DATE OF SERVICE: 08/20/2019 DIAGNOSES: 1. Metastatic pancreatic adenocarcinoma with liver metastases in partial remission on third line treatment with reintroduced Abraxane/gemcitabine with Abraxane now held for grade II-III peripheral neuropathy continuing on gemcitabine. 2. 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 CURRENT THERAPY: Gemcitabine days 1, 8, 15 on 28 day cycle, begun in January with Abraxane discontinued as of cycle 3. Fentanyl, p.r.n. morphine sulfate under palliative care. Now under palliative care for pain management. TREATMENT HISTORY: Neoadjuvant gemcitabine/Abraxane, two cycles 09/2017 - 12/2017, stopped for poor tolerance FOLFIRINOX 12/2017 - 01/2019; major [place] followed by progression ; oxaliplatin dropped c 12 for neuropathy. Gemcitabine/Abraxane 02/25/2019 - present; Abraxane dropped c 3 for gr 3 neuropathy [facility] extended panel 09/2018: negative for BRCA1/2, MMR mutation or other actionable mutations INTERVAL HISTORY: Mr. Mclean has now had his thoracic MRI. This does not definitively show metastatic recurrence. There are several foci of old fractures, vertebral wedging, possible sclerotic metastatic foci very small versus DJD related changes and no evidence of epidural or cord compressing lesions. His tumor marker has risen. His last restaging scans were mid July. We talked over approaches. Given diminishing potential types of treatment (he has no HRD type lesions to enable PARP inhibitor use). After discussing options including continuing current therapy and restaging within another 2 months for example mid September, or switching to single agent 5-FU based therapy (to avoid neurotoxic other therapies) versus discontinuing active treatment, Bijan opted for continuing current therapy. We discussed the fact that CA 19-9 continues to rise but not at a dramatic pace and if that occurs we would then switched gears again and possibly re-stage but his scans 4 weeks ago showed stable disease. He is agreeable to continue current therapy. IMPRESSION: BRCA 1/2/extended panel negative metastatic pancreatic adenocarcinoma, refractory recurrent, on third line treatment with gemcitabine, having discontinued Nab-paclitaxel for significant neuropathy. ECOG performance status 2. Chronic right flank pain of uncertain etiology. Disease sites include head of pancreas mass 3 cm, right liver lobe hypodensities, no clear evidence of intrathoracic disease. PLAN: 1. Cycle six gemcitabine today. 2. Return for days 8 and 15 treatment in 1and 2 weeks respectively. 3. 4-week interval return for day 1 cycle seven with CBC, CMP, CA19-9, office visit. 4. Plan restaging mid September. TIME STATEMENT: 15 minutes [id number] with the patient more than 50% involving counseling, answering questions as described above. Electronically Signed by Ruth Cherry MD 08/24/2019 06:56 P DD: Ruth Cherry MD 08/20/2019 06:41 P DT: [email or web address] 08/23/2019 12:35 P CC: Se Castle MD
[2019-08-24 12:33] LABS: PROTHROMBIN TIME 12.9 SECONDS (11.8-14.0)
[2019-08-24 12:34] LABS: PARTIAL THROMBOPLASTIN TIME 30.5 SECONDS (25.0-38.4)
[2019-08-27 10:00] VITALS: BP 103/57
[2019-08-27 10:49] LABS: BASO % 0.9 % (0.0-1.0); EOS # 0.1 10^3/uL (0.0-0.5); EOS % 3.6 % (0.0-3.0); HEMATOCRIT 29.9 % (42.0-52.0); HEMOGLOBIN 9.6 g/dl (13.5-17.5); LYMPH # 0.9 10^3/uL (1.5-5.0); LYMPH % 25.4 % (24.0-44.0); MEAN CORPUSCULAR HEMOGLOBIN 29.2 pg (27.0-33.0); MEAN CORPUSCULAR HGB CONC 32.1 g/dl (32.0-36.5); MEAN CORPUSCULAR VOLUME 90.9 fl (80.0-96.0); MONO # 0.3 10^3/uL (0.0-0.8); NEUTROPHILS % 60.8 % (36.0-66.0); PLATELET COUNT, AUTOMATED 101 10^3/uL (150-450); RED BLOOD COUNT 3.29 10^6/uL (4.30-6.10); WHITE BLOOD COUNT 3.4 10^3/uL (4.0-10.0)
--- NOTE | 2019-08-27 11:08 | ONC.PHACK ---
CHEMO ADMIN CHECKLIST Order Contains Pt ID: Name, Order on Chemo Order Form?: Yes Order Form Includes ALL: Correct Tx Day, Correct Date, Correct Cycle Number Pt ID on Order form Matches: Pt ID on PHA Label Med on Chemo OrderForm Matches: PHA Label, Med Used for Preparation [facility] Aug 27, 2019 11:08
[2019-09-03 13:00] VITALS: BP 124/68
[2019-09-03 13:38] LABS: BASO % 0.9 % (0.0-1.0); EOS # 0.1 10^3/uL (0.0-0.5); HEMATOCRIT 29.1 % (42.0-52.0); HEMOGLOBIN 9.4 g/dl (13.5-17.5); LYMPH # 0.8 10^3/uL (1.5-5.0); LYMPH % 24.6 % (24.0-44.0); MEAN CORPUSCULAR HEMOGLOBIN 29.2 pg (27.0-33.0); MEAN CORPUSCULAR HGB CONC 32.3 g/dl (32.0-36.5); MEAN CORPUSCULAR VOLUME 90.4 fl (80.0-96.0); MONO # 0.2 10^3/uL (0.0-0.8); MONO % 6.2 % (0.0-5.0); NEUTROPHILS # 2.2 10^3/uL (1.5-8.5); RED BLOOD COUNT 3.22 10^6/uL (4.30-6.10); WHITE BLOOD COUNT 3.4 10^3/uL (4.0-10.0)
[2019-09-03 13:39] LABS: PLATELET COUNT, AUTOMATED 79 10^3/uL (150-450)
--- NOTE | 2019-09-03 14:00 | MEDONCTEEN ---
Date/Time of Encounter Date of Encounter: Sep 03, 2019 Telephone Encounter Patient due for cycle 6 D15 gemcitabine today-platelets 79. Can give 75% dose. The patient already is on dose reduced gemcitabine. Should counts go lower after today's dose, he would likely not be able to resume cycle 7 on time. Decision made to hold day 15 dose today, check CBC 1 week to note trend, follow-up with Dr. Cherry in 2 weeks for reassessment and CBC check before cycle 7 AMELIA GRANT MD Sep 03, 2019 14:00
[2019-09-03 14:08] LABS: ALBUMIN 3.7 GM/DL (3.2-5.2); ALT/SGPT 53 U/L (12-78); BILIRUBIN,TOTAL 0.2 MG/DL (0.2-1.0); BLOOD UREA NITROGEN 12 MG/DL (7-18); CALCIUM LEVEL 9.3 MG/DL (8.8-10.2); CARBON DIOXIDE LEVEL 28 MEQ/L (21-32); CHLORIDE LEVEL 107 MEQ/L (98-107); CREATININE FOR GFR 0.69 MG/DL (0.70-1.30); GLOMERULAR FILTRATION RATE > 60.0 (>42); GLUCOSE, FASTING 90 MG/DL (70-100); SODIUM LEVEL 139 MEQ/L (136-145); TOTAL PROTEIN 6.3 GM/DL (6.4-8.2)
[2019-09-10 13:15] VITALS: BP 106/57
[2019-09-10 13:28] LABS: BASO % 0.9 % (0.0-1.0); EOS # 0.1 10^3/uL (0.0-0.5); EOS % 2.3 % (0.0-3.0); HEMATOCRIT 30.2 % (42.0-52.0); HEMOGLOBIN 9.7 g/dl (13.5-17.5); LYMPH # 1.1 10^3/uL (1.5-5.0); LYMPH % 25.1 % (24.0-44.0); MEAN CORPUSCULAR HEMOGLOBIN 28.8 pg (27.0-33.0); MEAN CORPUSCULAR HGB CONC 32.1 g/dl (32.0-36.5); MEAN CORPUSCULAR VOLUME 89.6 fl (80.0-96.0); MONO # 0.5 10^3/uL (0.0-0.8); MONO % 11.2 % (0.0-5.0); NEUTROPHILS # 2.6 10^3/uL (1.5-8.5); NEUTROPHILS % 60.3 % (36.0-66.0); PLATELET COUNT, AUTOMATED 313 10^3/uL (150-450); RED BLOOD COUNT 3.37 10^6/uL (4.30-6.10); WHITE BLOOD COUNT 4.4 10^3/uL (4.0-10.0)
--- NOTE | 2019-09-10 14:44 | ONC.PHACK ---
CHEMO ADMIN CHECKLIST Order Contains Pt ID: Name, Order on Chemo Order Form?: Yes Order Form Includes ALL: Correct Tx Day, Correct Date, Correct Cycle Number Pt ID on Order form Matches: Pt ID on PHA Label Med on Chemo OrderForm Matches: PHA Label, Med Used for Preparation [facility] Sep 10, 2019 14:44
[2019-09-24 14:19] VITALS: BP 102/58
--- NOTE | 2019-09-24 14:28 | ONC.PHACK ---
CHEMO ADMIN CHECKLIST Order Contains Pt ID: Name, Order on Chemo Order Form?: Yes Order Form Includes ALL: Correct Tx Day, Correct Date, Correct Cycle Number Pt ID on Order form Matches: Pt ID on PHA Label Med on Chemo OrderForm Matches: PHA Label, Med Used for Preparation [facility] Sep 24, 2019 14:28
--- NOTE | 2019-09-25 19:02 | MEDONC ---
MEDICAL ONCOLOGY FOLLOWUP / TREATMENT DATE OF SERVICE: 09/24/2019 DIAGNOSES: 1. Metastatic pancreatic adenocarcinoma with liver metastases in partial remission on third line treatment with reintroduced Abraxane/gemcitabine with Abraxane now held for grade II-III peripheral neuropathy continuing on gemcitabine. 2. 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 3. Right lower extremity DVT with partial obstruction on 08/21/2019 ultrasound with extensive reflux. Nonocclusive DVT in the profunda femoral vein on the right. CURRENT THERAPY: Gemcitabine days 1, 8, 15 on 28 day cycle, begun in January with Abraxane discontinued as of cycle 3. Fentanyl, p.r.n. morphine sulfate under palliative care. Now under palliative care for pain management. TREATMENT HISTORY: Neoadjuvant gemcitabine/Abraxane, two cycles 09/2017 - 12/2017, stopped for poor tolerance FOLFIRINOX 12/2017 - 01/2019; major [place] followed by progression ; oxaliplatin dropped c 12 for neuropathy. Gemcitabine/Abraxane 02/25/2019 - present; Abraxane dropped c 3 for gr 3 neuropathy [facility] extended panel 09/2018: negative for BRCA1/2, MMR mutation or other actionable mutations INTERVAL HISTORY: Mr. Mclean has now had his thoracic MRI. This does not definitively show metastatic recurrence. There are several foci of old fractures, vertebral wedging, possible sclerotic metastatic foci very small versus DJD related changes and no evidence of epidural or cord compressing lesions. His tumor marker has risen. His last restaging scans were mid July. We talked over approaches. Given diminishing potential types of treatment (he has no HRD type lesions to enable PARP inhibitor use). After discussing options including continuing current therapy and restaging within another 2 months for example mid September, or switching to single agent 5-FU based therapy (to avoid neurotoxic other therapies) versus discontinuing active treatment, Bijan opted for continuing current therapy. We discussed the fact that CA 19-9 continues to rise but not at a dramatic pace and if that occurs we would then switched gears again and possibly re-stage but his scans 4 weeks ago showed stable disease. He is agreeable to continue current therapy. Bijan is here for cycle 7 day 1. He reminds me about the ultrasound which showed a persistent partially obstructing right lower extremity DVT. He had his anticoagulation dose increased at [place] [facility] He continues to struggle with chronic pain involving right upper quadrant. He and his are staying indoors, washing their hands, avoiding crowds, but he did go to [place] to see the [place] doctor. We discussed re-imaging soon. Most recent scans include brain MRI 09/07/2019 negative for intracranial metastasis, CT abdomen and pelvis on 07/15/2019, and chest on 07/14/2019. In the chest, no adenopathy or suspicious nodule, abdomen and pelvis - stable mass in head of pancreas 3 cm, unchanged. No new adenopathy. CA19-9 has been gradually rising. Most recent 311 on 08/13/2019. Today's is pending. REVIEW OF SYSTEMS: CONSTITUTIONAL: No fever, chills, sweats, fatigue, or weight loss. HEENT: No oral discomfort or mouth or lip ulcers. Hearing normal in both ears. RESPIRATORY: Denies cough, dyspnea, hemoptysis, pleurisy. CARDIOVASCULAR: Denies chest pain, palpitations. MUSCULOSKELETAL: Denies joint swelling or erythema; chronic right thoracic pain. New chest sternal pain with tenderness emerged in the last few weeks. GENITOURINARY: No history of urinary frequency, burning, hematuria, or pain. GASTROINTESTINAL: No nausea, vomiting, constipation, diarrhea, dysphagia, bleeding, or anorexia. SKIN: Denies rash, ecchymosis, petechiae, jaundice. NEUROLOGICAL: No headache, visual difficulty, motor weakness, sensory deficits. No paresthesias. EXTREMITIES: No extremity edema. PHYSICAL/FOCUSED EXAMINATION Weight 81 kg, BMI 26, temperature 97.3, blood pressure 102/58, heart rate 67, respiratory rate 18, O2 sat 67%. Musculoskeletal: Exquisite tenderness to moderate palpation involving the central sternum at the level of the nipple in an area approximately 2 to 3 cm centimeter diameter. No ecchymoses, petechiae. No skin swelling in that area. LABS: Labs on 09/24/2019. Outside from Dr. Castle's office. WBC 7.8, hemoglobin 10, hematocrit 32, platelets 144, MCV 84. Absolute neutrophil count 6100. Creatinine 0.9, AST, ALT normal. Calcium 9.3, albumin 3.5, CA19-9 pending. IMPRESSION 78-year-old man with oligometastatic pancreatic adenocarcinoma with liver metastases in near complete remission on third line treatment with reintroduced Abraxane/gemcitabine, now on gemcitabine alone. Treatment related peripheral neuropathy grade II - III. Chronic cancer and noncancer related pain involving right upper lateral thorax, status post celiac block without improvement; under palliative care for pain management. New focus of sternal tenderness and pain concerning for skeletal metastasis. ECOG performance status 1. PLAN 1. Day one cycle 7 gemcitabine today. 2. Restaging CT chest, abdomen and pelvis within the next few weeks; I will hold on bone scan as bone windows on CT are highly accurate and it spares extra hospital visits. 3. Return to clinic for day 8 and day 15 treatment. Labs those days to include CBC, stat CMP, and in 4 weeks for day one cycle [address] results at that time and as long as no evidence of disease progression continue current therapy. One possibility would be no visceral disease progression but skeletal progression in a solitary focus. For this radiation and/or bone modifying agents could be considered to palliate. CC Jessika Murillo MD 09/29/19: Yesterday I called Bijan about th elevated CA 19-9. It is more than 10 fold higher, raising a question of lab error versus disease progression. He is scheduled for restaging soon. I therefore recommended against repeating the lab, to spare an extra office visit, and we will have definitive evidence with scans. We'll repeat the tumor marker again at next standard interval--4 weeks. Electronically Signed by Ruth Cherry MD 09/29/2019 01:02 P DD: Ruth Cherry MD 09/24/2019 06:31 P DT: [email or web address] 09/25/2019 06:17 P CC: LEON Shanks [facility] Se Castle MD
[2019-10-01 10:00] VITALS: BP 134/72
[2019-10-01 10:35] LABS: HEMATOCRIT 27.6 % (42.0-52.0); HEMOGLOBIN 9.1 g/dl (13.5-17.5); LYMPH # 0.8 10^3/uL (1.5-5.0); LYMPH % 28.4 % (24.0-44.0); MEAN CORPUSCULAR HEMOGLOBIN 29.6 pg (27.0-33.0); MEAN CORPUSCULAR VOLUME 89.9 fl (80.0-96.0); MONO # 0.3 10^3/uL (0.0-0.8); MONO % 11.3 % (0.0-5.0); NEUTROPHILS # 1.7 10^3/uL (1.5-8.5); NEUTROPHILS % 58.3 % (36.0-66.0); PLATELET COUNT, AUTOMATED 146 10^3/uL (150-450); RED BLOOD COUNT 3.07 10^6/uL (4.30-6.10); WHITE BLOOD COUNT 2.9 10^3/uL (4.0-10.0)
--- NOTE | 2019-10-03 16:42 | MEDONCTEEN ---
Date/Time of Encounter Date of Encounter: Oct 03, 2019 Time of Encounter: 16:28 Telephone Encounter Hematology/Oncology Patient called because he is concerned about rising CA19-9 and to find about results of CT scans of chest/Abd/Pelvis performed 10/02/2019 Having more chest pain Remains on palliative chemotherapy Chart and labs reviewed CA19-9 08/13/19-311.6 CA 19-9 09/24/[address] results with patient Stable disease noted NAME: BALTAZAR SHAH DATE OF : 1940 AGE: 79 SEX: M REPORT #: [id number] [facility] DOCTOR: Ruth Cherry MD Ordered for Date&Time: 10/02/19 1202 cc: [~ rep ct ivnm] Service Date&Time: 10/02/19 1442 EXAMINATION REQUESTED: CT ABD & PELVIS WITH CONTRAST REASON FOR PATIENT VISIT: METASTTIC PANCREATIC CA,STERNAL PAIN,RISING CA29.9 REASON FOR EXAM/COMMENT: METASTTIC PANCREATIC CA,STERNAL PAIN,RISING CA29.9 HISTORY: Followup pancreatic carcinoma. COMPARISON: Multiple, the latest 07/14/2019. CONTRAST: 100 mL Isovue-370 The liver, spleen, pancreas, adrenal glands and kidneys appear unchanged. There is no evidence of significant change seen involving the pancreatic head mass. The abdominal aorta and periaortic regions are unchanged. There is mild periaortic adenopathy on the right, status quo. The bowel loops and their mesenteries are essentially unchanged. No free fluid or free air has developed. CT PELVIS: The pelvic bowel loops and their mesenteries are essentially unchanged. There is no evidence of a mass or adenopathy. There is no free fluid or free air. Bone window technique throughout the examination shows no significant change in the appearance of the imaged osseous structures. IMPRESSION: There has been no significant change compared to the prior exam as described above. The degree of intrahepatic ductal dilatation is stable and the appearance of the pancreatic head mass also appears stable. Findings as described above. Electronically Signed by Tawanda Moreno DO 10/02/2019 03:50 P NAME: BALTAZAR SHAH DATE OF : 1940 AGE: 79 SEX: M REPORT #: [id number] [facility] [place] [id number] DOCTOR: Ruth Cherry MD Ordered for Date&Time: 10/02/19 1202 cc: [~ rep ct ivnm] Service Date&Time: 10/02/19 1442 EXAMINATION REQUESTED: CT Chest with contrast REASON FOR PATIENT VISIT: METASTTIC PANCREATIC CA,STERNAL PAIN,RISING CA29.9 REASON FOR EXAM/COMMENT: METASTTIC PANCREATIC CA,STERNAL PAIN,RISING CA29.9 REASON FOR EXAM: History of stage IV pancreatic CA. CONTRAST: 100 mL Isovue 370. Prior exam were the latest 07/14/2019. There is no mediastinal or hilar adenopathy. There are no pleural or pericardial effusions. The imaged osseous structures are essentially unchanged from the prior exam. Degenerative changes are seen involving the manubriosternal junction status quo. There are multiple vertebral body compression deformities, which are unchanged. For a description of the imaged upper abdomen, please refer to the CT abdomen and pelvis report made today. Evaluation of the lung brush show them to be stable without evidence of a new abnormal nodule, mass or opacity. There are bilateral subsegmental atelectatic changes seen in the dependent portions of the lung brush status quo. IMPRESSION: No significant change in the appearance of the chest CT when compared to the prior exam as described above. There is no evidence of acute intrathoracic disease. Other findings as described above. Electronically Signed by Tawanda Moreno DO 10/02/2019 02:51 P - C/o midline chest pain 2" above xyphoid. dull pain with sharp episodes on and off lasts typically a few minutes, now with fairly constant pain Asked patient to take 2 extra tramadol 50mg now He may also take 2 MSO4 when next due Still struggling with constipation Reviewed bowel regime with him Patient will call if pain not improved Reassurance given LEAH CROCKER MD Oct 03, 2019 16:28
[2019-10-08 10:00] VITALS: BP 108/65
[2019-10-08 10:29] LABS: BASO % 0.7 % (0.0-1.0); HEMATOCRIT 26.8 % (42.0-52.0); HEMOGLOBIN 8.8 g/dl (13.5-17.5); LYMPH # 0.8 10^3/uL (1.5-5.0); LYMPH % 26.4 % (24.0-44.0); MEAN CORPUSCULAR HEMOGLOBIN 29.2 pg (27.0-33.0); MEAN CORPUSCULAR HGB CONC 32.8 g/dl (32.0-36.5); MONO # 0.2 10^3/uL (0.0-0.8); MONO % 5.4 % (0.0-5.0); NEUTROPHILS % 66.2 % (36.0-66.0); PLATELET COUNT, AUTOMATED 120 10^3/uL (150-450); RED BLOOD COUNT 3.01 10^6/uL (4.30-6.10)
[2019-10-08 10:47] LABS: ALBUMIN 3.3 GM/DL (3.2-5.2); ALT/SGPT 51 U/L (12-78); BILIRUBIN,TOTAL 0.2 MG/DL (0.2-1.0); BLOOD UREA NITROGEN 12 MG/DL (7-18); CALCIUM LEVEL 9.3 MG/DL (8.8-10.2); CARBON DIOXIDE LEVEL 28 MEQ/L (21-32); CHLORIDE LEVEL 106 MEQ/L (98-107); CREATININE FOR GFR 0.74 MG/DL (0.70-1.30); GLOMERULAR FILTRATION RATE > 60.0 (>42); GLUCOSE, FASTING 92 MG/DL (70-100); POTASSIUM SERUM 3.8 MEQ/L (3.5-5.1); SODIUM LEVEL 140 MEQ/L (136-145); TOTAL PROTEIN 6.3 GM/DL (6.4-8.2)
--- NOTE | 2019-10-08 11:08 | ONC.PHACK ---
CHEMO ADMIN CHECKLIST Order Contains Pt ID: Name, Order on Chemo Order Form?: Yes Order Form Includes ALL: Correct Tx Day, Correct Date, Correct Cycle Number Pt ID on Order form Matches: Pt ID on PHA Label Med on Chemo OrderForm Matches: PHA Label, Med Used for Preparation [facility] Oct 08, 2019 11:08
--- NOTE | 2019-10-09 15:18 | MEDONC ---
MEDICAL ONCOLOGY BRIEF TELEPHONE NOTE DATE OF SERVICE: 10/09/2019 Bijan called regarding his CT chest, abdomen, and pelvis on 10/02/2019. This essentially is stable. No change. There is a pancreatic head mass without change. Mild periaortic adenopathy on the right, no change. The sternal manubrial junction shows DJD associated changes, no suspicious enhancing lesion. Clemente had some detailed questions about the above-mentioned items. I reviewed the wording, explained this meant we see no new findings. He complained of some sternal pain the last time he was here with tenderness on palpation, but there are no correlative findings on the CT. He was relieved. We will proceed with our plan as outlined on the last visit. Electronically Signed by Ruth Cherry MD 10/09/2019 05:20 P DD: Ruth Cherry MD 10/09/2019 02:40 P DT: [email or web address] 10/09/2019 03:15 P CC:
[2019-10-20 10:54] VITALS: BP 135/82
[2019-10-20 10:54] LABS: BASO % 0.3 % (0.0-1.0); EOS # 0.1 10^3/uL (0.0-0.5); EOS % 0.5 % (0.0-3.0); HEMATOCRIT 31.2 % (42.0-52.0); HEMOGLOBIN 10.3 g/dl (13.5-17.5); LYMPH # 1.1 10^3/uL (1.5-5.0); LYMPH % 7.5 % (24.0-44.0); MEAN CORPUSCULAR HEMOGLOBIN 29.8 pg (27.0-33.0); MEAN CORPUSCULAR VOLUME 90.2 fl (80.0-96.0); MONO % 6.6 % (0.0-5.0); NEUTROPHILS # 12.4 10^3/uL (1.5-8.5); PLATELET COUNT, AUTOMATED 194 10^3/uL (150-450); RED BLOOD COUNT 3.46 10^6/uL (4.30-6.10); WHITE BLOOD COUNT 14.9 10^3/uL (4.0-10.0)
[2019-10-20 11:52] LABS: ALBUMIN 3.5 GM/DL (3.2-5.2); ALT/SGPT 29 U/L (12-78); BILIRUBIN,TOTAL 0.2 MG/DL (0.2-1.0); BLOOD UREA NITROGEN 10 MG/DL (7-18); CALCIUM LEVEL 9.6 MG/DL (8.8-10.2); CARBON DIOXIDE LEVEL 27 MEQ/L (21-32); CHLORIDE LEVEL 106 MEQ/L (98-107); CREATININE FOR GFR 0.78 MG/DL (0.70-1.30); GLOMERULAR FILTRATION RATE > 60.0 (>42); GLUCOSE, FASTING 124 MG/DL (70-100); POTASSIUM SERUM 4.2 MEQ/L (3.5-5.1); SODIUM LEVEL 138 MEQ/L (136-145); TOTAL PROTEIN 6.9 GM/DL (6.4-8.2)
--- NOTE | 2019-10-21 09:32 | MEDONC ---
MEDICAL ONCOLOGY FOLLOWUP/TREATMENT VISIT: DATE OF SERVICE: 10/20/2019 DIAGNOSES: 1. Metastatic pancreatic adenocarcinoma with liver metastases in partial remission on third line treatment with reintroduced Abraxane/gemcitabine with Abraxane now held for grade II-III peripheral neuropathy continuing on gemcitabine. 2. 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 3. Right lower extremity DVT with partial obstruction on 08/21/2019 ultrasound with extensive reflux. Nonocclusive DVT in the profunda femoral vein on the right. CURRENT THERAPY: Gemcitabine days 1, 8, 15 on 28 day cycle, begun in January with Abraxane discontinued as of cycle 3. Fentanyl, p.r.n. morphine sulfate under palliative care. Now under palliative care for pain management. TREATMENT HISTORY: Neoadjuvant gemcitabine/Abraxane, two cycles 09/2017 - 12/2017, stopped for poor tolerance FOLFIRINOX 12/2017 - 01/2019; major CO followed by progression ; oxaliplatin dropped c 12 for neuropathy. Gemcitabine/Abraxane 02/25/2019 - present; Abraxane dropped c 3 for gr 3 neuropathy [facility] extended panel 09/2018: negative for BRCA1/2, MMR mutation or other actionable mutations SURVEILLANCE: 1. CT chest, abdomen and pelvis 10/02/2019 with stable disease involving pancreatic head mass, periaortic adenopathy, no mediastinal or hilar adenopathy. No pulmonary parenchymal lesions. 2. CA19-9 [id number] on 10/20/2019, 2878 on 09/24/2019, 30.5 on 08/24/2019 INTERVAL HISTORY: Bijan is here to start cycle eight gemcitabine. His WBC count is elevated likely secondary to Neulasta last cycle and starting this cycle a few days early for scheduling reason. During the visit, CA19-9 was not back yet. We talked about the significant jump between August and August, I had hoped this was an anomaly. It did not seem to be based on followup results and despite stable scan in early September, strongly suggestive of disease progression. In the interval through his orthopedist, lumbar spine MRI was performed on 10/19/2019. This shows stable appearance of the lumbar spine compared to March, stable T12 compression deformity and no evidence of metastatic disease with some DJD and degenerative type spondylosis changes. Bijan continues to have some right mid lateral abdominal pain which is not significantly changed. Bijan's pain management is now through Rose Marie Galo MD and comprised of fentanyl 25 mcg patch, hydromorphone 4 mg q.4 h p.r.n., lidocaine patch daily, morphine sulfate 15 mg q. 6 hours p.r.n. according to our medication reconciliation. REVIEW OF SYSTEMS: CONSTITUTIONAL: No fever, chills, sweats, fatigue, or weight loss. HEENT: No oral discomfort or mouth or lip ulcers. Hearing normal in both ears. RESPIRATORY: Denies cough, dyspnea, hemoptysis, pleurisy. CARDIOVASCULAR: Denies chest pain, palpitations. MUSCULOSKELETAL: Denies skeletal pain, joint swelling, pain, or erythema. GENITOURINARY: No history of urinary frequency, burning, hematuria, or pain. GASTROINTESTINAL: No nausea, vomiting, constipation, diarrhea, dysphagia, bleeding, or anorexia; chronic right mid to upper lateral quadrant pain without objective findings on CT likely referred related to pancreas mass, moderately to well controlled on current pain regimen. SKIN: Denies rash, ecchymosis, petechiae, jaundice. NEUROLOGICAL: No headache, visual difficulty, motor weakness, sensory deficits. No paresthesias. EXTREMITIES: No extremity edema. PHYSICAL EXAMINATION: Physical exam deferred due to absence of new complaints and COVID precaution. Patient is well appearing, well-groomed youthful older gentleman. Vital signs: Weight is 79 kg, temperature 98, blood pressure 135/82, heart rate 79, respiratory 18, O2 sat 97%. LABS: WBC 14.9, hemoglobin 10, hematocrit 31, platelets 194, MCV 90. Electrolytes unremarkable. Renal function normal. Liver functions normal. Alk phos 174, CA19-9 [id number] IMPRESSION: 1. 79-year-old man with metastatic pancreatic cancer with liver metastases in partial remission on third line treatment with gemcitabine now single-agent, Abraxane discontinued due to peripheral neuropathy. 2. Chronic cancer related pain in moderately well-controlled status post celiac block May 2019. 3. Right lower extremity DVT on a dalteparin recently increased due to partial obstruction on August ultrasound scheduled to de-escalate dose back to baseline within a month. 4. Now with evidence of significantly increased CA19-9 suspicious for disease progression despite stable findings on scan. PLAN: 1. For today begin cycle eight gemcitabine. 2. The patient was scheduled for return for days 8 and 15 prior to the results of CA19-9; we will call him on 10/21/2019 to discuss the results. Provisionally, I am planning PET/CT. We can continue current therapy until PET results are in. Baseline PET for comparison September 2018. 3. Barring objective evidence of progression, will continue current therapy. Electronically Signed by Ruth Cherry MD 10/21/2019 04:34 P DD: Ruth Cherry MD 10/20/2019 05:05 P DT: jose alberto 10/21/2019 09:15 A CC: LEON Shanks MD Jason White, MD
[2019-10-28 10:15] LABS: EOS % 0.7 % (0.0-3.0); HEMATOCRIT 29.5 % (42.0-52.0); HEMOGLOBIN 9.7 g/dl (13.5-17.5); LYMPH # 0.9 10^3/uL (1.5-5.0); LYMPH % 22.7 % (24.0-44.0); MEAN CORPUSCULAR HEMOGLOBIN 29.3 pg (27.0-33.0); MEAN CORPUSCULAR HGB CONC 32.9 g/dl (32.0-36.5); MEAN CORPUSCULAR VOLUME 89.1 fl (80.0-96.0); MONO # 0.7 10^3/uL (0.0-0.8); MONO % 15.7 % (0.0-5.0); NEUTROPHILS # 2.5 10^3/uL (1.5-8.5); NEUTROPHILS % 59.2 % (36.0-66.0); PLATELET COUNT, AUTOMATED 290 10^3/uL (150-450); RED BLOOD COUNT 3.31 10^6/uL (4.30-6.10); WHITE BLOOD COUNT 4.2 10^3/uL (4.0-10.0)
--- NOTE | 2019-10-28 10:38 | ONC.PHACK ---
CHEMO ADMIN CHECKLIST Order Contains Pt ID: Name, Order on Chemo Order Form?: Yes Order Form Includes ALL: Correct Tx Day, Correct Date, Correct Cycle Number Pt ID on Order form Matches: Pt ID on PHA Label Med on Chemo OrderForm Matches: PHA Label, Med Used for Preparation [facility] Oct 28, 2019 10:38
[2019-11-04 13:02] VITALS: BP 128/76
[2019-11-04 13:06] LABS: BASO % 0.7 % (0.0-1.0); EOS % 0.7 % (0.0-3.0); HEMOGLOBIN 9.9 g/dl (13.5-17.5); LYMPH % 18.5 % (24.0-44.0); MEAN CORPUSCULAR HEMOGLOBIN 29.4 pg (27.0-33.0); MONO # 0.5 10^3/uL (0.0-0.8); NEUTROPHILS % 71.9 % (36.0-66.0); PLATELET COUNT, AUTOMATED 158 10^3/uL (150-450); RED BLOOD COUNT 3.37 10^6/uL (4.30-6.10); WHITE BLOOD COUNT 5.6 10^3/uL (4.0-10.0)
[2019-11-04 13:29] LABS: ALBUMIN 3.8 GM/DL (3.2-5.2); ALT/SGPT 79 U/L (12-78); BILIRUBIN,TOTAL 0.3 MG/DL (0.2-1.0); BLOOD UREA NITROGEN 12 MG/DL (7-18); CALCIUM LEVEL 10.2 MG/DL (8.8-10.2); CARBON DIOXIDE LEVEL 27 MEQ/L (21-32); CHLORIDE LEVEL 104 MEQ/L (98-107); CREATININE FOR GFR 0.75 MG/DL (0.70-1.30); GLOMERULAR FILTRATION RATE > 60.0 (>42); GLUCOSE, FASTING 61 MG/DL (70-100); SODIUM LEVEL 137 MEQ/L (136-145); TOTAL PROTEIN 7.1 GM/DL (6.4-8.2)
--- NOTE | 2019-11-08 10:06 | MEDONC ---
MEDICAL ONCOLOGY FOLLOWUP VISIT DATE OF SERVICE: 11/04/2019 DIAGNOSES: 1. Metastatic pancreatic adenocarcinoma with liver metastases in partial remission on third line treatment with reintroduced Abraxane/gemcitabine with Abraxane now held for grade II-III peripheral neuropathy continuing on gemcitabine. Now with evidence of progression in liver and pancreas. 2. 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 3. Right lower extremity DVT with partial obstruction on 08/21/2019 ultrasound with extensive reflux. Nonocclusive DVT in the profunda femoral vein on the right. CURRENT THERAPY: Gemcitabine days 1, 8, 15 on 28 day cycle, begun in January with Abraxane discontinued as of cycle 3. Fentanyl, p.r.n. morphine sulfate under palliative care. Now under palliative care for pain management. TREATMENT HISTORY: Neoadjuvant gemcitabine/Abraxane, two cycles 09/2017 - 12/2017, stopped for poor tolerance FOLFIRINOX 12/2017 - 01/2019; major OR followed by progression ; oxaliplatin dropped c 12 for neuropathy. Gemcitabine/Abraxane 02/25/2019 - present; Abraxane dropped c 3 for gr 3 neuropathy [facility] extended panel 09/2018: negative for BRCA1/2, MMR mutation or other actionable mutations INTERVAL HISTORY: Bijan is here for followup of a restaging PET and possible treatment. Unfortunately, as his tumor markers have suggested, he has disease progression involving the liver and his pancreas. PET 10/27/2019 shows recurrent hypermetabolic uptake within a previously seen hepatic focus, SUV 5.8 where recently this was not hypermetabolic and with greater uptake than on the original PET which was 4.6 SUV and appearing larger also than the prior initial PET/CT. There is increased avidity and size of the pancreatic head lesion, SUV now 12, very high, up from 6 previously, originally 9, and clearly progressive. Bijan has some shooting occasional pain in his right upper quadrant and winces a few times during the visit but, overall, we spoke at length and he was quite calm and accepting as I recommended discontinuing treatment. Unfortunately, we have done germline germ line testing. He is BRCA1/2 negative, he is PD-L1 negative. We are unable to find targetable lesion, and he has now progressed through three lines of therapy including 5-FU based, irinotecan based, gemcitabine based, taxane based. His performance status is close to 2, perhaps closer to 3. He has chronic pain and his quality of life is unlikely to be improved by additional lines of treatment. Bijan was stoic and thoughtful in receiving this news. We reviewed the images. He looked at them closely. His was initially on the telephone during the visit but either hung up for the connection was lost, and he reconnected with her but she declined to be further involved in the visit. We talked about palliation of symptoms. Bijan follows with Rose Marie Galo at palliative care. I raised the issue of hospice care, recommended it, but Bijan is not yet ready for this. He fairly rapidly became concerned about issues of insurance, transportation, and how his would manage. I outlined the standard for hospice care being frequently at home and sometimes involving residence hospice, but that hospice would be very helpful with him in figuring out what is most workable. He continued to demure and would like to be on palliative care only for the time being. I recommended stopping current therapy, speaking with his pain management only and when he is ready, considering hospice care. I did encourage him to be ready "sooner" as last minute or in distress symptoms makes enrollment and benefit from hospice less satisfying. Of course, I expressed condolences to Bijan for this turn of events. He was gracious in accepting my condolences and thanked me for his care. IMPRESSION: Progressive metastatic pancreatic cancer involving liver and pancreas progression through third-line therapy. No targetable lesions, BRCA 1/2 negative, PD-L1 0. PLAN: 1. The patient today declined active hospice care, but will continue on palliative care. 2. Return to clinic as needed. I did clearly lay out for Bijan that hospice care, once engaged, typically manages the financial care of the patient's medical care and this can alter frequency of visits, procedures, and so forth. 3. I contacted LEON Shanks, at palliative care, shared with her of today's events, and she will reach out to [place]. I also contacted Se Castle, the patient's primary care doc, expressed concern for Bijan's state, and agreed with the current plan and will also reach out to him. Time statement: 30 minutes [id number] with the patient, more than 50% involved in counseling regarding disease progression, palliative care, hospice care, answering his questions to his apparent satisfaction. Electronically Signed by Ruth Cherry MD 11/10/2019 12:00 P DD: Ruth Cherry MD 11/04/2019 04:37 P DT: brandan 11/08/2019 09:35 A CC: LEON Shanks MD Jason White, MD
[2019-12-24 11:02] VITALS: BP 135/79
[2019-12-24 12:11] LABS: BASO % 0.4 % (0.0-1.0); EOS # 0.3 10^3/uL (0.0-0.5); EOS % 4.3 % (0.0-3.0); HEMATOCRIT 33.2 % (42.0-52.0); HEMOGLOBIN 10.7 g/dl (13.5-17.5); LYMPH % 14.4 % (24.0-44.0); MEAN CORPUSCULAR HEMOGLOBIN 28.4 pg (27.0-33.0); MEAN CORPUSCULAR HGB CONC 32.2 g/dl (32.0-36.5); MEAN CORPUSCULAR VOLUME 88.1 fl (80.0-96.0); MONO # 0.7 10^3/uL (0.0-0.8); MONO % 9.7 % (0.0-5.0); NEUTROPHILS # 5.1 10^3/uL (1.5-8.5); NEUTROPHILS % 70.9 % (36.0-66.0); PLATELET COUNT, AUTOMATED 190 10^3/uL (150-450); RED BLOOD COUNT 3.77 10^6/uL (4.30-6.10); WHITE BLOOD COUNT 7.2 10^3/uL (4.0-10.0)
[2019-12-24 12:45] LABS: ALBUMIN 3.7 GM/DL (3.2-5.2); ALT/SGPT 33 U/L (12-78); BILIRUBIN,TOTAL 0.4 MG/DL (0.2-1.0); BLOOD UREA NITROGEN 15 MG/DL (7-18); CALCIUM LEVEL 9.6 MG/DL (8.8-10.2); CARBON DIOXIDE LEVEL 29 MEQ/L (21-32); CHLORIDE LEVEL 103 MEQ/L (98-107); CREATININE FOR GFR 0.83 MG/DL (0.70-1.30); GLOMERULAR FILTRATION RATE > 60.0 (>42); GLUCOSE, FASTING 101 MG/DL (70-100); SODIUM LEVEL 135 MEQ/L (136-145); TOTAL PROTEIN 6.9 GM/DL (6.4-8.2)
--- NOTE | 2019-12-24 17:19 | MEDONCPDOC ---
Medical Oncology Office Note Date of Service: Dec 24, 2019 Diagnosis/Treatment History 1. Metastatic pancreatic adenocarcinoma with liver metastases on third line treatment with reintroduced Abraxane/gemcitabine up to 10/2019. With evidence of progression in liver and pancreas on last PET/CT scan. With tumor markers also increasing. 2. 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 Interval History Mr. Mclean was here today for a follow-up appointment. He reports a poor appetite. He continues to lose weight. He is on fentanyl patch 150 mg and hydromorphone 4 mg 4 times a day for abdominal pain and back pain. He has been having constipation with MiraLAX and lactulose having no significant effect.. He reports that he is mostly resting at home. He is on follow-up with Rose Marie Galo of palliative care for symptom management. Allergies Coded Allergies: TAPE (Verified Allergy, Mild, SUTURE TAPE- SKIN REACTION, 03/10/19) Acarides (Mites) (Verified Allergy, Unknown, 03/10/19) Sulfa (Sulfonamide Antibiotics) (Verified Allergy, Unknown, 03/10/19) carbamazepine (Verified Allergy, Unknown, 03/10/19) mold (Verified Allergy, Unknown, 03/10/19) Home Medications Active Scripts Ondansetron (Ondansetron Odt) 8 Mg Tab.rapdis, 8 MG PO TID PRN for NAUSEA for 30 Days, #60 TAB 4 Refills Prov:Ruth Cherry MD 07/02/19 Reported Medications Linaclotide (Linzess) 290 Mcg Capsule, 290 MCG PO DAILY for 30 Days, #30 CAP 10/20/19 Hydromorphone HCl (Hydromorphone HCl) 4 Mg Tablet, 4 MG PO Q4HP PRN for PAIN, TAB 08/13/19 Fentanyl (Fentanyl) 25 Mcg Patch.td72, 150 MCG TD, PATCH 06/01/19 Lorazepam (Ativan) 0.5 Mg Tablet, 0.5 MG PO QHSP, TAB 06/01/19 Multivitamins (Thera M Plus Tablet) 1 Each Tablet, 1 TAB PO DAILY, TAB LUNCHTIME 04/15/19 Clindamycin Phosphate (Clindagel) 75 Ml Gel.daily, 1 DOSE EXT DAILY PRN for ROSACEA 04/15/19 Cholecalciferol (Vitamin D3) (Vitamin D3) 400 Unit Capsule, 400 UNIT PO QPM, CAP DINNERTIME 04/15/19 Docusate Sodium (Docusate Sodium) 250 Mg Capsule, 250 MG PO BID PRN for CONSTIPATION, CAP 04/15/19 Calcium Carbonate (Calcium Carbonate) 600 Mg Tablet, 600 MG PO QPM, TAB DINNERTIME 04/15/19 Sennosides (Senna) 8.6 Mg Tablet, 2 TAB PO BID PRN for CONSTIPATION, TAB 02/17/19 Dalteparin Sodium,Porcine (Fragmin) 10,000 Unit/Ml Inj, 22796 UNIT SC QPM DINNERTIME 09/26/18 Nebivolol HCl (Bystolic) 2.5 Mg Tab, 2.5 MG PO QHS, TAB 09/24/18 Digoxin (Digoxin) 125 Mcg Tab, 125 MCG PO DAILY, TAB LUNCHTIME 05/19/18 Cephalexin (Cephalexin) 500 Mg Cap, 2000 MG PO ASDIRECTED, CAP PRIOR TO DENTAL APPT 12/14/17 Lidocaine (Lidocaine) 5 % Pad, 1 PATCH TD DAILY PRN for PAIN, PAD APPLIED TO BACK/HIP/SPINE/NECK 12/14/17 Zolpidem Tartrate (Zolpidem Tartrate) 10 Mg Tab, 10 MG PO QHS, TAB 12/14/17 Formoterol Fumarate (Perforomist) 20 Mcg/2 Ml Neb, 20 MCG INH QHS, NEB 12/14/17 Potassium Chloride (K-Tab ER) 10 Meq Tab, 10 MEQ PO BID, TAB LUNCH AND DINNERTIME 08/08/16 Mometasone Furoate (Asmanex) 220 Mcg/Inh Aer, 220 MCG IN DAILY PRN for SHORTNESS OF BREATH 08/08/16 Tramadol HCl (Tramadol HCl) 50 Mg Tab, 50 MG PO Q6H PRN for PAIN, TAB 01/07/15 Metoclopramide Hcl (Reglan) 5 Mg Tab, 5 MG PO AC PRN for INDIGESTION, TAB 01/07/15 Metformin HCl (Metformin HCl) 500 Mg Tab, 1000 MG PO BID, TAB 01/07/15 Lactulose (Lactulose) 10 Gm/15 Ml Alan, 30 ML PO BID PRN for CONSTIPATION, ALAN 01/07/15 Furosemide (Furosemide) 20 Mg Tab, 20 MG PO TID PRN for EDEMA, TAB 01/07/15 Dutasteride (Avodart) 0.5 Mg Cap, 0.5 MG PO QPM, CAP DINNERTIME 01/07/15 Buspirone HCl (Buspirone HCl) 5 Mg Tab, 5 MG PO BID PRN for MIGRAINE, TAB 01/07/15 Azelastine HCl (Azelastine HCl) 0.15 % Spr, 1 SPRAY NA BID PRN for NASAL CONGESTION, SPR 01/07/15 Albuterol Sulf (Albuterol Sulfate) 2.5 Mg/3 Ml Nebu, 2.5 MG INH Q4H PRN for SO B/WHEEZING, ALAN 01/07/15 Discontinued Reported Medications Morphine Sulfate (Morphine Sulfate) 15 Mg Tablet, 15 MG PO Q6H PRN for PAIN, TAB 04/15/19 Lubiprostone (Amitiza) 24 Mcg Cap, 24 MCG PO DAILY PRN for CONSTIPATION, CAP 01/07/15 Past Medical History Past Medical History: Diabetes mellitus. Hypertension. Aortic regurgitation/mitral regurgitation and aortic stenosis Stomach ulcers. Arthritis. Past Surgical History: Tonsillectomy. Surgery for cyst in the lower jaw. Right inguinal hernia repair. Nephropexy of the right kidney in 1983. Cholecystectomy. Cyst removal in the throat. Basal cell carcinoma right lower eyelid Abdominal incisional hernia repair. Hiatal hernia repair. Right shoulder cuff surgery. Right hip replacement. Basal cell carcinoma left side of his head and left forearm. Family History: A sister had ovarian cancer and another sister had thyroid cancer. Social History: He is an ex-smoker having quit smoking in 1979. He smoked for 20 years two packs per day. He does not drink alcoholic beverages. He has been on disability since 1983 since his nephropexy surgery. 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 He has two grown sons. Review of Systems General: Reports: Fatigue; Denies: Chills, Night Sweats, Normal Appetite Constitutional: Reports: Weakness, Fatigue, Weight Loss; Denies: Chills, Fever, Night Sweats, Normal appetite Eyes: Denies: Vision change HEENT: Denies: Head Aches, Dysphagia Pulmonary: Denies: Dyspnea, Cough, Pleuritic Chest Pain Cardiovascular: Denies: Chest Pain, Palpitations, Orthopnea Gastrointestinal: Reports: Abdominal Pain, Constipation; Denies: Nausea, Vomiting, Diarrhea, Melena Genitourinary: Denies: Dysuria, Frequency Hematologic: Denies: Bruising, Bleeding Excessively Musculoskeletal: Reports: Back pain Neurological: Denies: Weakness Physical Examination General Exam: Positive: Alert, Cooperative, No Acute Distress, Oriented Times Three Eye Exam: Positive: PERRLA ENT EXAM: Positive: Atraumatic, Mucous membr. moist/pink Neck Exam: Denies: Lymphadenopathy Chest Exam: Positive: Clear to auscultation, Normal air movement; Negative: Rales, Rhonchi, Wheezing Heart Exam: Positive: Rate Normal, Normal S2; Negative: Normal S1, Gallops, Murmurs Abdomen Exam: Positive: Normal bowel sounds, Tenderness Extremity Exam: Positive: Normal pulses; Negative: Cyanosis, Edema, Tenderness Neuro Exam: Negative: Normal Gait Psych Exam: Positive: Mental status NL Ht / Wt Ht / Wt Height:5 Feet 9 Inches Weight: 77.300 Kg Vital Signs Vital Signs Date Time Temp Pulse Resp B/P (MAP) Pulse Ox O2 Delivery O2 Flow Rate FiO2 12/24/19 11:02 97.5 57 18 135/79 (97) 95 Room Air Laboratory Data Laboratory Tests Test 12/21/19 11:10 Blood Urea Nitrogen 11 MG/DL (7-18) Creatinine 0.88 MG/DL (0.70-1.30) Glomerular Filtration Rate > 60.0 (>42) Assessment/Plan Metastatic pancreatic cancer with liver metastases progressed on 3 lines of systemic therapy. MSI stable. BRCA negative. Discussed with Mr. Mclean and his that there are no additional chemotherapy regimens that he would likely benefit from at this time. I recommended hospice, but he wants to stay on palliative supportive care at present. He is on follow-up with Rose Marie Galo for palliative supportive care. Continue pain management and management of constipation. We will recheck liver function tests at this time. CC TO: Primary Care Provider: Se Castle M.D. Referring Provider: JOLANTA GARNER MD Dec 24, 2019 11:52
[2019-12-25 13:51] LABS: CA19-9 TUMOR MARKER,CARBOHYDRA 78127.2 U/ML (<35.0)
--- NOTE | 2019-12-28 11:58 | MEDONCTEEN ---
Date/Time of Encounter Date of Encounter: Dec 28, 2019 Telephone Encounter The patient was asking about tumor markers. 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 He is currently on follow up with palliative care service and follows up with a pain specialist. No additional systemic treatment options recommended or available. The patient is aware of hospice service but does not want to be under hospice at this time. JOLANTA GARNER MD Dec 28, 2019 11:58
[~2020-01-05] VITALS: Ht 175.3 cm; Wt 77.3 kg
[~2020-01-05 10:55] MED LIST changes: +ACETAMINOPHEN 650 MG PO PO ONE; +ATROPINE SULF 0.4 MG/ML 1ML VIAL (J0461) IV ONE; +ATROPINE SULFATE 0.25 MG IVP IV ONE; +D5W IV ONE; +DENOSUMAB 60MG/1ML SYRINGE (PROLIA) (J0897 PER 1MG) SC ONE; +FAMOTIDINE 20 MG IV IV ONE; +FLUOROURACIL IV ONE; +FOSAPREPITANT PERIPHERAL LINE 30 MIN INFUSION (PREMIX) IV ONE; +FOSAPREPITANT PERIPHERAL LINE 30 MIN INFUSION IV ONE; +GEMCITABINE IV ONE; +IRINOTECAN HCL IV ONE; +IRINOTECAN HYDROCHLORIDE IV ONE; +LEUCOVORIN CALCIUM IV ONE; +NS IV ONE; +OLANZapine 10 MG PO PO ONE; +OLANZapine 10 MG TAB PO ONE; +OXALIPLATIN IV ONE; +PACLITAXEL PROTEIN BOUND IV ONE; +PALONOSETRON 250 MCG IV IV ONE; +PEGFILGRASTIM 6 MG/0.6ML SYR (NEULASTA) (J2505 PER 6MG) SC ONE; +PEGFILGRASTIM 6MG/0.6ML ONPRO KIT (J2505 PER 6MG) (FOR ONCOLOGY) SC ONE; +SODIUM CHLORIDE 0.9% INJ 10 ML SYR IV PRN; +SODIUM CHLORIDE IV ONE; +[UNRECOGNIZED DRUG - OTHER] IV ONE; +dexameTHASONE 10 MG IV IV ONE; +dexameTHASONE 12 MG IV IV ONE; +diphenhydrAMINE 50 MG IV IV ONE
[2020-01-05 12:30] LABS: ALBUMIN 3.5 GM/DL (3.2-5.2); ALT/SGPT 37 U/L (12-78); BILIRUBIN,TOTAL 0.2 MG/DL (0.2-1.0); BLOOD UREA NITROGEN 13 MG/DL (7-18); CARBON DIOXIDE LEVEL 28 MEQ/L (21-32); CHLORIDE LEVEL 105 MEQ/L (98-107); CREATININE FOR GFR 0.77 MG/DL (0.70-1.30); GLOMERULAR FILTRATION RATE > 60.0 (>42); GLUCOSE, FASTING 95 MG/DL (70-100); POTASSIUM SERUM 4.2 MEQ/L (3.5-5.1); SODIUM LEVEL 136 MEQ/L (136-145); TOTAL PROTEIN 7.2 GM/DL (6.4-8.2)
== END | disposition home or self-care (01) ==
LOC: M ONCM 04-01 07:49
PROVIDERS: ATTEND Internal Medicine Medical Oncology
DX: Z51.11 Encounter for antineoplastic chemotherapy (principal); C78.7 Secondary malignant neoplasm of liver and intrahepatic bile duct; C25.9 Malignant neoplasm of pancreas, unspecified; M81.8 Other osteoporosis without current pathological fracture; M85.88 Other specified disorders of bone density and structure, other site; D61.810 Antineoplastic chemotherapy induced pancytopenia; I48.0 Paroxysmal atrial fibrillation; I82.401 Acute embolism and thrombosis of unspecified deep veins of right lower extremity; Z79.01 Long term (current) use of anticoagulants; Z79.899 Other long term (current) drug therapy; M79.604 Pain in right leg; R22.41 Localized swelling, mass and lump, right lower limb; D61.1 Drug-induced aplastic anemia; Z87.19 Personal history of other diseases of the digestive system; M85.80 Other specified disorders of bone density and structure, unspecified site; M81.0 Age-related osteoporosis without current pathological fracture
CPT/HCPCS: 36415; 36591; 51798; 73502; 74177; 76700; 80053; 80162; 81001; 82728; 83520; 83550; 83615; 83735; 84165; 85025; 85027; 85049; 85055; 85610; 85652; 85730; 86140; 86301; 93971; 96366; 96367; 96368; 96372; 96375; 96377; 96411; 96413; 96415; 96417; C8957; G0463; J0461; J0640; J0897; J1100; J1200; J1453; J1642; J2469; J2505; J9190; J9201; J9206; J9263; J9264; Q9963; Q9967

== ENCOUNTER 2020-01-27 17:16 | Inpatient (IN) | payer MEDICARE ==
[~2020-01-27 17:16] MED LIST changes: -ACETAMINOPHEN 650 MG PO PO ONE; -ATROPINE SULF 0.4 MG/ML 1ML VIAL (J0461) IV ONE; -ATROPINE SULFATE 0.25 MG IVP IV ONE; -D5W IV ONE; -DENOSUMAB 60MG/1ML SYRINGE (PROLIA) (J0897 PER 1MG) SC ONE; -FAMOTIDINE 20 MG IV IV ONE; -FLUOROURACIL IV ONE; -FOSAPREPITANT PERIPHERAL LINE 30 MIN INFUSION (PREMIX) IV ONE; -FOSAPREPITANT PERIPHERAL LINE 30 MIN INFUSION IV ONE; -GEMCITABINE IV ONE; -IRINOTECAN HCL IV ONE; -IRINOTECAN HYDROCHLORIDE IV ONE; -LEUCOVORIN CALCIUM IV ONE; -NS IV ONE; -OLANZapine 10 MG PO PO ONE; -OLANZapine 10 MG TAB PO ONE; -OXALIPLATIN IV ONE; -PACLITAXEL PROTEIN BOUND IV ONE; -PALONOSETRON 250 MCG IV IV ONE; -PEGFILGRASTIM 6 MG/0.6ML SYR (NEULASTA) (J2505 PER 6MG) SC ONE; -PEGFILGRASTIM 6MG/0.6ML ONPRO KIT (J2505 PER 6MG) (FOR ONCOLOGY) SC ONE; -SODIUM CHLORIDE 0.9% INJ 10 ML SYR IV PRN; -SODIUM CHLORIDE IV ONE; -[UNRECOGNIZED DRUG - OTHER] IV ONE; -dexameTHASONE 10 MG IV IV ONE; -dexameTHASONE 12 MG IV IV ONE; -diphenhydrAMINE 50 MG IV IV ONE
[2020-01-27] MEDS ORDERED: GASTROGRAFIN SOLUTION 30ML (Q9963) ONE (19:32)
[2020-01-27] MEDS ORDERED: HYDROMORPHONE HCL 0.5 MG/ 0.5 ML SYRINGE (J1170 PER 1) ONE ×2 (19:32→21:38)
[2020-01-27] MEDS ORDERED: ONDANSETRON 4MG/2ML VIAL ONE (19:32)
[2020-01-27] MEDS ORDERED: ONDANSETRON 4MG/2ML VIAL As Ordered ONE (19:32)
[2020-01-27] MEDS ORDERED: HYDROMORPHONE HCL 0.5 MG/ 0.5 ML SYRINGE (J1170 PER 1) As Ordered ONE ×2 (19:33→21:38)
[2020-01-27] MEDS ORDERED: GASTROGRAFIN SOLUTION 30ML (Q9963) As Ordered ONE (19:44)
[2020-01-27] MEDS ORDERED: ISOVUE-370 76% 100ML VIAL As Ordered ONE (21:27)
[2020-01-28] MEDS ORDERED: HYDROMORPHONE HCL 0.5 MG/ 0.5 ML SYRINGE (J1170 PER 1) As Ordered ONE (03:06)
[2020-01-28] MEDS ORDERED: PHENYLEPHRINE 0.25% NASAL SPR 15 ML As Ordered ONE (04:45)
[2020-01-28] MEDS ORDERED: MORPHINE 10MG/0.5ML ORAL CONCENTRATE SOLUTION U/D As Ordered ONE ×2 (04:46→18:26)
[2020-01-28] MEDS ORDERED: zolPIDEM TARTRATE 5 MG TAB As Ordered ONE ×2 (04:47→21:19)
[2020-01-28] MEDS ORDERED: TAMSULOSIN 0.4 MG CAP As Ordered ONE (08:33)
[2020-01-28] MEDS ORDERED: traMADol 50 MG TAB As Ordered ONE (08:33)
[2020-01-28] MEDS ORDERED: LORazepam 0.5 MG TAB As Ordered ONE (08:34)
[2020-01-28] MEDS ORDERED: MORPHINE 30 MG TAB **MSIR As Ordered ONE (13:18)
[2020-01-28] MEDS ORDERED: MORPHINE 2 MG/ML 1ML VIAL (J2270) As Ordered ONE (21:18)
[2020-01-29] MEDS ORDERED: MORPHINE SULFATE ORAL SOLN 10 MG/5 ML UD ONE (05:46)
[2020-01-29] MEDS ORDERED: MORPHINE SULFATE ORAL SOLN 10 MG/5 ML UD As Ordered ONE (05:46)
[2020-01-29] MEDS ORDERED: TAMSULOSIN 0.4 MG CAP As Ordered ONE (10:12)
[2020-01-29] MEDS ORDERED: TAMSULOSIN 0.4 MG CAP ONE (10:12)
[2020-01-29] MEDS ORDERED: MORPHINE 10MG/0.5ML ORAL CONCENTRATE SOLUTION U/D As Ordered ONE (12:49)
[2020-01-29] MEDS ORDERED: MORPHINE 10MG/0.5ML ORAL CONCENTRATE SOLUTION U/D ONE (12:49)
[2020-01-29] MEDS ORDERED: zolPIDEM TARTRATE 5 MG TAB ONE (20:21)
[2020-01-29] MEDS ORDERED: zolPIDEM TARTRATE 5 MG TAB As Ordered ONE (20:21)
[2020-01-29] MEDS ORDERED: LORazepam 0.5 MG TAB As Ordered ONE (20:21)
[2020-01-29] MEDS ORDERED: LORazepam 0.5 MG TAB ONE (20:21)
[2020-01-30] MEDS ORDERED: traMADol 50 MG TAB As Ordered ONE (09:51)
[2020-01-30] MEDS ORDERED: fentaNYL 100 MCG/HR PATCH As Ordered ONE (09:52)
[2020-01-30] MEDS ORDERED: TAMSULOSIN 0.4 MG CAP As Ordered ONE (09:52)
[2020-01-30] MEDS ORDERED: MIRALAX *UNIT DOSE* 17GM PACKET As Ordered ONE (09:52)
[2020-01-30] MEDS ORDERED: MORPHINE 15 MG SA TAB As Ordered ONE (12:03)
[2020-01-30] MEDS ORDERED: DUTASTERIDE 0.5 MG CAP (AVODART) ONE (13:00)
[2020-01-30] MEDS ORDERED: MORPHINE 10MG/0.5ML ORAL CONCENTRATE SOLUTION U/D As Ordered ONE ×2 (13:11→17:59)
[2020-01-30] MEDS ORDERED: LORazepam 0.5 MG TAB As Ordered ONE (20:23)
[2020-01-30] MEDS ORDERED: zolPIDEM TARTRATE 5 MG TAB As Ordered ONE (20:23)
[2020-01-31] MEDS ORDERED: MORPHINE SULFATE ORAL SOLN 10 MG/5 ML UD As Ordered ONE (06:00)
[2020-01-31] MEDS ORDERED: TAMSULOSIN 0.4 MG CAP As Ordered ONE (09:49)
[2020-01-31] MEDS ORDERED: MIRALAX *UNIT DOSE* 17GM PACKET As Ordered ONE (10:00)
[2020-01-31] MEDS ORDERED: MORPHINE 10MG/0.5ML ORAL CONCENTRATE SOLUTION U/D As Ordered ONE (10:01)
[2020-01-31] MEDS ORDERED: zolPIDEM TARTRATE 5 MG TAB As Ordered ONE (20:35)
[2020-02-01] MEDS ORDERED: MORPHINE 10MG/0.5ML ORAL CONCENTRATE SOLUTION U/D As Ordered ONE ×3 (04:44→15:25)
[2020-02-01] MEDS ORDERED: TAMSULOSIN 0.4 MG CAP As Ordered ONE (08:12)
[2020-02-01] MEDS ORDERED: LORazepam 0.5 MG TAB As Ordered ONE ×2 (08:12→22:24)
[2020-02-01] MEDS ORDERED: zolPIDEM TARTRATE 5 MG TAB As Ordered ONE (22:23)
[2020-02-02] MEDS ORDERED: MORPHINE 10MG/0.5ML ORAL CONCENTRATE SOLUTION U/D As Ordered ONE ×4 (05:56→21:47)
[2020-02-02] MEDS ORDERED: fentaNYL 100 MCG/HR PATCH As Ordered ONE (09:54)
[2020-02-02] MEDS ORDERED: TAMSULOSIN 0.4 MG CAP As Ordered ONE (09:54)
[2020-02-02] MEDS ORDERED: SODIUM CHLORIDE NASAL 0.65% SPRAY BTL (OCEAN) ONE (13:00)
[2020-02-02] MEDS ORDERED: DUTASTERIDE 0.5 MG CAP (AVODART) ONE (13:00)
[2020-02-02] MEDS ORDERED: MIRALAX *UNIT DOSE* 17GM PACKET As Ordered ONE (21:49)
[2020-02-02] MEDS ORDERED: zolPIDEM TARTRATE 5 MG TAB As Ordered ONE (21:49)
[2020-02-03] MEDS ORDERED: TAMSULOSIN 0.4 MG CAP As Ordered ONE (08:18)
[2020-02-03] MEDS ORDERED: MORPHINE 10MG/0.5ML ORAL CONCENTRATE SOLUTION U/D As Ordered ONE ×2 (08:18→17:48)
[2020-02-03] MEDS ORDERED: DUTASTERIDE 0.5 MG CAP (AVODART) ONE (13:00)
[2020-02-03] MEDS ORDERED: LORazepam 0.5 MG TAB As Ordered ONE (20:33)
[2020-02-03] MEDS ORDERED: traMADol 50 MG TAB As Ordered ONE (20:33)
[2020-02-03] MEDS ORDERED: zolPIDEM TARTRATE 5 MG TAB As Ordered ONE (20:34)
[2020-02-04] MEDS ORDERED: fentaNYL 100 MCG/HR PATCH ONE (09:46)
[2020-02-04] MEDS ORDERED: traMADol 50 MG TAB ONE (09:46)
[2020-02-04] MEDS ORDERED: LORazepam 0.5 MG TAB ONE (09:46)
[2020-02-04] MEDS ORDERED: TAMSULOSIN 0.4 MG CAP ONE (09:46)
[2020-03-06 08:47] LABS: INR 1.3; PARTIAL THROMBOPLASTIN TIME 35.6 SECONDS (25.0-38.4); PROTHROMBIN TIME 16.4 SECONDS (11.8-14.0)
[2020-03-06 10:17] LABS: BASO % 0.2 % (0.0-1.0); EOS # 0.1 10^3/uL (0.0-0.5); EOS % 0.4 % (0.0-3.0); HEMATOCRIT 31.1 % (42.0-52.0); HEMOGLOBIN 10.2 g/dl (13.5-17.5); LYMPH # 0.5 10^3/uL (1.5-5.0); MEAN CORPUSCULAR HEMOGLOBIN 27.3 pg (27.0-33.0); MEAN CORPUSCULAR HGB CONC 32.8 g/dl (32.0-36.5); MEAN CORPUSCULAR VOLUME 83.4 fl (80.0-96.0); MONO # 1.5 10^3/uL (0.0-0.8); MONO % 11.4 % (0.0-5.0); NEUTROPHILS % 83.5 % (36.0-66.0); PLATELET COUNT, AUTOMATED 162 10^3/uL (150-450); RED BLOOD COUNT 3.73 10^6/uL (4.30-6.10); WHITE BLOOD COUNT 13.2 10^3/uL (4.0-10.0)
[2020-03-07 21:07] LABS: ALBUMIN 3.2 GM/DL (3.2-5.2); ALT/SGPT 132 U/L (12-78); BILIRUBIN,TOTAL 0.9 MG/DL (0.2-1.0); BLOOD UREA NITROGEN 17 MG/DL (7-18); CALCIUM LEVEL 9.3 MG/DL (8.8-10.2); CARBON DIOXIDE LEVEL 26 MEQ/L (21-32); CHLORIDE LEVEL 100 MEQ/L (98-107); CREATININE FOR GFR 0.88 MG/DL (0.70-1.30); GLOMERULAR FILTRATION RATE > 60.0 (>42); GLUCOSE, FASTING 136 MG/DL (70-100); LIPASE 490 U/L (73-393); POTASSIUM SERUM 3.7 MEQ/L (3.5-5.1); SODIUM LEVEL 135 MEQ/L (136-145); TOTAL PROTEIN 6.9 GM/DL (6.4-8.2)
== END 2020-02-04 13:00 | disposition hospice, home (50) | DRG 436 ==
LOC: M ED 17:16 → M MS5PR 01-28 03:45
PROVIDERS: ADMIT Internal Medicine; ATTEND Internal Medicine
DX: C25.9 Malignant neoplasm of pancreas, unspecified (principal); C79.9 Secondary malignant neoplasm of unspecified site; G89.3 Neoplasm related pain (acute) (chronic); Z51.5 Encounter for palliative care; E11.9 Type 2 diabetes mellitus without complications; I10 Essential (primary) hypertension; G47.00 Insomnia, unspecified; Z79.899 Other long term (current) drug therapy; Z66 Do not resuscitate